=== PATIENT | male | born 1955 | race Caucasian/White ===

== ENCOUNTER 2022-01-13 14:52 | Inpatient (IN) ==
[2022-01-13] MEDS ORDERED: Heparin IV Adult Wt-Based Low-Dose *NO* Bolus Protocol IV ONE (15:01)
[2022-01-13 15:20] LABS: Basophils # (auto) 0.02 K/uL (0-0.2); Basophils % (auto) 0.2 %; Eosinophils # (auto) 0.13 K/uL (0-0.5); Eosinophils % (auto) 1.4 %; Hemoglobin 14.6 g/dL (14.0-18.0); Immature Granulocytes # (auto) 0.04 K/uL (0.00-0.02); Immature Granulocytes % (auto) 0.4 %; Lymphocytes # (auto) 1.79 K/uL (1.2-3.4); Mean Corpuscular Hemoglobin 29.1 pg (25-34); Mean Corpuscular Hgb Conc 34.8 g/dL (32-36); Mean Corpuscular Volume 83.7 fL (80-100); Mean Platelet Volume 9.5 fL (7.4-10.4); Monocytes # (auto) 1.13 K/uL (0.11-0.59); Neutrophils # (auto) 6.33 K/uL (1.4-6.5); Platelet Count 298 K/uL (130-400); RDW Coefficient of Variation 12.9 % (11.5-14.5); RDW Standard Deviation 38.7 fL (36.4-46.3); Red Blood Count 5.02 M/uL (4.7-6.1); White Blood Count 9.44 K/uL (4.8-10.8)
--- NOTE | 2022-01-13 15:21 | Emergency Department Note ---
Impression & Plan NSTEMI (non-ST elevated myocardial infarction) ED Provider Note NAME: TRIPP CAGE AGE: 66 SEX: M : 1955 ARRIVES VIA: Ambulance INFORMANT: Patient, ED PROVIDER(S): Yoni Rhoades MD Chief Complaint: Transfer for NSTEMI HPI: Patient presents due to concern for NSTEMI. The patient states that he initially presented to [facility] was having some infectious symptoms and thought that he may have had a pneumonia and was having associated productive cough. Patient states that this is since improved after further work-up and treatment he was told that he might have had an NSTEMI. The patient was pending transfer. Patient currently denies any current chest pains or shortness of breath. The patient has no abdominal pain nausea or vomiting. The patient does relate that he has significant family history of heart disease. Patient denies any leg swelling or history of DVT or PE. Patient does not use any alcohol or tobacco. No drug use. I did receive a request to transfer for the patient listed above. The patient had been admitted to [facility] on January 11 and was pending transfer to [facility] but the patient has been boarding in the emergency department for the last 2 days due to concern for NSTEMI with a rising troponin. No active chest pain or EKG changes to from the transferring emergency physician in [place]. Patient had received Lipitor aspirin heparin and Plavix at the time of his admission on January 11. The patient did receive a Plavix load of 300. Patient's vital signs at the time of acceptance were heart rate of 73 satting at 92% on room air with a blood pressure of 142/76. Patient's primary care doctor is Dr. Chapman. Dr. Jovani blanco as the transferring physician. Patient also did receive a heparin bolus at the time of admission. Blood work on January 13 showed a white count of 8 with a hemoglobin of 14 hematocrit of 44 and a platelet count of 253. The patient's calcium was 8.5 with a glucose of 106 and creatinine of 1.1. BUN was 18. Patient's high-sensitivity troponin was 862. Test was negative. Patient has a known history of hypertension and hypothyroidism only on lisinopril and Synthroid prior to his arrival at [facility]. I did conf irm that they would continue heparin en route. ROS: See HPI for pertinent positives and negatives. A total of 10 systems were reviewed and otherwise negative. Past medical history: See below Surgical history: See below Social history: See below Physical Exam: GENERAL: NAD, wearing a mask, non-toxic. EYE EXAM: Normal conjunctiva. PERRL, no anisocoria and EOM's grossly intact w/o pain. OROPHARYNX: Moist mucus membranes. Grossly normal dentition. NECK: Supple, no nuchal rigidity, no adenopathy, non-tender. No signs of meningismus. LUNGS: Clear to auscultation. Normal chest wall mechanics. HEART: NSR, no MRG. ABDOMEN: Abdomen soft, non-tender, normo-active bowel sounds, no masses, no rebound or guarding. BACK: No CVA TTP. SKIN: No rashes and no bruising. UPPER EXTREMITIES: Upper extremities are grossly normal. LOWER EXTREMITIES: Grossly normal, no edema. Negative Homans' sign bilaterally. NEURO EXAM: A&O x3, cranial nerves II-XII grossly intact, normal speech, moves all 4 extremities on command w/o issue. Differential diagnoses: Cardiac ischemia, aortic dissection, pulmonary embolism, pneumothorax, pneumonia, pericarditis, myocarditis, esophageal rupture, GERD, cholecystitis, pancreatitis, musculoskeletal, as well as other pathologies. Course: Patient was seen and evaluated the bedside. Full history physical exam was performed. EKG interpreted by me Normal sinus rhythm, rate of 62, normal intervals, left axis deviation, T wave version aVL. No obvious ST elevations Imaging Studies: See Below Cardiac monitoring: An order was placed for continuous cardiac monitoring. The monitor shows a rate of 65 with sinus rhythm. MDM: Patient was seen as a transfer as there was concern that the patient may require cardiac catheterization but had been on a wait list at [facility] but there was a bed hold and the patient had been in the ED hold at [place] for the last 2 days. I had initially spoken with on-call interventional list Dr. Quiroz who stated that if the patient did require an emergent cath it could be done. Upon presentation to the emergency department the patient has no active chest pain. Blood work was obtained along with an EKG troponin and chest x-ray. COVID test also obtained. Heparin ordered as well. Patient is a normal white count H&H and platelet count. The patient's kidney function is unremarkable. High-sensit ivity troponin is 286. This is a downtrend from his troponin elevation at [facility]. I did speak with the on-call digital strategist senior manager Dr. Coleman to make him aware and he stated patient would need to be n.p.o. at midline. I did make Dr. Quiroz aware the patient will be admitted to the medicine service with the patient had no active STEMI changes on EKG and was not complaining any chest pain. I did speak to the on-call hospitalist Dr. Soto and the patient was admitted to the medicine service. Critical Care: I have personally spent 45 minutes of critical care time in direct management of this patient. This includes bedside care, interpretation of diagnostic studies, and testing, discussion with consultants, patient, and family members, and other require inpatient management activities. This 45 minutes is in excess of all separately billable procedures. Past Med/Surg History Medical History H/O: HTN (hypertension) Hypothyroid Surgical History H/O hernia repair Family History Other Coronary heart disease Social History Smoking Status: Never smoker Hx Alcohol Use: No Preferred Language: Italian Communication Ability: Effective Delivery And Mail Sorter Required: No Beliefs That Will Affect Care: None Current Living Situation: Spouse Feels Safe at Home: Yes Safety Concerns: Feels Safe At This Time Assistive Devices: None Allergies Allergies Allergy/AdvReac Type Severity Reaction Status Date / Time amoxicillin Allergy Mild Gastrointestinal Unverified 01/13/22 15:22 Upset Home Meds Home Medications Medication Instructions Recorded Confirmed levothyroxine 50 mcg tablet 0 mcg PO QAM 01/13/22 01/13/22 lisinopril 2.5 mg tablet 2.5 mg PO QAM 01/13/22 01/13/22 Results & Data (ED) Vital Signs Vital Signs - 24 hr 01/13/22 14:56 01/13/22 15:09 01/13/22 15:12 Temperature 36.7 C Temperature Source Oral Pulse Rate 67 63 Pulse Rate from SpO2 Sensor 63 Respiratory Rate 16 15 Blood Pressure 157/101 H Blood Pressure Mean 119 Pulse Oximetry 97 97 97 Oxygen Delivery Method Room Air Room Air Sepsis Recent Fever Within 48 Hours No Sepsis New/Unexplained Change in Mental Status N/A Sepsis Action Taken by Nursing No Action Required 01/13/22 15:20 01/13/22 15:30 01/13/22 15:40 Temperature Temperature Source Pulse Rate 63 65 61 Pulse Rate from SpO2 Sensor 63 64 61 Respiratory Rate 18 20 24 Blood Pressure Blood Pressure Mean Pulse Oximetry 96 97 97 Oxygen Delivery Method Sepsis Recent Fever Within 48 Hours Sepsis New/Unexplained Change in Mental Status Sepsis Action Taken by Nursing 01/13/22 15:50 01/13/22 16:13 Temperature Temperature Source Pulse Rate 61 62 Pulse Rate from SpO2 Sensor 61 62 Respiratory Rate 11 L 15 Blood Pressure 152/97 H Blood Pressure Mean 115 Pulse Oximetry 97 96 Oxygen Delivery Method Sepsis Recent Fever Within 48 Hours Sepsis New/Unexplained Change in Mental Status Sepsis Action Taken by Care Home Medications Current Medication List: was personally reviewed by me Laboratory Data Attestation: I reviewed the patient's lab results. Result diagrams: 01/13/22 14:55 01/13/22 14:55 Lab Results 01/13/22 01/13/22 01/13/22 Range/Units 14:55 14:55 14:55 WBC 9.44 (4.8-10.8) K/uL RBC 5.02 (4.7-6.1) M/uL Hgb 14.6 (14.0-18.0) g/dL Hct 42.0 (42-52) % MCV 83.7 (80-100) fL MCH 29.1 (25-34) pg MCHC 34.8 (32-36) g/dL RDW Std Deviation 38.7 (36.4-46.3) fL RDW Coeff of Sarmad 12.9 (11.5-14.5) % Plt Count 298 (130-400) K/uL MPV 9.5 (7.4-10.4) fL Immature Gran % (Auto) 0.4 % Neut % (Auto) 67.0 % Lymph % (Auto) 19.0 % Meagher % (Auto) 12.0 % Eos % (Auto) 1.4 % Baso % (Auto) 0.2 % Neut # (Auto) 6.33 (1.4-6.5) K/uL Lymph # (Auto) 1.79 (1.2-3.4) K/uL Meagher # (Auto) 1.13 H (0.11-0.59) K/uL Eos # (Auto) 0.13 (0-0.5) K/uL Baso # (Auto) 0.02 (0-0.2) K/uL Immature Gran # (Auto) 0.04 H (0.00-0.02) K/uL PT 11.4 (9.0-12.0) Seconds INR 1.1 (0.9-1.1) APTT 54.6 H* (21.0-31.0) Seconds PTT Ratio 2.0 Sodium (136-145) mmol/L Potassium (3.5-5.1) mmol/L Chloride (98-107) mmol/L Carbon Dioxide (21-32) mmol/L Anion Gap (3-11) BUN (6-23) mg/dl Creatinine (0.6-1.4) mg/dl Est Cr Clr Drug Dosing ml/min Est GFR ( Amer) ml/min Est GFR (Non-Af Amer) ml/min BUN/Creatinine Ratio (10-20) Glucose (70-99(Fasting)) mg/dl Calcium (8.5-10.1) mg/dl Total Bilirubin (0.2-1.0) mg/dl AST (13-39) U/L ALT (7-52) U/L Alkaline Phosphatase (34-104) U/L Troponin I High Sens 286.7 H* (0-20) pg/ml Total Protein (6.0-8.3) gm/dl Albumin (3.4-5.0) gm/dl Globulin (2.5-4.0) gm/dl Albumin/Globulin Ratio (0.9-2) Lipase (11-82) U/L 01/13/22 Range/Units 14:55 WBC (4.8-10.8) K/uL RBC (4.7-6.1) M/uL Hgb (14.0-18.0) g/dL Hct (42-52) % MCV (80-100) fL MCH (25-34) pg MCHC (32-36) g/dL RDW Std Deviation (36.4-46.3) fL RDW Coeff of Sarmad (11.5-14.5) % Plt Count (130-400) K/uL MPV (7.4-10.4) fL Immature Gran % (Auto) % Neut % (Auto) % Lymph % (Auto) % Meagher % (Auto) % Eos % (Auto) % Baso % (Auto) % Neut # (Auto) (1.4-6.5) K/uL Lymph # (Auto) (1.2-3.4) K/uL Meagher # (Auto) (0.11-0.59) K/uL Eos # (Auto) (0-0.5) K/uL Baso # (Auto) (0-0.2) K/uL Immature Gran # (Auto) (0.00-0.02) K/uL PT (9.0-12.0) Seconds INR (0.9-1.1) APTT (21.0-31.0) Seconds PTT Ratio Sodium 136 (136-145) mmol/L Potassium 3.8 (3.5-5.1) mmol/L Chloride 104 (98-107) mmol/L Carbon Dioxide 23 (21-32) mmol/L Anion Gap 9 (3-11) BUN 14 (6-23) mg/dl Creatinine 0.99 (0.6-1.4) mg/dl Est Cr Clr Drug Dosing 78.2 ml/min Est GFR ( Amer) 91.6 ml/min Est GFR (Non-Af Amer) 79.0 ml/min BUN/Creatinine Ratio 14.1 (10-20) Glucose 97 (70-99(Fasting)) mg/dl Calcium 9.0 (8.5-10.1) mg/dl Total Bilirubin 0.4 (0.2-1.0) mg/dl AST 22 (13-39) U/L ALT 21 (7-52) U/L Alkaline Phosphatase 65 (34-104) U/L Troponin I High Sens (0-20) pg/ml Total Protein 6.7 (6.0-8.3) gm/dl Albumin 4.0 (3.4-5.0) gm/dl Globulin 2.7 (2.5-4.0) gm/dl Albumin/Globulin Ratio 1.5 (0.9-2) Lipase 88 H (11-82) U/L Administered Medications Heparin Sodium/Dextrose (Heparin Sodium/Dextrose) 25,000 units in 500 mls @ 19 mls/hr IV .Q24H REMBERTO; Protocol Stop: 02/12/22 15:29 Last Titration: 01/13/22 19:09 Dose: 950 units/hr, 19 mls/hr Documented by: [id number] Cosigned by: [id number] Admin: 01/13/22 16:03 Dose: 950 units/hr, 19 mls/hr Documented by: [id number] Cosigned by: [id number] Magnesium Hydroxide (Magnesium Hydroxide Susp 30 Ml Udc) 30 ml PO Q12H REMBERTO Stop: 01/15/22 05:01 Last Admin: 01/13/22 18:26 Dose: 30 ml Documented by: [id number] Imaging Data Radiologist's Impression: Chest X-Ray 01/13/22 15:00 XR chest 1V portable HISTORY: Atypical Chest Pain COMPARISON: None. FINDINGS: The cardiac silhouette is top normal in size. This mildly tortuous thoracic aorta. The lungs are clear. No pleural fusions. No pneumothorax. IMPRESSION: No acute process. ACT 112: Negative or not required by law. Electronically signed by: Russel Lares M.D. 01/13/2022 3:31 PM Discharge Plan Visit Data Chief Complaint: Chest Pain Stated Complaint: transfer [facility] ED Provider: Yoni Rhoades Discharge Problem: NSTEMI (non-ST elevated myocardial infarction) Patient Disposition: Admitted As Inpatient Discharge Instructions Interventions: ED Discharge Assessment Last Done: 01/13/22 17:18
[2022-01-13] MEDS ORDERED: Patient's ALLERGY Info needs ENTERED SCH (15:30)
[2022-01-13] MEDS ORDERED: Heparin IV Adult Wt-Based Low-Dose *NO* Bolus Protocol IV SCH (15:30)
--- NOTE | 2022-01-13 15:34 | XRay Report ---
XR chest 1V portable HISTORY: Atypical Chest Pain COMPARISON: None. FINDINGS: The cardiac silhouette is top normal in size. This mildly tortuous thoracic aorta. The lung s are clear. No pleural fusions. No pneumothorax. IMPRESSION: No acute process. ACT 112: Negative or not required by law. Electronically signed by: Russel Lares M.D. 01/13/2022 3:31 PM
[2022-01-13 15:47] LABS: INR 1.1 (0.9-1.1); Prothrombin Time 11.4 Seconds (9.0-12.0)
[2022-01-13 15:48] LABS: Albumin Globulin Ratio 1.5 (0.9-2); BUN Creatinine Ratio 14.1 (10-20); Bilirubin,Total 0.4 mg/dl (0.2-1.0); Creatinine Clr Calc Pharmacy 78.2 ml/min; Est GFR (African American) 91.6 ml/min; Globulin 2.7 gm/dl (2.5-4.0); Potassium 3.8 mmol/L (3.5-5.1); Total Protein 6.7 gm/dl (6.0-8.3)
[2022-01-13 16:00] LABS: Partial Thromboplastin Time 54.6 Seconds (21.0-31.0)
[2022-01-13] MEDS: HEPARIN SODIUM/DEXTROSE 25,000 UNITS/500 ML BAG IV SCH (16:03)
[2022-01-13] MEDS ORDERED: NITROGLYCERIN SL 0.4 MG/TAB TAB SL PRN (16:50)
[2022-01-13] MEDS ORDERED: ONDANSETRON INJ 2 MG/ML 2 ML VIAL IV PRN (16:50)
[2022-01-13] MEDS ORDERED: ACETAMINOPHEN 325 MG TAB PO PRN (16:50)
[2022-01-13] MEDS ORDERED: POLYETHYLENE (MIRALAX) 17 GM PACK PO PRN (16:50)
--- NOTE | 2022-01-13 17:11 | History & Physical Report ---
Date of Service January 13, 2022 Assessment & Plan (1) NSTEMI (non-ST elevated myocardial infarction): Plan: #. NSTEMI Patient transferred from [facility] [see HPI] Patient denies further chest pain since Friday Admitting troponin of 286.7, admitting EKG NSR with 62 bpm, no ST elevation. Patient has some nausea, received full dose aspirin at [facility], will continue with baby aspirin Continue with heparin drip, cardiology aware per ED Doc, likely heart cath tomorrow, n.p.o. midnight. Trend troponin, EKG as needed for chest pain, EKG in AM. Telemetry monitoring. Nitro for chest pain as needed. #. Other chronic medical conditions: HTN, hypothyroidism Continue with/resume home meds as and when appropriate. #. DVT prophylaxis: Patient on heparin drip #. Full code History of Present Illness Chief Complaint: Chest pain/NSTEMI Primary Care Provider: Harpreet Chapman MD 66-year-old gentleman with PMH of HTN, HLD, hypothyroidism, JEM, cervical DDD and hemorrhoids presented to our ED 01/13 from [facility] for heart cath for NSTEMI. Per patient, he had chest pain across the chest last Friday while at work, which improved later on and he went home slept couple of hours and woke up with similar chest pain again when he decided to go to [facility]. At [facility], he was found to have elevated troponin with no ST elevation in EKG and was told he needed heart cath and was awaiting transfer for [facility] but did not get a bed and hence was transferred to our hospital. At bedside exam, was present. Patient denied any further chest pain since Friday, reports some headache with neck arthritis, denies dizziness or sore throat or palpitation, reports cough at baseline, also reports some nausea, denies any acute changes in bladder habits. Patient reports constipation, last bowel movement Friday a.m. Patient denies any history of heart attack or VA or stent in the heart in the past. No personal history of blood clot. Family history significant for stroke in mother in 80s and heart attack in father at age 55. Patient also reports his 2 elder brothers having some heart problem [one of them had VA in his 70s]. Patient denies smoking tobacco/using alcohol/using recreational drugs. 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 Allergies Allergy/AdvReac Type Severity Reaction Status Date / Time amoxicillin Allergy Mild Gastrointestinal Unverified 01/13/22 15:22 Upset Home Medications Medication Instructions Recorded Confirmed Type levothyroxine 50 mcg tablet 0 mcg PO QAM 01/13/22 01/13/22 History lisinopril 2.5 mg tablet 2.5 mg PO QAM 01/13/22 01/13/22 History Past Med/Surg History Social History Smoking Status: Never smoker Preferred Language: Setswana Feels Safe at Home: Yes Review of Systems Review of Systems: Negative otherwise mentioned in HPI. Physical Exam Physical Exam: GENERAL: Alert and oriented x3. NAD, on RA. HEENT: No pallor, no icterus. Pupils equal, round and reactive to light. Oral mucosa moist. NECK: No JVD, no neck masses. HEART: S1 and S2 heard. Regular rate and rhythm. No murmur, no gallop. RESPIRATORY SYSTEM: Normal AP diameter. No accessory muscle use. No wheezing, no crackles. ABDOMEN: Soft, bowel sounds present, nontender, no distention. CENTRAL NERVOUS SYSTEM: No facial droop. Speech is clear. Obeys simple commands. Moves extremities. EXTREMITIES: No edema, no erythema seen. Heparin drip by bedside, pt receiving drip. Results & Data Results & Data ([facility]) Vital Signs (Past 12 Hours) Vital Signs Temp Pulse Resp BP Pulse Ox 01/13/22 16:13 62 15 152/97 H 96 01/13/22 15:50 61 11 L 97 01/13/22 15:40 61 24 97 01/13/22 15:30 65 20 97 01/13/22 15:20 63 18 96 01/13/22 15:12 63 15 97 01/13/22 15:09 36.7 C 67 16 157/101 H 97 01/13/22 14:56 97 Code Status & VTE Plan VTE Prophylaxis Plan VTE Prophylaxis will be ordered: No
[2022-01-13] MEDS: MAGNESIUM HYDROXIDE SUSP 30 ML UDC PO SCH (18:26)
[2022-01-13 21:00] LABS: Partial Thromboplastin Ratio 1.5; Partial Thromboplastin Time 42.2 Seconds (21.0-31.0)
[2022-01-14 03:29] LABS: Hematocrit (blood only) 40.7 % (42-52); Hemoglobin 14.1 g/dL (14.0-18.0); Mean Corpuscular Hemoglobin 29.3 pg (25-34); Mean Corpuscular Hgb Conc 34.6 g/dL (32-36); Mean Corpuscular Volume 84.6 fL (80-100); Mean Platelet Volume 9.2 fL (7.4-10.4); Platelet Count 271 K/uL (130-400); RDW Coefficient of Variation 12.9 % (11.5-14.5); RDW Standard Deviation 39.9 fL (36.4-46.3); Red Blood Count 4.81 M/uL (4.7-6.1); White Blood Count 8.08 K/uL (4.8-10.8)
[2022-01-14 03:53] LABS: BUN Creatinine Ratio 15.4 (10-20); Calcium 8.9 mg/dl (8.5-10.1); Creatinine Clr Calc Pharmacy 74.4 ml/min; Est GFR (African American) 86.3 ml/min; Est GFR (Non-African American) 74.5 ml/min; Magnesium 2.2 mg/dl (1.7-2.4); Phosphorus 2.5 mg/dl (2.5-4.9); Potassium 4.1 mmol/L (3.5-5.1)
[2022-01-14 03:55] LABS: Partial Thromboplastin Ratio 2.2; Partial Thromboplastin Time 61.5 Seconds (21.0-31.0)
[2022-01-14] MEDS: MAGNESIUM HYDROXIDE SUSP 30 ML UDC PO SCH ×2 (04:41→16:41)
[2022-01-14] MEDS ORDERED: PNEUMOCOCCAL Polysaccharide Vaccine 25mcg/0.5mL vial/Syr IM ONE (05:45)
[2022-01-14] MEDS ORDERED: LEVOTHYROXINE SODIUM 100 MCG TABLET PO SCH ×2 (06:30→09:00)
[2022-01-14] MEDS ORDERED: ASPIRIN 81 MG ECTAB PO SCH (09:00)
[2022-01-14] MEDS ORDERED: lisinopril 2.5 MG TAB PO SCH (09:00)
--- NOTE | 2022-01-14 09:18 | Student Report ---
[facility] Med Student Consult Date of Consultation Date of Consultation: January 14, 2022 HPI History of Present Illness: Mr. Zepeda is a very pleasant 66 yo man with a pmh of HTN and HLD presenting with elevated troponin following episode of chest pain 3 days previous. Three days ago (01/11/22) pt reports having walked approximately 1/2 mile at work and experience chest pain and increased fatigue. He finished out his work day and went home and went to bed. The chest pain continued and was convinced to go to ER in [place] assuming he had developed pneumonia from some previous congestion. Upon arrival he was found to have an elevated trop and was started on heparin drip awaiting transfer to [facility]. Due to lack of space in [place], after 2 days pt was transferred here. The heparin drip was discontinued and he has been continuing with aspirin therapy. He has a family history of Father with an [place] at age 55 and brothers with various heart conditions including x3 CABG. Today, pt reports no chest pain or shortness of breath. Has not required any nitroglycerin therapy He denies any lower extremity swelling or cough. He has had some nausea which he believes to be secondary to constipation, since he has no passed a bowel movement since Friday. He is hoping to be able to walk around a little bit more today. Patient History Patient History: See below ROS Review of Systems: Denies fever, chest pain, SOB, dizziness, headache, LOC, vomiting, increased urination, dysuria, lower leg edema. Endorses constipation and nausea. PE Physical Exam: Pt was lying comfortably in bed. Oriented x3. Head: Intact EOM Cardio: RRR with no RMG appreciated on exam, No lower extremity edema Pulm: CTA, no labored breathing GI: Diffuse mild tenderness, non distended. Results & Data Results and Data: Troponin: 381.7 this morning EKG: Bradycardic, no ST changes. AP Assessment and Plan: Mr. Zepeda is a 66 yo man with a history of HTN presenting with NSTEMI 3 days post onset of chest pain. 1) NSTEMI Currently pain controlled and hemodynamically stable being treated with aspirin. JACOB score of 4 resulting in 20% risk of event. His KEVIN score is 85 points designating him low risk for in-hospital mortality. Not being treated with beta karen due to bradycardia. Previous negative reaction anti-lipidemia therapy-intense sensation in fever and malaise. Catheterization to be completed for evaluation of blockage. Echo will also need to be scheduled for evaluation of any structural abnormalities. Diet: NPO Dispo: Telemtry Anticoag: Aspirin Home Medications Medication Instructions Recorded Confirmed Type levothyroxine 50 mcg tablet 0 mcg PO QAM 01/13/22 01/13/22 History lisinopril 2.5 mg tablet 2.5 mg PO QAM 01/13/22 01/13/22 History Allergies Allergy/AdvReac Type Severity Reaction Status Date / Time amoxicillin Allergy Mild Gastrointestinal Unverified 01/13/22 15:22 Upset
[2022-01-14 10:05] LABS: Chol HDL Ratio 4.6 (0-5)
[2022-01-14] MEDS ORDERED: amLODIPine BESYLATE 5 MG TAB PO ONE (10:06)
--- NOTE | 2022-01-14 10:11 | Cardiology Consultation ---
Date of Consultation January 14, 2022 Assessment & Plan (1) NSTEMI (non-ST elevated myocardial infarction): (2) H/O: HTN (hypertension): 66-year-old male transferred from [facility] for reported non- STEMI. Currently pain-free. No ischemic EKG changes but rather bradycardic. We will check a 2D echocardiogram now and plan for cardiac catheterization. Blood pressure significant elevated at this time so we will add amlodipine x1 and follow. Given the need for contrast dye we will try to avoid increasing REGINA at this time Further recommendations to follow History of Present Illness Reason for Consultation: Non-STEMI Requesting Physician: Dr. Rhoades Attending Physician: Mehnaz Vaughn MD Allergies Allergy/AdvReac Type Severity Reaction Status Date / Time amoxicillin Allergy Mild Gastrointestinal Unverified 01/13/22 15: Upset Home Medications Medication Instructions Recorded Confirmed Type levothyroxine 50 mcg tablet 0 mcg PO QAM 01/13/22 01/13/22 History lisinopril 2.5 mg tablet 2.5 mg PO QAM 01/13/22 01/13/22 History Patient History Medical History H/O: HTN (hypertension) Hypothyroid Surgical History H/O hernia repair Family History Other Coronary heart disease Social History Smoking Status: Never smoker Hx Alcohol Use: No Preferred Language: Singaporean Communication Ability: Effective Agricultural Specialist Required: No Beliefs That Will Affect Care: None Current Living Situation: Spouse Feels Safe at Home: Yes Safety Concerns: Feels Safe At This Time Assistive Devices: None Review of Systems Review of Systems: All systems reviewed & are unremarkable except as noted in HPI & below Results & Data ([facility]) Vital Signs (Past 12 Hours) Vital Signs Temp Pulse Pulse Resp BP Pulse Ox 01/14/22 07:35 50 L 01/14/22 07:00 36.5 C 61 18 178/98 H 97 01/14/22 03:29 36.5 C 55 L 18 158/90 H 98 01/13/22 23:36 59 L 01/13/22 23:18 36.5 C 55 L 18 160/87 H 98
[2022-01-14 10:16] LABS: Estimated Average Glucose 120 mg/dl; Hemoglobin A1C 5.8 % (4.5-5.6)
--- NOTE | 2022-01-14 11:18 | Hospitalist Progress Note ---
Date of Service January 14, 2022 Assessment & Plan (1) NSTEMI (non-ST elevated myocardial infarction): Plan: #. NSTEMI Patient was transferred from [facility] where he presented for chest pain and noted to have NSTEMI Currently chest jens free Admitting troponin HS of 286.7, admitting EKG NSR with 62 bpm, no ST elevation. Trop HS trended up to 382 Patient received full dose aspirin at [facility] Continue ASA 81mg Continue with heparin drip Discussed with Marine Structural Designer today Patient planned for Cardiac catheterization today #. Hypertension Continue lisinopril Monitor BP. May need adjustments to med #. Hypothyroidism Continue home levothyroxine #. DVT prophylaxis: Patient on heparin drip #. Full code Admission and Anticipated Discharge Date Admission Date: January 13, 2022 Subjective Patient seen and examined Denied chest pain at this time Denies shortness of breath. Reports cough occasionally productive Denies fevers, chills, nausea, vomiting, abd pain, diarrhea, constipation Denies dysuria, freq, urgency, hematuria Physical Exam Constitutional: + well hydrated; no acute distress Eyes: PERRL, conjunctivae normal, anicteric sclerae ENMT: external ear and nose normal, oropharynx normal Respiratory: normal respiratory effort, lungs clear to auscultation Cardiovascular: Rate/Rhythm: regular rate and regular rhythm S1 S2 Gastrointestinal (Abdomen): normal bowel sounds, soft, nontender, no hepatosplenomegaly Musculoskeletal: no cyanosis or clubbing, extremities motor strength 5/5 No pedal edema Neurologic: PERRL, EOMI, accommodation nl, no face palsy, no dysarthria Psychiatric: A+Ox3, euthymic affect Results & Data Results & Data ([facility]) Vital Signs (Past 12 Hours) Vital Signs Temp Pulse Pulse Resp BP Pulse Ox 01/14/22 07:35 50 L 01/14/22 07:00 36.5 C 61 18 178/98 H 97 01/14/22 03:29 36.5 C 55 L 18 158/90 H 98 01/13/22 23:36 59 L Laboratory Results Abnormal lab results 01/13/22 01/13/22 01/13/22 Range/Units 14:55 14:55 14:55 Hct (42-52) % [place] # (Auto) 1.13 H (0.11-0.59) K/uL Immature Gran # (Auto) 0.04 H (0.00-0.02) K/uL APTT 54.6 H* (21.0-31.0) Seconds Hemoglobin A1c (4.5-5.6) % Troponin I High Sens 286.7 H* (0-20) pg/ml Lipase (11-82) U/L 01/13/22 01/13/22 01/13/22 Range/Units 14:55 20:40 20:40 Hct (42-52) % [place] # (Auto) (0.11-0.59) K/uL Immature Gran # (Auto) (0.00-0.02) K/uL APTT 42.2 H (21.0-31.0) Seconds Hemoglobin A1c (4.5-5.6) % Troponin I High Sens 382.7 H* D (0-20) pg/ml Lipase 88 H (11-82) U/L 01/14/22 01/14/22 01/14/22 Range/Units 03:19 03:19 03:19 Hct 40.7 L (42-52) % [place] # (Auto) (0.11-0.59) K/uL Immature Gran # (Auto) (0.00-0.02) K/uL APTT 61.5 H* (21.0-31.0) Seconds Hemoglobin A1c (4.5-5.6) % Troponin I High Sens 381.7 H* (0-20) pg/ml Lipase (11-82) U/L 01/14/22 Range/Units 03:19 Hct (42-52) % [place] # (Auto) (0.11-0.59) K/uL Immature Gran # (Auto) (0.00-0.02) K/uL APTT (21.0-31.0) Seconds Hemoglobin A1c 5.8 H (4.5-5.6) % Troponin I High Sens (0-20) pg/ml Lipase (11-82) U/L
--- NOTE | 2022-01-14 11:26 | Electrocardiogram Report ---
Test Reason : Blood Pressure : / mmHG Vent. Rate : 062 BPM Atrial Rate : 062 BPM P-R Int : 188 ms QRS Dur : 094 ms QT Int : 410 ms P-R-T Axes : 013 -32 091 degrees QTc Int : 416 ms Normal sinus rhythm Left axis deviation Abnormal ECG No previous ECGs available Confirmed by Christiano Leyva ([id number]) on 01/14/2022 11:25:32 AM Referred By: Confirmed By:Dewayne Leyva
--- NOTE | 2022-01-14 13:03 | Electrocardiogram Report ---
Test Reason : Blood Pressure : / mmHG Vent. Rate : 056 BPM Atrial Rate : 056 BPM P-R Int : 182 ms QRS Dur : 100 ms QT Int : 462 ms P-R-T Axes : 003 -20 089 degrees QTc Int : 445 ms Sinus bradycardia Otherwise normal ECG When compared with ECG of 13-JAN-2022 15:02, (unconfirmed) No significant change was found Confirmed by Christiano Leyva ([id number]) on 01/14/2022 1:03:28 PM Referred By: REFERRED SELF Confirmed By:Dewayne Leyva
[2022-01-14] MEDS ORDERED: niCARdipine HCL INJ 2.5 MG/ML 10 ML AMP ONE (14:57)
[2022-01-14] MEDS ORDERED: HEPARIN (PORCINE) 1000 UNIT/ML 10 ML (CATH LAB USE ONLY) ONE (14:57)
[2022-01-14] MEDS ORDERED: NITROGLYCERIN/D5W 100MCG/ML 20ML SYR ONE (14:58)
[2022-01-14] MEDS ORDERED: MIDAZOLAM HCL 1 MG/ML 2ML VIAL ONE (14:58)
[2022-01-14] MEDS ORDERED: fentaNYL citrate 100 MCG/2 ML VIAL ONE (14:58)
--- NOTE | 2022-01-14 15:01 | Pre Anesthesia Assessment ---
Date of Service January 14, 2022 Pre Sedation Assessment Vital Signs Temp Pulse Pulse Pulse Resp BP BP 01/14/22 14:25 63 172/108 H 01/14/22 11:35 97.9 F 61 16 146/86 H 01/14/22 07:35 50 L 01/14/22 07:00 97.7 F 61 18 178/98 H 01/14/22 03:29 97.7 F 55 L 18 158/90 H 01/13/22 23:36 59 L 01/13/22 23:18 97.7 F 55 L 18 160/87 H 01/13/22 20:04 97.9 F 60 18 145/83 H 01/13/22 17:47 98.1 F 62 18 156/95 H 01/13/22 16:13 62 15 152/97 H 01/13/22 15:50 61 11 L 01/13/22 15:40 61 24 01/13/22 15:30 65 20 01/13/22 15:20 63 18 01/13/22 15:12 63 15 01/13/22 15:09 98.1 F 67 16 157/101 H Pulse Ox 01/14/22 14:25 96 01/14/22 11:35 98 01/14/22 07:35 01/14/22 07:00 97 01/14/22 03:29 98 01/13/22 23:36 01/13/22 23:18 98 01/13/22 20:04 96 01/13/22 17:47 98 01/13/22 16:13 96 01/13/22 15:50 97 01/13/22 15:40 97 01/13/22 15:30 97 01/13/22 15:20 96 01/13/22 15:12 97 01/13/22 15:09 97 Cardiovascular RRR, no murmur, no edema Respiratory normal respiratory effort, lungs clear to auscultation Pre-Sedation Airway Assessment Smoking Status: Never smoker Hx Sleep Apnea: Yes Hx Difficult Intubation: No Short, Thick Neck: Yes Thyromental Distance: > or= 3.5 Finger Breadths Oral Cavity: + WNL Mallampati Class: III ASA: ASA3 NPO Status Date of Last Intake of Fluids: 01/14/22 Time of Last Intake of Fluids: 07:30 Date of Last Intake of Solid Food: 01/13/22 Procedure Planning Contraindications for Sedation: none Current Medications Reviewed: Yes Notes The planned sedation has been discussed with the patient. Informed Consent was obtained. I have identified the patient, determined the appropriateness of sedation and have assessed the patient immediately prior to the procedure. All medicine(s) and interventions are by my order.
--- NOTE | 2022-01-14 15:46 | Post Anesthesia Assessment ---
Date of Service January 14, 2022 Post Sedation Assessment Vital Signs Temp Pulse Pulse Pulse Resp BP BP 01/14/22 14:25 63 172/108 H 01/14/22 11:35 97.9 F 61 16 146/86 H 01/14/22 07:35 50 L 01/14/22 07:00 97.7 F 61 18 178/98 H 01/14/22 03:29 97.7 F 55 L 18 158/90 H 01/13/22 23:36 59 L 01/13/22 23:18 97.7 F 55 L 18 160/87 H 01/13/22 20:04 97.9 F 60 18 145/83 H 01/13/22 17:47 98.1 F 62 18 156/95 H 01/13/22 16:13 62 15 152/97 H 01/13/22 15:50 61 11 L Pulse Ox 01/14/22 14:25 96 01/14/22 11:35 98 01/14/22 07:35 01/14/22 07:00 97 01/14/22 03:29 98 01/13/22 23:36 01/13/22 23:18 98 01/13/22 20:04 96 01/13/22 17:47 98 01/13/22 16:13 96 01/13/22 15:50 97 Recovery Score Activity: Moves 4 extremities Respiration: Deep Breath/Cough Circulation: +/-20% PreAnes Value Consciousness: Fully Awake Oxygen Saturation: O2 needed for >90% Discharge Sedation Level of Care: Fast Track Phase II Post Sedation Plan On clinical assessment, the patient appears to have tolerated the sedation without complications. Patient is recovering as anticipated. Patient will continue to be monitored by nursing and may be discharged when sedation discharge criteria are met per below protocol. Upon Completions of procedure up to 15 minutes continue every 5 minute vital signs and the P.A.R. score; then discharge to a Phase I or Fast Track to Phase II per the following guidelines: * Discharge Patient to appropriate Phase II area if PAR is 8 or greater or return to pre- procedure baseline. The post - procedure orders will be as directed. * If PAR score is less than 8 or not return to pre-procedure baseline then patient will follow Phase I monitoring till PAR is reached for Phase II. The Phase I may be done in procedure room or may call to secure a Phase I area. * If naloxone or flumazenil are used for reversal, hold in Phase I for continued monitoring from when last reversal dose was given for a minimum of 60 minutes or longer pending the nurse and/or physician discretion of patient condition before discharge to Phase II. Please call the Sedation Physician to re-evaluate and complete post-note for discharge to Phase II area. Do NOT discharge from procedure sedation or Phase 1 until post- sedation evaluation note is complete by procedure /sedation MD Sedation Discharge Instructions to be given to the patient at discharge to home.
--- NOTE | 2022-01-14 15:54 | Cardiac Catheterization ---
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 Cardiac Status Clinical evaluation leading to the procedure CAD Presenation: Non STEMI Diagnostic Physicians Name: Christiano Quiroz MD Closure Device Recommendations: CABG Cardiac Cath Procedure Full Procedure Date January 14, 2022 Pre-Procedure Diagnosis Pre-Procedure Diagnosis: Non STEMI AUC Score AUC Score: 8 Post-Procedure Diagnosis Post-Procedure Diagnosis: Severe CAD and Normal Intracardiac Pressures Procedure(s) Performed Procedure(s) Performed: Coronary Angiography and Left Heart Cath Acid Tester Christiano Quiroz MD Operations Clerk(s) Ventilator Specialist Estimated Blood Loss Estimated Blood Loss: 15 Medication(s) Medication(s): Fentanyl, Heparin, Lidocaine 1%, Nicardipine, Nitroglycerin and Versed Summary of Findings Indication: NSTEMI Access: 6 Fr right radial artery Catheters: Couch Findings: LM -Short, normal caliber, 20% ostial, 30% distal at bifurcation LAD -medium caliber, diffuse ostial to mid disease up to 80% proximal. Mid/distal vessel without significant disease and wraps around apex. Small to medium D1 with 99% proximal stenosis. Circumflex -large caliber, codominant, 20% ostial. Distal circumflex, left PDA without significant disease. Large OM 2 ectatic with 80% proximal stenosis at bifurcation. 98% stenosis in very distal OM2. RCA -small to medium, codominant, 70% ostial, 90% proximal, 70% mid. Distal RCA/PDA without significant disease. LVEDP -3 Arterial Closure: TR band Summary: 1. Severe multivessel coronary artery disease -30% distal left main Diffuse ostial/proximal LAD up to 80%. 99% proximal first diagonal 80% proximal large OM 2 Small to medium codominant RCA 70% ostial, 90% proximal, 70% mid 2. Normal intracardiac filling pressure Recommendations: Referral to tertiary center for CABG evaluation Hemodynamics Rest Ao:: 128/81/107 Final Ao: 129/75/99 LV: 124/3 Recommendations Recommendations: CABG Specimens Specimens: None Radiation Exposure (mGy) 487 Contrast (mls) 35 Anesthesia Moderate [id number] Procedural Complication(s) None Disposition ICU I attest to the content of the Intraoperative Record and any orders documented therein. Any exceptions are noted below. [facility] Card Cath Procedure Codes Cardiac Catheterization Procedure 1: Cardiovascular Cath Procedures: 79176 Coronaries and LHC (+/-LV) Moderate Sedation Procedure 1: Sedation/Anesthesia: 33635 Mod Sedation by the same physician;Init15 Min Child Age 5 & Up PG Care Time/CCT Total # of Minutes Spent Total Time Spent with Patient: Total time spent is greater than 50% in coordination of care (as documented) at patient's floor/unit and/or counseling patient:
[2022-01-14] MEDS ORDERED: SODIUM CHLORIDE 0.9% 1000ML 500 ML IV SCH (16:00)
--- NOTE | 2022-01-14 16:32 | Communication Note ---
Date of Service: January 14, 2022 Cardiac cath revealed: . Severe multivessel coronary artery disease -30% distal left main Diffuse ostial/proximal LAD up to 80%. 99% proximal first diagonal 80% proximal large OM 2 Small to medium codominant RCA 70% ostial, 90% proximal, 70% mid Patient would benefit from coronary bypass grafting surgery. States that you prefer to have surgery done at [facility] since that is where his brothers have had it done. We will asked the primary team to arrange transfer.
--- NOTE | 2022-01-14 17:44 | Discharge Summary ---
Date of Service January 14, 2022 Admission HPI Per Admitting Provider 66-year-old gentleman with PMH of HTN, HLD, hypothyroidism, JEM, cervical DDD and hemorrhoids presented to our ED 01/13 from [facility] for heart cath for NSTEMI. Per patient, he had chest pain across the chest last Friday while at work, which improved later on and he went home slept couple of hours and woke up with similar chest pain again when he decided to go to [facility]. At [facility], he was found to have elevated troponin with no ST elevation in EKG and was told he needed heart cath and was awaiting transfer for [facility] but did not get a bed and hence was transferred to our hospital. At bedside exam, was present. Patient denied any further chest pain since Friday, reports some headache with neck arthritis, denies dizziness or sore throat or palpitation, reports cough at baseline, also reports some nausea, denies any acute changes in bladder habits. Patient reports constipation, last bowel movement Friday a.m. Patient denies any history of heart attack or HI or stent in the heart in the past. No personal history of blood clot. Family history significant for stroke in mother in 80s and heart attack in father at age 55. Patient also reports his 2 elder brothers having some heart problem [one of them had HI in his 70s]. Patient denies smoking tobacco/using alcohol/using recreational drugs. 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 Admission Exam Per Admitting Provider GENERAL: Alert and oriented x3. NAD, on RA. HEENT: No pallor, no icterus. Pupils equal, round and reactive to light. Oral mucosa moist. NECK: No JVD, no neck masses. HEART: S1 and S2 heard. Regular rate and rhythm. No murmur, no gallop. RESPIRATORY SYSTEM: Normal AP diameter. No accessory muscle use. No wheezing, no crackles. ABDOMEN: Soft, bowel sounds present, nontender, no distention. CENTRAL NERVOUS SYSTEM: No facial droop. Speech is clear. Obeys simple commands. Moves extremities. EXTREMITIES: No edema, no erythema seen. Heparin drip by bedside, pt receiving drip. Principal Diagnosis NSTEMI Multivessel Coronary artery disease Discharge Exam Constitutional + well hydrated; no acute distress Eyes PERRL, conjunctivae normal, anicteric sclerae ENMT external ear and nose normal, oropharynx normal Respiratory normal respiratory effort, lungs clear to auscultation Cardiovascular Rate/Rhythm: regular rate and regular rhythm S1 S2 Gastrointestinal (Abdomen) normal bowel sounds, soft, nontender, no hepatosplenomegaly Musculoskeletal no cyanosis or clubbing, extremities motor strength 5/5 Neurologic PERRL, EOMI, accommodation nl, no face palsy, no dysarthria Psychiatric A+Ox3, euthymic affect Discharge Data Allergies Allergy/AdvReac Type Severity Reaction Status Date / Time amoxicillin Allergy Mild Gastrointestinal Unverified 01/13/22 15:22 Upset Consultations 01/13/22 16:12 ED Decision to Admit Stat 01/13/22 16:50 Consult Cardiology Routine 01/14/22 11:03 Consult Cardiac Catheterization Routine 01/14/22 17:14 Burn CD for patient Routine Procedures Performed Operation Date: 01/14/22 16:00 Actual Procedures p Cath, Left with Cors and Vent - Ruy Quiroz MD s Cineradiography w/Routine Exam - Ruy Quiroz MD LM -Short, normal caliber, 20% ostial, 30% distal at bifurcation LAD -medium caliber, diffuse ostial to mid disease up to 80% proximal. Mid/distal vessel without significant disease and wraps around apex. Small to medium D1 with 99% proximal stenosis. Circumflex -large caliber, codominant, 20% ostial. Distal circumflex, left PDA without significant disease. Large OM 2 ectatic with 80% proximal stenosis at bifurcation. 98% stenosis in very distal OM2. RCA -small to medium, codominant, 70% ostial, 90% proximal, 70% mid. Distal RCA/PDA without significant disease. LVEDP -3 Arterial Closure: TR band Summary: 1. Severe multivessel coronary artery disease -30% distal left main Diffuse ostial/proximal LAD up to 80%. 99% proximal first diagonal 80% proximal large OM 2 Small to medium codominant RCA 70% ostial, 90% proximal, 70% mid 2. Normal intracardiac filling pressure Recommendations: Referral to tertiary center for CABG evaluation Ordered Studies 01/14/22 10:46 CL Cath Imgs for PACS use only Routine Hospital Course (1) NSTEMI (non-ST elevated myocardial infarction): #. NSTEMI #. Multivessel CAD Patient was transferred from [facility] where he presented for chest pain and noted to have NSTEMI Currently chest pain free Admitting troponin HS of 286.7, admitting EKG NSR with 62 bpm, no ST elevation. Trop HS trended up to 382 Patient received full dose aspirin at [facility] Continue ASA 81mg Was on heparin drip. Patient had cardiac cathteterization which showed multivessel CAD Svp Business Development recommended transfer to tertiary center for CABG evaluation. Patient accepted to [place] for CABG evaluation #. Hypertension Was on lisinopril #. Hypothyroidism Continue home levothyroxine Total Time Total Time Spent Total Time Spent (In Minutes): 40 Total Time Includes: Examination of the Patient, Discharge Planning, Medication Reconciliation and Communication With Other Providers Discharge Plan Discharge Items Patient Disposition: Transfer Acute Care Hospital Reason For Visit: NSTEMI Discharge Diagnosis: NSTEMI Multivessel Coronary artery disease Activity: As commented below Non-emergency contact: Primary Care Provider and Balling Head Tender Follow-up/Referrals: Harpreet Chapman MD [Primary Care Provider] - Diet: Heart Healthy Addtl Attending Provider Instructions: Mr Zepeda. You were transferred from [facility] where you presented with chest pain. You were noted to have a heart attack. You had a cardiac catheterization which showed multiple narrowing in the blood vessels of your heart. This requires evaluation for possible bypass surgery. You are being transferred to [facility] for evaluation for this. It was a pleasure taking care of you. Pending Studies at Discharge: No Stand-Alone Forms: My [facility] Skilled Items Patient informed of condition?: Yes DNR: No Discharge Level of Care: Other Communicable Disease: No Discharge Prognosis: Stable Lines: Peripheral IV Urinary Catheter: No Medications and DC Order Prescriptions: New aspirin 81 mg Tablet,Delayed Release (Dr/Ec) 81 mg PO QAM Qty: 30 RF: 0 Continued levothyroxine 50 mcg Tablet 0 mcg PO QAM RF: 0 lisinopril 2.5 mg Tablet 2.5 mg PO QAM RF: 0 Discharge Orders: Discharge Order (Routine); Ordered 01/14/22 Ordered By: Mehnaz Vaughn Admission Data Admit Date/Time: 01/13/22 16:51 Attending Provider: Mehnaz Vaughn I. Admit Provider: Peng Soto Primary Care Provider: Harpreet Chapman Other Providers: Gabo Villavicencio ; Iván Coleman ; Peng Soto ; Ruy Quiroz Other Interventions: Discharge Summary Assessment (RN) Last Done: 01/14/22 23:39
[2022-01-14] MEDS: HEPARIN SODIUM/DEXTROSE 25,000 UNITS/500 ML BAG IV SCH (18:30)
== END 2022-01-15 00:10 | disposition short-term general hospital (02) | DRG 282 ==
LOC: ED 14:52 → 2S 16:51 → SUATTDRO 16:51 → 2S 17:18

== ENCOUNTER 2023-04-04 10:57 | Inpatient (IN) ==
[2023-04-04] MEDS ORDERED: SODIUM CHLORIDE 0.9% 500 ML IV ONE ×3 (11:17→15:43)
--- NOTE | 2023-04-04 11:37 | XRay Report ---
XR chest 1V portable CLINICAL HISTORY: Chest pain, nonspecific COMPARISON STUDY: Chest CT February 01, 2022. FINDINGS: Lung volumes are normal. No pneumothorax or pleural effusion is present. There are median s ternotomy wires and mediastinal surgical clips. Stent grafts within the aortic arch and a great vesse l are in place. No evidence for pulmonary edema. There is no consolidation to suggest pneumonia. IMPRESSION: 1. No acute cardiopulmonary findings. 2. Interval placement of aortic and great vessel stent grafts, as above. ACT 112: Negative or not required by law. Electronically signed by: Kojo Gautam M.D. 04/04/2023 11:36 AM
[2023-04-04 11:54] LABS: Basophils # (auto) 0.03 K/uL (0-0.2); Basophils % (auto) 0.4 %; Eosinophils % (auto) 1.2 %; Hematocrit (blood only) 42.7 % (42.0-52.0); Hemoglobin 14.5 g/dl (14.0-18.0); Immature Granulocytes # (auto) 0.03 K/uL (0.01-0.20); Immature Granulocytes % (auto) 0.4 %; Lymphocytes # (auto) 1.06 K/uL (1.2-3.4); Lymphocytes % (auto) 12.7 %; Mean Corpuscular Hemoglobin 28.6 pg (25.0-34.0); Mean Corpuscular Volume 84.2 fL (80.0-100.0); Mean Platelet Volume 9.8 fL (9.4-12.4); Monocytes # (auto) 0.86 K/uL (0.11-0.59); Monocytes % (auto) 10.3 %; Neutrophils # (auto) 6.26 K/uL (1.40-6.50); Platelet Count 199 K/uL (130-400); RDW Coefficient of Variation 12.8 % (11.5-14.5); RDW Standard Deviation 39.4 fL (36.4-46.3); Red Blood Count 5.07 M/uL (4.70-6.10); White Blood Count 8.34 K/ul (4.8-10.8)
[2023-04-04 12:11] LABS: Albumin Globulin Ratio 1.5 (0.9-2); Albumin Level 4.3 gm/dl (3.4-5.0); BUN Creatinine Ratio 11.7 (10-20); Bilirubin,Total 0.5 mg/dl (0.2-1.0); Calcium 9.5 mg/dl (8.6-10.3); Creatinine Clr Calc Pharmacy 74.1 ml/min; Est GFR (African American) 86.7 ml/min; Est GFR (Non-African American) 74.8 ml/min; Globulin 2.8 gm/dl (2.5-4.0); Magnesium 2.3 mg/dl (1.7-2.4); Phosphorus 2.9 mg/dl (2.5-4.9); Potassium 4.2 mmol/L (3.5-5.1); Total Protein 7.1 gm/dl (6.0-8.3)
[2023-04-04 12:17] LABS: Troponin I High Sensitivity 4.1 pg/ml (0-20)
[2023-04-04 12:21] LABS: Prothrombin Time 11.4 Seconds (9.0-12.0)
--- NOTE | 2023-04-04 13:32 | Emergency Department Note ---
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 ED Provider Note NAME: TRIPP CAGE AGE: 67 SEX: M ARRIVES VIA: Walk-In INFORMANT: Patient ED PROVIDER(S): Arsalan Delgado MD CHIEF COMPLAINT: near syncope, vertigo, hypertension PLAN: Disposition: Admit MEDICAL DECISION MAKING: The patient is a pleasant 67-year-old gentleman with a past medical history of hypertension, [place] [facility] [place] subsequently with postop acute type a aortic dissection status post aortic valve resuspension and aortic root reconstruction in January 2022 who presents to the emergency department via walk-in, accompanied by his for evaluation of ongoing elevated blood pressures over the past week in the setting of having his lisinopril increased to 20 mg daily for tighter blood pressure control which had been in the systolic 140s per their report. They further add that around 4 AM early this morning the patient awoke for unclear reasons and was nauseated kind of clammy and sweaty with associated nausea and his took his blood pressure at that time and was 190s over 100s. His blood pressure did decline somewhat but remained elevated and so they present for evaluation. At this time he denies any dizziness but feels somewhat "foggy". He describes his symptoms earlier as if the room was moving/swaying [id number]. He denies any headache, chest pain, shortness of breath, diarrhea or urinary symptoms. The patient does admit that he has been d oing a lot of activity outside in the heat and admits he is not very good at hydrating. On my evaluation the patient is in no acute distress, afebrile with blood pressure 190s/100s and vital signs otherwise stable. He appears clinically dry. He has no focal neurologic deficits. EKG without overt acute ischemia. Chest x-ray negative for acute cardiopulmonary process with interval aorta and great vessel stent graft. WBC, H/H and platelets within normal limits. Chemistry without metabolic aci dosis. Electrolytes LFTs without significant abnormality. High-sensitivity troponin 4.1, within normal limits. TSH within normal limits. Lipase not elevated. CT head negative for acute process. CTA head with severe multifocal stenoses within the basilar artery and moderate-severe stenosis of the distal right vertebral artery. CTA neck with 40% stenosis within proximal bilateral cervical ICAs. Focal mild aneurysmal dilatation of the distal left cervical ICA of 8mm. Otherwise no definitive evidence for dissection within the carotid or vertebral arteries with artifact suspected. CTA w/wo contrast of the chest demonstrates patients prior TAD repair with small amount of residual chronic dissection within the descending thoracic aorta, which has improved. Note is made of high- grade/severe stenosis of the proximal 1 cm of the implanted right coronary artery graft that has progressed. Given normal HS troponin >6 hours from onset of symptoms unlikely to have acute component. Pulmonary nodule noted for which the patient is aware and is under surveillance through pcp. Upon re-evaluation the patient did feel some improvement following IVF hydration. BP initially still elevated however and so Hydralazine order but BP subsequently improving after 500cc NSS x 2. Thus, Hydralazine held for now. Given hypertensive urgency with complicated cardiovascular history including CAD/CABG/AAD s/p repair patient and agree with plan for further observation and management. Case discussed with Kenna Hayes PAC, with Dr. Frank Pierson hospitalist who will evaluate the patient for admission. Further management per admitting team. Triage Nursing notes reviewed and agree them. Prior/outside medical records reviewed Vital Signs: reviewed Differential diagnosis: Vasovagal event, dehydration, infection, hypoglycemia, electrolyte abnormalities, cardiac sources, intracerebral event, pulmonary embolism, seizure, toxicologic, neurologic, as well as other pathologies. ER treatment provided: See below. Diagnostics interpreted by me: ECG: Sinus bradycardia, first-degree AV block, 59 bpm, no ectopy, no overt ST elevation or depression, QTc 457, QRS 104. Cardiac Monitoring: An order for continuous cardiac monitoring was placed and demonstrated Sinus bradycardia, first-degree AV block, 59 bpm, no ectopy. Laboratory studies: See below Imaging studies: See below Consultation(s): Kenna Hayes PAC, with Dr. Frank macist. HPI: The patient is a pleasant 67-year-old gentleman with a past medical history of hypertension, CAD [place] [facility] [place] subsequently with postop acute type a aortic dissection status post aortic valve resuspension and aortic root reconstruction in January 2022 who presents to the emergency department via walk-in, accompanied by his for evaluation of ongoing elevated blood pressures over the past week in the setting of having his lisinopril increased to 20 mg daily for tighter blood pressure control which had been in the systolic 140s per their report. They further add that around 4 AM early this morning the patient awoke for unclear reasons and was nauseated kind of clammy and sweaty with associated nausea and his took his blood pressure at that time and was 190s over 100s. His blood pressure did decline somewhat but remained elevated and so they present for evaluation. At this time he denies any dizziness but feels somewhat "foggy". He describes his symptoms earlier as if the room was moving/swaying [id number]. He denies any headache, chest pain, shortness of breath, diarrhea or urinary symptoms. The patient does admit that he has been doing a lot of activity outside in the heat and admits he is not very good at hydrating. ROS: See above HPI for pertinent positives & negatives. A total of 10 systems reviewed and were otherwise negative. VITALS:See Below PHYSICAL EXAMINATION: GENERAL: Awake, alert, well-appearing, in no distress HENT: Normocephalic, atraumatic. Oropharynx with dry mucous membranes and otherwise unremarkable. EYES: Normal conjunctiva. Sclera non-icteric. EOMI. No nystamgus. PEARRL. NECK: Supple. No nuchal rigidity. FROM. No JVD. RESPIRATORY: Clear to auscultation. CARDIAC: Regular rate, normal rhythm. Extremities warm and well perfused. Pulses equal. ABDOMEN: Soft, non-distended. No tenderness to palpation. No rebound or guarding. No masses. RECTAL: Deferred. MUSCULOSKELETAL: Chest examination reveals no tenderness. The back is symmetrical on inspection without obvious abnormality. There is no CVA tenderness to palpation. No joint edema. LOWER EXTREMITIES: Calves are equal size bilaterally and non-tender. No edema. No discoloration. NEURO: Normal sensorium. No sensory or motor deficits noted. 5/5 strength and SILT x 4 extremities. Cerebellar function intact including [id number], alternating palms. SKIN: No rash or jaundice noted. 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 Hx of cholecystectomy Hx of dissecting abdominal aortic aneurysm repair S/P aortic valve replacement S/P CABG x 4 Family History Other Coronary heart disease Social History Smoking Status: Never smoker Hx Alcohol Use: No Hx Substance Use: No Preferred Language: Chilean Communication Ability: Effective Intellectual Property Counsel Required: No Beliefs That Will Affect Care: None marital status: Current Living Situation: Spouse 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 How many Children do You have: 0 Other Information That Helps Us Care for You: No Feels Safe at Home: Yes Assistive Devices: Glasses Assistive Devices Comment: reading Allergies Allergies Allergy/AdvReac Type Severity Reaction Status Date / Time amoxicillin Allergy Intermediate Gastrointestinal Verified 03/30/22 00:41 Upset morphine Allergy Intermediate Hives Unverified 04/04/23 15:01 Home Meds Home Medications Medication Instructions Recorded Confirmed levothyroxine 50 mcg tablet 50 mcg PO DAILYBB 01/13/22 04/04/23 acetaminophen 325 mg tablet 650 mg PO Q6H PRN Pain 02/01/22 04/04/23 (Tylenol) rosuvastatin 20 mg tablet 20 mg PO QAM 02/01/22 04/04/23 lisinopril 20 mg tablet 20 mg PO QAM 04/04/23 04/04/23 metoprolol tartrate 25 mg tablet 75 mg PO BID 04/04/23 04/04/23 multivitamin 1 tab PO QAM 04/04/23 04/04/23 Previous Rx's Medication Instructions Recorded aspirin 81 mg tablet,delayed 81 mg PO QAM #30 tabs 01/14/22 release Results & Data (ED) Vital Signs Vital Signs - 24 hr 04/04/23 11:02 04/04/23 11:50 04/04/23 15:28 Temperature 36.5 C Temperature Source Temporal Artery Scan Pulse Rate 63 Pulse Rate [Right Finger] 57 L 65 Pulse Rhythm [Right Finger] Regular Pulse Strength [Right Finger] Normal Respiratory Rate 20 20 Respiratory Effort / Characteristics Non-Labored Non-Labored Respiratory Depth Normal Normal Respiratory Pattern Regular Blood Pressure 190/103 H Blood Pressure [Right Arm] 189/101 H 150/96 H Blood Pressure Mean 132 Blood Pressure Mean [Right Arm] 130 114 Blood Pressure Position [Right Arm] Sitting Pulse Oximetry 98 98 Oxygen Delivery Method Room Air Room Air Sepsis Recent Fever Within 48 Hours No Sepsis New/Unexplained Change in Mental Status N/A Sepsis Action Taken by Nursing No Action Required Laboratory Data Attestation: I reviewed the patient's lab results. 04/04/23 11:36 04/04/23 11:36 Lab Results 04/04/23 04/04/23 04/04/23 Range/Units 11:36 11:36 11:36 WBC 8.34 (4.8-10.8) K/ul RBC 5.07 (4.70-6.10) M/uL Hgb 14.5 (14.0-18.0) g/dl Hct 42.7 (42.0-52.0) % MCV 84.2 (80.0-100.0) fL MCH 28.6 (25.0-34.0) pg MCHC 34.0 (32.0-36.0) g/dL RDW Std Deviation 39.4 (36.4-46.3) fL RDW Coeff of Sarmad 12.8 (11.5-14.5) % Plt Count 199 (130-400) K/uL MPV 9.8 (9.4-12.4) fL Immature Gran % (Auto) 0.4 % Neut % (Auto) 75.0 % Lymph % (Auto) 12.7 % [place] % (Auto) 10.3 % Eos % (Auto) 1.2 % Baso % (Auto) 0.4 % Neut # (Auto) 6.26 (1.40-6.50) K/uL Lymph # (Auto) 1.06 L (1.2-3.4) K/uL [place] # (Auto) 0.86 H (0.11-0.59) K/uL Eos # (Auto) 0.10 (0-0.50) K/uL Baso # (Auto) 0.03 (0-0.2) K/uL Immature Gran # (Auto) 0.03 (0.01-0.20) K/uL PT 11.4 (9.0-12.0) Seconds INR 1.0 (0.9-1.1) Sodium 137 (136-145) mmol/L Potassium 4.2 (3.5-5.1) mmol/L Chloride 105 (98-107) mmol/L Carbon Dioxide 26 (21-32) mmol/L Anion Gap 6 (3-11) BUN 12 (6-23) mg/dl Creatinine 1.03 (0.6-1.4) mg/dl Est Cr Clr Drug Dosing 74.1 ml/min Est GFR ( Amer) 86.7 ml/min Est GFR (Non-Af Amer) 74.8 ml/min BUN/Creatinine Ratio 11.7 (10-20) Glucose 139 H (70-99(Fasting)) mg/dl Calcium 9.5 (8.6-10.3) mg/dl Phosphorus 2.9 (2.5-4.9) mg/dl Magnesium 2.3 (1.7-2.4) mg/dl Total Bilirubin 0.5 (0.2-1.0) mg/dl AST 25 (13-39) U/L ALT 21 (7-52) U/L Alkaline Phosphatase 64 (34-104) U/L Troponin I High Sens 4.1 (0-20) pg/ml Total Protein 7.1 (6.0-8.3) gm/dl Albumin 4.3 (3.4-5.0) gm/dl Globulin 2.8 (2.5-4.0) gm/dl Albumin/Globulin Ratio 1.5 (0.9-2) Lipase 29 (11-82) U/L TSH (0.300-4.500) uIu/ml 04/04/23 Range/Units 11:36 WBC (4.8-10.8) K/ul RBC (4.70-6.10) M/uL Hgb (14.0-18.0) g/dl Hct (42.0-52.0) % MCV (80.0-100.0) fL MCH (25.0-34.0) pg MCHC (32.0-36.0) g/dL RDW Std Deviation (36.4-46.3) fL RDW Coeff of Sarmad (11.5-14.5) % Plt Count (130-400) K/uL MPV (9.4-12.4) fL Immature Gran % (Auto) % Neut % (Auto) % Lymph % (Auto) % [place] % (Auto) % Eos % (Auto) % Baso % (Auto) % Neut # (Auto) (1.40-6.50) K/uL Lymph # (Auto) (1.2-3.4) K/uL [place] # (Auto) (0.11-0.59) K/uL Eos # (Auto) (0-0.50) K/uL Baso # (Auto) (0-0.2) K/uL Immature Gran # (Auto) (0.01-0.20) K/uL PT (9.0-12.0) Seconds INR (0.9-1.1) Sodium (136-145) mmol/L Potassium (3.5-5.1) mmol/L Chloride (98-107) mmol/L Carbon Dioxide (21-32) mmol/L Anion Gap (3-11) BUN (6-23) mg/dl Creatinine (0.6-1.4) mg/dl Est Cr Clr Drug Dosing ml/min Est GFR ( Amer) ml/min Est GFR (Non-Af Amer) ml/min BUN/Creatinine Ratio (10-20) Glucose (70-99(Fasting)) mg/dl Calcium (8.6-10.3) mg/dl Phosphorus (2.5-4.9) mg/dl Magnesium (1.7-2.4) mg/dl Total Bilirubin (0.2-1.0) mg/dl AST (13-39) U/L ALT (7-52) U/L Alkaline Phosphatase (34-104) U/L Troponin I High Sens (0-20) pg/ml Total Protein (6.0-8.3) gm/dl Albumin (3.4-5.0) gm/dl Globulin (2.5-4.0) gm/dl Albumin/Globulin Ratio (0.9-2) Lipase (11-82) U/L TSH 1.328 (0.300-4.500) uIu/ml Administered Medications Metoprolol Tartrate (Metoprolol Tartrate 25 Mg Tab) 75 mg PO BID REMBERTO Stop: 05/04/23 20:59 Last Admin: 04/04/23 20:09 Dose: 75 mg Documented By: GEOVANY Nitroglycerin (Nitroglycerin 2% Ointment 30gm Tube) 1 inch EXT Q6H REMBERTO Stop: 05/04/23 19:59 Last Admin: 04/04/23 20:06 Dose: 1 inch Documented By: GEOVANY Discontinued Medications Clonidine HCl (Clonidine Hcl 0.1 Mg Tab) 0.1 mg PO NOW STA Stop: 04/04/23 18:57 Last Admin: 04/04/23 21:26 Dose: Not Given Documented By: GEOVANY Hydralazine HCl (Hydralazine Hcl 20 Mg/Ml Vial) 10 mg IV NOW STA Stop: 04/04/23 15:14 Last Admin: 04/04/23 17:37 Dose: Not Given Documented By: PETEY Hydralazine HCl (Hydralazine Hcl 20 Mg/Ml Vial) 10 mg IV NOW STA Stop: 04/04/23 16:10 Last Admin: 04/04/23 16:26 Dose: 10 mg Documented By: VINAYAK Sodium Chloride (Nss) 500 mls @ 999 mls/hr IV .Q31M ONE Stop: 04/04/23 11:47 Last Infusion: 04/04/23 13:14 Dose: 0 mls/hr Documented By: Admin: 04/04/23 11:40 Dose: 999 mls/hr Documented By: LUCIO Sodium Chloride (Nss) 500 mls @ 999 mls/hr IV .Q31M ONE Stop: 04/04/23 13:18 Last Infusion: 04/04/23 13:58 Dose: 0 mls/hr Documented By: Admin: 04/04/23 13:15 Dose: 999 mls/hr Documented By: LUCIO Sodium Chloride (Nss) 500 mls @ 999 mls/hr IV .Q31M ONE Stop: 04/04/23 16:13 Last Admin: 04/04/23 17:37 Dose: Not Given Documented By: PETEY Ioversol (Ioversol 350 Mg 125ml Prefilled Syringe) 120 ml IV ONCE ONE Stop: 04/04/23 13:54 Last Admin: 04/04/23 13:54 Dose: 120 ml Documented By: MACARIO Lisinopril (Lisinopril 20 Mg Tab) 20 mg PO NOW STA Stop: 04/04/23 17:06 Last Admin: 04/04/23 18:32 Dose: 20 mg Documented By: DLN Imaging Data Radiologist's Impression: Chest X-Ray 04/04/23 11:17 XR chest 1V portable CLINICAL HISTORY: Chest pain, nonspecific COMPARISON STUDY: Chest CT February 01, 2022. FINDINGS: Lung volumes are normal. No pneumothorax or pleural effusion is present. There are median sternotomy wires and mediastinal surgical clips. Stent grafts within the aortic arch and a great vessel are in place. No evidence for pulmonary edema. There is no consolidation to suggest pneumonia. IMPRESSION: 1. No acute cardiopulmonary findings. 2. Interval placement of aortic and great vessel stent grafts, as above. ACT 112: Negative or not required by law. Electronically signed by: Kojo Gautam M.D. 04/04/2023 11:[address] 04/04/23 12:56 CT head/brain wo con CLINICAL HISTORY: 67 years-old Male with vertigo, hypertension. Acute vertigo with hypertension TECHNIQUE: Multiple axial CT images of the head were obtained without contrast. A dose lowering technique was utilized adhering to the principles of ALARA. COMPARISON: CTA head of same day FINDINGS: No acute intracranial hemorrhage, midline shift, intracranial mass, hy drocephalus, territorial ischemia or abnormal extra-axial collection. The calvarium is intact. The paranasal sinuses, mastoid air cells, and middle ear cavities are clear. IMPRESSION: No acute intracranial abnormality. ACT 112: Negative or not required by law. The above report was generated using voice recognition software. It may contain grammatical, syntax or spelling errors. Electronically signed by: William Da Silva M.D. 04/04/2023 2:16 PM Head CTA 04/04/23 12:56 CTA ANGIOGRAPHY OF THE HEAD CLINICAL HISTORY: vertigo, hypertension COMPARISON STUDY: No previous studies for comparison. TECHNIQUE: Helical axial images of the head were obtained following uneventful intravenous administration of 120 cc of Optiray. Sagittal and coronal reconstructions were viewed as well as maximal intensity projections on an independent 3-D workstation. Automated exposure control was utilized for the study. A dose lowering technique was utilized adhering to the principles of ALARA. FINDINGS: No acute intracranial hemorrhage is identified on this contrast enhanced exam. There is focal moderate dilatation of the distal left cervical internal carotid artery, measuring 7 mm. No intracranial aneurysm is identified. No central vessel occlusion is identified on this exam. There are no stenoses within the anterior circulation. There is moderate to severe stenosis of the distal right vertebral artery. 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 The bilateral posterior cerebral arteries are patent. IMPRESSION: 1. No central vessel occlusion. No intracranial aneurysm. 2. 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 ACT 112: Negative or not required by law. Electronically signed by: Kojo Gautam M.D. 04/04/2023 3:00 PM Neck CTA 04/04/23 12:56 NECK CTA HISTORY: vertigo, hypertension TECHNIQUE: Multiaxial CT images of the neck were performed following the intravenous administration of contrast to evaluate the major cervical vessels. 3D/MIP images were also obtained. Sagittal and coronal reformats were reviewed. All measurements were calculated based on NASCET criteria. A dose lowering technique was utilized adhering to the principles of ALARA. COMPARISON STUDY: None. FINDINGS: The aortic arch and proximal great vessels are widely patent. Partially visualized aortic stent involving the distal thoracic aortic arch. There is also a stent within the proximal left subclavian artery. The stents appear patent. Focal stenosis of approximately 50% at the takeoff of the right subclavian artery. The bilateral common carotid arteries are widely patent. There is up to 40% stenosis within the proximal bilateral cervical internal carotid arteries. The mid to distal cervical internal carotid arteries show no significant stenosis or occlusion. Mild focal fusiform aneurysmal dilatation of the distal left cervical internal carotid artery measuring up to 8 mm on image 353. There is a focal linear filling defect within the left distal cervical internal carotid artery on image 359. This appears to represent a focal kink rather than an intimal flap. No significant stenosis or occlusion within the bilateral vertebral arteries. Questionable small intimal flap within the mid left cervical vertebral artery in image 250 appears to represent artifact. This is not confirmed on the sagittal or coronal sequences. IMPRESSION: 1. Up to 40% stenosis within the proximal bilateral cervical internal carotid arteries. 2. 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 3. No definite evidence for a dissection within the carotid or vertebral arteries as described above. ACT 112: Negative or not required by law. Electronically signed by: Russel Lares M.D. 04/04/2023 2:26 PM Chest CTA 04/04/23 13:30 CHEST CTA for AORTIC DISSECTION CT DOSE: 2685.02 mGy.cm HISTORY: near syncope, vertigo, h/o AAD 2021 TECHNIQUE: Multiaxial CT images of the chest were performed both before and after the intravenous administration of contrast to evaluate the aorta. 3D/MIP images were also obtained. Sagittal and coronal reformations were also reviewed. A dose lowering technique was utilized adhering to the principles of ALARA. COMPARISON STUDY: Chest CTA 02/01/2022. FINDINGS: Noncontrast imaging through the chest shows no evidence for an intramural hematoma within the thoracic aorta. The patient is status post repair of the thoracic aortic dissection seen on the prior study. There is a graft noted within the ascending thoracic aorta. There is a stent seen within the distal thoracic aortic arch. This appears patent. Small amount of residual chronic dissection noted within the descending thoracic aorta. This has improved. No significant stenosis identified. The left subclavian artery stent is patent. Moderate calcified plaque within the left coronary artery. There is severe/high-grade stenosis within the proximal 1 cm of the implanted right coronary artery graft best seen on axial images 105 and 106. This has progressed in the interval. The heart is enlarged. The main pulmonary arteries are patent. The thyroid gland enhances normally. Normal caliber esophagus. There is a small hiatus hernia. Limited views of the upper abdomen demonstrate normal liver, spleen, and adrenal glands. No mediastinal hematoma or lymphadenopathy identified. No pleural or pericardial effusions. No acute fractures identified. There are poststernotomy changes. No pneumothorax. The central airways are patent. No focal lung consolidations to suggest pneumonia. No evidence for pulmonary edema. There are few scattered calcified granulomas. Stable 6 mm subpleural nodule along the right minor fissure on image 127 and a stable 5 mm subpleural nodule the base of the right lower lobe on image 183. No new pulmonary nodules identified. IMPRESSION: 1. Status post repair of the thoracic aortic dissection. Small amount of residual chronic dissection within the descending thoracic aorta which has improved. No evidence for recurrent aortic dissection. 2. High-grade/severe stenosis involving the proximal 1 cm of the implanted right coronary artery graft. This has progressed in the interval. 3. Stable subcentimeter indeterminate pulmonary nodule within the right lung as described above. Continued one year chest CT follow-up recommended to ensure two-year stability. 4. Stable cardiomegaly. 5. Additional findings as described above. ACT 112: Negative or not required by law. Electronically signed by: Russel Lares M.D. 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
[2023-04-04] MEDS ORDERED: IOVERSOL 350 MG 125mL Prefilled Syringe IV ONE (13:53)
--- NOTE | 2023-04-04 14:17 | CT Scan Report ---
CT head/brain wo con CLINICAL HISTORY: 67 years-old Male with vertigo, hypertension. Acute vertigo with hypertension TECHNIQUE: Multiple axial CT images of the head were obtained without contrast. A dose lowering tech nique was utilized adhering to the principles of ALARA. COMPARISON: CTA head of same day FINDINGS: No acute intracranial hemorrhage, midline shift, intracranial mass, hydrocephalus, territorial ischem ia or abnormal extra-axial collection. The calvarium is intact. The paranasal sinuses, mastoid air cells, and middle ear cavities are clear . IMPRESSION: No acute intracranial abnormality. ACT 112: Negative or not required by law. The above report was generated using voice recognition software. It may contain grammatical, syntax o r spelling errors. Electronically signed by: William Da Silva M.D. 04/04/2023 2:16 PM
--- NOTE | 2023-04-04 14:27 | CT Scan Report ---
NECK CTA HISTORY: vertigo, hypertension TECHNIQUE: Multiaxial CT images of the neck were performed following the intravenous administration o f contrast to evaluate the major cervical vessels. 3D/MIP images were also obtained. Sagittal and cor onal reformats were reviewed. All measurements were calculated based on NASCET criteria. A dose low ering technique was utilized adhering to the principles of ALARA. COMPARISON STUDY: None. FINDINGS: The aortic arch and proximal great vessels are widely patent. Partially visualized aortic stent involving the distal thoracic aortic arch. There is also a stent within the proximal left subcl [place] artery. The stents appear patent. Focal stenosis of approximately 50% at the takeoff of the rig ht subclavian artery. The bilateral common carotid arteries are widely patent. There is up to 40% petar nosis within the proximal bilateral cervical internal carotid arteries. The mid to distal cervical in ternal carotid arteries show no significant stenosis or occlusion. Mild focal fusiform aneurysmal dil atation of the distal left cervical internal carotid artery measuring up to 8 mm on image 353. There is a focal linear filling defect within the left distal cervical internal carotid artery on image 359 . This appears to represent a focal kink rather than an intimal flap. No significant stenosis or occl usion within the bilateral vertebral arteries. Questionable small intimal flap within the mid left ce rvical vertebral artery in image 250 appears to represent artifact. This is not confirmed on the sagi ttal or coronal sequences. IMPRESSION: 1. Up to 40% stenosis within the proximal bilateral cervical internal carotid arteries. 2. 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 3. No definite evidence for a dissection within the carotid or vertebral arteries as described above. ACT 112: Negative or not required by law. Electronically signed by: Russel Lares M.D. 04/04/2023 2:26 PM
--- NOTE | 2023-04-04 14:51 | CT Scan Report ---
CHEST CTA for AORTIC DISSECTION CT DOSE: 2685.02 mGy.cm HISTORY: near syncope, vertigo, h/o AAD 2021 TECHNIQUE: Multiaxial CT images of the chest were performed both before and after the intravenous adm inistration of contrast to evaluate the aorta. 3D/MIP images were also obtained. Sagittal and coronal reformations were also reviewed. A dose lowering technique was utilized adhering to the principles of ALARA. COMPARISON STUDY: Chest CTA 02/01/2022. FINDINGS: Noncontrast imaging through the chest shows no evidence for an intramural hematoma within t he thoracic aorta. The patient is status post repair of the thoracic aortic dissection seen on the pr ior study. There is a graft noted within the ascending thoracic aorta. There is a stent seen within t he distal thoracic aortic arch. This appears patent. Small amount of residual chronic dissection note d within the descending thoracic aorta. This has improved. No significant stenosis identified. The le ft subclavian artery stent is patent. Moderate calcified plaque within the left coronary artery. Ther e is severe/high-grade stenosis within the proximal 1 cm of the implanted right coronary artery graft best seen on axial images 105 and 106. This has progressed in the interval. The heart is enlarged. T he main pulmonary arteries are patent. The thyroid gland enhances normally. Normal caliber esophagus. There is a small hiatus hernia. Limited views of the upper abdomen demonstrate normal liver, spleen, and adrenal glands. No mediastinal hematoma or lymphadenopathy identified. No pleural or pericardial effusions. No acute fractures identified. There are poststernotomy changes. No pneumothorax. The [place] tral airways are patent. No focal lung consolidations to suggest pneumonia. No evidence for pulmonary edema. There are few scattered calcified granulomas. Stable 6 mm subpleural nodule along the right m inor fissure on image 127 and a stable 5 mm subpleural nodule the base of the right lower lobe on kayce[place] ge 183. No new pulmonary nodules identified. IMPRESSION: 1. Status post repair of the thoracic aortic dissection. Small amount of residual chronic dissection within the descending thoracic aorta which has improved. No evidence for recurrent aortic dissection. 2. High-grade/severe stenosis involving the proximal 1 cm of the implanted right coronary artery [place] t. This has progressed in the interval. 3. Stable subcentimeter indeterminate pulmonary nodule within the right lung as described above. Cont inued one year chest CT follow-up recommended to ensure two-year stability. 4. Stable cardiomegaly. 5. Additional findings as described above. ACT 112: Negative or not required by law. Electronically signed by: Russel Lares M.D. 04/04/2023 2:49 PM
--- NOTE | 2023-04-04 15:01 | CT Scan Report ---
CTA ANGIOGRAPHY OF THE HEAD CLINICAL HISTORY: vertigo, hypertension COMPARISON STUDY: No previous studies for comparison. TECHNIQUE: Helical axial images of the head were obtained following uneventful intravenous administr ation of 120 cc of Optiray. Sagittal and coronal reconstructions were viewed as well as maximal inten sity projections on an independent 3-D workstation. Automated exposure control was utilized for the study. A dose lowering technique was utilized adhering to the principles of ALARA. FINDINGS: No acute intracranial hemorrhage is identified on this contrast enhanced exam. There is foc al moderate dilatation of the distal left cervical internal carotid artery, measuring 7 mm. No intrac ranial aneurysm is identified. No central vessel occlusion is identified on this exam. There are no s tenoses within the anterior circulation. There is moderate to severe stenosis of the distal right jameson tebral artery. 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 The bilateral motors and generators inspector ior cerebral arteries are patent. IMPRESSION: 1. No central vessel occlusion. No intracranial aneurysm. 2. 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 ACT 112: Negative or not required by law. Electronically signed by: Kojo Gautam M.D. 04/04/2023 3:00 PM
[2023-04-04] MEDS ORDERED: hydrALAZINE HCL 20 MG/ML VIAL IV STA ×2 (15:13→16:09)
[2023-04-04] MEDS ORDERED: ALUMINUM/MAGNESIUM SUSP 30 ML UDC PO PRN (15:35)
[2023-04-04] MEDS ORDERED: POLYETHYLENE (MIRALAX) 17 GM PACK PO PRN (15:35)
[2023-04-04] MEDS ORDERED: MAGNESIUM HYDROXIDE SUSP 30 ML UDC PO PRN (15:35)
--- NOTE | 2023-04-04 15:43 | History & Physical Report ---
Date of Service April 04, 2023 Assessment & Plan (1) Hypertensive urgency: Plan: - Admit to PCU - Acute - PT BP was initially 190/100s and has improved to 150/96 with being given 1 L NSS total in the ER. During my visit his BP increased again to 190 and 200 systolically so was ordered hydralazine 10 mg IV stat. Added lisinopril 20 mg po stat. Will monitor response and use hydralazine prn with parameters. Pt HR is in the mid50s at bedside so will not use more beta blockers - CTA head reviewed - reviewed Epic and there is no previous imaging to compare this to. Concern regarding Focal mild aneurysmal dilatation of the distal left cervical internal carotid artery measuring up to 8 mm and elevated BP. Discussion with neurology irrigation teacher regarding 8 mm aneurysm and was recommended to call Neurosurgery for recs. Discussion with neurosurgery, Dr. Valdes, at 17:45 - Recommends BP parameters and to maintain BP under 160 systolically - . He reports this sounds like widening of the vessel not a true saccular aneurysm, likely incidental on imaging. He would recommend telehealth as an outpatient on discharge. -Most recent echo was done on 01/14/2023 showing a normal LV chamber size mild concentric LVH, normal systolic function, EF of 60 to 65%, mild hypokinesis in the mid to apical anterior and anteroseptal eastman, grade 1 diastolic dysfunction, no valvular pathology - consider repeat if no improvement in BP - Increase lisinopril to 40 mg daily, cont metoprolol tartrate 75 mg BID - Cardiology consulted - negative troponin, EKG without acute changes - Antiemetics for intermittent nausea prn - Encouraged hydration and educated the patient dietary intake with foods that have high water content - Epic reviewed personally - per most recent cards note March 2023 and lisinopril was increased to 20 mg daily because his bp was in the 140s/80 and wanted it to be a goal of 130/70 at that time. Also -pt counseled to increase his hydration and avoid extreme activity in the current warm weather and change positions slowly (2) Cerebral aneurysm: Plan: - As above (3) S/P CABG x 4: Plan: - hx of Coronary artery diseaseS/PCABG x 4 with [place] to the LAD and SVG's to the OM, LCx and RCA at [facility], 01/17/2022 -- stable, chronic - Was taken off plavix per Cardiology recently as appropriate since this was over a year ago that stent was placed, continue on asa 81 mg lifelong (4) S/P aortic valve replacement: (5) Hx of dissecting abdominal aortic aneurysm repair: Plan: - Post-op acute Type A aortic dissectionS/PAortic valve re suspensionand aortic root reconstruction, 02/01/2022 - Post-op acute non-occlusive DVT of jugular vein and proximal internal jugular vein and acute occlusive superficial venous thrombosis of cephalic vein, 01/2022 - Stable on CTA of the chest, neck compared to previous which was done in November 2022 (6) HLD (hyperlipidemia): Plan: - Cont rosuvastatin 20 mg daily - LDL was controlled at 57 - Chronic, stable DVT ppx: teds, scds CODE: FULL Dispo: From home, likely to remain in the hospital x 1-2 days A total of 105 minutes were spent with greater than 50% of that time face to face with the patient, personally reviewing all current laboratories, imaging studies, past medication reconciliation, outpatient chart review, and discussion with specialists to collaborate care for the patient with attending. Please see attending documentation for corrections and/or additions. History of Present Illness Chief Complaint: Hypertension Primary Care Provider: Harpreet Chapman MD This is a 67-year-old male with PMHx of CAD, CABG x4 vessel, type A aortic dissection, s/p aortic resuspension and aortic root reconstruction on 02/01/2022, postop acute nonocclusive DVT of the jugular vein and proximal internal jugular vein and acute occlusive superficial venous thrombosis of the cephalic vein, who presents to the hospital with acute elevation in blood pressure. Patient woke up around 3:30 AM today feeling nauseous, clammy, lightheaded with sitting up in bed and took his blood pressure which was 198/107. At that time he took his lisinopril and levothyroxine and went back to bed. At 9:30 was 170/100 he woke back up, but still felt some lightheadedness and dizziness, but not clammy. Pt did eat a piece of toast at breakfast when he took his metoprolol. Pt reports routinely wakes up around 4am to take medication like this. 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 He admits to not staying well hydrated normally, and drinks mostly ice tea and soda. His diet has changed since cholecystectomy in Sep, and since then eats multiple small meals daily. Since that time he has lost 30 pounds. This morning he called outpatient cardiology office and he was referred to the ER due to his elevated BP. Allergies Allergy/AdvReac Type Severity Reaction Status Date / Time amoxicillin Allergy Intermediate Gastrointestinal Verified 03/30/22 00:41 Upset morphine Allergy Intermediate Hives Unverified 04/04/23 15:01 Home Medications Medication Instructions Recorded Confirmed Type levothyroxine 50 mcg tablet 50 mcg PO DAILYBB 01/13/22 04/04/23 History aspirin 81 mg tablet,delayed 81 mg PO QAM #30 tabs 01/14/22 04/04/23 Rx release acetaminophen 325 mg tablet 650 mg PO Q6H PRN Pain 02/01/22 04/04/23 History (Tylenol) rosuvastatin 20 mg tablet 20 mg PO QAM 02/01/22 04/04/23 History lisinopril 20 mg tablet 20 mg PO QAM 04/04/23 04/04/23 History metoprolol tartrate 25 mg tablet 75 mg PO BID 04/04/23 04/04/23 History multivitamin 1 tab PO QAM 04/04/23 04/04/23 History Past Med/Surg History Medical History (Updated 04/04/23 @ 17:59 by Amalia Puente PA-C) Cholecystitis H/O: HTN (hypertension) HLD (hyperlipidemia) Hypothyroid Surgical History (Updated 04/04/23 @ 15:29 by Amalia Puente PA-C) H/O hernia repair Hx of cholecystectomy Hx of dissecting abdominal aortic aneurysm repair S/P aortic valve replacement S/P CABG x 4 Family History Other Coronary heart disease Social History Smoking Status: Never smoker Hx Alcohol Use: No Hx Substance Use: No Preferred Language: Danish Communication Ability: Effective Eclectic Doctor Required: No Beliefs That Will Affect Care: None marital status: Current Living Situation: Spouse current occupation: [employer] How many Children do You have: 0 Other Information That Helps Us Care for You: No Feels Safe at Home: Yes Assistive Devices: Glasses Assistive Devices Comment: reading Review of Systems Review of Systems: Constitutional: No fever, sweats or chills, + lightheadedness and dizziness per HPI, no headache Eyes: No diplopia, no worsening or blurred vision ENT: normal hearing, no trouble swallowing Respiratory: No cough, sputum, dyspnea at rest or on exertion Cardiovascular: No chest pain, tightness or palpitations Abdomen: No pain, nausea, vomiting, diarrhea or constipation Musculoskeletal: No joint pain, calf pain, swelling Neurologic: No weakness, numbness/tingling, or balance problems Psychiatric: No anxiety or depression Skin: No rash or itch Physical Exam Physical Exam: General: awake, alert, no apparent distress, + thin white male, BMI 23.5 Head: Normocephalic, atraumatic ENT: PERRL, EOMI, no pharyngeal exudate, mucous membranes slightly dry Chest: Clear to auscultation, on room air, no adventitious breath sounds Cardiac: Regular rate and rhythm, + aortic valve click, no murmur, no JVD, normal peripheral pulses, good capillary refill Abdominal: NABS x 4 quadrants, soft, nondistended, nontender to palpation, no rebound or guarding Extremities: Normal inspection, no peripheral edema or erythema, calfs nontender to palpation Psych: Normal mood and affect Neuro: AAO x 3, strength intact bilaterally and rated 5/5, no motor deficits, speech is clear, no peripheral sensory deficits Results & Data Results & Data Vital Signs (Past 12 Hours) Vital Signs Temp Pulse Pulse Resp BP BP Pulse Ox 04/04/23 11:50 57 L 20 189/101 H 98 04/04/23 11:02 36.5 C 63 20 190/103 H 98 O2 Del Method 04/04/23 11:50 Room Air 04/04/23 11:02 Room Air Laboratory Results 04/04/23 04/04/23 04/04/23 16:58 11:36 11:36 WBC RBC Hgb Hct MCV MCH MCHC RDW Std Deviation RDW Coeff of Sarmad Plt Count MPV Immature Gran % (Auto) Neut % (Auto) Lymph % (Auto) Coke % (Auto) Eos % (Auto) Baso % (Auto) Neut # (Auto) Lymph # (Auto) Coke # (Auto) Eos # (Auto) Baso # (Auto) Immature Gran # (Auto) PT INR Sodium 137 Potassium 4.2 Chloride 105 Carbon Dioxide 26 Anion Gap 6 BUN 12 Creatinine 1.03 Est Cr Clr Drug Dosing 74.1 Est GFR ( Amer) 86.7 Est GFR (Non-Af Amer) 74.8 BUN/Creatinine Ratio 11.7 Glucose 139 H Calcium 9.5 Phosphorus 2.9 Magnesium 2.3 Total Bilirubin 0.5 AST 25 ALT 21 Alkaline Phosphatase 64 Troponin I High Sens 4.1 Total Protein 7.1 Albumin 4.3 Globulin 2.8 Albumin/Globulin Ratio 1.5 Lipase 29 TSH 1.328 Urine Color Yellow Urine Appearance Clear Urine pH 7.5 Ur Specific [place] 1.037 H Urine Protein Negative Urine Glucose (UA) Negative Urine Ketones Negative Urine Blood Negative Urine Nitrite Negative Urine Bilirubin Negative Urine Urobilinogen Negative Ur Leukocyte Esterase Negative 04/04/23 04/04/23 11:36 11:36 WBC 8.34 RBC 5.07 Hgb 14.5 Hct 42.7 MCV 84.2 MCH 28.6 MCHC 34.0 RDW Std Deviation 39.4 RDW Coeff of Sarmad 12.8 Plt Count 199 MPV 9.8 Immature Gran % (Auto) 0.4 Neut % (Auto) 75.0 Lymph % (Auto) 12.7 Coke % (Auto) 10.3 Eos % (Auto) 1.2 Baso % (Auto) 0.4 Neut # (Auto) 6.26 Lymph # (Auto) 1.06 L Coke # (Auto) 0.86 H Eos # (Auto) 0.10 Baso # (Auto) 0.03 Immature Gran # (Auto) 0.03 PT 11.4 INR 1.0 Sodium Potassium Chloride Carbon Dioxide Anion Gap BUN Creatinine Est Cr Clr Drug Dosing Est GFR ( Amer) Est GFR (Non-Af Amer) BUN/Creatinine Ratio Glucose Calcium Phosphorus Magnesium Total Bilirubin AST ALT Alkaline Phosphatase Troponin I High Sens Total Protein Albumin Globulin Albumin/Globulin Ratio Lipase TSH Urine Color Urine Appearance Urine pH Ur Specific [place] Urine Protein Urine Glucose (UA) Urine Ketones Urine Blood Urine Nitrite Urine Bilirubin Urine Urobilinogen Ur Leukocyte Esterase Diagnostic Findings Chest X-Ray 04/04/23 11:17 XR chest 1V portable CLINICAL HISTORY: Chest pain, nonspecific COMPARISON STUDY: Chest CT February 01, 2022. FINDINGS: Lung volumes are normal. No pneumothorax or pleural effusion is pr esent. There are median sternotomy wires and mediastinal surgical clips. Stent grafts within the aortic arch and a great vessel are in place. No evidence for pulmonary edema. There is no consolidation to suggest pneumonia. IMPRESSION: 1. No acute cardiopulmonary findings. 2. Interval placement of aortic and great vessel stent grafts, as above. ACT 112: Negative or not required by law. Electronically signed by: Kojo Gautam M.D. 04/04/2023 11:[address] 04/04/23 12:56 CT head/brain wo con CLINICAL HISTORY: 67 years-old Male with vertigo, hypertension. Acute vertigo with hypertension TECHNIQUE: Multiple axial CT images of the head were obtained without contrast. A dose lowering technique was utilized adhering to the principles of ALARA. COMPARISON: CTA head of same day FINDINGS: No acute intracranial hemorrhage, midline shift, intracranial mass, hydrocephalus, territorial ischemia or abnormal extra-axial collection. The calvarium is intact. The paranasal sinuses, mastoid air cells, and middle ear cavities are clear. IMPRESSION: No acute intracranial abnormality. ACT 112: Negative or not required by law. The above report was generated using voice recognition software. It may contain grammatical, syntax or spelling errors. Electronically signed by: William Da Silva M.D. 04/04/2023 2:16 PM Head CTA 04/04/23 12:56 CTA ANGIOGRAPHY OF THE HEAD CLINICAL HISTORY: vertigo, hypertension COMPARISON STUDY: No previous studies for comparison. TECHNIQUE: Helical axial images of the head were obtained following uneventful intravenous administration of 120 cc of Optiray. Sagittal and coronal reconstructions were viewed as well as maximal intensity projections on an independent 3-D workstation. Automated exposure control was utilized for the study. A dose lowering technique was utilized adhering to the principles of ALARA. FINDINGS: No acute intracranial hemorrhage is identified on this contrast enhanced exam. There is focal moderate dilatation of the distal left cervical internal carotid artery, measuring 7 mm. No intracranial aneurysm is identified. No central vessel occlusion is identified on this exam. There are no stenoses within the anterior circulation. There is moderate to severe stenosis of the distal right vertebral artery. 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 The bilateral posterior cerebral arteries are patent. IMPRESSION: 1. No central vessel occlusion. No intracranial aneurysm. 2. 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 ACT 112: Negative or not required by law. Electronically signed by: Kojo Gautam M.D. 04/04/2023 3:00 PM Neck CTA 04/04/23 12:56 NECK CTA HISTORY: vertigo, hypertension TECHNIQUE: Multiaxial CT images of the neck were performed following the intravenous administration of contrast to evaluate the major cervical vessels. 3D/MIP images were also obtained. Sagittal and coronal reformats were reviewed. All measurements were calculated based on NASCET criteria. A dose lowering technique was utilized adhering to the principles of ALARA. COMPARISON STUDY: None. FINDINGS: The aortic arch and proximal great vessels are widely patent. Partially visualized aortic stent involving the distal thoracic aortic arch. There is also a stent within the proximal left subclavian artery. The stents appear patent. Focal stenosis of approximately 50% at the takeoff of the right subclavian artery. The bilateral common carotid arteries are widely patent. There is up to 40% stenosis within the proximal bilateral cervical internal carotid arteries. The mid to distal cervical internal carotid arteries show no significant stenosis or occlusion. Mild focal fusiform aneurysmal dilatation of the distal left cervical internal carotid artery measuring up to 8 mm on image 353. There is a focal linear filling defect within the left distal cervical internal carotid artery on image 359. This appears to represent a focal kink rather than an intimal flap. No significant stenosis or occlusion within the bilateral vertebral arteries. Questionable small intimal flap within the mid left cervical vertebral artery in image 250 appears to represent artifact. This is not confirmed on the sagittal or coronal sequences. IMPRESSION: 1. Up to 40% stenosis within the proximal bilateral cervical internal carotid arteries. 2. 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 3. No definite evidence for a dissection within the carotid or vertebral arteries as described above. ACT 112: Negative or not required by law. Electronically signed by: Russel Lares M.D. 04/04/2023 2:26 PM Chest CTA 04/04/23 13:30 CHEST CTA for AORTIC DISSECTION CT DOSE: 2685.02 mGy.cm HISTORY: near syncope, vertigo, h/o AAD 2021 TECHNIQUE: Multiaxial CT images of the chest were performed both before and after the intravenous administration of contrast to evaluate the aorta. 3D/MIP images were also obtained. Sagittal and coronal reformations were also reviewed. A dose lowering technique was utilized adhering to the principles of ALARA. COMPARISON STUDY: Chest CTA 02/01/2022. FINDINGS: Noncontrast imaging through the chest shows no evidence for an intramural hematoma within the thoracic aorta. The patient is status post repair of the thoracic aortic dissection seen on the prior study. There is a graft noted within the ascending thoracic aorta. There is a stent seen within the distal thoracic aortic arch. This appears patent. Small amount of residual chronic dissection noted within the descending thoracic aorta. This has improved. No significant stenosis identified. The left subclavian artery stent is patent. Moderate calcified plaque within the left coronary artery. There is severe/high-grade stenosis within the proximal 1 cm of the implanted right coronary artery graft best seen on axial images 105 and 106. This has progressed in the interval. The heart is enlarged. The main pulmonary arteries are patent. The thyroid gland enhances normally. Normal caliber esophagus. There is a small hiatus hernia. Limited views of the upper abdomen demonstrate normal liver, spleen, and adrenal glands. No mediastinal hematoma or lymphadenopathy identified. No pleural or pericardial effusions. No acute fractures identified. There are poststernotomy changes. No pneumothorax. The central airways are patent. No focal lung consolidations to suggest pneumonia. No evidence for pulmonary edema. There are few scattered calcified granulomas. Stable 6 mm s ubpleural nodule along the right minor fissure on image 127 and a stable 5 mm subpleural nodule the base of the right lower lobe on image 183. No new pulmonary nodules identified. IMPRESSION: 1. Status post repair of the thoracic aortic dissection. Small amount of residual chronic dissection within the descending thoracic aorta which has improved. No evidence for recurrent aortic dissection. 2. High-grade/severe stenosis involving the proximal 1 cm of the implanted right coronary artery graft. This has progressed in the interval. 3. Stable subcentimeter indeterminate pulmonary nodule within the right lung as described above. Continued one year chest CT follow-up recommended to ensure two-year stability. 4. Stable cardiomegaly. 5. Additional findings as described above. ACT 112: Negative or not required by law. Electronically signed by: Russel Lares M.D. 04/04/2023 2:49 PM ECG Additional Comments: No acute changes or signs of ischemia Reviewed personally Code Status & VTE Plan Code Status Full code - discussed with the patient and at bedside Supervising Physician Co-Signing Physician Notes I have seen and examined the patient and have discussed the case with the provider above. I agree with the assessment and plan as stated with the following exceptions. 67 yo M with a h/o thoracic aortic dissection repair presents with acute elevation in BP over the past several days. He reports his PCP increased his lisinopril 10mg daily which he has taken for 20+ years to 20mg daily. He was taking two of the 10mg tabs until running out and started on the new 20mg tablet 5 days ago. Around this time was when his BP started to rise into the 170-180 range systolic per his personal record at bedside. He reports two days ago feeling dizzy and lightheaded, and yesterday just generally feeling run down. He woke up this am feeling clammy and sweaty with associated nausea and per ER report his BP at that time was 190/100. As noted above, he was out in the heat doing work for several hours on Fri, also. There have been no diet changes. TSH is WNL. CTA chest performed with progression of high-grade stenosis in the right coronary graft area and there was a noted repair of the thoracic aortic dissection with a small amount of residual chronic dissection within the descending thoracic aorta; patient denies any chest pain or trouble breathing. Highly sensitive troponin was 4.1 and EKG revealed no evidence of acute ischemia, [id number]. CXR negative for acute cardiopulmonary process. On exam he is in NAD but reports some residual nausea likely from not eating all day. He also has some neck discomfort. Denies visual changes or stroke like symptoms. BP taken after hydralazine 10mg IV and was 166/101 on the right arm and 155/95 on the left. Clear lungs to auscultation and cardiac exam revealed S1/2 heard without murmurs, gallops or rubs. There were no carotid bruits. Pupils were round and reactive to light with the left pupil slightly larger than the right pupil (patient reported a h/o trauma to the left eye.) Normal fundoscopic exam. No additional concerning findings on exam. Labwork reviewed showing normal CBC and chem panel and a clear but concentrated urine. 1. Hypertensive urgency 2. h/o thoracic aortic dissection s/p repair 3. L ICA enlargement 8mm 4. CAD s/p CABG Agree with PCU for aggressive antihypertensive management with goal SBP<160 per neurosurgery consulted at [facility] for the intracranial aneurysm. Appreciate cardiology input especially regarding if there is any contribution from the manipulated anatomy. There is a noted progression of high-grade stenosis of the right coronary graft seen on imaging. Will adjust lisinopril to 40mg PO daily and consider additional HCTZ if additional agents needed. For now, continue parenteral antihypertensives to keep SBP <160 while waiting on the additional lisinopril to take effect. Outpatient follow-up with neurosurgery as outpatient for cerebral aneurysm. CAD appears stable, cont medical management.
[2023-04-04] MEDS ORDERED: ONDANSETRON INJ 2 MG/ML 2 ML VIAL IV PRN (16:23)
[2023-04-04] MEDS ORDERED: lisinopril 20 MG TAB PO STA (17:05)
--- NOTE | 2023-04-04 17:20 | Emergency Department Note ---
ED Visit Note I was asked to evaluate this patient by Grace who is on for the [facility] hospitalist group. 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 The patient was found to have focal mild aneurysmal dilatation of the distal left cervical internal carotid artery measuring up to 8 mm. The patient himself presented to the emergency department because of dizziness. He states that he awoke approximately 3 AM this morning with dizziness and feeling off balance. The patient states his symptoms have significantly improved at this time. He does not complain of a severe headache but states he does have some neck pain. He denies having any chest pain or difficulty breathing. They have had some trouble managing his blood pressure in the emergency department. His most recent blood pressure is 150/96. The patient states has been compliant with his outpatient medications. I was asked to discuss this case with neurosurgery at [facility] to determine if the patient requires emergent transfer at this time. I discussed the patient's condition with Dr. Robb from [facility]. He does recommend outpatient follow-up and feels this is likely an incidental finding at this time. He does not feel emergent transfer is required at this time. I will discuss this with the [facility] admitting team. .
[2023-04-04 17:21] LABS: Appearance Urine Clear (Clear); Bilirubin Urine Negative (Negative); Blood Urine Negative (Negative); Color Urine Yellow; Glucose Urine UA Negative (Negative); Ketones Urine Negative (Negative); Leukocyte Esterase Urine Negative (Negative); Nitrite Urine Negative (Negative); Protein Urine Negative (Negative); Specific Gravity Urine 1.037 (1.000-1.030); Urobilinogen Urine Negative (Negative); pH Urine 7.5 (4.5-7.5)
[2023-04-04] MEDS ORDERED: ACETAMINOPHEN 325 MG TAB PO PRN (17:44)
[2023-04-04] MEDS ORDERED: cloNIDine HCL 0.1 MG TAB PO STA (18:56)
[2023-04-04] MEDS: NITROGLYCERIN 2% OINTMENT 30GM TUBE EXT SCH (20:06)
[2023-04-04] MEDS: METOPROLOL TARTRATE 25 MG TAB PO SCH (20:09)
[2023-04-05] MEDS: NITROGLYCERIN 2% OINTMENT 30GM TUBE EXT SCH (02:23)
[2023-04-05] MEDS: ONDANSETRON INJ 2 MG/ML 2 ML VIAL IV PRN ×2 (02:31→17:56)
[2023-04-05] MEDS: LEVOTHYROXINE SODIUM 50 MCG TABLET PO SCH (05:58)
[2023-04-05 05:59] LABS: Hematocrit (blood only) 38.6 % (42.0-52.0); Hemoglobin 13.2 g/dl (14.0-18.0); Mean Corpuscular Hemoglobin 28.8 pg (25.0-34.0); Mean Corpuscular Hgb Conc 34.2 g/dL (32.0-36.0); Mean Corpuscular Volume 84.3 fL (80.0-100.0); Platelet Count 182 K/uL (130-400); RDW Standard Deviation 39.8 fL (36.4-46.3); Red Blood Count 4.58 M/uL (4.70-6.10)
[2023-04-05 06:19] LABS: BUN Creatinine Ratio 17.3 (10-20); Creatinine Clr Calc Pharmacy 73.4 ml/min; Est GFR (African American) 85.7 ml/min; Est GFR (Non-African American) 73.9 ml/min; Magnesium 2.2 mg/dl (1.7-2.4)
--- NOTE | 2023-04-05 07:10 | Electrocardiogram Report ---
Test Reason : Blood Pressure : / mmHG Vent. Rate : 059 BPM Atrial Rate : 059 BPM P-R Int : 230 ms QRS Dur : 104 ms QT Int : 462 ms P-R-T Axes : 019 -19 058 degrees QTc Int : 457 ms Sinus bradycardia with 1st degree A-V block Otherwise normal ECG When compared with ECG of 23-JUL-2022 10:07, LA interval has increased Confirmed by Christiano Leyva ([id number]) on 04/05/2023 7:09:45 AM Referred By: Elma Ortiz Confirmed By:Dewayne Leyva
--- NOTE | 2023-04-05 07:49 | Cardiology Consultation ---
Date of Consultation April 05, 2023 Assessment & Plan (1) Hypertensive urgency: Plan 67 yo man presenting with hypertensive urgency in the setting of medication changes + CAD + Aortic Dissection s/p repair S/P AVR No evidence of endocarditis EKG - no evidence of ischemia Presentation not c/w ACS BP much better controlled at present Plans: * Continue Lisinopril 40 mg po per day * Stop Lopressor * Start Toprol XL 150 mg po per day * Check ECHOcardiogram * Continue Crestor * Continue ASA * Given question of RCA graft disease, may consider outpt Nuclear Stress Test * Will arrange for F/U with Primary Director [employer] Chilo Hankins Supervising Physician Co-Signing Physician Notes Chilo Hankins History of Present Illness Attending Physician: Mehnaz Vaughn MD History of Present Illness 67 yo M presenting with dizziness Dx: Hypetrensive urgency * Known CAD * S/P CABG * Shortly after CABG - noted to have ascending aortic dissection * S/P Dissection repair * AVR (sounds non-mechanical) * Longstanding HTN * On multidrug regimen including REGINA + HCTZ * Recent adjustment to medications with escalation of Lisinopril to 20 mg po per day * May have had some challenges with medication adherence during transition * Presents with dizziness and lightheadedness + "feeling run down" * BP 190/100 on presentation * EKG - no ischemic changes * No evidence of CHF * No fever or chills * CTA - possible progression of atherosclerosis in RCA graft - residual distal dissection Allergies Allergy/AdvReac Type Severity Reaction Status Date / Time amoxicillin Allergy Intermediate Gastrointestinal Verified 03/30/22 00:41 Upset morphine Allergy Intermediate Hives Unverified 04/04/23 15:01 Home Medications Medication Instructions Recorded Confirmed Type levothyroxine 50 mcg tablet 50 mcg PO DAILYBB 01/13/22 04/04/23 History aspirin 81 mg tablet,delayed 81 mg PO QAM #30 tabs 01/14/22 04/04/23 Rx release acetaminophen 325 mg tablet 650 mg PO Q6H PRN Pain 02/01/22 04/04/23 History (Tylenol) rosuvastatin 20 mg tablet 20 mg PO QAM 02/01/22 04/04/23 History lisinopril 20 mg tablet 20 mg PO QAM 04/04/23 04/04/23 History metoprolol tartrate 25 mg tablet 75 mg PO BID 04/04/23 04/04/23 History multivitamin 1 tab PO QAM 04/04/23 04/04/23 History Patient History Medical History Ascending aortic dissection Cholecystitis Coronary artery disease H/O: HTN (hypertension) HLD (hyperlipidemia) Hypothyroid Surgical History H/O hernia repair 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 Hx of cholecystectomy Hx of dissecting abdominal aortic aneurysm repair S/P aortic valve replacement S/P CABG x 4 Family History Other Coronary heart disease Social History Smoking Status: Never smoker Hx Alcohol Use: No Hx Substance Use: No Preferred Language: Romansh Communication Ability: Effective Color Room Attendant Required: No Beliefs That Will Affect Care: None marital status: Current Living Situation: Spouse 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 How many Children do You have: 0 Other Information That Helps Us Care for You: No Feels Safe at Home: Yes Assistive Devices: Glasses Assistive Devices Comment: reading Review of Systems Review of Systems: All systems reviewed & are unremarkable except as noted in HPI & below Physical Exam Physical Exam: No elevation in JVP No carotid bruits S1S2 2/6 systolic murmur No AI CTA B No presacral edeam 2/2+ femoral pulses + equa 2/2+ Radial pulses + equa Feet warm and perfusing Results & Data Vital Signs (Past 12 Hours) Vital Signs Temp Pulse Pulse Resp BP BP Pulse Ox 04/05/23 07:27 36.5 C 55 L 19 116/71 99 04/05/23 02:22 36.5 C 57 L 18 109/69 95 04/04/23 23:05 36.6 C 54 L 16 115/64 96 04/04/23 22:48 58 L 04/04/23 21:10 54 L 133/70 04/04/23 19:52 61 184/90 H O2 Del Method 04/05/23 07:27 Room Air 04/05/23 02:22 Room Air 04/04/23 23:05 Room Air 04/04/23 22:48 04/04/23 21:10 04/04/23 19:52 Laboratory Results reviewed Diagnostic Findings CTA: 04/04/2023 MPRESSION: 1. Status post repair of the thoracic aortic dissection. Small amount of residual chronic dissection within the descending thoracic aorta which has improved. No evidence for recurrent aortic dissection. 2. High-grade/severe stenosis involving the proximal 1 cm of the implanted right coronary artery graft. This has progressed in the interval. 3. Stable subcentimeter indeterminate pulmonary nodule within the right lung as described above. Continued one year chest CT follow-up recommended to ensure two-year stability. 4. Stable cardiomegaly. 5. Additional findings as described above.
[2023-04-05] MEDS: METOPROLOL TARTRATE 25 MG TAB PO SCH (08:23)
[2023-04-05] MEDS: ASPIRIN 81 MG ECTAB PO SCH (08:24)
[2023-04-05] MEDS: ROSUVASTATIN CALCIUM 20 MG TAB PO SCH (08:24)
[2023-04-05] MEDS: MULTIVITAMIN TAB PO SCH (08:24)
[2023-04-05] MEDS: lisinopril 40 MG TAB PO SCH (08:24)
[2023-04-05] MEDS ORDERED: lisinopril 20 MG TAB PO SCH (09:00)
--- NOTE | 2023-04-05 09:34 | Hospitalist Progress Note ---
Date of Service April 05, 2023 Assessment & Plan (1) Hypertensive urgency: Plan: 67-year-old man with history of hypertension, CAD status post CABG with [place] to LAD and SVG to OM, LCx and RCA status post aortic valvular replacement history of dissecting abdominal aortic aneurysm repair, hyperlipidemia who presents with significantly elevated blood pressure. CT head did not show any acute abnormality CT angio head and neck noted severe multifocal stenosis within the basilar artery and moderate to severe stenosis of the distal right vertebral artery, 40% stenosis within proximal bilateral cervical internal carotid arteries, focal mild aneurysmal dilatation of the distal left cervical internal carotid artery measuring up to 8 mm no definitive evidence for dissection within carotid or vertebral arteries. Chest CTA noted high-grade/severe stenosis involving proximal 1 cm of implanted RCA graft. No evidence of recurrent aortic dissection. No evidence of ACS Blood pressure is better controlled today. Cardiology evaluation noted Continue lisinopril 40 mg/day. Lopressor was stopped and started on Toprol-XL 150 mg daily. Get echocardiogram. (2) Cerebral aneurysm: Plan: - As above Admitting Dr discussed with Neurology almond grinder and Neurosurgery Dr Valdes. He recommended to maintain BP under 160 systolically. He reported this sounds like widening of the vessel not a true saccular aneurysm, likely incidental on imaging. He recommended telehealth as an outpatient on discharge (3) S/P CABG x 4: Plan: Hx of Coronary artery diseaseS/PCABG x 4 with [place] to the LAD and SVG's to the OM, LCx and RCA at [facility], 01/17/2022 Was taken off plavix per Cardiology recently as appropriate since this was over a year ago that stent was placed, Continue on asa 81 mg lifelong Continue crestor Per Cardiology, may consider outpatient nuclear stress test for possible RCA graft disease noted on CT (4) S/P aortic valve replacement: (5) Hx of dissecting abdominal aortic aneurysm repair: Plan: - Post-op acute Type A aortic dissectionS/PAortic valve re suspensionand aortic root reconstruction, 02/01/2022 - Post-op acute non-occlusive DVT of jugular vein and proximal internal jugular vein and acute occlusive superficial venous thrombosis of cephalic vein, 01/2022 - Stable on CTA of the chest, neck compared to previous which was done in November 2022 (6) HLD (hyperlipidemia): Plan: - Cont rosuvastatin 20 mg daily - LDL was controlled at 57 - Chronic, stable DVT ppx: teds, scds CODE: FULL I spent a total of 50 minutes coordinating, documenting and providing care for this patient excluding time spent in performance of separately billed services Admission and Anticipated Discharge Date Admission Date: April 04, 2023 Subjective Patient seen and examined Reports dizziness has improved significantly Reports some posterior headache which he reported is related to his neck arthritis and not new Denied any chest pain, SOB. Reports occasional dry cough which he stated was due to his allergies Denied congestion, sore throat Reported nausea earlier which is resolved No vomiting, abd pain, diarrhea, constipation Denied dysuria, freq, urgency Physical Exam Constitutional: + well hydrated; no acute distress Eyes: Left pupil slightly larger than right (reported old trauma to eye). Both reactive to light ENMT: external ear and nose normal, oropharynx normal Respiratory: normal respiratory effort, lungs clear to auscultation Cardiovascular: Rate/Rhythm: regular rhythm and + bradycardic S1 S2 Gastrointestinal (Abdomen): normal bowel sounds, soft, nontender, no hepatosplenomegaly Musculoskeletal: no cyanosis or clubbing, extremities motor strength 5/5 No pedal edema Neurologic: PERRL, EOMI, accommodation nl, no face palsy, no dysarthria Psychiatric: A+Ox3, euthymic affect Results & Data Results & Data Vital Signs (Past 12 Hours) Vital Signs Temp Pulse Pulse Resp BP BP Pulse Ox 04/05/23 09:04 58 L 04/05/23 07:27 36.5 C 55 L 19 116/71 99 04/05/23 02:22 36.5 C 57 L 18 109/69 95 04/04/23 23:05 36.6 C 54 L 16 115/64 96 04/04/23 22:48 58 L O2 Del Method 04/05/23 09:04 04/05/23 07:27 Room Air 04/05/23 02:22 Room Air 04/04/23 23:05 Room Air 04/04/23 22:48 Laboratory Results Abnormal lab results 04/04/23 04/04/23 04/04/23 Range/Units 11:36 11:36 16:58 RBC (4.70-6.10) M/uL Hgb (14.0-18.0) g/dl Hct (42.0-52.0) % Lymph # (Auto) 1.06 L (1.2-3.4) K/uL [place] # (Auto) 0.86 H (0.11-0.59) K/uL Glucose 139 H (70-99(Fasting)) mg/dl Ur Specific [place] 1.037 H (1.000-1.030) 04/05/23 04/05/23 Range/Units 05:36 05:36 RBC 4.58 L (4.70-6.10) M/uL Hgb 13.2 L (14.0-18.0) g/dl Hct 38.6 L (42.0-52.0) % Lymph # (Auto) (1.2-3.4) K/uL [place] # (Auto) (0.11-0.59) K/uL Glucose 100 H (70-99(Fasting)) mg/dl Ur Specific [place] (1.000-1.030)
[2023-04-05 14:10] LABS: Lyme Ab IgG w/WB Rflx Negative (Negative); Lyme Ab IgM w/WB Rflx Negative (Negative)
[2023-04-05] MEDS: ACETAMINOPHEN 325 MG TAB PO PRN ×2 (15:05→23:20)
[2023-04-05] MEDS: hydrALAZINE HCL 20 MG/ML VIAL IV PRN ×2 (17:52→23:21)
[2023-04-05] MEDS ORDERED: SODIUM CHLORIDE 0.65% NA SOLN 45 ML (OCEAN) ONE (21:05)
[2023-04-06] MEDS: LEVOTHYROXINE SODIUM 50 MCG TABLET PO SCH (05:54)
[2023-04-06 06:35] LABS: Mean Corpuscular Hemoglobin 28.9 pg (25.0-34.0); Mean Corpuscular Volume 82.6 fL (80.0-100.0); Mean Platelet Volume 9.9 fL (9.4-12.4); Platelet Count 183 K/uL (130-400); RDW Coefficient of Variation 12.9 % (11.5-14.5); RDW Standard Deviation 38.9 fL (36.4-46.3); Red Blood Count 4.84 M/uL (4.70-6.10); White Blood Count 7.98 K/ul (4.8-10.8)
[2023-04-06 06:48] LABS: BUN Creatinine Ratio 15.9 (10-20); Calcium 9.1 mg/dl (8.6-10.3); Creatinine Clr Calc Pharmacy 86.8 ml/min; Est GFR (Non-African American) 88.9 ml/min
--- NOTE | 2023-04-06 08:23 | Cardiology Progress Note ---
Date of Service April 06, 2023 Assessment & Plan (1) Hypertensive urgency: Plan 67 yo man presenting with hypertensive urgency in the setting of medication changes + CAD + Aortic Dissection s/p repair S/P AVR No evidence of endocarditis EKG - no evidence of ischemia Presentation not c/w ACS BP much better controlled at present Plans: * Continue Lisinopril 40 mg po per day * SBP 154 mmHg * Recheck SBP * Start Aldactone 25 mg po per day * Start Chlorthalindone 25 mg po per day * HR 73 BPM * Stop Lopressor * Start Toprol XL 150 mg po per day * ECHOcardiogram- completed * LVEF 60%, No significant or AI; No significant MR * Continue Crestor * Continue ASA * Given question of RCA graft disease, may consider outpt Nuclear Stress Test * Will arrange for F/U with Primary [employer] Consultant Chilo Hankins Admission and Anticipated Discharge Date Admission Date: April 04, 2023 Subjective Patient seen and examined Reports dizziness has improved significantly Denied any chest pain, SOB. Reports occasional dry cough which he stated was due to his allergies Events overnight: * None reported * Pt ambulatory Review of Systems Review of Systems: All systems reviewed & are unremarkable except as noted in HPI & below Physical Exam Physical Exam: No elevation in JVP No carotid bruits S1S2 2/6 systolic murmur No AI CTA B No presacral edeam 2/2+ femoral pulses + equa 2/2+ Radial pulses + equa Feet warm and perfusing No change noted Results & Data Vital Signs (Past 12 Hours) Vital Signs Temp Pulse Pulse Resp BP BP Pulse Ox 04/06/23 07:23 36.5 C 73 16 151/84 H 99 04/06/23 03:38 36.6 C 59 L 16 122/75 99 04/06/23 00:00 63 151/83 H 04/05/23 22:48 36.3 C L 62 18 179/95 H 99 04/05/23 22:46 64 O2 Del Method 04/06/23 07:23 Room Air 04/06/23 03:38 Room Air 04/06/23 00:00 04/05/23 22:48 Room Air 04/05/23 22:46
[2023-04-06] MEDS ORDERED: METOPROLOL SUCC 50MG EXT REL TAB PO SCH (09:00)
[2023-04-06] MEDS: ASPIRIN 81 MG ECTAB PO SCH (09:04)
[2023-04-06] MEDS: lisinopril 40 MG TAB PO SCH (09:05)
[2023-04-06] MEDS: MULTIVITAMIN TAB PO SCH (09:06)
[2023-04-06] MEDS: ROSUVASTATIN CALCIUM 20 MG TAB PO SCH (09:07)
[2023-04-06] MEDS ORDERED: CHLORTHALIDONE 25 MG TAB PO SCH (09:15)
[2023-04-06] MEDS ORDERED: SPIRONOLACTONE 25 MG TAB PO SCH (09:15)
--- NOTE | 2023-04-06 12:49 | Discharge Summary ---
Date of Service April 06, 2023 Admission HPI Per Admitting Provider This is a 67-year-old male with PMHx of CAD, CABG x4 vessel, type A aortic dissection, s/p aortic resuspension and aortic root reconstruction on 02/01/2022, postop acute nonocclusive DVT of the jugular vein and proximal internal jugular vein and acute occlusive superficial venous thrombosis of the cephalic vein, who presents to the hospital with acute elevation in blood pressure. Patient woke up around 3:30 AM today feeling nauseous, clammy, lightheaded with sitting up in bed and took his blood pressure which was 198/107. At that time he took his lisinopril and levothyroxine and went back to bed. At 9:30 was 170/100 he woke back up, but still felt some lightheadedness and dizziness, but not clammy. Pt did eat a piece of toast at breakfast when he took his metoprolol. Pt reports routinely wakes up around 4am to take medication like this. 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 He admits to not staying well hydrated normally, and drinks mostly ice tea and soda. His diet has changed since cholecystectomy in Sep, and since then eats multiple small meals daily. Since that time he has lost 30 pounds. This morning he called outpatient cardiology office and he was referred to the ER due to his elevated BP. Admission Exam Per Admitting Provider General: awake, alert, no apparent distress, + thin white male, BMI 23.5 Head: Normocephalic, atraumatic ENT: PERRL, EOMI, no pharyngeal exudate, mucous membranes slightly dry Chest: Clear to auscultation, on room air, no adventitious breath sounds Cardiac: Regular rate and rhythm, + aortic valve click, no murmur, no JVD, normal peripheral pulses, good capillary refill Abdominal: NABS x 4 quadrants, soft, nondistended, nontender to palpation, no rebound or guarding Extremities: Normal inspection, no peripheral edema or erythema, calfs nontender to palpation Psych: Normal mood and affect Neuro: AAO x 3, strength intact bilaterally and rated 5/5, no motor deficits, speech is clear, no peripheral sensory deficits Principal Diagnosis Hypertensive urgency Discharge Exam Constitutional + well hydrated; no acute distress ENMT external ear and nose normal, oropharynx normal Respiratory normal respiratory effort, lungs clear to auscultation Cardiovascular Rate/Rhythm: regular rate and regular rhythm S1 S2 Gastrointestinal (Abdomen) normal bowel sounds, soft, nontender, no hepatosplenomegaly Musculoskeletal no cyanosis or clubbing, extremities motor strength 5/5 No pedal edema Neurologic PERRL, EOMI, accommodation nl, no face palsy, no dysarthria Psychiatric A+Ox3, euthymic affect Discharge Data Allergies Allergy/AdvReac Type Severity Reaction Status Date / Time amoxicillin Allergy Intermediate Gastrointestinal Verified 03/30/22 00:41 Upset morphine Allergy Intermediate Hives Unverified 04/04/23 15:01 Consultations 04/04/23 15:35 Consult Cardiology Routine 04/04/23 15:42 ED Decision to Admit Stat Ordered Studies 04/04/23 12:56 CT angio head w con Stat CT angio neck with con Stat CT head/brain wo con Stat 04/04/23 13:30 CT angio chest dissec wo/w con Stat Hospital Course (1) Hypertensive urgency: 67-year-old man with history of hypertension, CAD status post CABG with [place] to LAD and SVG to OM, LCx and RCA status post aortic valvular replacement history of dissecting abdominal aortic aneurysm repair, hyperlipidemia who presents with significantly elevated blood pressure. CT head did not show any acute abnormality CT angio head and neck noted severe multifocal stenosis within the basilar artery and moderate to severe stenosis of the distal right vertebral artery, 40% stenosis within proximal bilateral cervical internal carotid arteries, focal mild aneurysmal dilatation of the distal left cervical internal carotid artery measuring up to 8 mm no definitive evidence for dissection within carotid or vertebral arteries. Chest CTA noted high-grade/severe stenosis involving proximal 1 cm of implanted RCA graft. No evidence of recurrent aortic dissection. No evidence of ACS BP was 190/103 on presenteation Was evaluated by Cardiology TTE noted mod conc LVH, subtle septal hypokinesis, EF 60-65%, mild AV sclerosis without significant stenosis, G1 DD, normal aoric root. No significant interval change compared to one from 01/14/22 Discussed with Demolition Expert today Recommend discharging on increased losartan 40mg daily, started on chlorthalidone 25mg daily and spironolactone 25mg daily Home metoprolol tartarate was changed to metoprolol succinate 150mg daily BP is better controlled today Patient to follow up with his Demolition Expert (2) Cerebral aneurysm: - As above Admitting Dr discussed with Neurology concrete rubber and Neurosurgery Dr Valdes. He recommended to maintain BP under 160 systolically. He reported this sounds like widening of the vessel not a true saccular aneurysm, likely incidental on imaging. He recommended telehealth as an outpatient on discharge (3) S/P CABG x 4: Hx of Coronary artery diseaseS/PCABG x 4 with [place] to the LAD and SVG's to the OM, LCx and RCA at [facility], 01/17/2022 Was taken off plavix per Cardiology recently as appropriate since this was over a year ago that stent was placed, Continue on asa 81 mg lifelong Continue crestor Per Cardiology, may consider outpatient nuclear stress test for possible RCA graft disease noted on CT (4) S/P aortic valve replacement: (5) Hx of dissecting abdominal aortic aneurysm repair: - Post-op acute Type A aortic dissectionS/PAortic valve re suspensionand aortic root reconstruction, 02/01/2022 - Post-op acute non-occlusive DVT of jugular vein and proximal internal jugular vein and acute occlusive superficial venous thrombosis of cephalic vein, 01/2022 - Stable on CTA of the chest, neck compared to previous which was done in November 2022 (6) HLD (hyperlipidemia): - Cont rosuvastatin 20 mg daily - LDL was controlled at 57 - Chronic, stable Total Time Total Time Spent Total Time Spent (In Minutes): 45 Total Time Includes: Examination of the Patient, Discharge Planning, Medication Reconciliation and Communication With Other Providers Discharge Plan Discharge Items Patient Disposition: Home - Self-Care Reason For Visit: HTN URGENCY Discharge Diagnosis: Hypertensive urgency Activity: Resume your previous activity Non-emergency contact: Primary Care Provider Call non-emergency contact if: you have any medication questions Follow-up/Referrals: Harpreet Chapman MD [Primary Care Provider] - Diet: Heart Healthy and Low Sodium (2gm) Addtl Attending Provider Instructions: Mr Zepeda You came to the hospital complaining of feeling unwell and elevated blood pressure You were evaluated and found to have significantly elevated blood pressure. Your CT scans noted a small internal carotid aneurysm. Please follow up Neurosurgery outpatient about this. There was also concern for possible Right coronary artery disease on the CT. You were evalutated by Cardiology. Please ensure follow up with your Demolition Expert who may arrange further evaluation. You were started on spironolactone and chlorthalidone Your lisinopril was increased to 40mg daily for better blood pressure control. Your metoprolol tartarate was changed to metoprolol succinate 150mg daily Please ensure follow up with your Primary Doctor It was a pleasure taking care of you. Pending Studies at Discharge: No Stand-Alone Forms: My [facility], Smoking Cessation Medications and DC Order Prescriptions: New metoprolol succinate 50 mg Tablet Extended Release 24 Hr 150 mg PO QAM 30 Days Qty: 90 0RF spironolactone 25 mg Tablet 25 mg PO QAM 30 Days Qty: 30 0RF lisinopril [Zestril] 40 mg Tablet 40 mg PO QAM 30 Days Qty: 30 0RF chlorthalidone 25 mg tablet 25 mg PO DAILY Qty: 30 0RF Continued acetaminophen [Tylenol] 325 mg Tablet 650 mg PO Q6H PRN (Reason: Pain) rosuvastatin 20 mg Tablet 20 mg PO QAM levothyroxine 50 mcg Tablet 50 mcg PO DAILYBB aspirin 81 mg Tablet,Delayed Release (Dr/Ec) 81 mg PO QAM Qty: 30 0RF multivitamin Tablet 1 tab PO QAM Discontinued lisinopril 20 mg tablet 20 mg PO QAM metoprolol tartrate 25 mg tablet 75 mg PO BID Discharge Orders: Discharge Order (Routine); Ordered 04/06/23 Ordered By: Mehnaz Scott/Other Patient Handouts: Stroke and Heart Disease, High Blood Pressure Risk Factors, Hypertension Dc Admission Data Admit Date/Time: 04/04/23 15:35 Attending Provider: Mehnaz Vaughn I. Admit Provider: Daylin Marie Primary Care Provider: Harpreet Chapman Other Providers: Daylin Marie Other Interventions: Discharge Summary Assessment (RN) Last Done: 04/06/23 13:22
== END 2023-04-06 14:38 | disposition home or self-care (01) | DRG 305 ==
LOC: ED 10:57 → SUATTDRO 15:35 → 2S 15:35

== ENCOUNTER 2023-08-29 13:11 | Inpatient (IN) ==
[2023-08-29] MEDS ORDERED: HEPARIN (PORCINE) 1000 UNIT/ML 10 ML (CATH LAB USE ONLY) ONE (13:28)
[2023-08-29] MEDS ORDERED: niCARdipine HCL INJ 2.5 MG/ML 10 ML AMP ONE (13:28)
[2023-08-29] MEDS ORDERED: NITROGLYCERIN/D5W 100MCG/ML 20ML SYR ONE (13:29)
[2023-08-29] MEDS ORDERED: fentaNYL citrate PF 100 MCG/2 ML VIAL ONE (13:29)
[2023-08-29] MEDS ORDERED: MIDAZOLAM HCL 1 MG/ML 2ML VIAL ONE ×2 (13:29→14:03)
--- NOTE | 2023-08-29 13:35 | Emergency Department Note ---
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 He has a history of CABG which was followed by dissecting ascending aortic aneurysm which was repaired at [place]. He denies any headache or change in vision. He notes the chest pain started around 10 AM. It was up in the upper chest and goes into the neck and jaw. Denies any shortness of breath does have some right shoulder pain. No belly pain, nausea, vomiting, or diarrhea. No dysuria, urgency, or frequency. No other exacerbating or remitting factors. ADDITIONAL HISTORY OBTAINED: Per HPI Chronic Medical/Social Conditions Affecting Care: Per HPI PAST MEDICAL HISTORY:See Below PAST SURGICAL HISTORY:See Below FAMILY HISTORY:See Below SOCIAL HISTORY:See Below HOME MEDICATIONS:See Below ALLERGIES:See Below VITALS:See Below PHYSICAL EXAMINATION: GENERAL: Sitting up in bed, alert, well appearing, well nourished, no distress, non-toxic EYE EXAM: normal conjunctiva. OROPHARYNX: mucous membranes are moist LUNGS: Clear to auscultation. Normal chest wall mechanics HEART: no murmurs, S1 normal and S2 normal ABDOMEN: abdomen soft, non-tender, normo-active bowel sounds, no masses, no rebound or guarding. BACK: Back is symmetrical on inspection and there is no deformity, no midline tenderness, no CVA tenderness. SKIN: no rashes and no bruising UPPER EXTREMITIES: upper extremities are grossly normal. LOWER EXTREMITIES: No pitting edema. NEURO EXAM: Normal sensorium, cranial nerves II-XII grossly intact, normal speech, no gross weakness of arms, no gross weakness of legs. MEDICAL DECISION MAKING: Patient is a 68-year-old gentleman who presents the ER for chest pain in the upper chest/neck. Started around 10:00. Does have a history of CABG and thoracic aortic dissection. IV was established blood work is obtained. Labs show mild leukocytosis of 11,000. No anemia. INR unremarkable. BMP along with LFTs bilirubin was unremarkable. Troponin was slightly elevated at 55. Patient was given Lopressor as well as aspirin and Brilinta while in the ER. Evaluated by interventional cardiology as a STEMI alert was called. Was taken emergently to the [facility]. Consults/Care Managements Discussions: Per [facility] Triage Nursing notes reviewed. Limited review of prior medical records performed Vital Signs: reviewed and remarkable for no significant abnormalities Differential diagnosis: Cardiac ischemia, aortic dissection, pulmonary embolism, pneumothorax, pneumonia, pericarditis, myocarditis, esophageal rupture, GERD, cholecystitis, pancreatitis, musculoskeletal, as well as other pathologies. ER treatment provided: See below Diagnostics interpreted by me include EKG and cardiac monitoring as listed below: -Cardiac Monitoring: An order was placed for continuous cardiac monitoring. The monitor shows a rate of 70 with sinus rhythm. -ECG: Sinus rhythm rate of 69 ST segment elevation in inferior leads with subtle depressions in the high lateral leads and septal leads QTc 469 -Laboratory studies:Interpreted by me as stated above in MDM and shown below. Imaging studies: Xrays: As interpreted by me: Portable AP upright 1 view of the chest shows no focal motor or CTs show: none Procedures:none Critical Care: I have personally spent 32 minutes of critical care time in the direct management of this patient. This includes bedside care, interpretation of diagnostic studies, and testing, discussion with consultants, patient, and family members, and other required patient management activities. This 32 minutes is in excess of all separately billable procedures. 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 Hx of cholecystectomy Hx of dissecting abdominal aortic aneurysm repair S/P aortic valve replacement S/P CABG x 4 Family History Other Coronary heart disease Social History Smoking Status: Never smoker Hx Alcohol Use: No Hx Substance Use: No Preferred Language: Georgian Communication Ability: Effective Youtuber Required: No Beliefs That Will Affect Care: Oriental Orthodox marital status: Current Living Situation: Spouse current occupation: [employer] How many Children do You have: 0 Feels Safe at Home: Yes Assistive Devices: Glasses Allergies Allergies Allergy/AdvReac Type Severity Reaction Status Date / Time amoxicillin Allergy Intermediate Gastrointestinal Verified 03/30/22 00:41 Upset morphine Allergy Intermediate Hives Unverified 04/04/23 15:01 Home Meds Home Medications Medication Instructions Recorded Confirmed levothyroxine 50 mcg tablet 50 mcg PO DAILYBB 01/13/22 04/04/23 acetaminophen 325 mg tablet 650 mg PO Q6H PRN Pain 02/01/22 04/04/23 (Tylenol) rosuvastatin 20 mg tablet 20 mg PO QAM 02/01/22 04/04/23 multivitamin 1 tab PO QAM 04/04/23 04/04/23 Previous Rx's Medication Instructions Recorded aspirin 81 mg tablet,delayed 81 mg PO QAM #30 tabs 01/14/22 release chlorthalidone 25 mg tablet 25 mg PO DAILY #30 tabs 04/06/23 meclizine 25 mg tablet 25 mg PO TID PRN dizziness #30 tabs 04/25/23 Results & Data (ED) Vital Signs Vital Signs - 24 hr 08/29/23 13:16 08/29/23 13:28 08/29/23 13:28 Temperature 36.5 C Temperature Source Temporal Artery Scan Pulse Rate 67 72 Pulse Rate [Apical] 73 Pulse Rhythm Pulse Rhythm [Apical] Regular Pulse Strength [Apical] Normal Respiratory Rate 20 18 Respiratory Effort / Characteristics Non-Labored Spontaneous Non-Labored Spontaneous Respiratory Depth Normal Normal Respiratory Pattern Regular Regular Blood Pressure 165/103 H Blood Pressure [Right Arm] 217/130 H Blood Pressure Mean 123 Blood Pressure Mean [Right Arm] 159 Blood Pressure Position [Right Arm] Sitting Pulse Oximetry 98 99 Oxygen Delivery Method Room Air Room Air Sepsis Recent Fever Within 48 Hours No Sepsis New/Unexplained Change in Mental Status No Sepsis Action Taken by Nursing No Action Required 08/29/23 13:29 08/29/23 13:30 08/29/23 13:41 Temperature Temperature Source Pulse Rate 73 Pulse Rate [Apical] 70 64 Pulse Rhythm Pulse Rhythm [Apical] Regular Regular Pulse Strength [Apical] Normal Normal Respiratory Rate 18 18 Respiratory Effort / Characteristics Non-Labored Spontaneous Non-Labored Spontaneous Respiratory Depth Normal Normal Respiratory Pattern Regular Regular Blood Pressure 217/130 H Blood Pressure [Right Arm] 206/132 H 198/123 H Blood Pressure Mean Blood Pressure Mean [Right Arm] 156 148 Blood Pressure Position [Right Arm] Sitting Sitting Pulse Oximetry 99 98 Oxygen Delivery Method Room Air Room Air Sepsis Recent Fever Within 48 Hours Sepsis New/Unexplained Change in Mental Status Sepsis Action Taken by Nursing 08/29/23 13:42 08/29/23 13:44 08/29/23 13:57 Temperature Temperature Source Pulse Rate 68 Pulse Rate [Apical] 66 Pulse Rhythm Pulse Rhythm [Apical] Regular Pulse Strength [Apical] Normal Respiratory Rate 18 Respiratory Effort / Characteristics Non-Labored Spontaneous Respiratory Depth Normal Respiratory Pattern Regular Blood Pressure 185/112 H Blood Pressure [Right Arm] 183/112 H Blood Pressure Mean Blood Pressure Mean [Right Arm] 135 Blood Pressure Position [Right Arm] Sitting Pulse Oximetry 100 99 Oxygen Delivery Method Room Air Room Air Sepsis Recent Fever Within 48 Hours Sepsis New/Unexplained Change in Mental Status Sepsis Action Taken by Nursing 08/29/23 13:57 Temperature Temperature Source Pulse Rate 73 Pulse Rate [Apical] Pulse Rhythm Regular Pulse Rhythm [Apical] Pulse Strength [Apical] Respiratory Rate 18 Respiratory Effort / Characteristics Respiratory Depth Respiratory Pattern Blood Pressure Blood Pressure [Right Arm] Blood Pressure Mean Blood Pressure Mean [Right Arm] Blood Pressure Position [Right Arm] Pulse Oximetry 99 Oxygen Delivery Method Room Air Sepsis Recent Fever Within 48 Hours Sepsis New/Unexplained Change in Mental Status Sepsis Action Taken by Nursing Laboratory Data 08/29/23 13:40 08/29/23 13:40 Lab Results 08/29/23 08/29/23 Range/Units 13:40 14:54 WBC 10.82 H (4.8-10.8) K/ul RBC 5.41 (4.70-6.10) M/uL Hgb 15.7 (14.0-18.0) g/dl Hct 46.5 (42.0-52.0) % MCV 86.0 (80.0-100.0) fL MCH 29.0 (25.0-34.0) pg MCHC 33.8 (32.0-36.0) g/dL RDW Std Deviation 39.2 (36.4-46.3) fL RDW Coeff of Sarmad 12.5 (11.5-14.5) % Plt Count 215 (130-400) K/uL MPV 10.0 (9.4-12.4) fL Immature Gran % (Auto) 0.4 % Neut % (Auto) 76.9 % Lymph % (Auto) 12.4 % Hodgeman % (Auto) 8.7 % Eos % (Auto) 1.1 % Baso % (Auto) 0.5 % Neut # (Auto) 8.33 H (1.40-6.50) K/uL Lymph # (Auto) 1.34 (1.20-3.40) K/uL Hodgeman # (Auto) 0.94 H (0.11-0.59) K/uL Eos # (Auto) 0.12 (0.00-0.50) K/uL Baso # (Auto) 0.05 (0.00-0.20) K/uL Immature Gran # (Auto) 0.04 (0.01-0.20) K/uL PT 11.2 (9.0-12.0) Seconds INR 1.0 (0.9-1.1) APTT 28 (21-31) Seconds PTT Ratio 1.0 Activ Coag Time Kaolin 201 H (94-140) SECONDS Sodium 138 (136-145) mmol/L Potassium 4.1 (3.5-5.1) mmol/L Chloride 104 (98-107) mmol/L Carbon Dioxide 27 (21-32) mmol/L Anion Gap 7 (3-11) BUN 13 (6-23) mg/dl Creatinine 1.01 (0.6-1.4) mg/dl Est Cr Clr Drug Dosing 74.6 ml/min Est GFR ( Amer) 88.2 ml/min Est GFR (Non-Af Amer) 76.1 ml/min BUN/Creatinine Ratio 12.9 (10-20) Glucose 113 H (70-99(Fasting)) mg/dl Calcium 9.7 (8.6-10.3) mg/dl Total Bilirubin 0.5 (0.2-1.0) mg/dl AST 24 (13-39) U/L ALT 24 (7-52) U/L Alkaline Phosphatase 68 (34-104) U/L Troponin I High Sens 55.6 H* (0-20) pg/ml Total Protein 7.8 (6.0-8.3) gm/dl Albumin 4.7 (3.4-5.0) gm/dl Globulin 3.1 (2.5-4.0) gm/dl Albumin/Globulin Ratio 1.5 (0.9-2) Administered Medications Discontinued Medications Aspirin (Aspirin Chew 324 Mg) Confirm Administered Dose 324 mg .ROUTE .STK-MED ONE Stop: 08/29/23 13:43 Last Admin: 08/29/23 13:44 Dose: 324 mg Documented By: KANE Fentanyl Citrate (Fentanyl Citrate Pf 100 Mcg/2 Ml Vial) Confirm Administered Dose 100 mcg .ROUTE .STK-MED ONE Stop: 08/29/23 13:30 Last Admin: 08/29/23 15:37 Dose: 50 mcg Documented By: BILL Heparin Sodium (Porcine) (Heparin (Porcine) 1000 Unit/Ml 10 Ml (Aviation Maintenance Technician Use Only)) Confirm Administered Dose 10,000 units .ROUTE .STK-MED ONE Stop: 08/29/23 13:29 Last Admin: 08/29/23 15:37 Dose: 7,000 units Documented By: BILL Heparin Sodium/Sodium Chloride (Heparin In Nss Infusion 1000 Unit/500 Ml (2 U/Ml) Bag) Confirm Administered Dose 3,000 units IV .STK-MED ONE Stop: 08/29/23 13:30 Last Admin: 08/29/23 15:37 Dose: 3,000 units Documented By: LIN Hydralazine HCl (Hydralazine Hcl 20 Mg/Ml Vial) Confirm Administered Dose 20 mg .ROUTE .STK-MED ONE Stop: 08/29/23 13:37 Last Admin: 08/29/23 15:38 Dose: Not Given Documented By: BILL Hydralazine HCl (Hydralazine Hcl 20 Mg/Ml Vial) Confirm Administered Dose 20 mg .ROUTE .STK-MED ONE Stop: 08/29/23 14:33 Last Admin: 08/29/23 15:39 Dose: Not Given Documented By: BILL Labetalol HCl (Labetalol Hcl Iv 5 Mg/Ml 20ml) 10 mg IV NOW STA Stop: 08/29/23 13:40 Last Admin: 08/29/23 13:29 Dose: 10 mg Documented By: KANE Co-signed By: TY Lidocaine HCl (Lidocaine 1% Local 20 Ml Vial) Confirm Administered Dose 60 ml .ROUTE .STK-MED ONE Stop: 08/29/23 13:38 Last Admin: 08/29/23 15:38 Dose: 60 ml Documented By: LIN Metoprolol Tartrate (Metoprolol Tartrate 1 Mg/Ml Vial) Confirm Administered Dose 5 mg IV .STK-MED ONE Stop: 08/29/23 13:43 Last Admin: 08/29/23 13:44 Dose: 5 mg Documented By: KANE Midazolam HCl (Midazolam Hcl 1 Mg/Ml 2ml Vial) Confirm Administered Dose 2 mg .ROUTE .STK-MED ONE Stop: 08/29/23 13:30 Last Admin: 08/29/23 15:38 Dose: 2 mg Documented By: BILL Midazolam HCl (Midazolam Hcl 1 Mg/Ml 2ml Vial) Confirm Administered Dose 2 mg .ROUTE .STK-MED ONE Stop: 08/29/23 14:04 Last Admin: 08/29/23 15:39 Dose: Not Given Documented By: BILL Nicardipine HCl (Nicardipine Hcl Inj 2.5 Mg/Ml 10 Ml Amp) Confirm Administered Dose 25 mg .ROUTE .STK-MED ONE Stop: 08/29/23 13:29 Last Admin: 08/29/23 15:37 Dose: 25 mg Documented By: LIN Nitroglycerin/Dextrose (Nitroglycerin/D5w 100mcg/Ml 20ml Syr) Confirm Administered Dose 2,000 mcg .ROUTE .STK-MED ONE Stop: 08/29/23 13:30 Last Admin: 08/29/23 15:38 Dose: 2,000 mcg Documented By: LIN Ticagrelor (Ticagrelor 90 Mg Tab) Confirm Administered Dose 180 mg .ROUTE .STK- MED ONE Stop: 08/29/23 13:44 Last Admin: 08/29/23 13:45 Dose: 180 mg Documented By: KANE Imaging Data Radiologist's Impression: Chest X-Ray 08/29/23 13:19 XR chest 1V portable CLINICAL HISTORY: Chest pain, nonspecific TECHNIQUE: Single frontal radiograph of the chest was obtained. Comparison: Comparison is made to chest radiograph 04/25/2023 FINDINGS: Median sternotomy wires are unchanged. Aortic graft is noted. Cardiomegaly is noted. The lungs are clear. No evidence of pleural effusion or pneumothorax. IMPRESSION: No acute chest disease. ACT 112: Negative or not required by law. Electronically signed by: Dashawn Gamboa M.D. 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
[2023-08-29] MEDS ORDERED: hydrALAZINE HCL 20 MG/ML VIAL ONE ×2 (13:36→14:32)
[2023-08-29] MEDS ORDERED: LIDOCAINE 1% LOCAL 20 ML VIAL ONE (13:37)
[2023-08-29] MEDS ORDERED: LABETALOL HCL IV 5 MG/ML 20ML IV STA (13:39)
[2023-08-29] MEDS ORDERED: ASPIRIN CHEW 324 MG ONE (13:42)
[2023-08-29] MEDS ORDERED: METOPROLOL TARTRATE 1 MG/ML VIAL IV ONE (13:42)
[2023-08-29] MEDS ORDERED: TICAGRELOR 90 MG TAB ONE (13:43)
--- NOTE | 2023-08-29 13:49 | Electrocardiogram Report ---
Test Reason : Blood Pressure : / mmHG Vent. Rate : 069 BPM Atrial Rate : 069 BPM P-R Int : 202 ms QRS Dur : 094 ms QT Int : 438 ms P-R-T Axes : 016 032 092 degrees QTc Int : 469 ms Normal sinus rhythm ST elevation consider inferior injury or acute infarct ACUTE VT / STEMI Consider right ventricular involvement in acute inferior infarct Abnormal ECG When compared with ECG of 25-APR-2023 16:50, ST elevation now present in Inferior leads ST now depressed in Lateral leads Nonspecific T wave abnormality, worse in Lateral leads Confirmed by Christiano Leyva ([id number]) on 08/29/2023 1:49:06 PM Referred By: Confirmed By:Dewayne Leyva
[2023-08-29 13:55] LABS: Basophils # (auto) 0.05 K/uL (0.00-0.20); Basophils % (auto) 0.5 %; Eosinophils # (auto) 0.12 K/uL (0.00-0.50); Eosinophils % (auto) 1.1 %; Hematocrit (blood only) 46.5 % (42.0-52.0); Hemoglobin 15.7 g/dl (14.0-18.0); Immature Granulocytes # (auto) 0.04 K/uL (0.01-0.20); Immature Granulocytes % (auto) 0.4 %; Lymphocytes # (auto) 1.34 K/uL (1.20-3.40); Lymphocytes % (auto) 12.4 %; Mean Corpuscular Hgb Conc 33.8 g/dL (32.0-36.0); Monocytes # (auto) 0.94 K/uL (0.11-0.59); Monocytes % (auto) 8.7 %; Neutrophils # (auto) 8.33 K/uL (1.40-6.50); Neutrophils % (auto) 76.9 %; Platelet Count 215 K/uL (130-400); RDW Coefficient of Variation 12.5 % (11.5-14.5); RDW Standard Deviation 39.2 fL (36.4-46.3); Red Blood Count 5.41 M/uL (4.70-6.10); White Blood Count 10.82 K/ul (4.8-10.8)
--- NOTE | 2023-08-29 13:58 | XRay Report ---
XR chest 1V portable CLINICAL HISTORY: Chest pain, nonspecific TECHNIQUE: Single frontal radiograph of the chest was obtained. Comparison: Comparison is made to chest radiograph 04/25/2023 FINDINGS: Median sternotomy wires are unchanged. Aortic graft is noted. Cardiomegaly is noted. The lungs are cl ear. No evidence of pleural effusion or pneumothorax. IMPRESSION: No acute chest disease. ACT 112: Negative or not required by law. Electronically signed by: Dashawn Gamboa M.D. 08/29/2023 1:55 PM
[2023-08-29 14:15] LABS: Albumin Globulin Ratio 1.5 (0.9-2); Albumin Level 4.7 gm/dl (3.4-5.0); BUN Creatinine Ratio 12.9 (10-20); Bilirubin,Total 0.5 mg/dl (0.2-1.0); Calcium 9.7 mg/dl (8.6-10.3); Creatinine Clr Calc Pharmacy 74.6 ml/min; Est GFR (African American) 88.2 ml/min; Est GFR (Non-African American) 76.1 ml/min; Globulin 3.1 gm/dl (2.5-4.0); Potassium 4.1 mmol/L (3.5-5.1); Total Protein 7.8 gm/dl (6.0-8.3)
[2023-08-29 14:26] LABS: Troponin I High Sensitivity 55.6 pg/ml (0-20)
[2023-08-29 14:34] LABS: Partial Thromboplastin Time 28 Seconds (21-31); Prothrombin Time 11.2 Seconds (9.0-12.0)
--- NOTE | 2023-08-29 16:07 | Pre Anesthesia Assessment ---
Date of Service August 29, 2023 Pre Sedation Assessment Vital Signs Temp Pulse Pulse Resp BP BP Pulse Ox 08/29/23 15:50 60 18 160/96 H 100 08/29/23 13:57 73 18 99 08/29/23 13:57 99 08/29/23 13:44 68 185/112 H 08/29/23 13:42 66 18 183/112 H 100 08/29/23 13:41 64 18 198/123 H 98 08/29/23 13:30 70 18 206/132 H 99 08/29/23 13:29 73 217/130 H 08/29/23 13:28 73 18 217/130 H 99 08/29/23 13:28 72 08/29/23 13:16 36.5 C 67 20 165/103 H 98 O2 Del Method 08/29/23 15:50 Room Air 08/29/23 13:57 Room Air 08/29/23 13:57 Room Air 08/29/23 13:44 08/29/23 13:42 Room Air 08/29/23 13:41 Room Air 08/29/23 13:30 Room Air 08/29/23 13:29 08/29/23 13:28 Room Air 08/29/23 13:28 08/29/23 13:16 Room Air Cardiovascular RRR, no murmur, no edema Respiratory normal respiratory effort, lungs clear to auscultation Pre-Sedation Airway Assessment Smoking Status: Never smoker Hx Sleep Apnea: Yes Hx Difficult Intubation: No MALLAMPATI 2 ASA 4 Notes The planned sedation has been discussed with the patient. Informed Consent was obtained. I have identified the patient, determined the appropriateness of sedation and have assessed the patient immediately prior to the procedure. All medicine(s) and interventions are by my order.
[2023-08-29] MEDS ORDERED: ATROPINE SULFATE 0.1 MG/ML 10ML SYR IV PRN (16:09)
--- NOTE | 2023-08-29 16:09 | Post Anesthesia Assessment ---
Date of Service August 29, 2023 Post Sedation Assessment Vital Signs Temp Pulse Pulse Resp BP BP Pulse Ox 08/29/23 15:50 60 18 160/96 H 100 08/29/23 13:57 73 18 99 08/29/23 13:57 99 08/29/23 13:44 68 185/112 H 08/29/23 13:42 66 18 183/112 H 100 08/29/23 13:41 64 18 198/123 H 98 08/29/23 13:30 70 18 206/132 H 99 08/29/23 13:29 73 217/130 H 08/29/23 13:28 73 18 217/130 H 99 08/29/23 13:28 72 08/29/23 13:16 36.5 C 67 20 165/103 H 98 O2 Del Method 08/29/23 15:50 Room Air 08/29/23 13:57 Room Air 08/29/23 13:57 Room Air 08/29/23 13:44 08/29/23 13:42 Room Air 08/29/23 13:41 Room Air 08/29/23 13:30 Room Air 08/29/23 13:29 08/29/23 13:28 Room Air 08/29/23 13:28 08/29/23 13:16 Room Air Recovery Score Activity: Moves 4 extremities Respiration: Deep Breath/Cough Circulation: +/-20% PreAnes Value Consciousness: Fully Awake Oxygen Saturation: > 92% On Room Air Post Anesthesia Score: 10 Discharge Sedation Level of Care: Fast Track Phase II Post Sedation Plan On clinical assessment, the patient appears to have tolerated the sedation without complications. Patient is recovering as anticipated. Patient will continue to be monitored by nursing and may be discharged when sedation discharge criteria are met per below protocol. Upon Completions of procedure up to 15 minutes continue every 5 minute vital signs and the P.A.R. score; then discharge to a Phase I or Fast Track to Phase II per the following guidelines: * Discharge Patient to appropriate Phase II area if PAR is 8 or greater or return to pre- procedure baseline. The post - procedure orders will be as directed. * If PAR score is less than 8 or not return to pre-procedure baseline then patient will follow Phase I monitoring till PAR is reached for Phase II. The Phase I may be done in procedure room or may call to secure a Phase I area. * If naloxone or flumazenil are used for reversal, hold in Phase I for continued monitoring from when last reversal dose was given for a minimum of 60 minutes or longer pending the nurse and/or physician discretion of patient condition before discharge to Phase II. Please call the Sedation Physician to re-evaluate and complete post-note for discharge to Phase II area. Do NOT discharge from procedure sedation or Phase 1 until post- sedation evaluation note is complete by procedure /sedation MD Sedation Discharge Instructions to be given to the patient at discharge to home. [facility] [place] Codes (Charges) Indication for Procedure Indication for procedure: STEMI Sedation/Anesthesia Procedure 1: Sedation/Anesthesia: 25321 Mod Sedation by the same physician;Init15 Min Child Age 5 & Up (INITIAL 15 MIN, START 1404) Total Sedation Time (minutes): 77 Procedure 2: Sedation/Anesthesia: 31139 Mod Sedation by the same physician; Ea [id number] Minutes (ADDITIONAL 62 MIN, END 1521) Total Sedation Time (minutes): 77
[2023-08-29] MEDS ORDERED: hydrALAZINE HCL 20 MG/ML VIAL IV PRN (16:14)
--- NOTE | 2023-08-29 16:19 | Electrocardiogram Report ---
Test Reason : Blood Pressure : / mmHG Vent. Rate : 061 BPM Atrial Rate : 061 BPM P-R Int : 220 ms QRS Dur : 096 ms QT Int : 444 ms P-R-T Axes : 011 -26 069 degrees QTc Int : 446 ms Sinus rhythm with 1st degree A-V block possible Inferior infarct , age undetermined Abnormal ECG When compared with ECG of 29-AUG-2023 13:21, QRS axis Shifted left ST no longer elevated in Inferior leads ST no longer depressed in Lateral leads Confirmed by Christiano Leyva ([id number]) on 08/29/2023 4:18:35 PM Referred By: REFERRED SELF Confirmed By:Dewayne Leyva
[2023-08-29] MEDS: SODIUM CHLORIDE 0.9% 1,000 ML IV SCH ×2 (16:41→23:35)
[2023-08-29] MEDS ORDERED: PNEUMOCOCCAL VACCINE (PCV20) 20-VAL CONJ-DIP CRM/PF 0.5 ML SYR IM ONE (16:44)
[2023-08-29] MEDS: ONDANSETRON INJ 2 MG/ML 2 ML VIAL IV PRN (16:50)
--- NOTE | 2023-08-29 17:00 | Critical Care Consultation ---
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: (3) Hypothyroid: (4) H/O: HTN (hypertension): (5) HLD (hyperlipidemia): (6) S/P CABG x 4: Plan 2D echo 04/05/2023: Moderate concentric LVH, EF 60-65%, grade 1 diastolic dysfunction, RV normal in size and function Chest x-ray 08/29/2023 personally reviewed:, Bilateral costophrenic and cardiophrenic intersecting, increased cardiac silhouette, no clear lung infiltrate appreciated -- STEMI S/p MADELAINE LAD Continue with dual antiplatelet therapy Continue with statin and REGINA/ARB Beta-karen if heart rate is able to tolerate it --Hypertension On chlorothiazide 12.5 mg, metoprolol succinate 150 mg and lisinopril 40 mg at home He did take his medication today in the morning -- Multiple pulmonary nodules Largest being 6 mm In a patient is a lifetime non-smoker Can repeat a CAT scan in 1 year if that is negative no further follow-up on the nodules --History of vertigo On meclizine -- History of aortic dissection S/p stent at [place] --Prophylaxis VTE: IPC GI: None Lines: Peripheral Diet: Cardiac Plan: Patient usually takes lisinopril at home and took it early in the morning. His systolic blood pressure is in the 170s with diastolic in the 90s. I will give him amlodipine 5 mg p.o., can repeat the dose 5 mg again if need be If still blood pressure is high then hydralazine IV can be given or even consideration of nicardipine drip. Beta-blockers unfortunately cannot be used given the heart rate in the low 60s to high 50s. Left arm has cyanotic hue likely from the TR band. Will decrease the pressure little bit. Strict ins and outs Trend troponins and EKG Please note the above document was generated using voice recognition software. It may contain grammatical, syntax or spelling errors.Any formal questions or concerns about the content, text or information contained within the body of this dictation should be directly addressed to the provider for clarification. History of Present Illness Attending Physician: Daylin Marie DO History of Present Illness 68-year-old male present to the hospital with complaints of chest pain Past medical history: CABG, dissecting aortic aneurysm repair at [place], dyslipidemia, hypothyroidism, vertigo And was found to be in STEMI and was taken to cardiac [facility], he had a stent placed in the LAD In the ICU for further care At the time of examination patient's was in the room. Patient was breathing in the low teens. Not in any distress. He did complain of some mild chest pain. His systolic blood pressure was in the 170s diastolic in the 90s. Did complain of mild nausea but no vomiting. 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 No personal history of asthma No history of lung cancer in the family Allergies Allergy/AdvReac Type Severity Reaction Status Date / Time amoxicillin Allergy Intermediate Gastrointestinal Verified 03/30/22 00:41 Upset morphine Allergy Intermediate Hives Unverified 04/04/23 15:01 Home Medications Medication Instructions Recorded Confirmed Type levothyroxine 50 mcg tablet 50 mcg PO DAILYBB 01/13/22 08/29/23 History aspirin 81 mg tablet,delayed 81 mg PO QAM #30 tabs 01/14/22 08/29/23 Rx release rosuvastatin 20 mg tablet 20 mg PO QAM 02/01/22 08/29/23 History meclizine 25 mg tablet 25 mg PO TID PRN dizziness #30 tabs 04/25/23 08/29/23 Rx chlorthalidone 25 mg tablet 12.5 mg PO DAILY 08/29/23 08/29/23 History lisinopril 40 mg tablet 40 mg PO DAILY 08/29/23 08/29/23 History metoprolol succinate 50 mg 150 mg PO DAILY 08/29/23 08/29/23 History tablet,extended release 24 hr Patient History Medical History Ascending aortic dissection Cholecystitis Coronary artery disease H/O: HTN (hypertension) HLD (hyperlipidemia) Hypothyroid Surgical History H/O hernia repair 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 Hx of cholecystectomy Hx of dissecting abdominal aortic aneurysm repair S/P aortic valve replacement S/P CABG x 4 Family History Other Coronary heart disease Social History Smoking Status: Never smoker Second Hand Exposure: No; Do You Dip or Chew Tobacco: No; Tobacco Cessation Education Requested by Patient: No Hx Alcohol Use: No Hx Substance Use: No Preferred Language: Mohawk Communication Ability: Effective Financial Institution President Required: No Beliefs That Will Affect Care: None marital status: Current Living Situation: Spouse 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 How many Children do You have: 0 Other Information That Helps Us Care for You: No Feels Safe at Home: Yes Safety Concerns: Feels Safe At This Time Assistive Devices: None and CPAP Review of Systems 2 Review of Systems: All systems reviewed & are unremarkable except as noted in HPI & below Physical Exam 2 Physical Exam: Constitutional: No acute distress HEENT: EOMI, PERRLA Respiratory system: Good air entry bilaterally, no wheeze, no rhonchi, no crackles CVS: S1-S2 positive, no murmurs or gallops Abdomen: Soft, nontender, nondistended, positive bowel sounds x4 Extremities: +2 pulses bilaterally radialis/ dorsalis pedis, no cyanosis, minimal pitting edema bilateral lower extremity, left arm cold with cyanotic hue Neuro: Awake alert oriented x3 Psych: Normal mood and affect G/U: No [place] Skin: no rashes, warm and dry Lymphatic: no cervical or axillary lymphadenopathy Results & Data Results & Data Vital Signs (Past 12 Hours) Vital Signs Temp Pulse Pulse Resp BP BP BP 08/29/23 16:33 63 08/29/23 16:27 36.4 C L 63 20 151/97 H 08/29/23 16:27 36.4 C L 61 14 151/97 H 08/29/23 16:00 60 18 142/110 H 08/29/23 15:50 60 18 160/96 H 08/29/23 13:57 73 18 08/29/23 13:57 08/29/23 13:44 68 185/112 H 08/29/23 13:42 66 18 183/112 H 08/29/23 13:41 64 18 198/123 H 08/29/23 13:30 70 18 206/132 H 08/29/23 13:29 73 217/130 H 08/29/23 13:28 73 18 217/130 H 08/29/23 13:28 72 08/29/23 13:16 36.5 C 67 20 165/103 H Pulse Ox O2 Del Method 08/29/23 16:33 08/29/23 16:27 100 Room Air 08/29/23 16:27 99 Room Air 08/29/23 16:00 100 Room Air 08/29/23 15:50 100 Room Air 08/29/23 13:57 99 Room Air 08/29/23 13:57 99 Room Air 08/29/23 13:44 08/29/23 13:42 100 Room Air 08/29/23 13:41 98 Room Air 08/29/23 13:30 99 Room Air 08/29/23 13:29 08/29/23 13:28 99 Room Air 08/29/23 13:28 08/29/23 13:16 98 Room Air Laboratory Results 08/29/23 13:40 08/29/23 13:40 Coding Level of Care Code 61971 IN/OBS CONSULT LVL 4,60M Diagnoses ST elevation AR (STEMI) I21.3 Involved coronary artery: unspecified coronary artery 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
--- NOTE | 2023-08-29 17:13 | Cardiac Catheterization ---
[facility] Data: [employer] Cardiac Status Clinical evaluation leading to the procedure CAD Presenation: STEMI Anginal Classification: CCS IV Heart Failure: No Cardiogenic Shock within 24 Hours: No Cardiac Arrest within 24 Hours: No Imaging Studies Past 6 Months: No Coronary Anatomy Dominant: Co-Dominant Left Main (% Stenosis): Distal (30%) LAD (% Stenosis): Proximal (80%) D1 (% Stenosis): Proximal (99%) Circumflex (% Stenosis): Proximal (Mild) OM1 (% Stenosis): Proximal (50 to 70%) and Distal (99%) L PL1 (% Stenosis): Normal L PDA (% Stenosis): Normal RCA (% Stenosis): Normal (Severe) Grafts - LAD (%): Normal (ATRETIC) Grafts - Circumflex (%): Ostial (100%) Grafts - RCA (%): Ostial (100%) Grafts - Ramus (%): Ostial (100%) Diagnostic Physicians Name: Almas Almazan MD, PhD Closure Device Percutaneous Entry Location: Left radial, right femoral Closure Device: Angio-Seal and Radial Band Recommendations: PCI without planned CABG PCI Indication: PCI for STEMI - Stable Lesion Segment Name: Proximal to mid LAD. Culprit Artery: Yes Stenosis Prior to Rx (%): 80% Previously Treated Lesion: No Lesion Complexity: Non-High/Non-C Lesion Length (mm): 20 Thrombus Present: No Bifurcation Lesion: Yes Guidewire Across Lesion: Yes Intraprocedure Events Significant Disection: No Perforation: No Cardiac Cath Procedure Full Procedure Date August 29, 2023 Pre-Procedure Diagnosis Pre-Procedure Diagnosis: STEMI AUC Score AUC Score: 09 Post-Procedure Diagnosis Post-Procedure Diagnosis: Severe CAD and Successful PCI Procedure(s) Performed Procedure(s) Performed: Coronary Angiography, Drug Eluting Stent, Ultrasound Guided Vascular Access, Aortography and Bypass Graft Angiography Tangled Yarn Spool Straightener Almas Almazan MD, PhD Estimated Blood Loss Estimated Blood Loss: 15 ML Medication(s) Medication(s): Fentanyl, Heparin, Hydralazine, Lidocaine 1%, Metoprolol, Nicardipine, Nitroglycerin and Versed Summary of Findings Brief description: Patient was brought to the cardiac catheterization suite where he was shaved and prepped in a sterile fashion. Sedated using IV Versed and fentanyl. Soft tissues of the right groin were anesthetized using 10 mL of 1% Xylocaine. Using the ultrasound for guidance (image saved), the right femoral artery was accessed and a 6 [place] femoral artery sheath was placed. All catheters were advanced and exchanged over a 0.035 J-tip wire. Left coronary angiography in orthogonal views with a 6 [place] JL 4 diagnostic catheter. Right coronary angiography in orthogonal views with a 6 [place] JR4 diagnostic catheter. SVG angiography was performed with a JR4 diagnostic catheter. Supravalvular aortography was performed with a 6 [place] pigtail catheter. Decision was made to change access to the left radial artery. Soft tissues of the left wrist were anesthetized using 2 mL of 1% Xylocaine. The left radial artery was accessed with a modified Seldinger technique and a 6 [place] radial artery glide sheath was placed. Patient was provided antispasmodics including nicardipine and nitroglycerin. A 6 [place] JR4 diagnostic catheter was advanced over a 0.035 J-tip wire and nonselective [place] to LAD graft angiography was performed. We also performed left subclavian angiography with the same catheter. Diagnostic catheter was removed. Decision was made to proceed with PCI of the LAD. ACT was checked and additional heparin was provided as needed to maintain therapeutic anticoagulation. A 6 [place] EBU 4.0 guide catheter was used to engage the left main coronary. Through this, a BMW universal guidewire was advanced and positioned distally in the LAD. Proximal to mid LAD stenosis was predilated using a 2.5 x 12 mm trek balloon inflated up to 14 katja x 2. A second BMW universal guidewire was advanced and positioned distally in the circumflex. A 3.0 x 23 [place] drug-eluting stent was positioned across the proximal to early mid LAD stenosis where it was deployed initially at 12 katja followed by a second inflation to 20 katja. Stent delivery system was removed. The stent was postdilated using a 3.25 x 12 mm NC trek at 14 katja in the midportion of the stent and 18 katja in the proximal portion of the stent. Balloon was then removed. Coronary angiography was performed in orthogonal views with the guidewires in place. Guidewires were removed. Guide catheter was removed. Limited right femoral artery angiography was performed to evaluate for closure. Findings were favorable, therefore, the 6 [place] femoral artery sheath was exchanged for a 6 [place] Angio-Seal closure device. This was deployed in the recommended fashion. We obtained immediate hemostasis and the patient remained hemodynamically stable. The radial sheath was subsequently removed and hemostasis was obtained using the vascular band. Patient was transported to the recovery area. This ended the case. Coronary and graft angiography: [id number] vessel bifurcating into LAD and circumflex. It is short in length. Possible distal stenosis of 20 to 30%. LAD-large caliber and transapical vessel. There is diffuse proximal to early mid calcified disease of at least 80%. First diagonal is small to medium but long. It has a proximal to mid stenosis of up to 99%. The vessel appears to be less than 2 mm in diameter. The early mid LAD has the terminal portion of the proximal lesion and then no more than mild luminal irregularities. The distal LAD has scattered mild disease less than 30% stenosis. LCx-this is large in caliber and codominant. Proximal vessel has mild disease. It provides a large multi branching obtuse marginal. The proximal portion of that before the first branch has ectasia and a lesion appearing to be 50 to 70% narrowed. It then bifurcates into a larger superior branch and a medium caliber inferior branch. The distal portion of the superior branch then branches and is 99% occluded in one of the branches. Too small for PCI. After the OM the AV groove circumflex becomes medium in caliber and terminates distally into a posterolateral branch and PDA. There is no significant disease distally. RCA-this is very small in caliber and severely diseased. SVG to PDA-this is severely diseased with 99% ostial to proximal occlusion. Do not appreciate any flow beyond that portion of the graft and there was no identifiable competitive flow in the RCA. SVG to OM-this appears to be 100% occluded. No competitive flow noted. SVG to circumflex, this appears to be 100% occluded. No competitive flow noted. [place] to LAD-this appears to be atretic and there is no competitive flow noted in the LAD. There is late retrograde filling from the early LAD up to [place]. Supravalvular aortography: The a sending aorta is significantly dilated. There appear to be 2 bypass graft ostia with out flow down the grafts. There may also be a third ostia noted in the ESQUIVEL projection which also has no evidence of flow down any graft. Aortic graft is widely patent. Left subclavian graft just after its ostium which extends into the aortic arch appears narrowed compared to the rest of the graft, however, this is likely at the level of the arch graft stent struts. There does not seem to be any significant impediment to flow in the left subclavian. PCI of LAD: 0% residual stenosis post PCI No evidence of dissection or perforation post PCI JACOB-3 flow post PCI Summary: 1. Successful PCI of the proximal to early mid LAD with implantation of a large caliber drug-eluting stent. 2. 4 bypass grafts appear to be occluded or atretic. 3. Patent aortic graft and left subclavian graft. 4. Severe [place] vessel coronary artery disease as described 5. Patient will be placed on dual antiplatelet therapy with aspirin 81 mg daily and Brilinta 90 mg p.o. twice daily. 6. Guideline directed medical therapy for secondary prevention of coronary disease to include beta-karen, high intensity statin therapy, and REGINA inhibitor/ARB as tolerated. Hemodynamics Rest Ao:: 162/91 mmHg Final Ao: 176/88 mmHg LV: Not performed Recommendations Recommendations: PCI without planned CABG Radiation Exposure (mGy) 2675 mGy, fluoroscopy time 23.8 Contrast (mls) 300 mL Anesthesia 2 mg IV Versed, 50 mcg IV fentanyl. Start 1404, end 1521 Procedural Complication(s) None Disposition Recovery Room\PACU I attest to the content of the Intraoperative Record and any orders documented therein. Any exceptions are noted below. [employer] Card Cath Procedure Codes Cardiac Catheterization Procedure 1: Cardiovascular Cath Procedures: 07466 Coronaries and Grafts/IM (venous & atrial) Therapeutic Services & Ancillary Procedure 1: Cardiovascular Tx and Anc Procedures: 89094 Ultrasonic Guidance Vascular Access Procedure 2: Cardiovascular Tx and Anc Procedures: 26647 Supravalvular Aortography Moderate Sedation Procedure 1: Sedation/Anesthesia: 41611 Mod Sedation by the same physician;Init15 Min Child Age 5 & Up (Initial 15 minutes, start 1404) Procedure 2: Sedation/Anesthesia: 27272 Mod Sedation by the same physician; Ea [id number] Minutes (Additional 62 min, End 1521) Stenting Procedure 1: Cardiovascular Stent Procedures: 19894 Perc transcatheter placement of intracoronary stent(s), with ang (LAD) PG Care Time/CCT Total # of Minutes Spent Total Time Spent with Patient: Total time spent is greater than 50% in coordination of care (as documented) at patient's floor/unit and/or counseling patient:
--- NOTE | 2023-08-29 17:16 | History & Physical Report ---
Date of Service August 29, 2023 Assessment & Plan (1) ST elevation NJ (STEMI): (2) S/P cardiac cath: (3) Coronary artery disease: Plan: Patient is 68 y/o M with PMH CAD s/p CABG x 4 in 12/2021 at [facility], post op aortic dissection s/p repair, HTN, HLD, hypothyroidism presented to ER with c/o chest pain/neck pain started approximately 10:00am today. In ER was found to have EKG consistent with STEMI and initial troponin was 55. Was given 324mg aspirin. He was taken to cardiac cardiac cath tech and is s/p MADELAINE LAD. Post op with some nausea Monitor in ICU Will trend troponin Echo EKG in AM and prn CP Continue aspirin, metoprolol succinate Brilinta was started Lipid panel in am On rosuvastatin at home. atorvastatin was ordered here Cardiology consult (4) HTN (hypertension): Plan: Continue metoprolol succinate On home lisinopril but was started on losartan here (5) HLD (hyperlipidemia): Plan: On rosuvastatin at home. atorvastatin was ordered here (6) Hypothyroid: Plan: TSH in am Continue levothyroxine Full Code as per discussion with pt Follows with Dr Chapman for routine care Pt was seen and care coordinated with Dr Maire. See addendum Admission and Anticipated Discharge Date Admission Date: August 29, 2023 History of Present Illness Chief Complaint: CP Primary Care Provider: Harpreet Chapman MD Patient is 68 y/o M with PMH CAD s/p CABG x 4 in 12/2021 at [facility], post op aortic dissection s/p repair, HTN, HLD, hypothyroidism presented to ER with c/o chest pain/neck pain started approximately 10:00am today. In ER was found to have EKG consistent with STEMI and initial troponin was 55. He was taken to cardiac cardiac cath tech and is s/p MADELAINE LAD. Patient seen in ICU. Post procedure complains of some nausea. Feels the chest/neck discomfort has decreased. Reports intermittent vertigo that has been following with PCP and is scheduled to see ENT in future. Denies fever/chills, diaphoresis, V/D/C, GONZALES, syncope, vision changes, SOB, orthopnea, palpitations, cough, sore throat, rhinorrhea, abdominal pain, par esthesias, weakness, extremity weakness, extremity edema, rashes, urinary symptoms. Allergies Allergy/AdvReac Type Severity Reaction Status Date / Time amoxicillin Allergy Intermediate Gastrointestinal Verified 03/30/22 00:41 Upset morphine Allergy Intermediate Hives Unverified 04/04/23 15:01 Home Medications Medication Instructions Recorded Confirmed Type levothyroxine 50 mcg tablet 50 mcg PO DAILYBB 01/13/22 08/29/23 History aspirin 81 mg tablet,delayed 81 mg PO QAM #30 tabs 01/14/22 08/29/23 Rx release rosuvastatin 20 mg tablet 20 mg PO QAM 02/01/22 08/29/23 History meclizine 25 mg tablet 25 mg PO TID PRN dizziness #30 tabs 04/25/23 08/29/23 Rx lisinopril 40 mg tablet 40 mg PO DAILY 08/29/23 08/29/23 History metoprolol succinate 50 mg 150 mg PO DAILY 08/29/23 08/29/23 History tablet,extended release 24 hr Past Med/Surg History Medical History (Updated 08/29/23 @ 21:44 by Jennifer Suero PA-C) Coronary artery disease Cholecystitis HLD (hyperlipidemia) Ascending aortic dissection Hypothyroid H/O: HTN (hypertension) Surgical History (Updated 08/29/23 @ 21:44 by Jennifer Suero PA-C) 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 Hx of cholecystectomy S/P aortic valve replacement Hx of dissecting abdominal aortic aneurysm repair S/P CABG x 4 H/O hernia repair Family History Other Coronary heart disease Social History Smoking Status: Never smoker Second Hand Exposure: No; Do You Dip or Chew Tobacco: No; Hx Alcohol Use: No Hx Substance Use: No Preferred Language: Mozambican Communication Ability: Effective Development And Housing Director Required: No Beliefs That Will Affect Care: None marital status: Current Living Situation: Spouse 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 How many Children do You have: 0 Feels Safe at Home: Yes Assistive Devices: None and CPAP Review of Systems Review of Systems: All systems reviewed & are unremarkable except as noted in HPI & below Results & Data Results & Data Vital Signs (Past 12 Hours) Vital Signs Temp Pulse Pulse Resp BP BP BP 08/29/23 16:55 36.8 C 57 L 16 180/94 H 08/29/23 16:40 36.8 C 55 L 16 171/94 H 08/29/23 16:33 63 08/29/23 16:27 36.4 C L 63 20 151/97 H 08/29/23 16:27 36.4 C L 61 14 151/97 H 08/29/23 16:00 60 18 142/110 H 08/29/23 15:50 60 18 160/96 H 08/29/23 13:57 73 18 08/29/23 13:57 08/29/23 13:44 68 185/112 H 08/29/23 13:42 66 18 183/112 H 08/29/23 13:41 64 18 198/123 H 08/29/23 13:30 70 18 206/132 H 08/29/23 13:29 73 217/130 H 08/29/23 13:28 73 18 217/130 H 08/29/23 13:28 72 08/29/23 13:16 36.5 C 67 20 165/103 H Pulse Ox O2 Del Method 08/29/23 16:55 99 Room Air 08/29/23 16:40 99 Room Air 08/29/23 16:33 08/29/23 16:27 100 Room Air 08/29/23 16:27 99 Room Air 08/29/23 16:00 100 Room Air 08/29/23 15:50 100 Room Air 08/29/23 13:57 99 Room Air 08/29/23 13:57 99 Room Air 08/29/23 13:44 08/29/23 13:42 100 Room Air 08/29/23 13:41 98 Room Air 08/29/23 13:30 99 Room Air 08/29/23 13:29 08/29/23 13:28 99 Room Air 08/29/23 13:28 08/29/23 13:16 98 Room Air Laboratory Results Short CBC 08/29/23 08/29/23 Range/Units 13:40 16:55 WBC 10.82 H 10.72 (4.8-10.8) K/ul Hgb 15.7 14.7 (14.0-18.0) g/dl Hct 46.5 43.5 (42.0-52.0) % Plt Count 215 206 (130-400) K/uL BMP 08/29/23 13:40 Sodium 138 Potassium 4.1 Chloride 104 Carbon Dioxide 27 BUN 13 Creatinine 1.01 Glucose 113 H Calcium 9.7 Liver Function 08/29/23 Range/Units 13:40 Total Bilirubin 0.5 (0.2-1.0) mg/dl AST 24 (13-39) U/L ALT 24 (7-52) U/L Alkaline Phosphatase 68 (34-104) U/L Albumin 4.7 (3.4-5.0) gm/dl Diagnostic Findings Chest X-Ray 08/29/23 13:19 XR chest 1V portable CLINICAL HISTORY: Chest pain, nonspecific TECHNIQUE: Single frontal radiograph of the chest was obtained. Comparison: Comparison is made to chest radiograph 04/25/2023 FINDINGS: Median sternotomy wires are unchanged. Aortic graft is noted. Cardiomegaly is noted. The lungs are clear. No evidence of pleural effusion or pneumothorax. IMPRESSION: No acute chest disease. ACT 112: Negative or not required by law. Electronically signed by: Dashawn Gamboa M.D. 08/29/2023 1:55 PM Supervising Physician Co-Signing Physician Notes I have seen and examined the patient and have discussed the case with the provider above. I agree with the assessment and plan as stated. 68-year-old man with complex cardiac history as outlined above presents with acute ST elevation NJ and chest pain. Immediately taken to cath and a proximal LAD drug-eluting stent was placed. Postprocedure he is recovering in the ICU. He is slightly hypertensive with a blood pressure of 177/102 pulse of 60 and he is oxygenating well on room air. He does report suffering from intermittent bouts of vertigo that is longstanding. He was acutely having an episode of this while trying to eat his food. This came on after his head of bed was elevated to 30 degrees after lying flat for several hours. He also has a mild headache which is being treated with acetaminophen. He has a slight bit of nausea but he would like to eat his food prior to entertaining an antiemetic. He otherwise denies any chest pain trouble breathing or other issues. is at the bedside and assisting with meals. He reports vertigo has been worked up by his primary care doctor and he is slated to go see an ear nose and throat physician. He reports doing Michelle maneuver in the past unsuccessfully. On exam he is in mild distress secondary to discomfort from symptoms reported above. He has mentating normally. Femoral cath site was evaluated and there is no evidence of ecchymosis or swelling. Appropriate closure device is in place. Extremities are warm and well-perfused. Cardiology following with recommendations for severe CAD including guideline directed medical therapy as tolerated. Cont monitoring in the ICU. DO Frank (1) ST elevation NJ (STEMI) Involved coronary artery: unspecified coronary artery Qualified Code(s): I21.3 - ST elevation (STEMI) myocardial infarction of unspecified site
[2023-08-29] MEDS ORDERED: amLODIPine BESYLATE 5 MG TAB PO ONE (17:30)
[2023-08-29 17:39] LABS: Basophils # (auto) 0.03 K/uL (0.00-0.20); Basophils % (auto) 0.3 %; Eosinophils # (auto) 0.09 K/uL (0.00-0.50); Eosinophils % (auto) 0.8 %; Hematocrit (blood only) 43.5 % (42.0-52.0); Hemoglobin 14.7 g/dl (14.0-18.0); Immature Granulocytes # (auto) 0.04 K/uL (0.01-0.20); Immature Granulocytes % (auto) 0.4 %; Lymphocytes # (auto) 1.27 K/uL (1.20-3.40); Lymphocytes % (auto) 11.8 %; Mean Corpuscular Hemoglobin 28.9 pg (25.0-34.0); Mean Corpuscular Hgb Conc 33.8 g/dL (32.0-36.0); Mean Corpuscular Volume 85.5 fL (80.0-100.0); Mean Platelet Volume 10.2 fL (9.4-12.4); Monocytes # (auto) 1.16 K/uL (0.11-0.59); Monocytes % (auto) 10.8 %; Neutrophils # (auto) 8.13 K/uL (1.40-6.50); Neutrophils % (auto) 75.9 %; Platelet Count 206 K/uL (130-400); RDW Coefficient of Variation 12.5 % (11.5-14.5); RDW Standard Deviation 38.8 fL (36.4-46.3); Red Blood Count 5.09 M/uL (4.70-6.10); White Blood Count 10.72 K/ul (4.8-10.8)
[2023-08-29] MEDS: ACETAMINOPHEN 325 MG TAB PO PRN ×2 (18:09→23:34)
--- OUTSIDE RECORDS SUMMARY | 2023-08-29 21:01 | External Medical Summary ---
Author Name Unknown Address Unknown Organization [id number][facility] [address] [place] [id number] Laboratory Report Ordering Provider Test Date Status RYLAND RILEY 07/18/2023 11:42:24 Final Observation Date Value Abnormality Reference (Units ) Status WBC, Total 07/18/2023 11:42:24 7.53 4.00-10.8 0 (K/uL) Final RBC 07/18/2023 11:42:24 4.79 4.50-5.25 (M/uL) Final Hemoglobin 07/18/2023 11:42:24 14.1 14.0-16.8 (g/dL) Final HCT 07/18/2023 11:42:24 41.0 40.0-48.4 (%) Final MCV 07/18/2023 11:42:24 85.6 82.0-99.5 (fL) Final MCH 07/18/2023 11:42:24 29.4 27.0-34.0 (pg) Final MCHC 07/18/2023 11:42:24 34.4 32.0-36.0 (g/dL) Final RDW 07/18/2023 11:42:24 13.4 11.5-15.5 (%) Final Platelets 07/18/2023 11:42:24 228 140-400 (K /uL) Final MPV 07/18/2023 11:42:24 9.6 6.6-11.1 ( fL) Final Performing Location [facility] [address] [place] [id number]
--- OUTSIDE RECORDS SUMMARY | 2023-08-29 21:01 | External Medical Summary | Summary of Care ---
Author Name Unknown Organization [facility] Address [address] [place] [address] Phone [phone] Care Team Providers Care Maintainer [employer] Name Role Phone Harpreet Chapman MD Primary Care Provide r Reason for Referral * Evaluate & Treat - Unlimited Visits (Within 10 days (routine)) - Authorized Specialty Diagnoses / Procedures Referred By Emory nieves Referred To Contact Audiology Diagnoses Danilotigo Harpreet Chapman MD [address] [place] [address] [place] [address] Referral ID Status Reason Start Date Expiration Date Visits Requested Visits Authorized [id number] Authorized Specialty Services Required 3 999 999 Question Answer Referral Priority Within 10 days (routine) Where should this appointment be scheduled? [facility] Is this order intended for the [facility] at [facility] in [place], [place] Yes Along with the dizziness, has there been a sudden change in hearing or tinnitus within the last two weeks? No Is the dizziness triggered with rolling over in bed and lasting seconds? No Is the dizziness motion-related, spontaneous (non-predictable) or both? Both Comments Referral to: Otolaryngology Vestibular and [facility] For services that may include: 1. Audiologic and vestibular testing 2. Otolaryngology consultation 3. Vestibular Rehabilitation [Physical Therapy] evaluation and treatment Reason for Visit * Reason Onset Date Comments Advice 07/11/2023 Encounter Details Date Type Department Care Team (Late st Contact Info) Description 07/11/2023 Telephone Family Medicine [address] [place] [phone] Harpreet Chapman MD [address] [place] [address] [place] [address] Advice Allergies Active Allergy Reactions Criticality Noted Date Comments Amoxicillin Low 01/13/2022 Other reaction(s): Gastrointestinal Upset, Stomach ache Morphine 08/14/2022 hives documented as of this encounter (statuses as of 07/14/2023) Medications Medication Sig Dispensed Refills Start Date End Date Status Aspirin 81 MG Oral Tablet Chewable Take 1 Tablet by mouth in the morning. With food.. 100 Tablet 5 02/25/2022 Active Hydrocortisone (Perianal) 2.5 % External Cream Administer into the rectum twice daily 30 g 1 05/07/2022 Active Levothyroxine Sodium 50 MCG Oral Tablet (Levoxyl)Indications: Acquired hypothyroidism TAKE ONE TABLET BY MOUTH IN THE MORNING 90 Tablet 1 03/07/2023 Active Rosuvastatin Calcium 20 MG Oral Tablet (Crestor)Indications: Hyperlipidemia with target LDL less than 160 Take 1 Tablet by mouth every night at bedtime. 90 Tablet 1 03/07/2023 Active Multi-Vitamin Daily Oral Tablet Take 1 Tablet by mouth in the morning. 0 09/19/2022 Active Metoprolol Succinate 50 MG Oral Capsule ER 24 Hour Sprinkle Take 150 mg by mouth in the morning. 0 Active Spironolactone 25 MG Oral Tablet (Aldactone)Indication s:HTN, goal below 140/90 Take 1 Tablet by mouth in the morning. 0 04/06/2023 Active Metoprolol Succinate ER 50 MG Oral Tablet Extended Release 24 Hour (toPROL XL)Indications:HTN, goal below 140/90 TAKE THREE TABLETS BY MOUTH IN THE MORNING 270 Tablet 3 05/08/2023 Active Meclizine HCl 25 MG Oral Tablet (Antivert) Take 1 Tablet by mouth 3 times a day as needed. 0 Active Chlorthalidone 25 MG Oral Tablet (Hygroton)Indications :HTN, goal below 140/90 Take 0.5 Tablets by mouth in the morning. 30 Tablet 5 06/02/2023 Active Lisinopril 40 MG Oral TabletIndications:HTN , goal below 140/90 Take 1 Tablet by mouth in the morning. 90 Tablet 1 06/13/2023 Active Azithromycin 250 MG Oral Tablet (Zithromax Z-Yadiel)Indications:Acu te non-recurrent maxillary sinusitis Take two tablets by mouth on first day, then 1 tablet daily until gone 6 Tablet 0 06/13/2023 Active documented as of this encounter (statuses as of 07/14/2023) Active Problems Problem Noted Date Diagnosed Date Immunization not carried out because of patient decision 11/18/2022 H/O ascending aorta repair 06/19/2022 Pulmonary nodules/lesions, multiple 06/10/2022 Incidental lung nodule 05/28/2022 Hx of CABG 05/28/2022 Coronary artery disease invo lving curyung coronary artery of curyung heart without angina pectoris 02/25/2022 History of non-ST elevation myocardial infarctio n (NSTEMI) 02/25/2022 History of aortic dissection 02/25/2022 Cholecystitis 02/25/2022 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 GENERAL OSTEOARTHROSIS 01/05/2004 Hemorrhoids 01/03/2003 Hypothyroidism documented as of this encounter (statuses as of 07/14/2023) Resolved Problems Problem Noted Date Diagnosed Date Resolved Date Cholecystostomy care 05/28/2022 023 Screening for prostate cancer 07/11/2005 11/09/2008 Overview: Resolved per Screening Diagnosis Protocol #6 Dyslipidemia, goal to be determined 12/08/2012 documented as of this encounter (statuses as of 07/14/2023) Immunizations Name Administration Dates Next Due Seasonal Influenza, Split, I IV3, With Preserve, Inj 09/05/2014,12/21/2010(Deferred: Patient Refused) TDAP (age 11 and older)(Adacel) 02/04/2008 documented as of this encounter Social History Tobacco Use Types Packs/Day Years Used Date Smoking Tobacco: Never Smokeless Tobacco: Never Alcohol Use Standard Drinks/Week Comments No 0 (1 standard drink = 0.6 oz pur e alcohol) PHQ-2 Answer Date Recorded PHQ Adult Total Score 3 11/18/2022 Hunger Vital Sign Answer Date Recorded Within the past 12 months, y ou worried that your food would run out before you got the money to buy more. Never true 11/19/19 23 Within the past 12 months, t he food you bought just didn't last and you didn't have money to get more. Never true 11/18/2022 Sex and Gender Information Value Date Recorded Sex Assigned at Male 11/16/2021 3:10 PM EDT Gender Identity Male 11/16/2021 3:10 PM EDT Sexual Orientation Straight 11/16/2021 3: 10 PM EDT Job Start Date Occupation Industry Not on file Not on file Not on file documented as of this encounter Miscellaneous Notes * Addendum Note - Harpreet Chapman MD - 07/11/2023 4:59 PM ESTAddended by: HARPREET CHAPMAN on: 07/11/2023 04:59 PM Modules accepted: Orders * Telephone Encounter - Harpreet Chapman MD - 07/11/2023 4:59 PM EST Signed * Telephone Encounter - Elma Dalton OSA - 07/11/2023 4:49 PM EST Patient will need a [facility] referral. * Telephone Encounter - Harpreet Chapman MD - 07/11/2023 10:47 AM EST We can do the [facility] in [place] instead. They are very good for vertigo * Telephone Encounter - Sary Yin LPN - 07/11/2023 10:39 AM EST Patient is calling. Saw Dr. Chapman and was given a referral for ENT at [facility]. They are not taking patients until May of 2024. He continues to have problems with vertigo. It comes and goes. Some days are worse. Asking for advice on what he can do. documented in this encounter Plan of Treatment Upcoming Encounters Date Type Department Care Team (Late st Contact Info) Description 07/21/2023 2:00 PM EST Office Visit Cardiology, [facility] [address] [facility] [place] [address] Krissy Weathers CRNP 132 [facility] [place] [id number] 11/20/2023 8:00 AM EDT Nurse Only Ancillary [address] [place] [address] [place], Nurse [address] [place] [address] 12/10/2023 9:30 AM EDT Imaging Radiology [address] [facility] [place] [address] 12/15/2023 3:00 PM EDT Office Visit Family Medicine [address] [place] [phone] Kristina Mock PA-C [address] [place] [address] [place] [address] 06/18/2024 4:00 PM EDT Office Visit Family Medicine [address] [place] [phone] Harpreet Chapman MD [address] [place] [address] [place] [address] Scheduled Referrals Name Type Priority Associated Diagnoses Orde r Schedule [facility] REFERRAL OP Referral Within 10 days (routine) Vertigo Ordered: 07/11/2023 Health Maintenance Due Date Last Done Comments COVID-19 Vaccine (#1) 01/28/1956 Albumin/Creatinine Ratio 1973 Hepatitis C Screening 1973 Cologuard 2000 Fecal Occult Blood Test 2000 Sigmoidoscopy 2000 Zoster Vaccines (1 of 2) 2005 DTaP,Tdap,and Td Vaccines (2 - Td or Tdap) 02/03/2018 02/04/2008 Colonoscopy 04/22/2018 04/22/2008 Colorectal Cancer Screening 04/22/2018 Pneumococcal Vaccine: 65+ Years (1 - PCV) 2020 Influenza Vaccine (FLU shot) (#1) 2023 09/05/2014 Depression Screening 11/19/2023 11/18/2022 TSH 12/06/2023 12/05/2022, 041 10/2020, 02/01/2020, Additional history exists GFR 04/17/2024 04/17/2023, 04/0 01/2023, 02/15/2022, Additional history exists GARDASIL-HPV IMMUNIZATION SERIES Aged Out No longer eligible based on patient's age to complete this topic Hepatitis B Aged Out No longer eligi ble based on patient's age to complete this topic MENINGOCOCCAL (MENACTRA/MENVEO) Aged Out No longer eligible based on patient's age to complete this topic documented as of this encounter Medical Devices Not on filedocumented as of this encounter Visit Diagnoses Diagnosis Vertigo- Primary Dizziness and giddiness documented in this encounter Care Teams Maintainer [employer] Relationship Specialty Start Date End Date Harpreet Chapman MD [address] [place] [address] [place] [phone] PCP - General Family Medicine 07/05/14 documented as of this encounter
--- OUTSIDE RECORDS SUMMARY | 2023-08-29 21:01 | External Medical Summary | Summary of Care ---
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 Name Role Phone Harpreet Chapman MD Primary Care Provide r Reason for Visit * Reason Comments Outpatient Testing Encounter Details Date Type Department Care Team (Late st Contact Info) Description 07/18/2023 11:40 AM EST Laboratory Laboratory, [facility] [address] [place] [phone] [facility] [address] [place] [address] HTN, goal below 140/90; Fatigue, unspecified type; Acquired hypothyroidism Allergies Active Allergy Reactions Criticality Noted Date Comments Amoxicillin Low 01/13/2022 Other reaction(s): Gastrointestinal Upset, Stomach ache Morphine 08/14/2022 hives documented as of this encounter (statuses as of 07/18/2023) Medications Medication Sig Dispensed Refills Start Date [...] as of this encounter (statuses as of 07/18/2023) Active Problems Problem Noted Date Diagnosed Date Immunization not carried out because of patient decision 11/18/2022 H/O ascending aorta repair 06/19/2022 Pulmonary nodules/lesions, multiple 06/10/2022 Incidental lung nodule 05/28/2022 Hx of CABG 05/28/2022 Coronary artery disease invo lving nikolski coronary artery of nikolski heart without angina pectoris 02/25/2022 History of [...] as of this encounter (statuses as of 07/18/2023) Resolved Problems Problem Noted Date Diagnosed Date Resolved Date Cholecystostomy care 05/28/2022 023 Screening for prostate cancer 07/11/2005 11/09/2008 Overview: Resolved per Screening Diagnosis Protocol #6 Dyslipidemia, goal to be determined 12/08/2012 documented as of this encounter (statuses as of 07/18/2023) Immunizations Name Administration Dates Next Due Seasonal [...] on file documented as of this encounter Plan of Treatment Upcoming Encounters Date Type Department Care Team (Late st Contact Info) Description 07/21/2023 2:00 PM EST Office Visit Cardiology, [facility] [address] [facility] [place] [address] Krissy Weathers CRNP 132 [facility] [place] [address] 10/23/2023 10:00 AM EST Office Visit [facility] [address] [place] [address] Alisa Hunt Au.D. [address] [place] [address] Krish Patton DPT [address] [place] [address] 10/23/2023 1:00 PM EST Office Visit Otolaryngology/Head & Neck/Facial Plastic Surgery [address] [place] [address] Gerber Overton MD [address] [place] [address] 11/20/2023 8:00 AM EDT Nurse Only Ancillary [address] [place] [address] [place], Nurse [address] [place] [address] 12/10/2023 9:30 AM EDT Imaging Radiology [address] [facility] [place] [address] 12/15/2023 3:00 PM EDT Office Visit Family Medicine [address] [place] [phone] Kristina Mock PA-C [address] [place] [address] [place] [address] 06/18/2024 4:00 PM EDT Office Visit Family Medicine [address] [place] [phone] Harpreet Chapman MD [address] [place] [address] [place] [address] Pending Results Name Type Priority Associated Diagnoses Date /Time BASIC METABOLIC PANEL Lab Routine HTN, goal below 140/90 07/18/2023 11:42 AM EST CBC WITH WBC DIFFERENTIAL Lab Routine Fatigue, unspecified type 07/18/2023 11:42 AM EST TSH WITH FREE T4 IF INDICATED Lab Routine Fatigue, unspecified type Acquired hypothyroidism 07/18/2023 11:42 AM EST CBC Lab Routine Fatigue, unspecified type 07/18/2023 11:42 AM EST DIFFERENTIAL, AUTOMATED Lab Routine Fatigue, unspecified type 07/18/2023 11:42 AM EST Health Maintenance Due Date Last Done Comments COVID-19 Vaccine (#1) 01/28/1956 Albumin/Creatinine Ratio 1973 Hepatitis C Screening 1973 Cologuard 2000 Fecal Occult Blood Test 2000 Sigmoidoscopy 2000 Zoster Vaccines (1 of 2) 2005 DTaP,Tdap,and Td Vaccines (2 - Td or Tdap) 02/03/2018 02/04/2008 Colonoscopy 04/22/2018 04/22/2008 Colorectal Cancer Screening 04/22/2018 Pneumococcal Vaccine: 65+ Years (2 - PCV) 02/05/2023 02/05/2022 Influenza Vaccine (FLU shot) (#1) 2023 09/05/2014 Depression Screening 11/19/2023 11/18/2022 TSH 12/06/2023 12/05/2022, 04/1 10/2020, 02/01/2020, Additional history exists GFR 04/17/2024 [...] as of this encounter Visit Diagnoses Diagnosis HTN, goal below 140/90 Unspecified essential hypertension Fatigue, unspecified type Acquired hypothyroidism Unspecified hypothyroidism documented in this encounter Care Teams High School Mathematics Teacher Relationship Specialty Start Date End Date Harpreet Chapman MD [address] [place] [address] [place] [phone] PCP - General Family Medicine 07/05/14 documented as of this encounter
--- OUTSIDE RECORDS SUMMARY | 2023-08-29 21:01 | External Medical Summary | Summary of Care ---
Author Name Unknown Organization [facility] Address [address] [place] [address] Phone [phone] Care Team Providers Care Pocketed Spring Machine Operator Name Role Phone Harpreet Chapman MD Primary Care Provide r Reason for Visit * Reason Onset Date Comments Test Results 07/18/2023 Encounter Details Date Type Department Care Team (Late st Contact Info) Description 07/18/2023 Telephone Cardiology, [facility] [address] [facility] [place] [address] Elma Ortiz CRNP [address] [id number] Test Results Allergies Active Allergy Reactions Criticality Noted Date [...] CABG 05/28/2022 Coronary artery disease invo lving [place] coronary artery of [place] heart without angina pectoris 02/25/2022 History of [...] as of this encounter Miscellaneous Notes * Telephone Encounter - Lubna Mehta CMA - 07/18/2023 2:38 PM EST Portal message sent. * Telephone Encounter - Lubna Mehta CMA - 07/18/2023 2:37 PM EST ----- Message from TERESA Munguia sent at 07/18/2023 1:35 PM EST ----- Renal function normal. documented in this encounter Plan of Treatment Upcoming Encounters Date Type Department Care Team (Late st Contact Info) Description 07/21/2023 2:00 PM EST Office Visit Cardiology, [facility] [address] [place] [address] Krissy Weathers CRNP 132 [facility] [place] [address] 10/23/2023 10:00 AM EST Office Visit [facility] [address] [place] [address] Alisa Hunt Au.D. [address] [place] [address] Krish Patton DPT [address] [place] [address] 10/23/2023 1:00 PM EST Office Visit Otolaryngology/Head & Neck/Facial Plastic Surgery [address] [place] [address] Gerber Overton MD [address] [place] [address] 11/20/2023 8:00 AM EDT Nurse Only Ancillary [address] [place] [address] [place], Nurse Annual [address] [place] [address] 12/10/2023 9:30 AM EDT Imaging Radiology [address], [address] [place] [address] 12/15/2023 3:00 PM EDT Office Visit Family Medicine [address] [place] [phone] Kristina Mock PA-C [address] [place] [address] [place] [address] 06/18/2024 4:00 PM EDT Office Visit Family Medicine [address] [place] [phone] Harpreet Chapman MD [address] [place] [address] [place] [address] Health Maintenance Due Date Last Done Comments [...] Depression Screening 11/19/2023 11/18/2022 TSH 12/06/2023 12/05/2022, 11/30, 02/01/2020, Additional history exists GFR 07/18/2024 07/18/2023, 04/01, 12/05/2022, Additional history exists GARDASIL-HPV IMMUNIZATION SERIES Aged [...] Not on filedocumented as of this encounter Care Teams Pocketed Spring Machine Operator Relationship Specialty Start Date End Date Harpreet Chapman MD [address] [place] [address] [place] [address] PCP - General Family Medicine 07/05/14 documented as of this encounter
--- OUTSIDE RECORDS SUMMARY | 2023-08-29 21:01 | External Medical Summary | Summary of Care ---
Author Name Unknown Organization [facility] Address [address] [place] [address] Phone [phone] Care Team Providers Care Health Program Director Name Role Phone Harpreet Chapman MD Primary Care Provide r Reason for Visit * Reason Comments Follow Up Encounter Details Date Type Department Care Team (Late st Contact Info) Description 07/21/2023 2:00 PM EST Office Visit Cardiology, [facility] [address] [place] [facility] [address] Krissy Weathers CRNP [address] [facility] [address] Coronary artery disease involving [place] coronary artery of [place] heart without angina pectoris*; Hx of CABG; H/O ascending aorta repair; HTN, goal below 140/90; Dizziness; Hyperlipidemia with target LDL less than 160 Allergies Active Allergy Reactions Criticality Noted Date Comments Amoxicillin Low 01/13/2022 Other reaction(s): Gastrointestinal Upset, Stomach ache Morphine 08/14/2022 hives documented as of this encounter (statuses as of 07/21/2023) Medications Medication Sig Dispensed Refills Start Date End Date Status Aspirin 81 MG Oral Tablet Chewable Take 1 Tablet by mouth in the morning. With food.. 100 Tablet 5 2 Active Hydrocortisone (Perianal) 2.5 % External Cream Administer into the rectum twice daily 30 g 1 2 Active Levothyroxine Sodium 50 MCG Oral Tablet (Levoxyl)Indication s:Acquired hypothyroidism TAKE ONE TABLET BY MOUTH IN THE MORNING 90 Tablet 1 3 Active Rosuvastatin Calcium 20 MG Oral Tablet (Crestor)Indication s:Hyperlipidemia with target LDL less than 160 Take 1 Tablet by mouth every night at bedtime. 90 Tablet 1 3 Active Multi-Vitamin Daily Oral Tablet Take 1 Tablet by mouth in the morning. 0 3 Active Metoprolol Succinate ER 50 MG Oral Tablet Extended Release 24 Hour (toPROL XL)Indications:HTN, goal below 140/90 TAKE THREE TABLETS BY MOUTH IN THE MORNING 270 Tablet 3 3 Active Meclizine HCl 25 MG Oral Tablet (Antivert) Take 1 Tablet by mouth 3 times a day as needed. 0 Active Chlorthalidone 25 MG Oral Tablet (Hygroton)Indicatio ns:HTN, goal below 140/90 Take 0.5 Tablets by mouth in the morning. 30 Tablet 5 3 Active Lisinopril 40 MG Oral TabletIndications:H TN, goal below 140/90 Take 1 Tablet by mouth in the morning. 90 Tablet 1 3 Active Metoprolol Succinate 50 MG Oral Capsule ER 24 Hour Sprinkle Take 150 mg by mouth in the morning. 0 07/21/20 23 Discontinued Spironolactone 25 MG Oral Tablet (Aldactone)Indicati ons:HTN, goal below 140/90 Take 1 Tablet by mouth in the morning. 0 3 07/21/20 23 Discontinued Azithromycin 250 MG Oral Tablet (Zithromax Z-Yadiel)Indications:A cute non-recurrent maxillary sinusitis Take two tablets by mouth on first day, then 1 tablet daily until gone 6 Tablet 0 3 07/21/20 23 Discontinued documented as of this encounter (statuses as of 07/21/2023) Active Problems Problem Noted Date Diagnosed Date Immunization not carried out because of patient decision 11/18/2022 H/O ascending aorta repair 06/19/2022 Pulmonary nodules/lesions, multiple 06/10/2022 Incidental lung nodule 05/28/2022 Hx of CABG 05/28/2022 Coronary artery disease invo lving [place] coronary artery of [place] heart without angina pectoris 02/25/2022 History of [...] as of this encounter (statuses as of 07/21/2023) Resolved Problems Problem Noted Date Diagnosed Date Resolved Date Cholecystostomy care 05/28/2022 023 Screening for prostate cancer 07/11/2005 11/09/2008 Overview: Resolved per Screening Diagnosis Protocol #6 Dyslipidemia, goal to be determined 12/08/2012 documented as of this encounter (statuses as of 07/21/2023) Immunizations Name Administration Dates Next Due Seasonal [...] the money to buy more. Never true 03/20/20 23 Within the past 12 months, t [...] on file documented as of this encounter Last Filed Vital Signs Vital Sign Reading Time Taken Comments Blood Pressure 108/70 07/21/2023 1:59 PM EST Pulse 60 07/21/2023 1:59 PM EST Temperature - - Respiratory Rate 14 07/21/2023 1:59 PM EST Oxygen Saturation - - Inhaled Oxygen Concentration - - Weight 78 kg (172 lb) 07/21/2023 1:59 PM EST Height - - Body Mass Index 24.33 06/13/2023 3:45 PM EDT documented in this encounter Progress Notes * Krissy Weathers CRNP - 07/21/2023 2:00 PM EST 07/21/2023 Cardiology Follow Up Primary Wood Heel Back Liner: Dr. Iyer Cardiac Problems: Coronary artery disease S/P CABG x 4 with [place] to the LAD and SVG's to the OM, LCx and RCA at [facility], 01/17/2022 Post-op acute Type A aortic dissection S/P Aortic valve re suspension and aortic root reconstruction, 02/01/2022 Post-op acute non-occlusive DVT of jugular vein and proximal internal jugular vein and acute occlusive superficial venous thrombosis of cephalic vein, 01/2022 Acute cholecystitis S/P cholecystotomy tube 01/2022- tube removal 07/17/2022, Status post gallbladder removal 09/2022 Hypertension JEM Dyslipidemia HPI: Harley Zepeda is a 67 year old male that presents for close cardiology follow up. Family present with patient Last seen in our office by Dr. Iyer on 04/17/23 feeling intermittent episodes of dizziness and lightheadedness with SBP in the 90's. Labs were ordered, and Aldactone was held. Nuclear stress test was also ordered as a result of abnormal CTA findings noted below which was negative for ischemia orscar. Patient presents today feeling well. He continues to report constant dizziness and vertigo like symptoms. He is scheduled to see ENT for further evaluation. His Aldactone was stopped by his PCP in [facility] to curb the dizziness as his systolic Bps were in the 90's. His BP improved, but symptoms did not. BP today shows good control. Patient would like to consider stopping his chlorthalidone to determine if it is really needed as he feels as though his physical activity has improved and has things better controlled. Reports compliance on all medication therapies with no untoward effects. REVIEW OF SYSTEMS: See HPI for pertinent positives. All others negative other than those noted in the HPI. CONSTITUTIONAL: No change in weight, No weakness, No fatigue and No fevers, No sweats or chills. PULMONARY: No cough, sputum, or hemoptysis, No wheezing, No shortness or breath and No recent change in breathing. CARDIOVASCULAR: No chest pain, No dyspnea on exertion, No edema, No palpitations and No syncope. GASTROINTESTINAL: No abdominal pain, No change in bowel habits, No significant heartburn, No nausea, No vomiting, No diarrhea, No constipation, No blood in stools or black tarry stools. No dysphagia. HEMATOLOGIC: No abnormal bleeding and No bruising. NEUROLOGICAL: Normal balance, No headaches and No weakness. Review of patient's allergies indicates: Allergen Reactions Morphine hives Amoxicillin Other reaction(s): Gastrointestinal Upset, Stomach ache Current Outpatient Medications Medication Sig Dispense Refill Aspirin 81 MG Oral Tablet Chewable Take 1 Tablet by mouth in the morning. With food.. 100 Tablet 5 Hydrocortisone (Perianal) 2.5 % External Cream Administer into the rectum twice daily 30 g 1 Levothyroxine Sodium 50 MCG Oral Tablet (Levoxyl) TAKE ONE TABLET BY MOUTH IN THE MORNING 90 Tablet1 Rosuvastatin Calcium 20 MG Oral Tablet (Crestor) Take 1 Tablet by mouth every night at bedtime. 90 Tablet 1 Multi-Vitamin Daily Oral Tablet Take 1 Tablet by mouth in the morning. Metoprolol Succinate ER 50 MG Oral Tablet Extended Release 24 Hour (toPROL XL) TAKE THREE TABLETS BY MOUTH IN THE MORNING 270 Tablet 3 Meclizine HCl 25 MG Oral Tablet (Antivert) Take 1 Tablet by mouth 3 times a day as needed. Chlorthalidone 25 MG Oral Tablet (Hygroton) Take 0.5 Tablets by mouth in the morning. 30 Tablet 5 Lisinopril 40 MG Oral Tablet Take 1 Tablet by mouth in the morning. 90 Tablet 1 No current facility-administered medications for this visit. Past Medical History: Diagnosis Date CAD (coronary artery disease) Degenerative disc disease, cervical 08/27/2014 HTN (hypertension) Tremor 09/01/2005 nerve damage of arm from fall carrying 100 pounds Family History Problem Relation Age of Onset Cancer Mother colon Hypertension Mother Diabetes Mother Stroke Mother 89 Heart Disorder Father Endocrine Disorder Father high cholesterol Hypertension Father Heart Disorder Brother murmur Cancer Brother kidney,bladder Asthma Brother Arthritis Brother Other (JEM) Brother ? 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 A+Ox3. HEENT: Normocephalic. Atraumatic. PERRL. EOMI. Conjunctiva and sclera clear. NECK: No carotid bruits. No JVD. Carotid upstrokes are brisk. Heart: RRR. S1 and S2 noted. No murmur. No rubs or gallops. PMI non displaced. Lungs: Clear to auscultation. No wheezes.No rhonchi. No rales. Abdomen: Normal bowel sounds. Soft. Nontender. No masses or organomegaly. No abdominal bruits. Extremities: No edema. No clubbing or cyanosis. Pulses: radial=2/4, posterior tibial=2/4, dorsalis pedis = 2/4. NEURO: No focal deficits. PSYCH: Appropriate affect and insight. DATA Labs & Imaging Reviewed Below: Chest CTA report April 04, 2023: 1. Status post repair of the thoracic aortic dissection. Small amount of residual chronic dissection within the descending thoracic aorta which has improved. No evidence for recurrent aortic dissection. 2. High-grade/severe stenosis involving the proximal 1 cm of the implanted right coronary artery graft. This has progressed in the interval. 3. Stable subcentimeter indeterminate pulmonary nodule within the right lung as described above. Continued one year chest CT follow-up recommended to ensure two-year stability. 4. Stable cardiomegaly. 5. Additional findings as described above. 2D echocardiogram report [facility] 04/05/2023: Moderate concentric left ventricular hypertrophy. Subtle septal hypokinesis. Left ventricular ejection fraction 60 to 65%. Aortic valve sclerosis without stenosis ASSESSMENT/PLAN: 67 year old year old male 1. Coronary artery disease involving [place] coronary artery of [place] heart without angina pectoris 2. Hx of CABG 3. H/O ascending aorta repair -Doing well from a cardiac standpoint. No chest pain, pressure or anginal equivalent. -BP well controlled. -Continue GDMT with Toprol xl, Lisinopril, ASA 81mg, and Crestor. 4. HTN, goal below 140/90 -Well controlled. -Continue Toprol xl, and Lisinopril. Patient may trial holding Chlorthalidone. Requested that patient start home BP monitoring. Send in an update after 2 weeks of holding Chlorthalidone. Will make recommendations at that time with regards to discontinuing vs restarting. 5. Dizziness -Etiology unclear. Will be seeing [facility] in [place] 6. Hyperlipidemia with target LDL less than 160 -Most recent lipid panel demonstrates excellent control. -Continue Rosuvastatin (Crestor) as per current regimen DISPOSITION: Follow up 6 mnths or if symptoms worsen/fail to improve. All questions were answered to the patients satisfaction. Patient advised to report to ED with any and all emergencies. The patient agrees to the above plan and will call with additional questions or concerns. TERESA Romero Cardiology, [facility] 132 [facility] [place] [address] I spent a total of 33 minutes on the date of service in preparation, delivery, and documentation ofthe care provided to Harley Zepeda excluding any time spent in the performance of separately billed services. This chart was completed in part utilizing [employer] Speech Voice Recognition Software. Grammatical errors, random word insertions, pronoun errors, and incomplete sentences are an occasional consequence of this system due to software limitations, ambient noise, and hardware issues. Any formal questions or concerns about the content, text, or information contained within the body of this dictation should be directly addressed to the provider for clarification. documented in this encounter Nursing Notes * Marilyn Hackett LPN - 07/21/2023 1:58 PM EST Examination Room: Name: Harley Zepeda Date of : 1955 Reason for Visit: Follow up Problems/Concerns: Medications causing lightheadedness Interim Hosp(s): ER x2 for vertigo since april Chest Pain/SOB: reneeies [place] Discussed: ALREADY ACTIVE Patient was instructed to not get up on the exam table until directed and assisted by their provider; patient is to remain seated in the chair/ wheelchair/ exam table for fall prevention and safety reasons. Patient is aware to have assistance to step down off exam table with personnel. documented in this encounter Plan of Treatment Upcoming Encounters Date Type Department Care Team (Late st Contact Info) Description 10/23/2023 10:00 AM EST Office Visit [facility] [address] [place] [address] Alisa Hunt Au.D. [address] [place], [place] Krish Patton DPT [address] [place] [address] 10/23/2023 1:00 PM EST Office Visit Otolaryngology/Head & Neck/Facial Plastic Surgery [address] [place] [address] Gerber Overton MD [address] [place] [address] 11/20/2023 8:00 AM EDT Nurse Only Ancillary [address] [place] [address] [place], Nurse Annual Wellness [address] [place] [address] [place] [address] 12/10/2023 9:30 AM EDT Imaging Radiology [address] 132 [facility] [place] [address] 12/15/2023 3:00 PM EDT Office Visit Family [address] [place] [phone] Kristina Mock PA-C [address] [place] [address] [place] [address] 01/27/2024 9:00 AM EDT Office Visit Cardiology, [facility] [place] [address] Krissy Weathers CRNP 132 [facility] [place] [address] 06/18/2024 4:00 PM EDT Office Visit Family [address] [phone] Harpreet Chapman MD [address] [place] [address] [place] [address] Health Maintenance Due Date Last Done Comments [...] (#1) 2023 09/05/2014 Depression Screening 11/19/2023 11/18/2022 GFR 07/18/2024 07/18/2023, 04/01, 12/05/2022, Additional history exists TSH 07/18/2024 07/18/2023, 04/0 01/2023, 12/12/2020, Additional history exists GARDASIL-HPV IMMUNIZATION SERIES Aged [...] as of this encounter Visit Diagnoses Diagnosis Coronary artery disease involving [place] coronary artery of [place] heart without angina pectoris- Primary Hx of CABG Postsurgical aortocoronary bypass status H/O ascending aorta repair Personal history of surgery to heart and great vessels, presenting hazards to health HTN, goal below 140/90 Unspecified essential hypertension Dizziness Dizziness and giddiness Hyperlipidemia with target LDL less than 160 Other and unspecified hyperlipidemia documented in this encounter Care Teams Health Program Director Relationship Specialty Start Date End Date Harpreet Chapman MD [address] [place] [address] [place] [address] PCP - General Family Medicine 07/05/14 documented as of this encounter"
--- OUTSIDE RECORDS SUMMARY | 2023-08-29 21:01 | External Medical Summary | Summary of Care ---
Author Name Unknown Organization [facility] Address [address] [place] [address] Phone [phone] Care Team Providers Care Cruise Consultant Name Role Phone Harpreet Chapman MD Primary Care Provide r Reason for Visit * Reason Onset Date Comments Referral 07/13/2023 Encounter Details Date Type Department Care Team (Late st Contact Info) Description 07/13/2023 Telephone [facility] [address] [place] [address] Krish Patton, Frannie [address] [place] [address] Referral Allergies Active Allergy Reactions Criticality Noted Date Comments Amoxicillin Low 01/13/2022 Other reaction(s): Gastrointestinal Upset, Stomach ache Morphine 08/14/2022 hives documented as of this encounter (statuses as of 07/13/2023) Medications Medication Sig Dispensed Refills Start Date [...] as of this encounter (statuses as of 07/13/2023) Active Problems Problem Noted Date Diagnosed Date Immunization not carried out because of patient decision 11/18/2022 H/O ascending aorta repair 06/19/2022 Pulmonary nodules/lesions, multiple 06/10/2022 Incidental lung nodule 05/28/2022 Hx of CABG 05/28/2022 Coronary artery disease invo lving [place] coronary artery of [place] heart without angina pectoris 02/25/2022 History of [...] as of this encounter (statuses as of 07/13/2023) Resolved Problems Problem Noted Date Diagnosed Date Resolved Date Cholecystostomy care 05/28/2022 023 Screening for prostate cancer 07/11/2005 11/09/2008 Overview: Resolved per Screening Diagnosis Protocol #6 Dyslipidemia, goal to be determined 12/08/2012 documented as of this encounter (statuses as of 07/13/2023) Immunizations Name Administration Dates Next Due Seasonal [...] 07/21/2023 2:00 PM EST Office Visit Cardiology, [facility] 132 [facility] [place] [address] Krissy Weathers CRNP 132 [facility] [place] [address] 11/20/2023 8:00 AM EDT Nurse Only Ancillary [address] [place] [address] [place], Nurse [address] [place] [address] 12/10/2023 9:30 AM EDT Imaging Radiology [address] 132 [facility] [place] [address] 12/15/2023 3:00 PM EDT Office Visit Family Medicine [address] [place] [phone] Kristina Mock PA-C [address] [place] [address] [place] [address] 06/18/2024 4:00 PM EDT Office Visit Family Medicine [address] [place] [phone] Harpreet Chapman MD [address] [place] [address] [place] [address] Health Maintenance Due Date Last Done Comments [...] Depression Screening 11/19/2023 11/18/2022 TSH 12/06/2023 12/05/2022, 1 10/2020, 02/01/2020, Additional history exists GFR 04/17/2024 [...] filedocumented as of this encounter Care Teams Cruise Consultant Relationship Specialty Start Date End Date Harpreet Chapman MD [address] [place] [address] [place] [phone] PCP - General Family Medicine 07/05/14 documented as of this encounter
--- OUTSIDE RECORDS SUMMARY | 2023-08-29 21:01 | External Medical Summary ---
Author Name Unknown Address Unknown Organization [facility] [address] [place] [address] Laboratory Report Ordering Provider Test Date Status KATIE WAITE 07/18/2023 11:42:24 Final Observation Date Value Abnormality Reference (Units ) Status BUN 07/18/2023 11:42:24 17 6-20 (mg/dL) Final Creatinine 07/18/2023 11:42:24 1.0 0.6-1.2 (mg/dL) Final Glomerular filtration rate/1.73 sq M.predicted [Volume Rate/Area] in Serum, Plasma or Blood by Creatinine-based formula (CKD-EPI) 07/18/2023 11:42:24 80 >=60 (mL/min) Final eGFR is calculated based on the CKD-EPI 2020 equation SODIUM 07/18/2023 11:42:24 137 135-146 (m mol/L) Final Potassium 07/18/2023 11:42:24 3.8 3.5-5.1 (m mol/L) Final Cl 07/18/2023 11:42:24 101 98-107 (mm ol/L) Final CO2 07/18/2023 11:42:24 27 22-32 (mmo l/L) Final Anion gap 07/18/2023 11:42:24 9 7-15 (mmol /L) Final Glucose 07/18/2023 11:42:24 108 70-120 (mg /dL) Final Calcium 07/18/2023 11:42:24 9.6 8.4-10.2 ( mg/dL) Final Performing Location [facility] [address] [place] [id number]
--- OUTSIDE RECORDS SUMMARY | 2023-08-29 21:01 | External Medical Summary | Summary of Care ---
Author Name Unknown Organization [facility] Address [address] [place] [address] Phone [phone] Care Team Providers Care Triage Clinician Name Role Phone Harpreet Chapman MD Primary Care Provide r Reason for Referral * Evaluate & Treat - Unlimited Visits (Within 10 days (routine)) - Authorized Specialty Diagnoses / Procedures Referred By Emory nieves Referred To Contact Audiology Diagnoses Danilotigo Harpreet Chapman MD [address] [place] [address] [place] [id number] Referral ID Status Reason Start Date Expiration Date Visits Requested Visits Authorized [id number] Authorized Specialty Services Required 3 [phone] Question Answer Referral Priority Within 10 days (routine) Where should this appointment be scheduled? [facility] Is this order intended for the [facility] in [place], [place] Yes Along with the dizziness, has there been a sudden change in hearing or tinnitus within the last two weeks? No Is the dizziness triggered with rolling over in bed and lasting seconds? No Is the dizziness motion-related, spontaneous (non-predictable) or both? Both Comments Referral to: Otolaryngology Vest[facility] [place] For services that may include: 1. Audiologic and vestibular testing 2. Otolaryngology consultation 3. Vestibular Rehabilitation [Physical Therapy] evaluation and treatment Reason for Visit * Reason Onset Date Comments Advice 07/11/2023 Encounter Details Date Type Department Care Team (Late st Contact Info) Description 07/11/2023 Telephone Family Medicine [address] [place] [phone] Harpreet Chapman MD [address] [place] [address] [place] [address] Advice Allergies Active Allergy Reactions Criticality Noted Date Comments Amoxicillin Low 01/13/2022 Other reaction(s): Gastrointestinal Upset, Stomach ache Morphine 08/14/2022 hives documented as of this encounter (statuses as of 07/11/2023) Medications Medication Sig Dispensed Refills Start Date [...] as of this encounter (statuses as of 07/11/2023) Active Problems Problem Noted Date Diagnosed Date Immunization not carried out because of patient decision 11/18/2022 H/O ascending aorta repair 06/19/2022 Pulmonary nodules/lesions, multiple 06/10/2022 Incidental lung nodule 05/28/2022 Hx of CABG 05/28/2022 Coronary artery disease invo lving tanana coronary artery of tanana heart without angina pectoris 02/25/2022 History of [...] as of this encounter (statuses as of 07/11/2023) Resolved Problems Problem Noted Date Diagnosed Date Resolved Date Cholecystostomy care 05/28/2022 023 Screening for prostate cancer 07/11/2005 11/09/2008 Overview: Resolved per Screening Diagnosis Protocol #6 Dyslipidemia, goal to be determined 12/08/2012 documented as of this encounter (statuses as of 07/11/2023) Immunizations Name Administration Dates Next Due Seasonal [...] We can do the [facility] in [place] instead. They are very good for vertigo * Telephone Encounter - Sary Yin LPN - 07/11/2023 10:39 AM EST Patient is calling. Saw Dr. Chapman and was given a referral for ENT at [facility]. They are not taking patients until May of 2024. He continues to have problems with vertigo. It comes and goes. Some days are worse. Asking for advice on what he can do. documented in this encounter Plan of Treatment Upcoming Encounters Date Type Department Care Team (Late st Contact Info) Description 07/21/2023 2:00 PM EST Office Visit Cardiology, [facility] [address] [facility] [place] [phone] Krissy Weathers CRNP [address] [facility] [place] [id number] 11/20/2023 8:00 AM EDT Nurse Only Ancillary [address] [place] [phone] [place], Nurse [address] [place] [address] 12/10/2023 9:30 AM EDT Imaging Radiology [address] [facility] [place] [id number] 12/15/2023 3:00 PM EDT Office Visit Family Medicine [address] [place] [phone] Kristina Mock PA-C [address] [place] [address] [place] [address] 06/18/2024 4:00 PM EDT Office Visit Family Medicine [address] [place] [phone] Harpreet Chapman MD [address] [place] [address] [place] [phone] Scheduled Referrals Name Type Priority Associated Diagnoses [...] giddiness documented in this encounter Care Teams Triage Clinician Relationship Specialty Start Date End Date Harpreet Chapman MD [address] [place] [address] [place] [phone] PCP - General Family Medicine 07/05/14 documented as of this encounter
--- OUTSIDE RECORDS SUMMARY | 2023-08-29 21:01 | External Medical Summary ---
Author Name Unknown Address Unknown Organization [id number]:[facility] [address] [place] [id number] Laboratory Report Ordering Provider Test Date Status PARIRYLAND RAYMOND 07/18/2023 11:42:24 Final Observation Date Value Abnormality Reference (Units ) Status SYNC LEUKOCYTES IN BLOOD BY AUTOMATED COUNT 07/18/2023 11:42:24 7.53 4.00-10.80 (K/uL) Final Segs 07/18/2023 11:42:24 65.6 40.0-75.0 (%) Final Lymphs % 07/18/2023 11:42:24 17.5 Below low normal 18.0-42.0 (%) Final Monos 07/18/2023 11:42:24 14.2 Above high normal 1.0-11.0 (%) Final Eosinophils 07/18/2023 11:42:24 2.4 0.0-6.0 (%) Final Basos 07/18/2023 11:42:24 0.3 0.0-2.0 (%) Final Absolute Segs 07/18/2023 11:42:24 4.94 1.80-7.70 (K/uL) Final Lymphs, absolute 07/18/2023 11:42:24 1.32 1.00-4.80 (K/ul) Final Monos, Abs 07/18/2023 11:42:24 1.07 0.00-1.10 (K/uL) Final Eos, Abs 07/18/2023 11:42:24 0.18 0.00-0.70 (K/uL) Final Basos, Abs 07/18/2023 11:42:24 0.02 0.00-0.20 (K/uL) Final Performing Location [facility] [address] [place] [id number]
--- OUTSIDE RECORDS SUMMARY | 2023-08-29 21:01 | External Medical Summary ---
Author Name Unknown Address Unknown Organization [id number]:[facility] - [address] [place] [address] Laboratory Report Ordering Provider Test Date Status RYLAND RILEY 07/18/2023 11:42:24 Final Observation Date Value Abnormality Reference (Units ) Status TSH 07/18/2023 11:42:24 1.40 0.27-4.20 (uIU/mL) Final Performing Location [facility] - [address] [place] [id number]
--- OUTSIDE RECORDS SUMMARY | 2023-08-29 21:02 | External Medical Summary | Summary of Care ---
Author Name Unknown Organization [facility] Address [address] [place] [address] Phone [phone] Care Team Providers Care Staff Readiness Officer Name Role Phone Harpreet Chapman MD Primary Care Provide r Reason for Referral * Evaluate & Treat - Unlimited Visits (Within 10 days (routine)) - Authorized Specialty Diagnoses / Procedures Referred By Contac t Referred To Contact Physical Therapy / Physical Medicine And Rehab Diagnoses Benign paroxysmal positional vertigo, unspecified laterality Harpreet Chapman MD [address] [place] [address] [place] [address] Referral ID Status Reason Start Date Expiration Date Visits Requested Visits Authorized [id number] Authorized Specialty Services Required 05/12/2023 999 999 Question Answer Referral Priority Within 10 days (routine) Comments [facility] in [place] if possible. Vestibular therapy Reason for Visit * Reason Comments Emergency Department Follow-Up Encounter Details Date Type Department Care Team Description 05/12/2023 Office Visit Family Medicine [address] [place] [phone] Harpreet Chapman MD [address] [place] [address] [place] [phone] Benign paroxysmal positional vertigo, unspecified laterality*; HTN, goal below 140/90; History of non-ST elevation myocardial infarction (NSTEMI); Coronary artery disease involving seneca-cayuga coronary artery of seneca-cayuga heart without angina pectoris; Epistaxis Allergies Active Allergy Reactions Severity Noted Date Comments Amoxicillin Low 01/13/2022 Other reaction(s): Gastrointestinal Upset, Stomach ache Morphine 08/14/2022 hives documented as of this encounter (statuses as of 05/12/2023) Medications Medication Sig Dispensed Refills Start Date [...] by mouth in the morning. 0 Active Lisinopril 40 MG Oral Tablet Take 1 Tablet by mouth in the morning. 0 Active Spironolactone 25 MG Oral Tablet (Aldactone)Indicati ons:HTN, [...] 0.5 Tablets by mouth in the morning. 0 05/12/2023 Active Chlorthalidone 25 MG Oral Tablet (Hygroton)Indicatio ns:HTN, goal below 140/90 Take 1 Tablet by mouth in the morning. Hold as of 04/22/23 for hypotension. 0 04/22/2023 Discontinue d(Refill) documented as of this encounter (statuses as of 05/12/2023) Active Problems Problem Noted Date Immunization not carried out because of patient decision 11/18/2022 H/O ascending aorta repair 06/19/2022 Pulmonary nodules/lesions, multiple 06/01 Incidental lung nodule 05/28/2022 Hx of CABG 05/28/2022 Coronary artery disease invo lving seneca-cayuga coronary artery of seneca-cayuga heart without angina pectoris 02/25/2022 History of non-ST elevation myocardial i nfarction (NSTEMI) 02/25/2022 History of aortic dissection 02/25/2022 Cholecystitis 02/25/2022 Hepatitis B non-converter (post-vaccinat ion) 12/02/2017 JEM (obstructive sleep apnea) 02/19/2016 Overview: AHI of 33.9 on HST 02/08/16 Allergic rhinitis 11/25/2015 Degenerative disc disease, cervical 08/02 HTN, goal below 140/90 12/08/2012 Hyperlipidemia with target LDL less than 160 12/08/2012 Overview: ICD-10 update of inactive term Essential tremor 02/08/2010 ADVANCE DIRECTIVE INFORMATION 10/17/2005 Overview: No, Advance Directive brochure given to patient at prior appointment. GENERAL OSTEOARTHROSIS 01/05/2004 Hemorrhoids 01/03/2003 Hypothyroidism documented as of this encounter (statuses as of 05/12/2023) Resolved Problems Problem Noted Date Resolved Date Cholecystostomy care 05/28/2022 11/19/2022 Screening for prostate cancer 07/11/2005 Overview: Resolved per Screening Diagnosis Protocol #6 Dyslipidemia, goal to be determined 12/08/2012 documented as of this encounter (statuses as of 05/12/2023) Immunizations Name Administration Dates Next Due Seasonal Influenza, Split, I IV3, With Preserve, Inj 09/05/2014,12/21/2010(Deferred: Patient Refused) TDAP (age 11 and older)(Adacel) 02/04/2008 documented as of this encounter Social History Tobacco Use Types Packs/Day Years Used Date Smoking Tobacco: Never Smokeless Tobacco: Never Alcohol Use Standard Drinks/Week Comments No 0 (1 standard drink = 0.6 oz pur e alcohol) Food Insecurity Answer Date Recorded Within the past 12 months, y ou worried that your food would run out before you got money to buy more. Never true 11/18/2022 Within the past 12 months, t he food you bought just didn't last and you didn't have money to get more. Never true 11/18/2022 Sex Assigned at Date Recorded Male 11/16/2021 3:10 PM E DT Job Start Date Occupation Industry Not on file Not on file Not on file documented as of this encounter Last Filed Vital Signs Vital Sign Reading Time Taken Comments Blood Pressure 156/96 05/12/2023 5:52 PM EDT home machine check Pulse 67 05/12/2023 5:48 PM EDT Temperature 36.9 C (98.5 F) 05/12/2023 5 :48 PM EDT Respiratory Rate - - Oxygen Saturation 97% 05/12/2023 5:4 8 PM EDT Inhaled Oxygen Concentration - - Weight 77.6 kg (171 lb) 05/12/2023 5:48 PM EDT Height - - Body Mass Index 24.19 11/18/2022 9:24 AM EDT documented in this encounter Progress Notes * Harpreet Chapman MD - 05/12/2023 6:00 PM EDT Subjective: Harley Zepeda is a 67 year old male. Chief Complaint Patient presents with Emergency Department Follow-Up HPI: Brief Clinical History Mr. Zepeda is a 67 year old man last seen in Family Medicine 2 weeks ago (04-22-23). He is not due for eval of any conditions. Was seen in ED 04/25/23 with worsening dizziness. Had been seen here 04/22/23 for hospital follow-up related to dizziness and hypertensive urgency. Medications were adjusted during that visit and then was hypotension. Spironolactone has been on hold per cardiology and chlorthalidone was held as of 04/22/23. In ED, head and neck CTA were negative for acute findings. Advised he had vertigo and given meclizine. The meclizine doesn't help for very long, a few hours and then wears off and is not working as wellas it did initially. Blood pressure has been starting to increase again. He has a log with him. As above, his spironolactone and chlorthalidone have been on hold due to hypotension. Feels funny right now but not very dizzy right now. Seems to be worse in the morning or evening. The room is not spinning but feels like things are moving up and down and feels woozy. Position changes can also set it off. Had a nosebleed from left side of the nose a few days ago. It is resolved now. Does have nasal saline to use. Results for orders placed or performed in visit on 04/17/23 BASIC METABOLIC PANEL Result Value Ref Range BUN 22 (H) 6 - 20 mg/dL Creatinine 1.4 (H) 0.6 - 1.2 mg/dL Estimated Glomerular Filtration Rate 57 (L) >=60 mL/min Sodium 138 135 - 146 mmol/L Potassium 4.6 3.5 - 5.1 mmol/L Chloride 102 98 - 107 mmol/L CO2 23 22 - 32 mmol/L Anion Gap 13 7 - 15 mmol/L Glucose 124 (H) 70 - 120 mg/dL Calcium 9.5 8.4 - 10.2 mg/dL LYME DISEASE ANTIBODY SCREEN Result Value Ref Range Lyme Disease Antibody Screen Negative Negative PHM: Patient Active Problem List Diagnosis Code Hemorrhoids K64.9 GENERAL OSTEOARTHROSIS M15.9 Hypothyroidism E03.9 ADVANCE DIRECTIVE INFORMATION Essential tremor G25.0 HTN, goal below 140/90 I10 Hyperlipidemia with target LDL less than 160 E78.5 Degenerative disc disease, cervical M50.30 Allergic rhinitis J30.9 JEM (obstructive sleep apnea) G47.33 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 Metoprolol Succinate 50 MG Oral Capsule ER 24 Hour Sprinkle Take 150 mg by mouth in the morning. Lisinopril 40 MG Oral Tablet Take 1 [...] 0.5 Tablets by mouth in the morning. Spironolactone 25 MG Oral Tablet (Aldactone) Take 1 Tablet by mouth in the morning. (Patient not taking: Reported on 04/22/2023) No current facility-administered medications for this visit. Past Medical History: Diagnosis Date CAD (coronary artery disease) Degenerative disc disease, cervical 08/27/2014 HTN (hypertension) Tremor 09/01/2005 nerve damage of arm from fall carrying 100 pounds Past Surgical History: Procedure Laterality Date CABG, ARTERY-VEIN, FOUR N/A 01/17/2022 Rosaura CHOLECYSTOTOMY OR CHOLECYSTOSTOMY, PERC 2022 COLONOSCOPY 04/28/2008 normal CTA CHEST NON-CORONARY W CONTRAST 03/26/2022 post surgical changes for Type A aortic dissection, scattered granuloma, cholecystostomy tube in place, small hiatal hernia HC ENDOVASC REPAIR OF DESC THORACIC AORTIC ANEURYSM, PSEUDOANEURYSM, DISSECTION WO SUBCLAV ARTERY 02/01/2022 REMOVE TONSILS & ADENOIDS, UNDER 12 REPAIR INGUINAL HERNIA, UNDER AGE 5 age 2, right REPAIR INITIAL INGUINAL HERNIA REDUCIBLE AGE 5 OR MORE Left 09/01/1999 Social History Socioeconomic History Marital status: Spouse name: Not on file Number of children: Not on file Years of education: Not on file Highest education level: Not on file Occupational History Not on file Tobacco Use Smoking status: Never Smokeless tobacco: Never Vaping Use Vaping Use: Never used Substance and Sexual Activity Alcohol use: No Drug use: No Sexual activity: Not on file Other Topics Concern Not on file Social History Narrative 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, 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 Social Determinants of Health Financial Resource Strain: Not on file Food Insecurity: No Food Insecurity Worried About Running Out of Food in the Last Year: Never true Ran Out of Food in the Last Year: Never true Transportation Needs: Not on file Physical Activity: Not on file Stress: Not on file Social Connections: Not on file Intimate Partner Violence: Not on file Housing Stability: Not on file Review of patient's allergies indicates: Allergen Reactions Morphine hives Amoxicillin Other reaction(s): Gastrointestinal Upset, Stomach ache Objective: BP 156/96 Comment: home machine check | Pulse 67 | Temp 36.9 C (98.5 F) (Tympanic) | Wt 77.6 kg(171 lb) | SpO2 97% | BMI 24.19 kg/m | BSA 1.96 m Physical Exam: General: alert, healthy, no distress, well nourished, and well developed Head: Normocephalic, No masses, lesions, tenderness or abnormalities Eye Exam: PERRLA, extraocular movements intact, conjunctiva are pink and non- injected, sclera clear Ears: External ears normal, Canals clear, TM's Normal Nose: no mucosal erythema, no mucosal edema, no purulent discharge Oropharynx: no exudate, no erythema, lips, buccal mucosa, and tongue normal, and mucous membranes are moist Neck: supple, no adenopathy, no bruits Heart: regular rate & rhythm, no murmur, and no gallops Lungs: chest symmetric with normal AP diameter, no chest deformities noted, no chest wall tenderness, lungs clear to auscultation Extremities: no edema, no clubbing, no cyanosis Neuro Exam: alert & oriented x 3 with fluent speech, no focal motor/sensory deficits, gait normal, reflexes normal and symmetric, +vertigo when returning to seated position after laying down and looking to left. No nystagmus Extensive ROS Constitutional (f/c/wt/vision/hearing): see above hpi Resp (cough/sob/chaudhari): Negative CV (cp/palp/fluttering/diaphoresis/chaudhari/pnd):see above hpi GI (n/v/d/hrtburn): Negative Endo (hair/cold or heat intol/ 3 p's): Negative Neuro (shaking/weak/fatigu/parasthesi/): see above hpi Skin (rash/easy bruis/xerosis): Negative Psy (si/hi/halluc/): Negative (nocturia/hesit/drib/sexual review): Negative Lymph (swollen glands/b sx's/: Negative ASSESSMENT: Benign paroxysmal positional vertigo, unspecified laterality (Primary) - PHYSICAL THERAPY REFERRAL OP HTN, goal below 140/90 History of non-ST elevation myocardial infarction (NSTEMI) Coronary artery disease involving seneca-cayuga coronary artery of seneca-cayuga heart without angina pectoris Epistaxis Follow Up: Return as scheduled. PLAN: Continue present medication(s): Begin medication(s): Restart chlorthalidone 12.5 mg daily for elevated blood pressure Referral(s) to: Physical therapy for vestibular therapy for likely BPPV causing his ongoing dizziness. Has remained dizzy with BP being high, then low, and now is mildly elevated again and still dizzy so feel it is more due to vertigo than his BP. Patient education: Restart chlorthalidone as above. Recommend changing positions very slowly. Continue to log blood pressures. Nasal saline for nosebleed. No intranasal abnormality on exam today other than septum appearing dry Follow up: As scheduled 06/13/23. Harpreet Chapman MD documented in this encounter Nursing Notes * Belle Panda LPN - 05/12/2023 5:47 PM EDT [facility] follow up Meclizine not helping much with vertigo BP running high again documented in this encounter Plan of Treatment Upcoming Encounters Date Type Specialty Care Team Description 06/13/2023 Office Visit Family Medicine Harpreet Chapmna MD [address] [place] [address] [place] [address] 06/18/2023 Imaging Radiology Gw, Excess Time Radiology [address] [place] [id number] 07/21/2023 Office Visit Cardiology Krissy Weathers CRNP [address] [place] [address] 11/20/2023 Nurse Only Ancillary [place], Nurse Annual Wellness [address] [place] [address] [place] [phone] 12/10/2023 Imaging Radiology Scheduled Referrals Name Type Priority Associated Diagnoses Orde r Schedule PHYSICAL THERAPY REFERRAL OP Referral Within 10 days (routine) Benign paroxysmal positional vertigo, unspecified laterality Ordered: 05/12/2023 Health Maintenance Due Date Last Done Comments [...] 12/05/2022, 11/30, 02/01/2020, Additional history exists GFR 04/17/2024 04/17/2023, [...] as of this encounter Visit Diagnoses Diagnosis Benign paroxysmal positional vertigo, unspecified laterality- Primary HTN, goal below 140/90 Unspecified essential hypertension History of non-ST elevation myocardial infarction (NSTEMI) Old myocardial infarction Coronary artery disease involving seneca-cayuga coronary artery of seneca-cayuga heart without angina pectoris Epistaxis documented in this encounter Care Teams Staff Readiness Officer Relationship Specialty Start Date End Date Harpreet Chapman MD [address] [place] [address] [place] [id number] PCP - General Family Medicine 07/05/14 documented as of this encounter"
--- OUTSIDE RECORDS SUMMARY | 2023-08-29 21:02 | External Medical Summary | Summary of Care ---
Author Name Unknown Organization [facility] Address [address] [place] [address] Phone [phone] Care Team Providers Care Physician In Private Practice Name Role Phone Harpreet Chapman MD Primary Care Provide r Reason for Referral * Evaluate & Treat - Unlimited Visits (Within 10 days (routine)) - Authorized Specialty Diagnoses / Procedures Referred By Emory nieves Referred To Contact Otolaryngology Diagnoses Danilotigo Harpreet Chapman MD [address] [place] [address] [place] [address] Referral ID Status Reason Start Date Expiration Date Visits Requested Visits Authorized [id number] Authorized Specialty Services Required 3 [phone] Question Answer Referral Priority Within 10 days (routine) Where should this appointment be scheduled? External Reason for Referral Ear Conditions Specific Condition: Dizzy/Vertigo/imbalance Do not place this order. For Dizzy/Vertigo/Imbalance conditions, place the [facility] Referral OP [[id number]]. Acknowledge Comments [facility] Reason for Visit * Reason Comments Re-Check Encounter Details Date Type Department Care Team Description 06/13/2023 Office Visit Family Medicine [address] [place] [phone] Harpreet Chapman MD [address] [place] [address] [place] [address] Acute non-recurrent maxillary sinusitis*; Vertigo; Acute cough; Coronary artery disease involving [place] coronary artery of [place] heart without angina pectoris; History of non-ST elevation myocardial infarction (NSTEMI); HTN, goal below 140/90; Dyslipidemia, goal LDL below 100; Acquired hypothyroidism; H/O ascending aorta repair; Hx of CABG Allergies Active Allergy Reactions Severity Noted Date Comments Amoxicillin Low 01/13/2022 Other reaction(s): Gastrointestinal Upset, Stomach ache Morphine 08/14/2022 hives documented as of this encounter (statuses as of 06/13/2023) Medications Medication Sig Dispensed Refills Start Date [...] 5 06/02/2023 Active Lisinopril 40 MG Oral TabletIndications:H TN, goal below 140/90 Take 1 Tablet by mouth in the morning. 90 Tablet 1 06/13/2023 Active Azithromycin 250 MG Oral Tablet (Zithromax Z-Yadiel)Indications:A cute non-recurrent maxillary sinusitis Take two tablets by mouth on first day, then 1 tablet daily until gone 6 Tablet 0 06/13/2023 Active predniSONE 20 MG Oral Tablet (Deltasone)Indicati ons:Acute cough Take 2 Tablets by mouth in the morning for 5 days. 10 Tablet 0 06/13/2023 3 Active Lisinopril 40 MG Oral Tablet Take 1 Tablet by mouth in the morning. 0 3 Discontinue d(Refill) documented as of this encounter (statuses as of 06/13/2023) Active Problems Problem Noted Date Immunization not carried out because of patient decision 11/18/2022 H/O ascending aorta repair 06/19/2022 Pulmonary nodules/lesions, multiple 06/01 Incidental lung nodule 05/28/2022 Hx of CABG 05/28/2022 Coronary artery disease invo lving [place] coronary artery of [place] heart without angina pectoris 02/25/2022 History of [...] as of this encounter (statuses as of 06/13/2023) Resolved Problems Problem Noted Date Resolved Date Cholecystostomy care 05/28/2022 11/19/2022 Screening for prostate cancer 07/11/2005 Overview: Resolved per Screening Diagnosis Protocol #6 Dyslipidemia, goal to be determined 12/08/2012 documented as of this encounter (statuses as of 06/13/2023) Immunizations Name Administration Dates Next Due Seasonal [...] Sign Reading Time Taken Comments Blood Pressure 96/56 06/13/2023 3:45 PM EDT Pulse 71 06/13/2023 3:45 PM EDT Temperature 36.7 C (98 F) 06/13/2023 3:45 PM EDT Respiratory Rate - - Oxygen Saturation 96% 06/13/2023 3:45 PM EDT Inhaled Oxygen Concentration - - Weight 76.2 kg (168 lb) 06/13/2023 3:45 PM EDT Height 179.1 cm (5' 10.5") 06/13/2023 3:45 PM ED T Body Mass Index 23.76 06/13/2023 3:45 PM EDT documented in this encounter Progress Notes * Harpreet Chapman MD - 06/13/2023 3:51 PM EDT Subjective: Harley Zepeda is a 67 year old male. Chief Complaint Patient presents with Re-Check HPI: Brief Clinical History Mr. Zepeda is a 67 year old man last seen in Family Medicine 1 month ago (05-12-23). He is not due for eval of any conditions. Has been sick for about 10 days. Has a cough and coughing up some phlegm that is starting to have some color to it. Has been taking some Coricidin HBP and helping some. Has not had a fever. Has sinuscongestion and pain. Did not do a COVID test. No shortness of breath but chest hurts some and stomach is upset. Appetite is reduced. Has a lot of sinus drainage. Nose is running but not too congested. Went to PT for the vertigo. PT did some maneuvers and does not think it is from his ears and that he should see ENT. Patient did have extensive work up while admitted for vertigo including head CT and CTA. No change in hearing. Is scheduled for stress test 06/18/23. Following with cardiology. Declines vaccines. Results for orders placed or performed in [...] non-converter (post-vaccination) Z92.29 Coronary artery disease involving [place] coronary artery of [place] heart without angina pectoris I25.10 History of [...] 150 mg by mouth in the morning. Metoprolol Succinate [...] mouth in the morning. 90 Tablet 1 Spironolactone 25 MG Oral Tablet (Aldactone) Take [...] reaction(s): Gastrointestinal Upset, Stomach ache Objective: BP 96/56 | Pulse 71 | Temp 36.7 C (98 F) (Tympanic) | Ht 1.791 m (5' 10.5") | Wt 76.2 kg (168 lb) | SpO2 96% | BMI 23.76 kg/m | BSA 1.95 m Physical Exam: General: alert, no distress, well nourished, and well developed Head: Normocephalic, No masses, lesions, tenderness or abnormalities Eye Exam: PERRLA, extraocular movements intact, conjunctiva are pink and non- injected, sclera clear Ears: External ears normal, Canals clear, R TM air and or fluid interface, L TM air and or fluid interface Nose: mucosal edema, mucosal erythema, sinus tenderness Oropharynx: no exudate, no erythema, lips, buccal [...] fluent speech, no focal motor/sensory deficits, gait normal Extensive ROS Constitutional (f/c/wt/vision/hearing): see above hpi Resp (cough/sob/chaudhari): see above hpi CV (cp/palp/fluttering/diaphoresis/chaudhari/pnd):see above hpi GI (n/v/d/hrtburn): Negative Endo (hair/cold or heat intol/ 3 p's): Negative Neuro (shaking/weak/fatigu/parasthesi/): see above hpi Skin (rash/easy bruis/xerosis): Negative Psy (si/hi/halluc/): Negative (nocturia/hesit/drib/sexual review): Negative Lymph (swollen glands/b sx's/: Negative ASSESSMENT: Acute non-recurrent maxillary sinusitis (Primary)--suspect viral illness now with sinusitis. - Azithromycin 250 MG Oral Tablet (Zithromax Z-Yadiel); Take two tablets by mouth on first day, then 1tablet daily until gone Vertigo--ongoing despite meclizine and PT for vestibular therapy. PT has recommended he see ENT. Would like to see [facility] - OTOLARYNGOLOGY REFERRAL OP Acute cough--OTC medications not helping. Start short steroid burst. - predniSONE 20 MG Oral Tablet (Deltasone); Take 2 Tablets by mouth in the morning for 5 days. Coronary artery disease involving [place] coronary artery of [place] heart without angina pectoris--stable. Having stress test next week. History of non-ST elevation myocardial infarction (NSTEMI)--continue aspirin 81 mg daily and metoprolol succinate 50 mg daily and lisinopril 40 mg daily HTN, goal below 140/90--low today but tends to fluctuate widely. Continue lisinopril 40 mg daily and metoprolol succinate 50 mg daily, and - Lisinopril 40 MG Oral Tablet; Take 1 Tablet by mouth in the morning. Hyperlipidemia with target LDL less than 100--continue rosuvastatin 20 mg daily Acquired hypothyroidism--continue levothyroxine 50 mcg daily H/O ascending aorta repair--stable Hx of CABG Follow Up: Return in about 6 months (around 12/13/2023) for Clinic Visit. | For: Clinic Visit PLAN: Continue present medication(s): Begin medication(s): Prednisone and Zithromax for cough and sinusitis Referral(s) to: ENT for refractory vertigo. Failed meclizine and vestibular therapy Follow up: in 6 month(s). Harpreet Chapman MD documented in this encounter Nursing Notes * Belle Panda LPN - 06/13/2023 3:43 PM EDT Vertigo & chest cold documented in this encounter Plan of Treatment Upcoming Encounters Date Type Specialty Care Team Description 06/18/2023 Imaging Radiology , Excess Time Radiology [address] [place] [phone] 07/21/2023 Office Visit Cardiology Krissy Weathers CRNP [address] [place] [id number] 11/20/2023 Nurse Only Ancillary Dusty, Nurse Annual [facility] [address] [place] [address] [place] [address] 12/10/2023 Imaging Radiology 12/15/2023 Office Visit Family Medicine Kristina Mock PA-C [address] [place] [address] [place] [address] 06/18/2024 Office Visit Family Medicine Harpreet Chapman MD [address] [place] [address] [place] [id number] Scheduled Referrals Name Type Priority Associated Diagnoses Order Schedule OTOLARYNGOLOGY REFERRAL OP Referral Within 10 days (routine) Vertigo Ordered: 06/13/2023 Health Maintenance Due Date Last Done Comments [...] Influenza Vaccine (FLU shot) (#1) 2023 09/05/2014 *NEPHROLOGY REFERRAL DUE TO RESISTANT HTN 05/28/2023 Depression Screening 11/19/2023 11/18/2022 TSH 12/06/2023 12/05/2022, [...] as of this encounter Visit Diagnoses Diagnosis Acute non-recurrent maxillary sinusitis- Primary Vertigo Dizziness and giddiness Acute cough Coronary artery disease involving [place] coronary artery of [place] heart without angina pectoris History of non-ST elevation myocardial infarction (NSTEMI) Old myocardial infarction HTN, goal below 140/90 Unspecified essential hypertension Dyslipidemia, goal LDL below 100 Other and unspecified hyperlipidemia Acquired hypothyroidism Unspecified hypothyroidism H/O ascending aorta repair Personal history of surgery to heart and great vessels, presenting hazards to health Hx of CABG Postsurgical aortocoronary bypass status documented in this encounter Care Teams Physician In Private Practice Relationship Specialty Start Date End Date Harpreet Chapman MD [address] [place] [address] [place] [address] PCP - General Family Medicine 07/05/14 documented as of this encounter
--- OUTSIDE RECORDS SUMMARY | 2023-08-29 21:02 | External Medical Summary | Summary of Care ---
Author Name Unknown Organization [facility] Address [address] [place] [address] Phone [phone] Care Team Providers Care Senior Director Marketing Name Role Phone Harpreet Chapman MD Primary Care Provide r Reason for Visit * Reason Comments eRx-Medication Refill Encounter Details Date Type Department Care Team Description 05/08/2023 Refill Cardiology, [facility] [address] [place] [address] Ovidio Porter, DO [address] [place] [id number] HTN, goal below 140/90* Allergies Active Allergy Reactions Severity Noted Date Comments Amoxicillin Low 01/13/2022 Other reaction(s): Gastrointestinal Upset, Stomach ache Morphine 08/14/2022 hives documented as of this encounter (statuses as of 05/08/2023) Medications Medication Sig Dispensed Refills Start Date [...] mouth in the morning. 0 04/06/2023 Active Chlorthalidone 25 MG Oral Tablet (Hygroton)Indications :HTN, goal below 140/90 Take 1 Tablet by mouth in the morning. Hold as of 04/22/23 for hypotension. 0 04/22/2023 Active Metoprolol Succinate ER 50 MG Oral Tablet Extended Release 24 Hour (toPROL XL)Indications:HTN, goal below 140/90 TAKE THREE TABLETS BY MOUTH IN THE MORNING 270 Tablet 3 05/08/2023 Active documented as of this encounter (statuses as of 05/08/2023) Active Problems Problem Noted Date Immunization not carried out because of patient decision 11/18/2022 H/O ascending aorta repair 06/19/2022 Pulmonary nodules/lesions, multiple 06/01 Incidental lung nodule 05/28/2022 Hx of CABG 05/28/2022 Coronary artery disease invo lving [place] coronary artery of [place] heart without angina pectoris 02/25/2022 History of [...] as of this encounter (statuses as of 05/08/2023) Resolved Problems Problem Noted Date Resolved Date Cholecystostomy care 05/28/2022 11/19/2022 Screening for prostate cancer 07/11/2005 Overview: Resolved per Screening Diagnosis Protocol #6 Dyslipidemia, goal to be determined 12/08/2012 documented as of this encounter (statuses as of 05/08/2023) Immunizations Name Administration Dates Next Due Seasonal [...] encounter Miscellaneous Notes * Telephone Encounter - Ovidio Porter DO - 05/08/2023 10:59 AM EDTSigned Prescriptions: Disp Refills Metoprolol Succinate ER 50 MG Oral Tablet *270 Ta*3 Sig: TAKE THREE TABLETS BY MOUTH IN THE MORNING Authorizing Provider: OVIDIO PORTER * Telephone Encounter - CAMERON Navarrete - 05/08/2023 10:10 AM EDTPending Prescriptions: Disp Refills Metoprolol Succinate ER 50 MG Oral Tablet *270 Ta*3 Sig: TAKE THREE TABLETS BY MOUTH IN THE MORNING * Telephone Encounter - CAMERON Navarrete - 05/08/2023 10:09 AM EDT Did you pend patient's preferred pharmacy and medication before forwarding?yes Pharmacy: [facility] Pending Prescriptions: Disp Refills Metoprolol Succinate ER 50 MG Oral Tablet*270 Ta*3 Sig: TAKE THREE TABLETS BY MOUTH IN THE MORNING Last Visit: 04/17/2023 (in office), Visit date not found (telemedicine) Next Visit: 07/21/2023 If no future appointments scheduled, and last appointment is greater than a year ago, please schedule patient for a follow-up appointment Last date the medication was ordered: Is this request for a controlled substance?No Urine Drug Screen:No results found for this or any previous visit. Patient Phone Numbers Labs: Lab Results Component Value Date/Time CREAT 1.4 (H) 04/17/2023 03:37 PM CREAT 0.84 02/15/2022 12:00 AM CREAT 1.0 02/01/2020 12:31 PM POTASSIUM 4.6 04/17/2023 03:37 PM POTASSIUM 3.4 (A) 02/15/2022 12:00 AM POTASSIUM 4.5 02/01/2020 12:31 PM TSH 2.53 12/05/2022 08:18 AM TSH 1.50 02/01/2020 12:31 PM LDLCALC 57 12/05/2022 08:18 AM LDLCALC 128 06/15/2016 08:54 AM LDLDIRECT NOT APPLICABLE 06/15/2016 08:54 AM ALT 20 12/05/2022 08:18 AM ALT 37 11/25/2015 08:34 AM documented in this encounter Plan of Treatment Upcoming Encounters Date Type Specialty Care Team Description 05/12/2023 Office Visit Family Medicine Harpreet Chapman MD [address] [place] [address] [place] [phone] 06/13/2023 Office Visit Family Harpreet Cota MD [address] [place] [address] [place] [phone] 06/18/2023 Imaging Radiology , Excess Time Radiology [address] [place] [phone] 07/21/2023 Office Visit Cardiology Krissy Weathers CRNP [address] [place] [address] 11/20/2023 Nurse Only Ancillary Dusty Nurse Annual [facility] [address] [place] [address] [place] [address] 12/10/2023 Imaging Radiology Health Maintenance Due Date Last Done Comments [...] Vaccine (FLU shot) (#1) 2023 09/05/2014 Depression Screening, Annual for Pts 12 and Over 11/19/2023 11/18/2022 TSH 12/06/2023 12/05/2022, 04/1 10/2020, [...] encounter Visit Diagnoses Diagnosis HTN, goal below 140/90- Primary Unspecified essential hypertension documented in this encounter Care Teams Senior Director Marketing Relationship Specialty Start Date End Date Harpreet Chapman MD [address] [place] [address] [place] [address] PCP - General Family Medicine 07/05/14 documented as of this encounter
--- OUTSIDE RECORDS SUMMARY | 2023-08-29 21:02 | External Medical Summary | Summary of Care ---
Author Name Unknown Organization [facility] Address [address] [place] [address] Phone [phone] Care Team Providers Care Offset Assistant Press Operator Name Role Phone Harpreet Chapman MD Primary Care Provide r Reason for Referral * Evaluate & Treat - Unlimited Visits (Within 10 days (routine)) - Authorized Specialty Diagnoses / Procedures Referred By Emory nieves Referred To Contact Audiology Diagnoses Danilotigo Harpreet Chapman MD [address] [place] [address] [place] [address] Referral ID Status Reason Start Date Expiration Date Visits Requested Visits Authorized [id number] Authorized Specialty Services Required 3 [phone] Question Answer Referral Priority Within 10 days (routine) Where should this appointment be scheduled? [facility] Is this order intended for the [facility] in [place], [place] Yes Along with the dizziness, has there been a sudden change in hearing or tinnitus within the last two weeks? No Is the dizziness triggered with rolling over in bed and lasting seconds? No Is the dizziness motion-related, spontaneous (non-predictable) or both? Both Comments Referral to: Otolaryngology Vestibular and [facility] For services that may include: 1. Audiologic and vestibular testing 2. Otolaryngology consultation 3. Vestibular Rehabilitation [Physical Therapy] evaluation and treatment Reason for Visit * Reason Onset Date Comments Advice 07/11/2023 Encounter Details Date Type Department Care Team (Late st Contact Info) Description 07/11/2023 Telephone Family Medicine [address] [place] [phone] Harpreet Chapman MD [address] [place] [address] [place] [address] Advice Allergies Active Allergy [...] We can do the [facility] in [place] instead. They are very good for vertigo * Telephone Encounter - Sary Yin LPN - 07/11/2023 10:39 AM EST Patient is calling. Saw Dr. Chapman and was given a referral for ENT at [facility] [address]. They are not taking patients until May of 2024. He continues to have problems with vertigo. It comes and goes. Some days are worse. Asking for advice on what he can do. documented in this encounter Plan of Treatment Upcoming Encounters Date Type Department Care Team (Late st Contact Info) Description 07/21/2023 2:00 PM EST Office Visit Cardiology, [facility] [address] [facility] [place] [address] Krissy Weathers CRNP [address] [facility] [place] [phone] 11/20/2023 8:00 AM EDT Nurse Only Ancillary [address] [place] [address] [place], Nurse [address] [place] [address] 12/10/2023 9:30 AM EDT Imaging Radiology [address] [facility] [place] [address] 12/15/2023 3:00 PM EDT Office Visit Family Medicine [address] [place] [phone] Kristina Mock PA-C [address] [place] [address] [place] [address] 06/18/2024 4:00 PM EDT Office Visit Family Medicine [address] [place] [phone] Harpreet Chapman MD [address] [place] [address] [place] [address] Scheduled Referrals Name Type Priority Associated Diagnoses [...] giddiness documented in this encounter Care Teams Offset Assistant Press Operator Relationship Specialty Start Date End Date Harpreet Chapman MD [address] [place] [address] [place] [phone] PCP - General Family Medicine 07/05/14 documented as of this encounter
--- OUTSIDE RECORDS SUMMARY | 2023-08-29 21:02 | External Medical Summary | Summary of Care ---
Author Name Unknown Organization [facility] Address [address] [place] [address] Phone [phone] Care Team Providers Care Manager Regional Name Role Phone Rosemary Chapman MD Primary Care Provide r Reason for Visit * Reason Onset Date Comments Medication Refill 06/02/2023 Encounter Details Date Type Department Care Team Description 06/02/2023 Refill Family Medicine [address] [phone] Rosemary Chapman MD [address] [place] [address] [place] [address] HTN, goal below 140/90 Allergies Active Allergy Reactions Severity Noted Date Comments Amoxicillin Low 01/13/2022 Other reaction(s): Gastrointestinal Upset, Stomach ache Morphine 08/14/2022 hives documented as of this encounter (statuses as of 06/02/2023) Medications Medication Sig Dispensed Refills Start Date [...] the morning. 30 Tablet 5 06/02/2023 Active Chlorthalidone 25 MG Oral Tablet (Hygroton)Indicatio ns:HTN, goal below 140/90 Take 0.5 Tablets by mouth in the morning. 0 05/12/2023 3 Discontinue d(Refill) documented as of this encounter (statuses as of 06/02/2023) Active Problems Problem Noted Date Immunization not carried out because of patient decision 11/18/2022 H/O ascending aorta repair 06/19/2022 Pulmonary nodules/lesions, multiple 06/01 Incidental lung nodule 05/28/2022 Hx of CABG 05/28/2022 Coronary artery disease invo lving [place] coronary artery of [place] heart without angina pectoris 02/25/2022 History of [...] as of this encounter (statuses as of 06/02/2023) Resolved Problems Problem Noted Date Resolved Date Cholecystostomy care 05/28/2022 11/19/2022 Screening for prostate cancer 07/11/2005 Overview: Resolved per Screening Diagnosis Protocol #6 Dyslipidemia, goal to be determined 12/08/2012 documented as of this encounter (statuses as of 06/02/2023) Immunizations Name Administration Dates Next Due Seasonal [...] encounter Miscellaneous Notes * Telephone Encounter - Rosemary Chapman MD - 06/02/2023 12:48 PM EDT Signed Prescriptions: Disp Refills Chlorthalidone 25 MG Oral Tablet (Hygroton)30 Tab*5 Sig: Take 0.5 Tablets by mouth in the morning. Authorizing Provider: ROSEMARY CHAPMAN * Telephone Encounter - Laura Ni LPN - 06/02/2023 12:01 PM EDT Provider to address: Pending Prescriptions: Disp Refills Chlorthalidone 25 MG Oral Tablet (Hygroto*30 Tab*5 Sig: Take 0.5 Tablets by mouth in the morning. 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 Coronary artery disease involving [place] coronary artery of [place] heart without angina pectoris I25.10 History of non-ST elevation myocardial infarction (NSTEMI) I25.2 History of aortic dissection Z86.79 Cholecystitis K81.9 Incidental lung nodule R91.1 Hx of CABG Z95.1 Pulmonary nodules/lesions, multiple R91.8 H/O ascending aorta repair Z98.890 Immunization not carried out because of patient decision Z28.20 Labs: Lab Results Component Value Date/Time CREATININE - [facility] 1.4 (H) 04/17/2023 03:37 PM CREATININE - [facility] 1.0 02/01/2020 12:31 PM CREATININE-[facility] 0.84 02/15/2022 12:00 AM Lab Results Component Value Date/Time POTASSIUM - [facility] 4.6 04/17/2023 03:37 PM POTASSIUM - [facility] 4.5 02/01/2020 12:31 PM POTASSIUM-[facility] 3.4 (A) 02/15/2022 12:00 AM Lab Results Component Value Date/Time TSH - [facility] 2.53 12/05/2022 08:18 AM TSH - [facility] 1.50 02/01/2020 12:31 PM Lab Results Component Value Date/Time LDL (DIRECT MEASURE)-[facility] 142 (A) 03/12/2008 10:00 AM LDL CHOLESTEROL (CALCULATED) - [facility] 57 12/05/2022 08:18 AM LDL CHOLESTEROL (CALCULATED) - [facility] 157 (H) 12/12/2020 08:55 AM LDL CHOLESTEROL (CALCULATED) - [facility] 128 06/15/2016 08:54 AM LDL CHOLESTEROL (CALCULATED) - [facility] 137 (H) 01/15/2014 09:53 AM LDL CHOLESTEROL (DIRECT MEASURE) - [facility] NOT APPLICABLE 06/15/2016 08:54 AM Lab Results Component Value Date/Time ALT - [facility] 20 12/05/2022 08:18 AM ALT - [facility] 37 11/25/2015 08:34 AM Hemoglobin AIC Results: No results found for: HEMOGLOBIN A1C Reason for Call: Medication Refill Contact: Telephone Call Contact Type: Care Coordination Total Time including non face to face (minutes): 5 documented in this encounter Plan of Treatment Upcoming Encounters Date Type Specialty Care Team Description 06/13/2023 Office Visit Family Medicine Rosemary Chapman MD [address] [place] [address] [place] [address] 06/18/2023 Imaging Radiology Gw, Excess Time Radiology [address] [place] [address] 07/21/2023 Office Visit Cardiology Krissy Weathers CRNP [address] [place] [address] 11/20/2023 Nurse Only Ancillary Nurse Dusty [facility] [address] [place] [address] [place] [address] 12/10/2023 Imaging Radiology Health Maintenance Due Date [...] HTN, goal below 140/90 Unspecified essential hypertension documented in this encounter Care Teams Manager Regional Relationship Specialty Start Date End Date Rosemary Chapman MD [address] [place] [address] [place] [address] PCP - General Family Medicine 07/05/14 documented as of this encounter
--- OUTSIDE RECORDS SUMMARY | 2023-08-29 21:02 | External Medical Summary | Summary of Care ---
Author Name Unknown Organization [facility] Address [address] [place] [address] Phone [phone] Care Team Providers Care Radio News Writer Name Role Phone Harpreet Chapman MD Primary Care Provide r Encounter Details Date Type Department Care Team (Late st Contact Info) Description 04/04/2023 Telephone Cardiology, [facility] [address] [facility] [place] [address] Elma Ortiz CRNP [address] [facility] [address] Allergies Active Allergy Reactions Criticality Noted Date Comments Amoxicillin Low 01/13/2022 Other reaction(s): Gastrointestinal Upset, Stomach ache Morphine 08/14/2022 hives documented as of this encounter (statuses as of 07/04/2023) Medications Medication Sig Dispensed Refills Start Date [...] mouth in the morning. 0 09/19/2022 Active documented as of this encounter (statuses as of 07/04/2023) Active Problems Problem Noted Date Diagnosed Date Immunization not carried out because of patient decision 11/18/2022 H/O ascending aorta repair 06/19/2022 Pulmonary nodules/lesions, multiple 06/10/2022 Incidental lung nodule 05/28/2022 Hx of CABG 05/28/2022 Coronary artery disease invo lving [place] coronary artery of [place] heart without angina pectoris 02/25/2022 History of [...] as of this encounter (statuses as of 07/04/2023) Resolved Problems Problem Noted Date Diagnosed Date Resolved Date Cholecystostomy care 05/28/2022 023 Screening for prostate cancer 07/11/2005 11/09/2008 Overview: Resolved per Screening Diagnosis Protocol #6 Dyslipidemia, goal to be determined 12/08/2012 documented as of this encounter (statuses as of 07/04/2023) Immunizations Name Administration Dates Next Due Seasonal [...] encounter Miscellaneous Notes * Telephone Encounter - Elly Melvin LPN - 04/04/2023 10:00 AM EDT Patient is reporting to [facility] ER for further evaluation for symptomatic hypertension * Telephone Encounter - Elma Ortiz CRNP - 04/04/2023 9:53 AM EDT Blood pressure is quite high. Given his symptoms were recommend evaluation in the emergency department. This way they will be able to reassess blood pressure as well as renal function. TERESA Mcdermott * Telephone Encounter - Elly Melvin LPN - 04/04/2023 9:41 AM EDT Patient calling stating bp has been increasing since med changes, also experiencing intermittent dizziness, hot flashes, nausea. Increased Lisinopril to 20mg daily at last OV on 03/14 Patient never had repeat BMP, advised patient to get lab work as was to be done 1 week after starting medication Examples of BP's patient is getting at home. 168/98 Today- 198/107- Retaken again at 930 am, 170/100, after taking only lisinopril- not the metoprolol. Patient stating that he never had an issue until they switched him to a generic type of pill at [facility], wondering if it could be correlating to the issue documented in this encounter Plan of Treatment Upcoming Encounters Date Type Department Care Team (Late st Contact Info) Description 07/21/2023 2:00 PM EST Office Visit Cardiology, [facility] [address] [place] [address] Krissy Weathers CRNP [address] [place] [address] 11/20/2023 8:00 AM EDT Nurse Only Ancillary [address] [place] [address] [place], Nurse [address] [place] [address] 12/10/2023 9:30 AM EDT Imaging Radiology [address] [place] [address] 12/15/2023 3:00 PM EDT Office Visit Family Medicine [address] [place] [phone] Kristina Mock PA-C [address] [place] [address] [place] [address] 06/18/2024 4:00 PM EDT Office Visit Family Medicine [address] [place] [phone] Harpreet Chapman MD [address] [place] [address] [place] [address] Health Maintenance Due Date Last Done Comments [...] filedocumented as of this encounter Care Teams Radio News Writer Relationship Specialty Start Date End Date Harpreet Chapman MD [address] [place] [address] [place] [address] PCP - General Family Medicine 07/05/14 documented as of this encounter
--- OUTSIDE RECORDS SUMMARY | 2023-08-29 21:02 | External Medical Summary | Summary of Care ---
Author Name Unknown Organization [facility] Address [address] [place] [address] Phone [phone] Care Team Providers Care Reed Polisher Name Role Phone Harpreet Chapman MD Primary Care Provide r Reason for Visit * Reason Onset Date Comments Test Results 06/19/2023 Encounter Details Date Type Department Care Team Description 06/19/2023 Telephone Cardiology, [facility] [address] [place] [facility] [place] [phone] Ovidio Iyer, DO [address] [place] [place] [address] Test Results Allergies Active Allergy Reactions Severity Noted Date Comments Amoxicillin Low 01/13/2022 Other reaction(s): Gastrointestinal Upset, Stomach ache Morphine 08/14/2022 hives documented as of this encounter (statuses as of 06/19/2023) Medications Medication Sig Dispensed Refills Start Date [...] as of this encounter (statuses as of 06/19/2023) Active Problems Problem Noted Date Immunization not carried out because of patient decision 11/18/2022 H/O ascending aorta repair 06/19/2022 Pulmonary nodules/lesions, multiple 06/01 Incidental lung nodule 05/28/2022 Hx of CABG 05/28/2022 Coronary artery disease invo lving [place] coronary artery of [place] heart without angina pectoris 02/25/2022 History of [...] as of this encounter (statuses as of 06/19/2023) Resolved Problems Problem Noted Date Resolved Date Cholecystostomy care 05/28/2022 11/19/2022 Screening for prostate cancer 07/11/2005 Overview: Resolved per Screening Diagnosis Protocol #6 Dyslipidemia, goal to be determined 12/08/2012 documented as of this encounter (statuses as of 06/19/2023) Immunizations Name Administration Dates Next Due Seasonal [...] Telephone Encounter - Lubna Mehta CMA - 06/19/2023 2:28 PM EDT Portal message sent. * Telephone Encounter - Lubna Mehta CMA - 06/19/2023 2:27 PM EDT ----- Message from Ovidio Iyer DO sent at 06/18/2023 3:51 PM EDT ----- Lexiscan nuclear stress test negative for ischemia or scar. Normal left ventricular systolic function. Continue current medications. Followup as scheduled. documented in this encounter Plan of Treatment Upcoming Encounters Date Type Specialty Care Team Description 07/21/2023 Office Visit Cardiology Krissy Weathers CRNP [address] [place] [address] 11/20/2023 Nurse Only Ancillary Dusty, Nurse [facility] [address] [place] [address] [place] [address] 12/10/2023 Imaging Radiology 12/15/2023 Office Visit Family Medicine Kristina Mock PA-C [address] [place] [address] [place] [address] 06/18/2024 Office Visit Family Medicine Harpreet Chapman MD [address] [place] [address] [place] [address] Health Maintenance Due Date Last Done Comments [...] filedocumented as of this encounter Care Teams Reed Polisher Relationship Specialty Start Date End Date Harpreet Chapman MD [address] [place] [address] [place] [address] PCP - General Family Medicine 07/05/14 documented as of this encounter
--- OUTSIDE RECORDS SUMMARY | 2023-08-29 21:02 | External Medical Summary | Summary of Care ---
Author Name Unknown Organization [facility] Address [address] [place] [address] Phone [phone] Care Team Providers Care Health Technical Writer Name Role Phone Harpreet Chapman MD Primary Care Provide r Reason for Visit * Reason Onset Date Comments Test Results 06/19/2023 Encounter Details Date Type Department Care Team (Late st Contact Info) Description 06/19/2023 Telephone Cardiology, [facility] [address] [place] [phone] Ovidio Iyer O, DO [address] [place] [address] Test Results Allergies Active Allergy Reactions Criticality Noted Date Comments Amoxicillin Low 01/13/2022 Other reaction(s): Gastrointestinal Upset, Stomach ache Morphine 08/14/2022 hives documented as of this encounter (statuses as of 06/23/2023) Medications Medication Sig Dispensed Refills Start Date [...] as of this encounter (statuses as of 06/23/2023) Active Problems Problem Noted Date Diagnosed Date Immunization not carried out because of patient decision 11/18/2022 H/O ascending aorta repair 06/19/2022 Pulmonary nodules/lesions, multiple 06/10/2022 Incidental lung nodule 05/28/2022 Hx of CABG 05/28/2022 Coronary artery disease invo lving [place] coronary artery of [place] heart without angina pectoris 02/25/2022 History of [...] as of this encounter (statuses as of 06/23/2023) Resolved Problems Problem Noted Date Diagnosed Date Resolved Date Cholecystostomy care 05/28/2022 023 Screening for prostate cancer 07/11/2005 11/09/2008 Overview: Resolved per Screening Diagnosis Protocol #6 Dyslipidemia, goal to be determined 12/08/2012 documented as of this encounter (statuses as of 06/23/2023) Immunizations Name Administration Dates Next Due Seasonal [...] Miscellaneous Notes * Telephone Encounter - Ovidio Iyer DO - 06/23/2023 11:12 AM EDT History of aortic dissection repair. Avoid heavy lifting, 40lb limit. * Telephone Encounter - Lubna Mehta CMA [...] 07/21/2023 2:00 PM EST Office Visit Cardiology, [facility] [address] [place] [address] Krissy Weathers CRNP [address] [address] 11/20/2023 8:00 AM EDT Nurse Only Ancillary Paty [address] [place] [address] [place], Nurse [address] [place] [address] 12/10/2023 9:30 AM EDT Imaging Radiology [facility] [place] [address] [place] [address] 12/15/2023 3:00 PM EDT Office Visit [address] [place] [phone] Kristina Mock PA-C [address] [place] [address] [place] [address] 06/18/2024 4:00 PM EDT Office Visit [address] [place] [phone] Harpreet Chapman MD [address] [place] [address] [place] [address] Health Maintenance Due Date Last Done Comments [...] Depression Screening 11/19/2023 11/18/2022 TSH 12/06/2023 12/05/2022, 0410/2020, 02/01/2020, Additional history exists GFR 04/17/2024 04/17/2023, [...] filedocumented as of this encounter Care Teams Health Technical Writer Relationship Specialty Start Date End Date Harpreet Chapman MD [address] [place] [address] [place] [address] PCP - General Family Medicine 07/05/14 documented as of this encounter
--- OUTSIDE RECORDS SUMMARY | 2023-08-29 21:02 | External Medical Summary | Summary of Care ---
Author Name Unknown Organization [facility] Address [address] [place] [address] Phone [phone] Care Team Providers Care Band Manager Name Role Phone Harpreet Chapman MD Primary Care Provide r Reason for Visit * Reason Onset Date Comments Advice 06/06/2023 Encounter Details Date Type Department Care Team Description 06/06/2023 Telephone Family Medicine [address] [phone] Harpreet Chapman MD [address] [place] [address] [place] [address] Advice Allergies Active Allergy Reactions Severity Noted Date Comments Amoxicillin Low 01/13/2022 Other reaction(s): Gastrointestinal Upset, Stomach ache Morphine 08/14/2022 hives documented as of this encounter (statuses as of 06/18/2023) Medications Medication Sig Dispensed Refills Start Date [...] 5 06/02/2023 Active Lisinopril 40 MG Oral Tablet Take 1 Tablet by mouth in the morning. 0 3 Discontinue d(Refill) documented as of this encounter (statuses as of 06/18/2023) Active Problems Problem Noted Date Immunization not carried out because of patient decision 11/18/2022 H/O ascending aorta repair 06/19/2022 Pulmonary nodules/lesions, multiple 06/01 Incidental lung nodule 05/28/2022 Hx of CABG 05/28/2022 Coronary artery disease invo lving [place] coronary artery of [place] heart without angina pectoris 02/25/2022 History of non-ST elevation myocardial i nfarction (NSTEMI) 02/25/2022 History of aortic dissection 02/25/2022 Cholecystitis 02/25/2022 Hepatitis B non-converter (post-vaccinat ion) 12/02/2017 JEM (obstructive sleep apnea) 02/19/2016 Overview: AHI of 33.9 on HST 02/08/16 Allergic rhinitis 11/25/2015 Degenerative disc disease, cervical 12/2 03/2014 HTN, goal below 140/90 12/08/2012 Hyperlipidemia with target LDL less than 160 12/08/2012 Overview: ICD-10 update of inactive term Essential tremor 02/08/2010 ADVANCE DIRECTIVE INFORMATION 10/17/2005 Overview: No, Advance Directive brochure given to patient at prior appointment. GENERAL OSTEOARTHROSIS 01/05/2004 Hemorrhoids 01/03/2003 Hypothyroidism documented as of this encounter (statuses as of 06/18/2023) Resolved Problems Problem Noted Date Resolved Date Cholecystostomy care 05/28/2022 11/19/2022 Screening for prostate cancer 07/11/2005 Overview: Resolved per Screening Diagnosis Protocol #6 Dyslipidemia, goal to be determined 12/08/2012 documented as of this encounter (statuses as of 06/18/2023) Immunizations Name Administration Dates Next Due Seasonal [...] encounter Miscellaneous Notes * Telephone Encounter - Devora Mendez LPN - 06/18/2023 12:27 PM EDT Pt was seen on 06/13/2023 * Telephone Encounter - Harpreet Chapman MD - 06/10/2023 8:23 AM EDT He can take Coricidin HBP. I would also recommend he do a COVID test as it sounds like COVID * Telephone Encounter - Michelle Romo LPN - 06/09/2023 4:06 PM EDT Pt calling to check on previous message. He is inquiring if it is ok to take coricidin HBP and tylenol? He now has a headache and feels warm. No temp when his checked him. I advised to take the tylenol for headache, to stay hydrated and rest. He verbalized understanding. * Telephone Encounter - Sary Yin LPN - 06/09/2023 9:40 AM EDT Patient is calling. Has been sick since about Friday. Really hit him night. Has PND. Nose is running. Not congested. No fever. Coughing mucous with no color. Coughing hard. Starting to make his stomach sore. Stomach is a little upset with all the stuff running down his throat and coughing so hard. Asking if he can take Coricidan cold and relief for people with high blood pressure? He d idn't want to take anything without calling the doctor because he has a heart condition. He had quad bypass and replaced the Aorta. He has an upcoming appt. He had made earlier. It is Friday with . Wants to know if he should still have the blood work done before he comes in? Was wonderingif it would be affected by the cold? Please advise. * Telephone Encounter - JEM Rome - 06/06/2023 10:02 AM EDT No Appointments Available Patient declined appointments?: No What Visit Type is needed? Acute If Acute Visit Type is needed, were surrounding clinics offered to patient (Yes/No)? Yes Was patient offered appointments with other available providers (Yes/No)? Yes See Call Details? (Yes or No): Yes documented in this encounter Plan of Treatment Upcoming Encounters Date Type Specialty Care Team Description 07/21/2023 Office Visit Cardiology Krissy Weathers CRNP [address] [place] [address] 11/20/2023 Nurse Only Ancillary Dusty, Nurse [facility] [address] [place] [address] [place] [address] 12/10/2023 Imaging Radiology 12/15/2023 Office Visit Family Medicine Kristina Mock PA-C [address] [place] [address] [place] [address] 06/18/2024 Office Visit Family Medicine Harpreet Chapman MD [address] [place] [address] [place] [address] Health Maintenance Due Date Last Done Comments [...] 02/01/2020, Additional history exists GFR 04/17/2024 04/17/2023, 01/2023, 02/15/2022, Additional history exists GARDASIL-HPV IMMUNIZATION [...] filedocumented as of this encounter Care Teams Band Manager Relationship Specialty Start Date End Date Harpreet Chapman MD [address] [place] [address] [place] [address] PCP - General Family Medicine 07/05/14 documented as of this encounter
--- OUTSIDE RECORDS SUMMARY | 2023-08-29 21:02 | External Medical Summary | Summary of Care ---
Author Name Unknown Organization [facility] Address [address] [place] [address] Phone [phone] Care Team Providers Care Teradata Developer Name Role Phone Harpreet Chapman MD Primary Care Provide r Reason for Visit * Reason Onset Date Comments Test Results 06/19/2023 Encounter Details Date Type Department Care Team Description 06/19/2023 Telephone Cardiology, [facility] [address] [place] [facility] [place] [phone] Ovidio Iyer, DO [address] [facility] [place] [address] Test Results Allergies Active Allergy Reactions Severity Noted Date Comments Amoxicillin Low 01/13/2022 Other reaction(s): Gastrointestinal Upset, Stomach ache Morphine 08/14/2022 hives documented as of this encounter (statuses as of 06/21/2023) Medications Medication Sig Dispensed Refills Start Date [...] as of this encounter (statuses as of 06/21/2023) Active Problems Problem Noted Date Immunization not carried out because of patient decision 11/18/2022 H/O ascending aorta repair 06/19/2022 Pulmonary nodules/lesions, multiple 06/01 Incidental lung nodule 05/28/2022 Hx of CABG 05/28/2022 Coronary artery disease invo lving [place] coronary artery of [place] heart without angina pectoris 02/25/2022 History of [...] as of this encounter (statuses as of 06/21/2023) Resolved Problems Problem Noted Date Resolved Date Cholecystostomy care 05/28/2022 11/19/2022 Screening for prostate cancer 07/11/2005 Overview: Resolved per Screening Diagnosis Protocol #6 Dyslipidemia, goal to be determined 12/08/2012 documented as of this encounter (statuses as of 06/21/2023) Immunizations Name Administration Dates Next Due Seasonal [...] Weathers CRNP [address] [place] [address] 11/20/2023 Nurse Only Ancillary Dusty, Nurse [facility] [address] [place] [address] [place] [address] 12/10/2023 Imaging Radiology 12/15/2023 Office Visit Family Medicine Kristina Mock PA-C [address] [place] [address] [place] [address] 06/18/2024 Office Visit Family Medicine Harpreet Chapman MD [address] [place] [address] [place] [address] Health Maintenance Due Date Last Done Comments [...] filedocumented as of this encounter Care Teams Teradata Developer Relationship Specialty Start Date End Date Harpreet Chapman MD [address] [place] [address] [place] [address] PCP - General Family Medicine 07/05/14 documented as of this encounter
--- OUTSIDE RECORDS SUMMARY | 2023-08-29 21:03 | External Medical Summary | Summary of Care ---
Author Name Unknown Organization [facility] Address [address] [place] [address] Phone [phone] Care Team Providers Care Pricer Name Role Phone Harpreet Chapman MD Primary Care Provide r Reason for Visit * Reason Comments Outpatient Testing Encounter Details Date Type Department Care Team Description 04/17/2023 Laboratory Laboratory, [facility] [address] [place] [address] Liz Chen [facility] [address] [place] [address] Coronary artery disease involving [place] coronary artery of [place] heart without angina pectoris; Hx of CABG; H/O ascending aorta repair; HTN, goal below 140/90; Dyslipidemia, goal LDL below 70; Dizziness; Myalgia Allergies Active Allergy Reactions Severity Noted Date Comments Amoxicillin Low 01/13/2022 Other reaction(s): Gastrointestinal Upset, Stomach ache Morphine 08/14/2022 hives documented as of this encounter (statuses as of 04/17/2023) Medications Medication Sig Dispensed Refills Start Date [...] by mouth in the morning. 0 Active Chlorthalidone 25 MG Oral Tablet (Hygroton) Take 1 Tablet by mouth in the morning. 0 Active documented as of this encounter (statuses as of 04/17/2023) Active Problems Problem Noted Date Immunization not carried out because of patient decision 11/18/2022 H/O ascending aorta repair 06/19/2022 Pulmonary nodules/lesions, multiple 06/01 Incidental lung nodule 05/28/2022 Hx of CABG 05/28/2022 Coronary artery disease invo lving [place] coronary artery of [place] heart without angina pectoris 02/25/2022 History of [...] as of this encounter (statuses as of 04/17/2023) Resolved Problems Problem Noted Date Resolved Date Cholecystostomy care 05/28/2022 11/19/2022 Screening for prostate cancer 07/11/2005 Overview: Resolved per Screening Diagnosis Protocol #6 Dyslipidemia, goal to be determined 12/08/2012 documented as of this encounter (statuses as of 04/17/2023) Immunizations Name Administration Dates Next Due Seasonal [...] Encounters Date Type Specialty Care Team Description 04/22/2023 Office Visit Family Harpreet Cota MD [address] [place] [address] [place] [address] 06/13/2023 Office Visit Family Medicine Harpreet Chapman MD [address] [place] [address] [place] [address] 07/21/2023 Office Visit Cardiology Krissy Weathers CRNP [address] [place] [phone] 11/20/2023 Nurse Only Ancillary Movallalfredo, Nurse Annual [facility] [address] [place] [address] 12/10/2023 Imaging Radiology Pending Results Name Type Priority Associated Diagnoses Date /Time BASIC METABOLIC PANEL Lab Routine Coronary artery disease involving [place] coronary artery of [place] heart without angina pectoris Hx of CABG H/O ascending aorta repair HTN, goal below 140/90 Dyslipidemia, goal LDL below 70 04/17/2023 3:37 PM EDT LYME DISEASE ANTIBODY SCREEN WITH REFLEX TO CONFIRMATION Lab Routine HTN, goal below 140/90 Coronary artery disease involving [place] coronary artery of [place] heart without angina pectoris Dizziness Myalgia 04/17/2023 3:37 PM EDT LYME DISEASE ANTIBODY SCREEN Lab Routine HTN, goal below 140/90 Coronary artery disease involving [place] coronary artery of [place] heart without angina pectoris Dizziness Myalgia 04/17/2023 3:37 PM EDT Health Maintenance Due Date Last Done Comments [...] for Pts 12 and Over 11/19/2023 11/18/2022 GFR 12/06/2023 12/05/2022, 01/30, 12/12/2020, Additional history exists TSH 12/06/2023 12/05/2022, 11/30, 02/01/2020, Additional history exists GARDASIL-HPV IMMUNIZATION SERIES Aged [...] Visit Diagnoses Diagnosis Coronary artery disease involving [place] coronary artery of [place] heart without angina pectoris Hx of CABG Postsurgical aortocoronary bypass status H/O ascending aorta repair Personal history of surgery to heart and great vessels, presenting hazards to health HTN, goal below 140/90 Unspecified essential hypertension Dyslipidemia, goal LDL below 70 Other and unspecified hyperlipidemia Dizziness Dizziness and giddiness Myalgia Mylagia and myositis, unspecified documented in this encounter Care Teams Pricer Relationship Specialty Start Date End Date Harpreet Chapman MD [address] [place] [address] [place] [address] PCP - General Family Medicine 07/05/14 documented as of this encounter
--- OUTSIDE RECORDS SUMMARY | 2023-08-29 21:03 | External Medical Summary ---
Author Name Unknown Address Unknown Organization K01:[facility] - [address] [place] [address] Laboratory Report Ordering Provider Test Date Status KATIE WAITE 04/17/2023 15:37:24 Final Observation Date Value Abnormality Reference (Units ) Status BUN 04/17/2023 15:37:24 22 Above high normal 6-20 (mg/dL) Final Creatinine 04/17/2023 15:37:24 1.4 Above high normal 0.6-1.2 (mg/dL) Final Glomerular filtration rate/1.73 sq M.predicted [Volume Rate/Area] in Serum, Plasma or Blood by Creatinine-based formula (CKD-EPI) 04/17/2023 15:37:24 57 Below low normal >=60 (mL/min) Final eGFR is calculated based on the CKD-EPI 2020 equation SODIUM 04/17/2023 15:37:24 138 135-146 (m mol/L) Final Potassium 04/17/2023 15:37:24 4.6 3.5-5.1 (m mol/L) Final Cl 04/17/2023 15:37:24 102 98-107 (mm ol/L) Final CO2 04/17/2023 15:37:24 23 22-32 (mmo l/L) Final Anion gap 04/17/2023 15:37:24 13 7-15 (mmol /L) Final Glucose 04/17/2023 15:37:24 124 Above high normal 70 -120 (mg/dL) Final Calcium 04/17/2023 15:37:24 9.5 8.4-10.2 ( mg/dL) Final Performing Location [facility] - [address] [place] [address]
--- OUTSIDE RECORDS SUMMARY | 2023-08-29 21:03 | External Medical Summary | Summary of Care ---
Author Name Unknown Organization [facility] Address [address] [place] [address] Phone [phone] Care Team Providers Care Slasher Tender Name Role Phone Harpreet Chapman MD Primary Care Provide r Reason for Visit * Reason Onset Date Comments Advice 04/25/2023 Encounter Details Date Type Department Care Team Description 04/25/2023 Telephone Family Medicine [address] [address] Harpreet Chapman MD [address] [place] [address] [place] [phone] Advice Allergies Active Allergy Reactions Severity Noted Date Comments Amoxicillin Low 01/13/2022 Other reaction(s): Gastrointestinal Upset, Stomach ache Morphine 08/14/2022 hives documented as of this encounter (statuses as of 04/25/2023) Medications Medication Sig Dispensed Refills Start Date End Date Status Aspirin 81 MG Oral Tablet Chewable Take 1 Tablet by mouth in the morning. With food.. 100 Tablet 5 02/25/2022 Active Hydrocortisone (Perianal) 2.5 % External Cream Administer into the rectum twice daily 30 g 1 05/07/2022 Active Levothyroxine Sodium 50 MCG Oral Tablet (Levoxyl)Indications :Acquired hypothyroidism TAKE ONE TABLET BY MOUTH IN THE MORNING 90 Tablet 1 03/07/2023 Active Rosuvastatin Calcium 20 MG Oral Tablet (Crestor)Indications :Hyperlipidemia with target LDL less than 160 Take [...] 0 Active Spironolactone 25 MG Oral Tablet (Aldactone)Indicatio ns:HTN, goal below 140/90 Take 1 Tablet by mouth in the morning. 0 04/06/2023 Active Doxycycline Hyclate 100 MG Oral CapsuleIndications:L yme disease Take 1 Capsule by mouth in the morning and 1 Capsule before bedtime. Do all this for 10 days. Until gone.. 20 Capsule 0 04/22/2023 05/02/2023 Active Chlorthalidone 25 MG Oral Tablet (Hygroton)Indication s:HTN, goal below 140/90 Take 1 Tablet by mouth in the morning. Hold as of 04/22/23 for hypotension. 0 04/22/2023 Active documented as of this encounter (statuses as of 04/25/2023) Active Problems Problem Noted Date Immunization not carried out because of patient decision 11/18/2022 H/O ascending aorta repair 06/19/2022 Pulmonary nodules/lesions, multiple 06/01 Incidental lung nodule 05/28/2022 Hx of CABG 05/28/2022 Coronary artery disease invo lving [place] coronary artery of [place] heart without angina pectoris 02/25/2022 History of [...] as of this encounter (statuses as of 04/25/2023) Resolved Problems Problem Noted Date Resolved Date Cholecystostomy care 05/28/2022 11/19/2022 Screening for prostate cancer 07/11/2005 Overview: Resolved per Screening Diagnosis Protocol #6 Dyslipidemia, goal to be determined 12/08/2012 documented as of this encounter (statuses as of 04/25/2023) Immunizations Name Administration Dates Next Due Seasonal [...] encounter Miscellaneous Notes * Telephone Encounter - Paula Prajapati LPN - 04/25/2023 3:37 PM EDT Provider to address: Covering Doctor Reason for Call: Advice Contact: Telephone Call Contact Type: Information Outcome: Is Aware Whitley answer phone and stated alex was in shower and was just getting ready to go to [facility] to get labs drawn. I advised her with his hx and symptoms pt needs to go to ER to be eval. She will be taking him to [facility] ER. Will go get routine labs later Total Time including non face to face (minutes): 5 * Telephone Encounter - Shad Clemons MD - 04/25/2023 3:29 PM EDT Consider pt has significant PAD, including Aortic dissection and carotid artery stenosis -- recommend a ER evaluation -- to r/o possible CVA/TIA * Telephone Encounter - Allie Schreiber LPN - 04/25/2023 3:00 PM EDT Provider to address: Patient continues to get dizzy spells intermittently. 04/22 --129/78 Right arm 89/69 Left arm 04/23-- 130/80 Right arm 127/80 Left arm 04/24 154/97 Right arm 150/93 Left arm 04/25-- 146/90 Right arm 128/80 Left arm 1030am. Today 1130am he had an episode of dizziness that caused nausea then vomiting. Clammy, soaked in sweat. Trouble seeing. Denies feeling like he was going to pass out. Took a nap - woke up at 230pm. At this time --Little lightheaded and dull headache right now. No other symptoms. 139/85 Right arm. 114/82 Left arm. Currently holding Chlorthalidone and Spironolactone as directed. No openings in clinic today for eval. Reason for Call: Advice Contact: Telephone Call Contact Type: Information Total Time including non face to face (minutes): 20 documented in this encounter Plan of Treatment Upcoming Encounters Date Type Specialty Care Team Description 06/13/2023 Office Visit Family Medicine Harpreet Chapman MD [address] [place] [address] [place] [address] 06/18/2023 Imaging Radiology Gw, Excess Time Radiology [address] [place] [phone] 07/21/2023 Office Visit Cardiology Krissy Weathers CRNP [address] [place] [phone] 11/20/2023 Nurse Only Ancillary Dusty, Nurse Annual [address] [place] [phone] 12/10/2023 Imaging Radiology Health Maintenance Due Date [...] and Over 11/19/2023 11/18/2022 TSH 12/06/2023 12/05/2022, 1 10/2020, [...] filedocumented as of this encounter Care Teams Slasher Tender Relationship Specialty Start Date End Date Harpreet Chapman MD [address] [place] [address] [place] [address] PCP - General Family Medicine 07/05/14 documented as of this encounter
--- OUTSIDE RECORDS SUMMARY | 2023-08-29 21:03 | External Medical Summary | Summary of Care ---
Author Name Unknown Organization [facility] Address [address] [place] [address] Phone [phone] Care Team Providers Care Oxide Furnace Tender Name Role Phone Harpreet Chapman MD Primary Care Provide r Reason for Visit * Reason Onset Date Comments Advice 04/25/2023 Encounter Details Date Type Department Care Team Description 04/25/2023 Telephone Family Medicine [address] [address] Harpreet Chapman MD [address] [place] [address] [place] [address] Advice Allergies Active Allergy Reactions Severity Noted [...] CABG 05/28/2022 Coronary artery disease invo lving [place] coronary artery of [place] heart without angina pectoris 02/25/2022 History of [...] eval. She will be taking him to [facility] ER. Will go get routine labs [...] Office Visit Family Medicine Harpreet Chapman MD [address] [place] [address] [place] [address] 06/18/2023 Imaging Radiology Gw, Excess Time Radiology [address] [place] [phone] 07/21/2023 Office Visit Cardiology Krissy Weathers CRNP [address] [place] [address] 11/20/2023 Nurse Only Ancillary Dusty, Nurse Annual [address] [place] [address] 12/10/2023 Imaging Radiology Health Maintenance Due Date [...] filedocumented as of this encounter Care Teams Oxide Furnace Tender Relationship Specialty Start Date End Date Harpreet Chapman MD [address] [place] [address] [place] [address] PCP - General Family Medicine 07/05/14 documented as of this encounter
--- OUTSIDE RECORDS SUMMARY | 2023-08-29 21:03 | External Medical Summary | Summary of Care ---
Author Name Unknown Organization [facility] Address [address] [place] [address] Phone [phone] Care Team Providers Care International Trade Manager Name Role Phone Rosemary Chapman MD Primary Care Provide r Reason for Visit * Reason Comments eRx-Medication Refill Encounter Details Date Type Department Care Team Description 03/22/2023 Refill Family Medicine [address] [address] Rosemary Chapman MD [address] [place] [address] [place] [address] HTN, goal below 140/90 Allergies Active Allergy Reactions Severity Noted Date Comments Amoxicillin Low 01/13/2022 Other reaction(s): Gastrointestinal Upset, Stomach ache Morphine 08/14/2022 hives documented as of this encounter (statuses as of 03/24/2023) Medications Medication Sig Dispensed Refills Start Date [...] mouth in the morning. 0 3 Active Lisinopril 20 MG Oral Tablet (Prinivil)Indicatio ns:HTN, goal below 140/90 Take 1 Tablet by mouth in the morning. 90 Tablet 3 3 Active Metoprolol Tartrate 25 MG Oral Tablet (Lopressor)Indicati ons:HTN, goal below 140/90 TAKE THREE TABLETS BY MOUTH IN THE MORNING AND AT BEDTIME 540 Tablet 1 3 Active Metoprolol Tartrate 75 MG Oral TabletIndications:H TN, goal below 140/90 Take 1 tablet by mouth in the morning and 1 tablet by mouth before bedtime 180 Tablet 1 3 03/24/20 23 Discontinued documented as of this encounter (statuses as of 03/24/2023) Active Problems Problem Noted Date Immunization not carried out because of patient decision 11/18/2022 H/O ascending aorta repair 06/19/2022 Pulmonary nodules/lesions, multiple 06/01 Incidental lung nodule 05/28/2022 Hx of CABG 05/28/2022 Coronary artery disease invo lving [place] coronary artery of [place] heart without angina pectoris 02/25/2022 History of [...] as of this encounter (statuses as of 03/24/2023) Resolved Problems Problem Noted Date Resolved Date Cholecystostomy care 05/28/2022 11/19/2022 Screening for prostate cancer 07/11/2005 Overview: Resolved per Screening Diagnosis Protocol #6 Dyslipidemia, goal to be determined 12/08/2012 documented as of this encounter (statuses as of 03/24/2023) Immunizations Name Administration Dates Next Due Seasonal [...] encounter Miscellaneous Notes * Telephone Encounter - Javan Alberts [facility] - 03/24/2023 11:50 AM EDTSigned Prescriptions: Disp Refills Metoprolol Tartrate 25 MG Oral Tablet (Lop*540 Ta*1 Sig: TAKE THREE TABLETS BY MOUTH IN THE MORNING AND AT BEDTIMEAuthorizing Provider: ROSEMARY CHAPMAN User: JAVAN ALBERTS documented in this encounter Plan of Treatment Upcoming Encounters Date Type Specialty Care Team Description 06/13/2023 Office Visit Family Medicine Rosemary Chapman MD [address] [place] [address] [place] [address] 11/20/2023 Nurse Only Ancillary Dusty Nurse Annual [facility]ness [address] [place] [address] [place] [address] 12/10/2023 Imaging Radiology Health Maintenance Due Date [...] hypertension documented in this encounter Care Teams International Trade Manager Relationship Specialty Start Date End Date Rosemary Chapman MD [address] [place] [address] [place] [address] PCP - General Family Medicine 07/05/14 documented as of this encounter
--- OUTSIDE RECORDS SUMMARY | 2023-08-29 21:03 | External Medical Summary | Summary of Care ---
Author Name Unknown Organization [facility] Address [address] [place] [address] Phone [phone] Care Team Providers Care Care Center Manager Name Role Phone Harpreet Chapman MD Primary Care Provide r Reason for Visit * Reason Onset Date Comments Emergency Department Follow-Up 05/06/2023 Encounter Details Date Type Department Care Team Description 05/06/2023 Telephone Family Medicine [address] [address] Harpreet Chapman MD [address] [place], [place] [address] [phone] Emergency Department Follow-Up Allergies Active Allergy Reactions Severity Noted Date Comments Amoxicillin Low 01/13/2022 Other reaction(s): Gastrointestinal Upset, Stomach ache Morphine 08/14/2022 hives documented as of this encounter (statuses as of 05/06/2023) Medications Medication Sig Dispensed Refills Start Date [...] as of this encounter (statuses as of 05/06/2023) Active Problems Problem Noted Date Immunization not carried out because of patient decision 11/18/2022 H/O ascending aorta repair 06/19/2022 Pulmonary nodules/lesions, multiple 06/01 Incidental lung nodule 05/28/2022 Hx of CABG 05/28/2022 Coronary artery disease invo lving [place] coronary artery of [place] heart without angina pectoris 02/25/2022 History of [...] as of this encounter (statuses as of 05/06/2023) Resolved Problems Problem Noted Date Resolved Date Cholecystostomy care 05/28/2022 11/19/2022 Screening for prostate cancer 07/11/2005 Overview: Resolved per Screening Diagnosis Protocol #6 Dyslipidemia, goal to be determined 12/08/2012 documented as of this encounter (statuses as of 05/06/2023) Immunizations Name Administration Dates Next Due Seasonal [...] encounter Miscellaneous Notes * Telephone Encounter - Janice Duron LPN - 05/06/2023 9:41 AM EDT ED Follow Up [facility] Documentation Did patient call the office before going to ER: Yes When was patient seen: 04/25/23 [facility] ED: [facility] What were they seen for: Dizziness, sweating and vomiting What testing did they have done: cxr, ekg, lab work, and ct scan What was the diagnosis(s) at discharge? Vertigo Any new medications prescribed: Yes, New medications: Meclizine How is patient feeling today: Not too bad today Does patient have concerns today: Yes, Meclizine is not really helping, will get dizzy again 2-3 hours after taking it. Was patient scheduled for a follow up appointment: Yes, date 05/12/23 (patient wanted appt with PCP,scheduled in the next available ER opening) FYI to PCP documented in this encounter Plan of Treatment Upcoming Encounters Date Type Specialty Care Team Description 05/12/2023 Office Visit Family Medicine Harpreet Chapman MD [address] [place] [address] [place] [address] 06/13/2023 Office Visit Family Harpreet Cota MD [address] [place] [address] [place] [address] 06/18/2023 Imaging Radiology , Excess Time Radiology [address] [place] [phone] 07/21/2023 Office Visit Cardiology Krissy Weathers CRNP [address] [place] [address] 11/20/2023 Nurse Only Ancillary Dusty, Nurse Annual [address] [place] [address] 12/10/2023 Imaging Radiology Health Maintenance Due Date [...] and Over 11/19/2023 11/18/2022 TSH 12/06/2023 12/05/2022, 11/30, 02/01/2020, [...] filedocumented as of this encounter Care Teams Care Center Manager Relationship Specialty Start Date End Date Harpreet Chapman MD [address] [place] [address] [place] [address] PCP - General Family Medicine 07/05/14 documented as of this encounter
--- OUTSIDE RECORDS SUMMARY | 2023-08-29 21:03 | External Medical Summary | Summary of Care ---
Author Name Unknown Organization [facility] Address [address] [place] [address] Phone [phone] Care Team Providers Care Respiratory Physician Name Role Phone Harpreet Chapman MD Primary Care Provide r Reason for Visit * Reason Onset Date Comments Emergency Department Follow-Up 05/06/2023 Encounter Details Date Type Department Care Team Description 05/06/2023 Telephone Family Medicine [address] [address] Harpreet Chapman MD [address] [place], [place] [address] [phone] Emergency Department Follow-Up Allergies Active Allergy Reactions [...] CABG 05/28/2022 Coronary artery disease invo lving [place] coronary artery of [place] heart without angina pectoris 02/25/2022 History of [...] 05/06/2023 9:41 AM EDT ED Follow Up ELECTRON MICROPROBE OPERATOR Documentation Did patient call the office before going to ER: Yes When was patient seen: 04/25/23 [facility] ED: [facility] What were they seen for: [...] Office Visit Family Medicine Harpreet Chapman MD [address] [place] [address] [place] [address] 06/13/2023 Office Visit Family Harpreet Cota MD [address] [place] [address] [place] [address] 06/18/2023 Imaging Radiology , Excess Time Radiology [address] [place] [phone] 07/21/2023 Office Visit Cardiology Krissy Weathers CRNP [address] [place] [address] 11/20/2023 Nurse Only Ancillary Dusty, Nurse Annual [address] [place] [address] 12/10/2023 Imaging Radiology Health Maintenance Due Date [...] filedocumented as of this encounter Care Teams Respiratory Physician Relationship Specialty Start Date End Date Harpreet Chapman MD [address] [place] [address] [place] [address] PCP - General Family Medicine 07/05/14 documented as of this encounter
--- OUTSIDE RECORDS SUMMARY | 2023-08-29 21:03 | External Medical Summary | Summary of Care ---
Author Name Unknown Organization [facility] Address [address] [place] [address] Phone [phone] Care Team Providers Care Transition Of Care Specialist Name Role Phone Rosemary Chapman MD Primary Care Provide r Reason for Visit * Reason Comments eRx-Medication Refill Encounter Details Date Type Department Care Team Description 03/07/2023 Refill Family Medicine [address] [id number] Rosemary Chapman MD [address] [place] [address] [place] Bello [phone] Acquired hypothyroidism; Hyperlipidemia with target LDL less than 160 Allergies Active Allergy Reactions Severity Noted Date Comments Amoxicillin Low 01/13/2022 Other reaction(s): Gastrointestinal Upset, Stomach ache Morphine 08/14/2022 hives documented as of this encounter (statuses as of 03/11/2023) Medications Medication Sig Dispensed Refills Start Date End Date Status Fish Oil 1200 MG Oral Capsule Take by mouth . 0 Active Aspirin 81 MG Oral Tablet Chewable Take 1 Tablet by mouth in the morning. With food.. 100 Tablet 5 2 Active Hydrocortisone (Perianal) 2.5 % External Cream Administer into the rectum twice daily 30 g 1 2 Active Clopidogrel Bisulfate 75 MG Oral Tablet (Plavix)Indications :Coronary artery disease involving [place] coronary artery of [place] heart without angina pectoris Take 1 Tablet by mouth in the morning. 90 Tablet 1 3 Active Metoprolol Tartrate 75 MG Oral TabletIndications:H TN, goal below 140/90 Take 1 tablet by mouth in the morning and 1 tablet by mouth before bedtime 180 Tablet 1 3 Active Lisinopril 10 MG Oral Tablet (Prinivil)Indicatio ns:HTN, goal below 140/90 Take 1 Tablet by mouth in the morning. 90 Tablet 1 3 Active Levothyroxine Sodium 50 MCG Oral Tablet (Levoxyl)Indication s:Acquired hypothyroidism TAKE ONE TABLET BY MOUTH IN THE MORNING 90 Tablet 1 3 Active Rosuvastatin Calcium 20 MG Oral Tablet (Crestor)Indication s:Hyperlipidemia with target LDL less than 160 Take 1 Tablet by mouth every night at bedtime. 90 Tablet 1 3 Active Levothyroxine Sodium 50 MCG Oral Tablet (Levoxyl)Indication s:Acquired hypothyroidism Take 1 Tablet by mouth in the morning. (at least 30 min prior to breakfast or other meds). 90 Tablet 1 3 03/07/20 23 Discontinued Rosuvastatin Calcium 20 MG Oral Tablet (Crestor)Indication s:Hyperlipidemia with target LDL less than 160 Take 1 Tablet by mouth every night at bedtime. 90 Tablet 1 3 03/07/20 23 Discontinued documented as of this encounter (statuses as of 03/11/2023) Active Problems Problem Noted Date Immunization not carried out because of patient decision 11/18/2022 H/O ascending aorta repair 06/19/2022 Pulmonary nodules/lesions, multiple 06/01 Incidental lung nodule 05/28/2022 Hx of CABG 05/28/2022 Coronary artery disease invo lving [place] coronary artery of [place] heart without angina pectoris 02/25/2022 History of [...] as of this encounter (statuses as of 03/11/2023) Resolved Problems Problem Noted Date Resolved Date Cholecystostomy care 05/28/2022 11/19/2022 Screening for prostate cancer 07/11/2005 Overview: Resolved per Screening Diagnosis Protocol #6 Dyslipidemia, goal to be determined 12/08/2012 documented as of this encounter (statuses as of 03/11/2023) Immunizations Name Administration Dates Next Due Seasonal [...] encounter Miscellaneous Notes * Telephone Encounter - Jing Zapien CPhT - 03/11/2023 2:04 PM EDT Pt calling to request Rx's. Informed pt that RX is available at their pharmacy. Pt verbalized understanding and stated they will check with their pharmacy regarding this medication. Thank you, Jing Zapien Carriage Operator [employer] 03/11/2023, 2:04 PM * Telephone Encounter - Wilbur Tinsley RPh - 03/07/2023 3:46 PM EDTSigned Prescriptions: Disp Refills Levothyroxine Sodium 50 MCG Oral Tablet (L*90 Tab*1 Sig: TAKE ONE TABLET BY MOUTH IN THE MORNINGAuthorizing Provider: ROSEMARY CHAPMAN User: WILBUR TINSLEY Rosuvastatin Calcium 20 MG Oral Tablet (Cr*90 Tab*1 Sig: Take 1 Tablet by mouth every night at bedtime.Authorizing Provider: ROSEMARY CHAPMAN User: WILBUR TINSLEY documented in this encounter Plan of Treatment Upcoming Encounters Date Type Specialty Care Team Description 03/14/2023 Office Visit Cardiology Elma Ortiz CRNP [address] [place] [id number] 06/13/2023 Office Visit Family Medicine Rosemary Chapman MD [address] [place] [address] [place] [phone] 11/20/2023 Nurse Only Ancillary Dusty Nurse Annual [address] [place] [phone] 12/10/2023 Imaging Radiology Health Maintenance Due Date [...] as of this encounter Visit Diagnoses Diagnosis Acquired hypothyroidism Unspecified hypothyroidism Hyperlipidemia with target LDL less than 160 Other and unspecified hyperlipidemia documented in this encounter Care Teams Transition Of Care Specialist Relationship Specialty Start Date End Date Rosemary Chapman MD [address] [place] [address] [place] [phone] PCP - General Family Medicine 07/05/14 documented as of this encounter
--- OUTSIDE RECORDS SUMMARY | 2023-08-29 21:03 | External Medical Summary | Summary of Care ---
Author Name Unknown Organization [facility] Address [address] [place] [address] Phone [phone] Care Team Providers Care Disease And Insect Control Boss Name Role Phone Harpreet Chapman MD Primary Care Provide r Reason for Visit * Reason Comments eRx-Medication Refill Encounter Details Date Type Department Care Team Description 03/26/2023 Refill Family Medicine [address] [address] Harpreet Chapman MD [address] [place] [address] [place] [phone] Coronary artery disease involving [place] coronary artery of [place] heart without angina pectoris Allergies Active Allergy Reactions Severity Noted Date Comments Amoxicillin Low 01/13/2022 Other reaction(s): Gastrointestinal Upset, Stomach ache Morphine 08/14/2022 hives documented as of this encounter (statuses as of 03/27/2023) Medications Medication Sig Dispensed Refills Start Date [...] mouth in the morning. 0 09/19/2022 Active Lisinopril 20 MG Oral Tablet (Prinivil)Indications :HTN, goal below 140/90 Take 1 Tablet by mouth in the morning. 90 Tablet 3 03/14/2023 Active Metoprolol Tartrate 25 MG Oral Tablet (Lopressor)Indication s:HTN, goal below 140/90 TAKE THREE TABLETS BY MOUTH IN THE MORNING AND AT BEDTIME 540 Tablet 1 03/24/2023 Active documented as of this encounter (statuses as of 03/27/2023) Active Problems Problem Noted Date Immunization not carried out because of patient decision 11/18/2022 H/O ascending aorta repair 06/19/2022 Pulmonary nodules/lesions, multiple 06/01 Incidental lung nodule 05/28/2022 Hx of CABG 05/28/2022 Coronary artery disease invo lving [place] coronary artery of [place] heart without angina pectoris 02/25/2022 History of [...] as of this encounter (statuses as of 03/27/2023) Resolved Problems Problem Noted Date Resolved Date Cholecystostomy care 05/28/2022 11/19/2022 Screening for prostate cancer 07/11/2005 Overview: Resolved per Screening Diagnosis Protocol #6 Dyslipidemia, goal to be determined 12/08/2012 documented as of this encounter (statuses as of 03/27/2023) Immunizations Name Administration Dates Next Due Seasonal [...] Notes * Telephone Encounter - Javan Alberts RPh - 03/27/2023 8:22 AM EDTRefused Prescriptions: Disp Refills Clopidogrel Bisulfate 75 MG Oral Tablet (p*90 Tab*1 Sig: Take 1Tablet by mouth in the morning.Refused By: JAVAN ALBERTS LReason for Refusal: Course of treatment co mplete documented in this encounter Plan of Treatment Upcoming Encounters Date Type Specialty Care Team Description 06/13/2023 Office Visit Family Medicine Harpreet Chapman MD [address] [place] [address] [place] [phone] 11/20/2023 Nurse Only Ancillary Dusty, Nurse Annual [facility] [address] [place] [address] [place] [phone] 12/10/2023 Imaging Radiology Health Maintenance Due Date [...] Visit Diagnoses Diagnosis Coronary artery disease involving [place] coronary artery of [place] heart without angina pectoris documented in this encounter Care Teams Disease And Insect Control Boss Relationship Specialty Start Date End Date Harpreet Chapman MD [address] [place] [address] [place] [phone] PCP - General Family Medicine 07/05/14 documented as of this encounter
--- OUTSIDE RECORDS SUMMARY | 2023-08-29 21:03 | External Medical Summary | Summary of Care ---
Author Name Unknown Organization [facility] Address [address] [place] [address] Phone [phone] Care Team Providers Care General Production Manager Name Role Phone Harpreet Chapman MD Primary Care Provide r Reason for Visit * Reason Onset Date Comments Hospital Follow-Up Hospital Follow-Up 04/22/2023 Encounter Details Date Type Department Care Team Description 04/22/2023 Office Visit Family Medicine [address] [id number] Harpreet Chapman MD [address] [place] [address] YESSENIA Bello [phone] Hospital discharge follow-up*; Lyme disease; Hypotension due to drugs; HTN, goal below 140/90; Fatigue, unspecified type; Coronary artery disease involving walk[place] coronary artery of [place] heart without angina pectoris; Hyperlipidemia with target LDL less than 160; Acquired hypothyroidism Allergies Active Allergy Reactions Severity Noted Date Comments Amoxicillin Low 01/13/2022 Other reaction(s): Gastrointestinal Upset, Stomach ache Morphine 08/14/2022 hives documented as of this encounter (statuses as of 04/22/2023) Medications Medication Sig Dispensed Refills Start Date [...] 04/06/2023 Active Doxycycline Hyclate 100 MG Oral CapsuleIndications: Lyme disease Take 1 Capsule by mouth in the morning and 1 Capsule before bedtime. Do all this for 10 days. Until gone.. 20 Capsule 0 04/22/2023 3 Active Chlorthalidone 25 MG Oral Tablet (Hygroton)Indicatio ns:HTN, goal below 140/90 Take 1 Tablet by mouth in the morning. Hold as of 04/22/23 for hypotension. 0 04/22/2023 Active Chlorthalidone 25 MG Oral Tablet (Hygroton) Take 1 Tablet by mouth in the morning. 0 3 Discontinue d(Refill) documented as of this encounter (statuses as of 04/22/2023) Active Problems Problem Noted Date Immunization not carried out because of patient decision 11/18/2022 H/O ascending aorta repair 06/19/2022 Pulmonary nodules/lesions, multiple 06/01 Incidental lung nodule 05/28/2022 Hx of CABG 05/28/2022 Coronary artery disease invo lving walk[place] coronary artery of [place] heart without angina pectoris 02/25/2022 History [...] as of this encounter (statuses as of 04/22/2023) Resolved Problems Problem Noted Date Resolved Date Cholecystostomy care 05/28/2022 11/19/2022 Screening for prostate cancer 07/11/2005 Overview: Resolved per Screening Diagnosis Protocol #6 Dyslipidemia, goal to be determined 12/08/2012 documented as of this encounter (statuses as of 04/22/2023) Immunizations Name Administration Dates Next Due Seasonal [...] Sign Reading Time Taken Comments Blood Pressure 97/71 04/22/2023 2:58 PM EDT Pulse 69 04/22/2023 2:49 PM EDT Temperature 36.5 C (97.7 F) 04/22/2023 2:49 PM ED T Respiratory Rate 16 04/22/2023 2:49 PM EDT Oxygen Saturation 98% 04/22/2023 2:49 PM EDT Inhaled Oxygen Concentration - - Weight 76.7 kg (169 lb) 04/22/2023 2:49 PM EDT Height - - Body Mass Index 23.91 11/18/2022 9:24 AM EDT documented in this encounter Patient Instructions * Patient Instructions* Harpreet Chapman MD - 04/22/2023 3:06 PM EDT Taking Medicine Safely Medicine is given to help treat or prevent illness. But if you don't take it correctly, it might not help. It might even harm you. Your doctor or pharmacist can help you learn the right way to take your medicine. Listed below are some tips to help you take medicine safely. Safety Tips Have a routine for taking each medicine. Make it part of something you do each day, such as brushing your teeth or eating a meal. When you go to the hospital or your doctor's office, bring all your current medicines in their original boxes or bottles. If you can't do that, bring an up-to-date list of your medicines. Do not stop taking a prescription medicine unless your doctor tells you to. Doing so could make your condition worse. Do not share medicines. Let your doctor and pharmacist know of any allergies you have. Taking prescription medicines with alcohol, street drugs, herbs, supplements, or even some bszd-vqg-xnkvchn medicines can be harmful. Talk to your doctor or pharmacist before using any of these things while taking a prescription medicine. When filling your prescriptions, try using the same pharmacy for all your medicines. If not, let the pharmacist know what medicines you are already on. Keep medicines out of the reach of children and pets. Do not use medicine that has or that doesn't look or smell right. Get rid of it properly. To find out the right way to get rid of medicine: Call your [facility] or [facility]'s household trash and recycling service and ask if a drug take-back program is available in your community. Call your local pharmacy and ask the right way to get rid of the medicine. Go to http://www.fda.gov/ForConsumers/ConsumerUpdates/krj184125 to learn how to get rid of medicines safely. Using Generic Medicines Medicines have brand names and generic (chemical) names. When a medicine is first made, it is sold only under its brand name. Later, it can be made and sold as a generic. Generic medicines cost less than brand-name medicines and most work just as well. Most people can use the generic medicine instead of the brand-name medicine, unless their doctor says otherwise. 5470-6189 [facility], [address] [place] [address], [place] [address]. All rights reserved. This information is not intended as a substitute for professional medical care. Always follow your healthcare professional's instructions. Coping with Your Diagnosis of a Chronic Health Condition If you have a chronic health condition, you have a problem that may not go away over time. Heart disease, asthma, arthritis, and diabetes are just a few of the chronic conditions that exist. Right now, these conditions have no known cure. But you can take an active role in managing your health. Coping with Your Diagnosis If you've just learned about your health condition, you may be angry, depressed, or afraid. Or you might feel relieved just to know what's wrong. Even if you've known about your health problem for a while, adjusting to it can be hard. But learning about your condition can help you cope. Look for books at your local library. If you have access to a computer, check the Internet. Or contact a group that focuses on your specific problem. Accepting Change Change is hard for most people. Yet right now you may be facing many changes. What you eat or the way you work may change. Your moods, and even your symptoms, might vary from day to day. Although it isn't easy, learning to accept change can help you feel more in control. Taking Control Feeling you have control can make living with your condition easier. Discuss treatment options withyour health care provider. The more you know, the more active you can be in your care. Moving Forward You may wonder whether you will be able to do the things you've always done. That depends on your age, the condition you have, and your goals. To make the most of each day, try to build caring relationships, be active, and eat right. Also, do your best to keep a sense of humor. Sonia Otto, [address] [place] [address]. All rights reserved. This information is not intended as a substitute for professional medical care. Always follow your healthcare professional's instructions. Taking an Active Role in Your Medicines Take the time to learn about your medicine. For instance, why are you taking it? What does it do? Work with your doctor or other health care providers to get the answers you need. Talk to your pharmacist about how to take each medicine, and ask for a fact sheet on each one. Ask Questions About Your Medicine What is the name of the medicine? Why do I need to take it? When should I take it? How should I take it: with water? with food? on an empty stomach? How much do I take? What do I do if I miss a dose? What side effects could it cause and which ones should I call the doctor about? Are there any foods or medicines I should avoid while taking this medicine? Keeping track of your medications? Name of medicine: Taken for: Dose: Time(s) to take it: Take an Active Role Fill all your prescriptions at the same pharmacy. This keeps your medicine history in one place. Talk to the pharmacist. Make sure you understand how to take each medicine. Ask for a fact sheet about each one. Tell your doctor and pharmacist about all the prescription and poui-pdc-hecfkwx medicines you take.This includes vitamins and herbal remedies. Tell your doctor and pharmacist if you have any medical conditions or allergies to any medicine or food, or if you are or . Keep a list of all your medicines. Use the sample to the right as a guide for the type of information needed. Sonia Otto, [address] [place] [address]. All rights reserved. This information is not intended as a substitute for professional medical care. Always follow your healthcare professional's instructions. documented in this encounter Progress Notes * Harpreet Chapman MD - 04/22/2023 3:06 PM EDT SUBJECTIVE: Harley Zepeda is a 67 year old male. Chief Complaint Patient presents with Hospital Follow-Up Hospital Follow-Up Recent Admission: Patient was recently admitted to [facility] on 04/04/23. The date of discharge was 04/06/2023. Discharge report received and reviewed. HPI: Brief Clinical History Mr. Zepeda is a 67 year old man last seen in Family Medicine 5 months ago (11-19-22). He is not due for eval of any conditions. Admitted to [facility] 04/04/23-04/06/23 with hypertensive urgency. His blood pressure was 198/107 at home around 3:30 AM when he woke clammy and nauseated. He took his lisinopril and levothyroxine and then went back to bed. When he got back up in the morning, his BP was 170/100 and was lightheaded and dizzyso he proceeded to the ED. He had been working outside [employer] and doing yardwork 2 days prior to admission and had not drank much fluids. He contacted cardiology and was referred to the ED. 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 Chest CTA noted high-grade/severe stenosis involving proximal 1 cm of implanted RCA great andno evidence of recurrent aortic dissection. His BP was 190/103 on presentation to the ED. Echo was done, which showed subtle septal hypokinesis, EF 60-65%, mild AV sclerosis without stenosis and normal aortic root and no change since 12/2021. His case was discussed with cardiology and had multiple medication adjustments including changing metoprolol tartrate 75 mg twice a day to metoprolol succinate 150 mg once a day, increased lisinopril to 40 mg, and added spironolactone 25 mg and chlorthalidone 25 mg. The head/neck CTA findings were discussed with neurology and neurosurgery and recommended to keep SBP under 160 and outpatient follow-up. Was not felt to have a true aneurysm but just widening of thevessel. Blood pressure was good for a few days after discharge and then started having episodes of hypotension and dizziness. Still having joint pain, dizzy spells, mild headaches, and fatigue. Having some pain in the back of his neck. Had Lyme test in hospital and also by cardiology 04/17/23 and both negative. Feels lightheaded like he is going to pass out and makes him nauseated. Balance is off with thedizziness. BMP done at cardiology appointment 04/17/23 showed elevated creatinine of 1.4. His spironolactone was put on hold due to hypotension. Is to have repeat BMP 04/25/23. BP is 86/68 today on office cuff. Had two ticks removed at the end of January. Feels his symptoms of the dizziness, headaches, body aches and severe fatigue started several weeks after that and feels he does have tick-borne illness. States a friend that lives near him had the same symptoms for 2 months and had negative testing and finally got doxycycline at the ER and then got better in 2 days. States he was feeling really well and was working out on his [employer] again and then got sick very suddenly with above symptoms. 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 Doxycycline Hyclate 100 MG Oral Capsule Take 1 Capsule by mouth in the morning and 1 Capsule beforebedtime. Do all this for 10 days. Until gone.. 20 Capsule 0 Chlorthalidone 25 MG Oral Tablet (Hygroton) Take 1 Tablet by mouth in the morning. Hold as of 04/22/23 for hypotension. Spironolactone 25 MG Oral Tablet (Aldactone) Take 1 Tablet by mouth in the morning. (Patient not taking: Reported on 04/22/2023) No current facility-administered medications for this visit. Current and discharge medications have been reconciled. Review of patient's allergies indicates: Allergen Reactions Morphine hives Amoxicillin Other reaction(s): Gastrointestinal Upset, Stomach ache OBJECTIVE: BP 86/68 | Pulse 69 | Temp 36.5 C (97.7 F) (Tympanic) | Resp 16 | Wt 76.7 kg (169 lb) | SpO2 98% | BMI 23.91 kg/m | BSA 1.95 m Review Of Systems: Skin: pt denies, new or changing moles, pigmentation change, rash, scaling, itching, bruising, lumps or bumps, hair changes, nail changes Eyes: negative Ears/Nose/Throat: pt denies:, deafness, tinnitus, frequent URI's, sinus trouble, +dizziness Respiratory: pt denies:, cough, sputum, pneumonia or bronchitis, asthma, wheezing, and dyspnea on exertion Cardiovascular: +hypertension and now hypotension, +CAD, +lightheadedness Gastrointestinal: +nausea and upset stomach Genitourinary: pt denies:, nocturia, dysuria, and frequency Musculoskeletal: +neck pain and body aches Neurologic: +headaches Psychiatric: pt denies:, anxiety, and depression Hematologic/Lymphatic/Immunologic: pt denies:, immunodeficiency, anemia, bruising, bleeding disorder, fever, night sweats, chills, and weight loss Endocrine: pt denies:, diabetes, and + thyroid disorder PHYSICAL EXAM: General: alert, no distress, well nourished, well developed, and appears tired and pale Head: Normocephalic, No masses, lesions, tenderness or [...] tenderness, lungs clear to auscultation Extremities: no joint deformities, effusion, or inflammation, no edema, no clubbing, no cyanosis Neuro Exam: alert & oriented x 3 with fluent speech, no focal motor/sensory deficits ASSESSMENT: Hospital discharge follow-up (Primary)--reviewed hospital records. - DISCH MED RECON CUR MED LIS Lyme disease--treat empirically due to ongoing headaches, body aches, fatigue, and recent numerous tick bites. - Doxycycline Hyclate 100 MG Oral Capsule; Take 1 Capsule by mouth in the morning and 1 Capsule before bedtime. Do all this for 10 days. Until gone.. Hypotension due to drugs--had numerous medication adjustments while admitted and now is hypotensive. Continue to hold spironolactone per cardiology. Will also hold chlorthalidone for now and monitor BP. Is feeling lightheaded ongoing. HTN, goal below 140/90--as above. Is now hypotensive. Fatigue, unspecified type--check labs when he returns for repeat BMP 04/25/23. - CBC WITH WBC DIFFERENTIAL; Future; Expected date: 04/22/2023 - TSH WITH FREE T4 IF INDICATED; Future; Expected date: 04/22/2023 Coronary artery disease involving walk[place] coronary artery of [place] heart without angina pectoris--no new chest pain. Is scheduled for lexiscan stress test per cardiology. Hyperlipidemia with target LDL less than 160--stable Acquired hypothyroidism--repeat labs due to fatigue. - TSH WITH FREE T4 IF INDICATED; Future; Expected date: 04/22/2023 Follow Up: Return as scheduled. PLAN: Continue present medication(s): Begin medication(s): Doxycycline for empiric treatment of sudden onset of headaches, body aches, and fatigue that began several weeks after two tick bites. Discontinue medication(s): Hold chlorthalidone for now due to ongoing hypotension and FERNANDA. F/u withcardiology as directed. Is also currently holding spironolactone per cardiology since 04/17/23 due to hypotension and FERNANDA. Schedule labs: CBC w/diff and TSH when he returns for repeat BMP 04/25/23 for cardiology ordered dueto FERNANDA. Patient education: Encouraged to increase plain water intake. Continue to monitor BP. Call or return if symptoms not improving or blood pressure remains very low. Reviewed log of blood pressures. Continues to be hypotension in the 90-low 100 range systolic despite holding spironolactone, which was a new medication while admitted. Hold chlorthalidone as well asabove. Follow up as scheduled 06/13/23. Harpreet Chapman MD I spent a total of 45 minutes coordinating, documenting, and providing care for this patient excluding time spent in the performance of separately billed services or time spent by another provider/QHP. documented in this encounter Nursing Notes * Belle Panda LPN - 04/22/2023 2:49 PM EDT Hospital follow up- [facility] Dizziness Headaches Stomach issues Muscle and joint pain Fatigue All BP taken in left arm- states left arm is lower than right arm always. BP in office 86/68 Home machine #1 103/71 Home machine #2 97/71 documented in this encounter Plan of Treatment Upcoming Encounters Date Type Specialty Care Team Description 06/13/2023 Office Visit Family Medicine Harpreet Chapman MD [address] [place] [address] YESSENIA Bello [id number] 06/18/2023 Imaging Radiology Gw, Excess Time Radiology [address] [place] [id number] 07/21/2023 Office Visit Cardiology Krissy Weathers CRNP [address] [place] [id number] 11/20/2023 Nurse Only Ancillary [place], Nurse Annual Wellness [address] [place] [address] YESSENIA Bello [id number] 12/10/2023 Imaging Radiology Scheduled Orders Name Type Priority Associated Diagnoses Orde r Schedule CBC WITH WBC DIFFERENTIAL Lab Routine Fatigue, unspecified type Expected: 04/22/2023 (Approximate), Expires: 04/22/2024 TSH WITH FREE T4 IF INDICATED Lab Routine Fatigue, unspecified type Acquired hypothyroidism Expected: 04/22/2023 (Approximate), Expires: 04/21/2024 Health Maintenance Due Date Last Done Comments [...] and Over 11/19/2023 11/18/2022 TSH 12/06/2023 12/05/2022, 0410/2020, 02/01/2020, Additional history exists GFR 04/17/2024 04/17/2023, 040 01/2023, 02/15/2022, Additional history exists GARDASIL-HPV IMMUNIZATION [...] as of this encounter Visit Diagnoses Diagnosis Hospital discharge follow-up- Primary Other follow-up examination Lyme disease Hypotension due to drugs Other iatrogenic hypotension HTN, goal below 140/90 Unspecified essential hypertension Fatigue, unspecified type Coronary artery disease involving [place] coronary artery of [place] heart without angina pectoris Hyperlipidemia with target LDL less than 160 Other and unspecified hyperlipidemia Acquired hypothyroidism Unspecified hypothyroidism documented in this encounter Care Teams General Production Manager Relationship Specialty Start Date End Date Harpreet Chapman MD [address] [place] [address] YESSENIA Bello [id number] PCP - General Family Medicine 07/05/14 documented as of this encounter"
--- OUTSIDE RECORDS SUMMARY | 2023-08-29 21:03 | External Medical Summary | Summary of Care ---
Author Name Unknown Organization [facility] Address [address] [place] [address] Phone [phone] Care Team Providers Care Supervisor Adult Education Name Role Phone Harpreet Chapman MD Primary Care Provide r Reason for Referral * Precert (Within 10 days (routine)) - Authorized Specialty Diagnoses / Procedures Referred By Contac t Referred To Contact Radiology Diagnoses Hx of CABG Coronary artery disease involving pokagon coronary artery of pokagon heart without angina pectoris Procedures NM MYOCARD PERF IMG SPECT MULT STUDIES WITH PHARM INTERV Ovidio Iyer DO [address] [place] [address] Referral ID Status Reason Start Date Expiration Date V isits Requested Visits Authorized [id number] Authorized Precert 04/18/2023 999 999 Reason for Visit * Reason Comments Hospital Follow-Up Encounter Details Date Type Department Care Team Description 04/17/2023 Office Visit Cardiology, [facility] [address] [place] [address] Ovidio Iyer DO [address] [place] [address] HTN, goal below 140/90*; Hx of CABG; Coronary artery disease involving pokagon coronary artery of pokagon heart without angina pectoris; Dizziness; Myalgia; Hospital discharge follow-up Allergies Active Allergy Reactions Severity Noted Date [...] Active Levothyroxine Sodium 50 MCG Oral Tablet (Levoxyl)Indicatio ns:Acquired hypothyroidism TAKE ONE TABLET BY MOUTH IN THE MORNING 90 Tablet 1 3 Active Rosuvastatin Calcium 20 MG Oral Tablet (Crestor)Indicatio ns:Hyperlipidemia with target LDL less than 160 Take 1 Tablet by mouth every night at bedtime. 90 Tablet 1 3 Active Multi-Vitamin Daily Oral Tablet Take 1 Tablet by mouth in the morning. 0 3 Active Metoprolol Succinate 50 MG Oral Capsule ER 24 Hour Sprinkle Take 150 mg by mouth in the morning. 0 Active Lisinopril 40 MG Oral Tablet Take 1 Tablet by mouth in the morning. 0 Active Chlorthalidone 25 MG Oral Tablet (Hygroton) Take 1 Tablet by mouth in the morning. 0 Active Lisinopril 20 MG Oral Tablet (Prinivil)Indicati ons:HTN, goal below 140/90 Take 1 Tablet by mouth in the morning. 90 Tablet 3 3 04/17/20 23 Discontinued(Me dication/Dose Changed) Metoprolol Tartrate 25 MG Oral Tablet (Lopressor)Indicat ions:HTN, goal below 140/90 TAKE THREE TABLETS BY MOUTH IN THE MORNING AND AT BEDTIME 540 Tablet 1 3 04/17/20 23 Discontinued Spironolactone 25 MG Oral Tablet (Aldactone) Take 1 Tablet by mouth in the morning. 0 04/17/20 23 Discontinued(Ad verse reaction) documented as of this encounter (statuses as of 04/17/2023) Active Problems Problem Noted Date Immunization not carried out because of patient decision 11/18/2022 H/O ascending aorta repair 06/19/2022 Pulmonary nodules/lesions, multiple 06/01 Incidental lung nodule 05/28/2022 Hx of CABG 05/28/2022 Coronary artery disease invo lving pokagon coronary artery of pokagon heart without angina pectoris 02/25/2022 History of [...] Date Smoking Tobacco: Never Smokeless Tobacco: Never Tobacco Cessation:Counseling Given: Not Answered Alcohol Use Standard Drinks/Week Comments No 0 [...] Sign Reading Time Taken Comments Blood Pressure 112/64 04/17/2023 2:44 PM EDT Pulse 72 04/17/2023 2:44 PM EDT Temperature - - Respiratory Rate - - Oxygen Saturation 95% 04/17/2023 2:44 PM EDT Inhaled Oxygen Concentration - - Weight - - Height - - Body Mass Index - - documented in this encounter Progress Notes * Ovidio Iyer, - 04/17/2023 2:55 PM EDT SUBJECTIVE: Patient returns today for hospital follow-up. Recently admitted to [facility] 04/04/2023 with hypertensive urgency. Patient unknown to the undersigned prior to appointment today. Complex cardiovascular history noted below. During hospitalization lisinopril titrated to 40 mg daily, Aldactone 25 mg daily added, chlorthalidone 25 mg daily added, metoprolol tartrate transition to Toprol-XL 150 mg daily. Since discharge, patient notes intermittent episodes of lightheadedness and hypotension. has recorded systolic blood pressure as low as 96 mmHg. Dizzy today in our waiting room with a systolic blood pressure of 100 mmHg. No elevated blood pressure readings since hospital discharge. voicesconcern regarding possible Lyme disease. Lyme screen was negative during hospitalization. Patient denies chest pain or shortness of breath. No orthopnea, PND, or lower extremity edema. ROS: All others negative other than those noted in the HPI. Chest CTA report April 04, 2023: 1. [...] findings as described above. 2D echocardiogram report [facility] 04/05/2023: Moderate concentric left ventricular hypertrophy. Subtle septal hypokinesis. Left ventricular ejection fraction 60 to 65%. Aortic valve sclerosis without stenosis Past medical history: Coronary artery disease S/P CABG x 4 with [place] to the LAD and SVG's to the OM, LCx and RCA at [facility], 01/17/2022 Post-op acute Type A aortic dissection S/P Aortic valve re suspension and aortic root reconstruction, 02/01/2022 Post-op acute non-occlusive DVT of jugular vein and proximal internal jugular vein and acute occlusive superficial venous thrombosis of cephalic vein, 01/2022 Acute cholecystitis S/P cholecystotomy tube 01/2022- tube removal 07/17/2022, Status post gallbladder removal 09/2022 Hypertension JEM Dyslipidemia Patient Active Problem List Diagnosis Code Hemorrhoids K64.9 GENERAL OSTEOARTHROSIS M15.9 Hypothyroidism E03.9 ADVANCE DIRECTIVE INFORMATION Essential tremor G25.0 HTN, goal below 140/90 I10 Hyperlipidemia with target LDL less than 160 E78.5 Degenerative disc disease, cervical M50.30 Allergic rhinitis J30.9 JEM (obstructive sleep apnea) G47.33 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 Coronary artery disease involving pokagon coronary artery of pokagon heart without angina pectoris I25.10 History of non-ST elevation myocardial infarction (NSTEMI) I25.2 History of aortic dissection Z86.79 Cholecystitis K81.9 Incidental lung nodule R91.1 Hx of CABG Z95.1 Pulmonary nodules/lesions, multiple R91.8 H/O ascending aorta repair Z98.890 Immunization not carried out because of patient decision Z28.20 Social History Tobacco Use Smoking status: Never Smokeless tobacco: Never Vaping Use Vaping Use: Never used Substance Use Topics Alcohol use: No Drug use: No Review of patient's allergies indicates: Allergen Reactions [...] BY MOUTH IN THE MORNING 90 Tablet1 Metoprolol Succinate 50 MG Oral Capsule ER 24 Hour Sprinkle Take 150 mg by mouth in the morning. Spironolactone 25 MG Oral Tablet (Aldactone) Take 1 Tablet by mouth in the morning. Lisinopril 40 MG Oral Tablet Take 1 Tablet by mouth in the morning. Chlorthalidone 25 MG Oral Tablet (Hygroton) Take 1 Tablet by mouth in the morning. Rosuvastatin Calcium 20 MG Oral Tablet (Crestor) Take 1 Tablet by mouth every night at bedtime. 90 Tablet 1 Multi-Vitamin Daily Oral Tablet Take 1 Tablet by mouth in the morning. No current facility-administered medications for this visit. Lipid Panel Results: Results for orders placed or performed in visit on 01/15/14 LIPID PANEL Result Value Ref Range HOURS FASTING 12 hours Triglycerides 109 <200 mg/dL Cholesterol 196 <200 mg/dL HDL Cholesterol 37 (L) >39 mg/dL Cholesterol-HDL Ratio 5.3 LDL Cholesterol 137 (H) 0 - 129 mg/dL Results for orders placed or performed in visit on 06/19/22 LIPID PANEL WITH DIRECT LDL IF TG IS HIGH Result Value Ref Range Triglycerides 73 <=174 mg/dL Cholesterol 110 <200 mg/dL HDL Cholesterol 38 (L) >39 mg/dL Non-HDL Cholesterol 72 <=159 mg/dL LDL Cholesterol 57 <=129 mg/dL Lab Results Component Value Date/Time TSH - [facility] 2.53 12/05/2022 08:18 AM TSH - [facility] 0.79 12/12/2020 08:55 AM TSH - [facility] 1.50 02/01/2020 12:31 PM TSH - [facility] 0.29 06/15/2016 08:54 AM TSH - [facility] 0.96 11/25/2015 08:34 AM CBC Results: Results for orders placed or performed in visit on 01/27/01 CBC Result Value Ref Range WBC 6.1 4.0 - 11.0 K/uL RBC 5.34 4.5 - 6.0 M/uL HGB 15.5 14.0 - 18.0 g/dL HCT 44.7 42 - 52 % MCV 83.7 82 - 94 fL MCH 29.0 28 - 32 pg MCHC 34.7 33 - 36 g/dL RDW 12.7 11.7 - 14.7 % PLT 219 150 - 400 K/uL MPV 10.2 8.7 - 12.1 fL OBJECTIVE/PHYSICAL EXAMINATION: BP 112/64 | Pulse 72 | SpO2 95% General: NAD, AAO x3, well nourished. HEENT: Normocephalic. Atraumatic. Conjunctiva pink, no scleral icterus. No carotid bruits, the carotid upstrokes are brisk. No JVD. No HJR Heart: Regular normal S-1 and S-2 no S-3 or S-4 gallop. No murmurs or rubs appreciated. PMI is not displaced. No RV heave.Lungs: Clear bilateral without rales , rhonchi, or wheeze. Abdomen: Normal bowel sounds. Soft. Nontender. No masses or organomegaly. No abdominal bruits. Extremities: No clubbing, cyanosis, or edema.Pulses: radial=2/4, Dorsalis pedis =2/4, posterior tibial=2/4. Neuro: No focal deficits. ASSESSMENT: 1. 67-year-old patient recently hospitalized due to hypertensive urgency. Medication changes noted as listed above. Borderline hypotensive today with intermittent lightheadedness since discharge. 2. CAD status post CABG x 4 -CTA during hospitalizations suggestive severe stenosis involving the proximal 1 cm of the implanted right coronary artery graft. -Patient without exertional chest discomfort. 3. Multiple reported tick exposures -Lyme screen negative during hospitalization PLAN: Basic metabolic panel Lyme disease antibody screen with reflex to confirmation Nm myocard perf img spect mult studies with pharm interv Ekg Hold aldactone due to intermittent hypotension and lightheadedness. Repeat basic metabolic panel today. Continue lisinopril, chlorthalidone, and Toprol-XL as ordered. will continue to monitor home blood pressure daily as well as with any recurrent symptoms. Lexiscan nuclear stress test will be performed to assess ischemia in light of abnormal CTA findings. Continue aspirin and statin therapy. Follow Up: Return in about 3 months (around 07/18/2023). I spent a total of 40-54 minutes (exact time 45 mins) on the date of service in preparation, delivery, and documentation of the care provided to Harley Zepeda excluding any time spent in the performance of separately billed services. Ovidio Iyer DO, [facility] Associate Cardiology - Roxanne Chen documented in this encounter Procedure Notes * Almas Santana DO - 04/17/2023 2:54 PM EDTAssociated Order(s): EKG REASON FOR STUDY: dizzy/HTN CONCLUSIONS: Normal sinus rhythm Normal ECG When compared with ECG of 19-JUN-2022 10:23, No significant change was found Ventricular Rate: 73 Atrial Rate: 73 OR Interval: 188 QRS Duration: 96 QT/QTc: 404/445 ms P-R-T [place]: 49 : 56 : 47 degrees documented in this encounter Nursing Notes * Lubna Mehta CMA - 04/17/2023 2:45 PM EDT Examination Room: 13 Name: Harley Zepeda Date of : (1955) Reason for Visit: hosp f/u Interim Hospitalization(s): aug Problems/Concerns: dizziness/light headed. BP has been low Chest Pain/SOB: denied My [facility] is a way you can talk to your provider online through e-mail. Would you like to sign up? I can activate it for you? ALREADY ACTIVE Patient was instructed to not get up on the exam table until directed and assisted by their provider; patient is to remain seated in the chair/ wheelchair/ exam table for fall prevention and safety reasons. Patient is aware to have assistance to step down off exam table with personnel. Patient voiced full comprehension of instructions. documented in this encounter Plan of Treatment Upcoming Encounters Date Type Specialty Care Team Description 04/22/2023 Office Visit Family Medicine Harpreet Chapman MD [address] [place] [address] [place] [phone] 06/13/2023 Office Visit Family Medicine Harpreet Chapman MD [address] [facility] [place] [phone] 07/21/2023 Office Visit Cardiology Krissy Weathers CRNP [address] [place] [id number] 11/20/2023 Nurse Only Ancillary Dusty Nurse [facility] [address] [place] [address] [place] [id number] 12/10/2023 Imaging Radiology Pending Results Name Type Priority Associated Diagnoses Date /Time LYME DISEASE ANTIBODY SCREEN WITH REFLEX TO CONFIRMATION Lab Routine HTN, goal below 140/90 Coronary artery disease involving pokagon coronary artery of pokagon heart without angina pectoris Dizziness Myalgia 04/17/2023 3:37 PM EDT Scheduled Orders Name Type Priority Associated Diagnoses Orde r Schedule LYME DISEASE ANTIBODY SCREEN WITH REFLEX TO CONFIRMATION Lab Routine HTN, goal below 140/90 Coronary artery disease involving pokagon coronary artery of pokagon heart without angina pectoris Dizziness Myalgia Expected: 04/17/2023 (Approximate), Expires: 04/17/2024 NM MYOCARD PERF IMG SPECT MULT STUDIES WITH PHARM INTERV Cardiology Routine Hx of CABG Coronary artery disease involving pokagon coronary artery of pokagon heart without angina pectoris Expected: 04/18/2023, Expires: 05/18/2024 Health Maintenance Due Date Last Done Comments [...] Not on filedocumented as of this encounter Procedures Procedure Name Priority Date/Time Associated Diagnosis Comments OR ECG ROUTINE ECG W/LEAST 12 LDS I&R ONLY Routine 04/17/2023 2:54 PM EDT HTN, goal below 140/90 documented in this encounter Results * EKG (04/17/2023 2:54 PM EDT) 04/17/2023 2:54 PM EDT Procedure Note Almas Santana DO - 04/17/2023 2:54 PM EDT REASON FOR STUDY: dizzy/HTN CONCLUSIONS: Normal sinus rhythm Normal ECG When compared with ECG of 19-JUN-2022 10:23, No significant change was found Ventricular Rate: 73 Atrial Rate: 73 OR Interval: 188 QRS Duration: 96 QT/QTc: 404/445 ms P-R-T [place]: 49 : 56 : 47 degrees Ovidio Iyer DO EKG [facility] documented in this encounter Visit Diagnoses Diagnosis HTN, goal below 140/90- Primary Unspecified essential hypertension Hx of CABG Postsurgical aortocoronary bypass status Coronary artery disease involving pokagon coronary artery of pokagon heart without angina pectoris Dizziness Dizziness and giddiness Myalgia Mylagia and myositis, unspecified Hospital discharge follow-up Other follow-up examination documented in this encounter Care Teams Supervisor Adult Education Relationship Specialty Start Date End Date Harpreet Chapman MD [address] [place] [address] [place] [phone] PCP - General Family Medicine 07/05/14 documented as of this encounter"
--- OUTSIDE RECORDS SUMMARY | 2023-08-29 21:03 | External Medical Summary ---
Author Name Unknown Address Unknown Organization [id number]:[facility] [place] [address] [address] Laboratory Report Ordering Provider Test Date Status GERMAN RAMON 04/17/2023 15:37:24 Final Observation Date Value Abnormality Reference (Units ) Status Borrelia burgdorferi IgG and IgM [Interpretation] in Serum by Immunoassay 04/17/2023 15:37:24 Negative Negative Final Performing Location [facility] - [address] [place] [address]
--- OUTSIDE RECORDS SUMMARY | 2023-08-29 21:03 | External Medical Summary | Summary of Care ---
Author Name Unknown Organization [facility] Address [address] [place] [address] Phone [phone] Care Team Providers Care Electrical Discharge Machine Operator Name Role Phone Harpreet Chapman MD Primary Care Provide r Reason for Visit * Reason Comments Follow Up 9 month follow up. C hest pain this morning but has been pulling weeds the last two days and believes muscular. Dizziness intermittent with standing too quickly and bending over for a minute or so. Finger edema. Blood pressure will run high at times. Denies palpitations, SOB and LE edema. Encounter Details Date Type Department Care Team Description 03/14/2023 Office Visit Cardiology, [facility] [address] [place] [address] [facility] [address] Coronary artery disease involving [place] coronary artery of [place] heart without angina pectoris*; Hx of CABG; H/O ascending aorta repair; Dyslipidemia, goal LDL below 70; HTN, goal below 140/90 Allergies Active Allergy Reactions Severity Noted Date Comments Amoxicillin Low 01/13/2022 Other reaction(s): Gastrointestinal Upset, Stomach ache Morphine 08/14/2022 hives documented as of this encounter (statuses as of 03/14/2023) Medications Medication Sig Dispensed Refills Start Date End Date Status Aspirin 81 MG Oral Tablet Chewable Take 1 Tablet by mouth in the morning. With food.. 100 Tablet 5 2 Active Hydrocortisone (Perianal) 2.5 % External Cream Administer into the rectum twice daily 30 g 1 2 Active Metoprolol Tartrate 75 MG Oral TabletIndications:H TN, goal below 140/90 Take 1 tablet by mouth in the morning and 1 tablet by mouth before bedtime 180 Tablet 1 3 Active Levothyroxine Sodium 50 [...] the morning. 90 Tablet 3 3 Active Fish Oil 1200 MG Oral Capsule Take by mouth . 0 03/14/20 23 Discontinued Clopidogrel Bisulfate 75 MG Oral Tablet (Plavix)Indications :Coronary artery disease involving [place] coronary artery of [place] heart without angina pectoris Take 1 Tablet by mouth in the morning. 90 Tablet 1 3 03/14/20 23 Discontinued Lisinopril 10 MG Oral Tablet (Prinivil)Indicatio ns:HTN, goal below 140/90 Take 1 Tablet by mouth in the morning. 90 Tablet 1 3 03/14/20 23 Discontinued documented as of this encounter (statuses as of 03/14/2023) Active Problems Problem Noted Date Immunization not carried out because of patient decision 11/18/2022 H/O ascending aorta repair 06/19/2022 Pulmonary nodules/lesions, multiple 06/01 Incidental lung nodule 05/28/2022 Hx of CABG 05/28/2022 Coronary artery disease invo lving [place] coronary artery of [place] heart without angina pectoris 02/25/2022 History of [...] as of this encounter (statuses as of 03/14/2023) Resolved Problems Problem Noted Date Resolved Date Cholecystostomy care 05/28/2022 11/19/2022 Screening for prostate cancer 07/11/2005 Overview: Resolved per Screening Diagnosis Protocol #6 Dyslipidemia, goal to be determined 12/08/2012 documented as of this encounter (statuses as of 03/14/2023) Immunizations Name Administration Dates Next Due Seasonal [...] Sign Reading Time Taken Comments Blood Pressure 146/82 03/14/2023 8:35 AM EDT Pulse 68 03/14/2023 8:35 AM EDT Temperature - - Respiratory Rate 16 03/14/2023 8:35 AM EDT Oxygen Saturation - - Inhaled Oxygen Concentration - - Weight 78 kg (172 lb) 03/14/2023 8:35 AM EDT Height - - Body Mass Index 24.33 11/18/2022 9:24 AM EDT documented in this encounter Progress Notes * TERESA Munguia - 03/14/2023 8:30 AM EDT Images from the original note were not included. Cardiology Outpatient Visit 03/14/2023 Primary Pigs Feet Finisher: Formally Dr. Coleman Past medical history: 1. Coronary artery disease S/P CABG x 4 with [place] to the LAD and SVG's to the OM, LCx and RCA at [facility], 01/17/2022 1. Post-op acute Type A aortic dissection S/P Aortic valve re suspension and aortic root reconstruction, 02/01/2022 2. Post-op acute non-occlusive DVT of jugular vein and proximal internal jugular vein and acute occlusive superficial venous thrombosis of cephalic vein, 01/2022 3. Acute cholecystitis S/P cholecystotomy tube 01/2022- tube removal 07/17/2022, Status post gallbladder removal 09/2022 2. Hypertension 3. JEM 4. Dyslipidemia HPI 67-year-old male presenting to the cardiology office today in routine follow-up. Was last evaluatedby Yumiko Shah PA-C approximately 9 months ago. History includes CAD, S/P ascending aortic dissection and repair, acute lobo with prior cholecystotomy tube as stated above. Today the patient presents with his , Whitley. From a cardiac standpoint he is feeling well. He had his gallbladder removed at [facility] in September. Denies any exertional chest pain however he has been outside pulling weeds recently and has some muscular skeletal chest wall discomfort. He denies any shortness of or palpitations. Occasional lightheadedness with quick position changes when he is working outside in the heat but no syncope. No orthopnea or PND. No lower extremity edema. He is slowly increasing his activity and is back to doing pushups and working out on his total gym. He feels well doing these activities. Patient is compliant with all medications, and offers no side effects. Monitors blood pressure at home noting blood pressure readings averaging between 140/80 and 150/90. States that he followed up with [facility] CT surgery in September and they did an echo and CT scan at that time. Current Outpatient Medications Medication Sig Dispense Refill Aspirin 81 MG Oral Tablet Chewable Take 1 Tablet by mouth in the morning. With food.. 100 Tablet 5 Hydrocortisone (Perianal) 2.5 % External Cream Administer into the rectum twice daily 30 g 1 Metoprolol Tartrate 75 MG Oral Tablet Take 1 tablet by mouth in the morning and 1 tablet by mouth before bedtime 180 Tablet 1 Levothyroxine Sodium 50 MCG Oral Tablet (Levoxyl) TAKE ONE TABLET BY MOUTH IN THE MORNING 90 Tablet 1 Rosuvastatin Calcium 20 MG Oral Tablet (Crestor) Take 1 Tablet by mouth every night at bedtime.90 Tablet 1 Multi-Vitamin Daily Oral Tablet Take 1 Tablet by mouth in the morning. Lisinopril 20 MG Oral Tablet (Prinivil) Take 1 Tablet by mouth in the morning. 90 Tablet 3 No current facility-administered medications for this visit. Past Medical History: Diagnosis Date CAD (coronary artery disease) Degenerative disc disease, cervical 08/27/2014 HTN (hypertension) Tremor 09/01/2005 nerve damage of arm from fall carrying 100 pounds Past Surgical History: Procedure Laterality Date CABG, ARTERY-VEIN, FOUR N/A 01/17/2022 [facility] CHOLECYSTOTOMY OR CHOLECYSTOSTOMY, [facility] 2022 COLONOSCOPY 04/28/2008 normal CTA CHEST NON-CORONARY [...] 5 OR MORE Left 09/01/1999 Social History Tobacco Use Smoking status: Never Smokeless tobacco: Never Vaping Use Vaping Use: Never used Substance Use Topics Alcohol use: No Drug use: No Review of patient's allergies indicates: Allergen Reactions Morphine hives Amoxicillin Other reaction(s): Gastrointestinal Upset, Stomach ache Review of Systems: See HPI for pertinent positives. All others negative, other than those noted in HPI. Physical Exam BP 146/82 | Pulse 68 | Resp 16 | Wt 78 kg (172 lb) | BMI 24.33 kg/m | BSA 1.97 m General: No acute distress. A+Ox3. HEENT: Normocephalic. Atraumatic. Conjunctiva and sclera clear. NECK: No carotid bruits. No JVD. Carotid upstrokes are brisk. Heart: RRR. S1 and S2 noted without murmur, rubs, gallops. PMI non displaced. Lungs: Clear to auscultation. No wheezes, rhonchi, rales. Abdomen: Normal bowel sounds. Soft. Nontender. No masses or organomegaly. No abdominal bruits. Extremities: No edema. No clubbing or cyanosis. Pulses: radial=2/4, posterior tibial=2/4, dorsalis pedis = 2/4. NEURO: No focal deficits. PSYCH: Normal. Lab data/imaging study review: Cardiac cath at [facility] 01/14/2022 Echo at [facility] 01/14/2023 Impression/Plan: 1. Coronary artery disease involving [place] coronary artery of [place] heart without angina pectoris 2. Hx of CABG -Coronary artery disease S/P CABG x 4 with [place] to the LAD and SVG's to the OM, LCx and RCA at [facility], 01/17/2022 -Stable, no angina 1. It has been greater than 1 year since CABG, okay to discontinue Plavix. Patient to continue aspirin 81 mg daily lifelong. 2. Will obtain records from [facility] regarding updated echocardiogram and CT scan. 3. H/O ascending aorta repair -Post-op acute Type A aortic dissection S/P Aortic valve re suspension and aortic root reconstruction, 02/01/2022 -Stable findings per CT of the chest 11/2022 4. Dyslipidemia, goal LDL below 70 LDL well controlled, 57. 1. Continue rosuvastatin 20 mg daily 5. HTN, goal below 140/90 -Borderline controlled today in office. Elevated blood pressures at home. 1. Increase lisinopril to 20 milligrams daily, repeat BMP in 1 week after starting. Patient to senda message in 1 month regarding home blood pressure readings. 2. Future considerations of transitioning from metoprolol tartrate to metoprolol succinate. 3. Increase hydration, avoid extremes in temperature, change positions slowly. The patient agrees to the above plan and will call with additional questions or concerns. ER with all emergencies advised. Follow-up: Return in about 6 months (around 09/14/2023). 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 I spent a total of 40 minutes on the date of service in preparation, delivery, and documentation ofthe care provided to Harley Zepeda excluding any time spent in the performance of separately billed services. TERESA Brown, Department of Cardiology This chart was completed in part utilizing [employer] Speech Voice Recognition Software. Grammatical errors, random word insertions, prounoun errors, and incomplete sentences are an occasional consequence of this system due to software limitations, ambient noise, and hardware issues. Any formal questions or concerns about the content, text, or information contained within the body of this dictation should be directly addressed to the provider for clarification. documented in this encounter Nursing Notes * Rajiv Mackenzie LPN - 03/14/2023 8:34 AM EDT Patient identified by full name and date of Chief Complaint Patient presents with Follow Up 9 month follow up. Chest pain this morning but has been pulling weeds the last two days and believes muscular. Dizziness intermittent with standing too quickly and bending over for a minute or so. Finger edema. Blood pressure will run high at times. Denies palpitations, SOB and LE edema. Examination Room: 4 Name: Harley Zepeda Date of : (1955). Reason for Visit: 9 month follow up Interim Hospitalization(s): [facility] 07/24-07/27/22 and 09/23-09/24/22 Problems/Concerns: See chief complaint Chest Pain/SOB: See chief complaint [facility] Discussed: Not applicable [facility] a way you can [...] Office Visit Family Medicine Harpreet Chapman MD [address] [place] [address] [place] [id number] 11/20/2023 Nurse Only Ancillary Nurse [facility]y [facility] [address] [place] [address] [place] [address] 12/10/2023 Imaging Radiology Scheduled Orders Name Type Priority Associated Diagnoses Orde r Schedule BASIC METABOLIC PANEL Lab Routine Coronary artery disease involving [place] coronary artery of [place] heart without angina pectoris Hx of CABG H/O ascending aorta repair HTN, goal below 140/90 Dyslipidemia, goal LDL below 70 Expected: 03/20/2023, Expires: 03/14/2024 Health Maintenance Due Date Last Done Comments [...] Visit Diagnoses Diagnosis Coronary artery disease involving [place] coronary artery of [place] heart without angina pectoris- Primary Hx of CABG Postsurgical aortocoronary bypass status H/O ascending aorta repair Personal history of surgery to heart and great vessels, presenting hazards to health Dyslipidemia, goal LDL below 70 Other and unspecified hyperlipidemia HTN, goal below 140/90 Unspecified essential hypertension documented in this encounter Care Teams Electrical Discharge Machine Operator Relationship Specialty Start Date End Date Harpreet Chapman MD [address] [place] [address] [place] B[place] [phone] PCP - General Family Medicine 07/05/14 documented as of this encounter"
--- OUTSIDE RECORDS SUMMARY | 2023-08-29 21:03 | External Medical Summary | Summary of Care ---
Author Name Unknown Organization [facility] Address [address] [place] [address] Phone [phone] Care Team Providers Care Bulk Filler Name Role Phone Harpreet Chapman MD Primary Care Provide r Reason for Visit * Reason Onset Date Comments Test Results 04/18/2023 Encounter Details Date Type Department Care Team Description 04/18/2023 Telephone Cardiology, [facility] [address] [place] [address] Junior Olguin, PASangC [address] [place] [id number] Test Results Allergies Active Allergy Reactions Severity Noted Date Comments Amoxicillin Low 01/13/2022 Other reaction(s): Gastrointestinal Upset, Stomach ache Morphine 08/14/2022 hives documented as of this encounter (statuses as of 04/18/2023) Medications Medication Sig Dispensed Refills Start Date [...] as of this encounter (statuses as of 04/18/2023) Active Problems Problem Noted Date Immunization not carried out because of patient decision 11/18/2022 H/O ascending aorta repair 06/19/2022 Pulmonary nodules/lesions, multiple 06/01 Incidental lung nodule 05/28/2022 Hx of CABG 05/28/2022 Coronary artery disease invo lving [place] coronary artery of [place] heart without angina pectoris 02/25/2022 History of [...] as of this encounter (statuses as of 04/18/2023) Resolved Problems Problem Noted Date Resolved Date Cholecystostomy care 05/28/2022 11/19/2022 Screening for prostate cancer 07/11/2005 Overview: Resolved per Screening Diagnosis Protocol #6 Dyslipidemia, goal to be determined 12/08/2012 documented as of this encounter (statuses as of 04/18/2023) Immunizations Name Administration Dates Next Due Seasonal [...] Telephone Encounter - Lubna Mehta CMA - 04/18/2023 10:12 AM EDT Portal message sent to pt. Lab entered. * Telephone Encounter - Lubna Mehta CMA - 04/18/2023 10:08 AM EDT ----- Message from TERESA Munguia sent at 04/18/2023 7:10 AM EDT ----- Kidney function abnormal- patient is possibly dry. Seen by Dr. Iyer yesterday with low blood pressures and lightheadedness. Aldactone was held. Repeat BMP in 1 week. Monitor BP and symptoms- send update in 1 week. documented in this encounter Plan of Treatment Upcoming Encounters Date Type Specialty Care Team Description 04/22/2023 Office Visit Family Medicine Harpreet Chapman MD [address] [place] [address] [place] [phone] 06/13/2023 Office Visit Family Harpreet Cota MD [address] [place] [address] [place] [phone] 06/18/2023 Imaging Radiology Gw, Excess Time Radiology [address] [place] [address] 07/21/2023 Office Visit Cardiology Krissy Weathers CRNP [address] [place] [address] 11/20/2023 Nurse Only Ancillary Dusty [facility] [address] [place] [address] [place] [address] 12/10/2023 Imaging Radiology Scheduled Orders Name Type Priority Associated Diagnoses Orde r Schedule BASIC METABOLIC PANEL Lab Routine HTN, goal below 140/90 Expected: 04/25/2023 (Approximate), Expires: 04/18/2024 Health Maintenance Due Date Last Done Comments [...] hypertension documented in this encounter Care Teams Bulk Filler Relationship Specialty Start Date End Date Harpreet Chapman MD [address] [place] [address] [place] [address] PCP - General Family Medicine 07/05/14 documented as of this encounter
--- OUTSIDE RECORDS SUMMARY | 2023-08-29 21:04 | External Medical Summary | Summary of Care ---
Author Name Unknown Organization [facility] Address [address] [place] [address] Phone [phone] Care Team Providers Care Director Of Assessment Name Role Phone Rosemary Chapman MD Primary Care Provide r Reason for Visit * Reason Comments eRx-Medication Refill Encounter Details Date Type Department Care Team Description 03/07/2023 Refill Family Medicine [address] [address] Rosemary Chapman MD [address] [place] [address] [place] [phone] Acquired hypothyroidism; Hyperlipidemia with target LDL less than 160 Allergies Active Allergy Reactions Severity Noted Date Comments Amoxicillin Low 01/13/2022 Other reaction(s): Gastrointestinal Upset, Stomach ache Morphine 08/14/2022 hives documented as of this encounter (statuses as of 03/07/2023) Medications Medication Sig Dispensed Refills Start Date [...] Oral Tablet (Plavix)Indications :Coronary artery disease involving [place] coronary artery of [place] heart without angina pectoris Take 1 Tablet [...] as of this encounter (statuses as of 03/07/2023) Active Problems Problem Noted Date Immunization not carried out because of patient decision 11/18/2022 H/O ascending aorta repair 06/19/2022 Pulmonary nodules/lesions, multiple 06/01 Incidental lung nodule 05/28/2022 Hx of CABG 05/28/2022 Coronary artery disease invo lving [place] coronary artery of [place] heart without angina pectoris 02/25/2022 History of [...] as of this encounter (statuses as of 03/07/2023) Resolved Problems Problem Noted Date Resolved Date Cholecystostomy care 05/28/2022 11/19/2022 Screening for prostate cancer 07/11/2005 Overview: Resolved per Screening Diagnosis Protocol #6 Dyslipidemia, goal to be determined 12/08/2012 documented as of this encounter (statuses as of 03/07/2023) Immunizations Name Administration Dates Next Due Seasonal [...] encounter Miscellaneous Notes * Telephone Encounter - Wilbur Tinsley, [facility] - 03/07/2023 3:46 PM EDTSigned Prescriptions: Disp [...] Elma Ortiz CRNP [address] [place] [id number] 06/13/2023 Office Visit Family Medicine Rosemary Chapman MD [address] [place] [address] [place] [phone] 11/20/2023 Nurse Only Ancillary Movcarin, Nurse Annual [address] [place] [phone] 12/10/2023 Imaging Radiology Health Maintenance Due Date [...] hyperlipidemia documented in this encounter Care Teams Director Of Assessment Relationship Specialty Start Date End Date Rosemary Chapman MD [address] [place] [address] [place] [id number] PCP - General Family Medicine 07/05/14 documented as of this encounter
[2023-08-29 21:29] LABS: Troponin I High Sensitivity 1041.8 pg/ml (0-20)
[2023-08-29] MEDS: TICAGRELOR 90 MG TAB PO SCH (23:34)
[2023-08-30] MEDS: ONDANSETRON INJ 2 MG/ML 2 ML VIAL IV PRN ×2 (00:15→07:35)
[2023-08-30] MEDS: LEVOTHYROXINE SODIUM 50 MCG TABLET PO SCH (06:01)
[2023-08-30 06:24] LABS: Chol HDL Ratio 2.8 (0-5)
[2023-08-30] MEDS: SODIUM CHLORIDE 0.9% 1,000 ML IV SCH ×3 (06:25→18:49)
[2023-08-30 06:39] LABS: Thyroid Stimulating Hormone 0.926 uIu/ml (0.300-4.500)
[2023-08-30 07:32] LABS: Estimated Average Glucose 114 mg/dl; Hemoglobin A1C 5.6 % (4.5-5.6)
[2023-08-30 07:36] LABS: Basophils # (auto) 0.02 K/uL (0.00-0.20); Basophils % (auto) 0.2 %; Eosinophils # (auto) 0.09 K/uL (0.00-0.50); Eosinophils % (auto) 0.8 %; Hematocrit (blood only) 39.4 % (42.0-52.0); Hemoglobin 13.9 g/dl (14.0-18.0); Immature Granulocytes # (auto) 0.04 K/uL (0.01-0.20); Immature Granulocytes % (auto) 0.4 %; Lymphocytes # (auto) 1.38 K/uL (1.20-3.40); Lymphocytes % (auto) 12.4 %; Mean Corpuscular Hemoglobin 29.3 pg (25.0-34.0); Mean Corpuscular Hgb Conc 35.3 g/dL (32.0-36.0); Mean Corpuscular Volume 82.9 fL (80.0-100.0); Mean Platelet Volume 10.2 fL (9.4-12.4); Monocytes # (auto) 1.56 K/uL (0.11-0.59); Neutrophils # (auto) 8.07 K/uL (1.40-6.50); Neutrophils % (auto) 72.2 %; Platelet Count 203 K/uL (130-400); RDW Coefficient of Variation 12.5 % (11.5-14.5); RDW Standard Deviation 38.3 fL (36.4-46.3); Red Blood Count 4.75 M/uL (4.70-6.10); White Blood Count 11.16 K/ul (4.8-10.8)
--- NOTE | 2023-08-30 07:49 | Critical Care Progress Note ---
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: (3) Hypothyroid: (4) H/O: HTN (hypertension): (5) HLD (hyperlipidemia): (6) S/P CABG x 4: Plan 2D echo 04/05/2023: Moderate concentric LVH, EF 60-65%, grade 1 diastolic dysfunction, RV normal in size and function Chest x-ray 08/29/2023 personally reviewed:, Bilateral costophrenic and cardiophrenic intersecting, increased cardiac silhouette, no clear lung infiltrate appreciated -- STEMI S/p MADELAINE LAD Continue with dual antiplatelet therapy Continue with statin and REGINA/ARB Beta-karen if heart rate is able to tolerate it --Hypertension On chlorothiazide 12.5 mg, metoprolol succinate 150 mg and lisinopril 40 mg at home He did take his medication today in the morning -- Multiple pulmonary nodules Largest being 6 mm In a patient is a lifetime non-smoker Can repeat a CAT scan in 1 year if that is negative no further follow-up on the nodules --History of vertigo On meclizine -- History of aortic dissection S/p stent at [facility] --Prophylaxis VTE: IPC GI: Pantoprazole Lines: Peripheral Diet: Cardiac Plan: In/out: +825, urine output 1175 Potassium being replaced Patient had vomiting and he is threw up 5 minutes of getting his blood pressure medication including Brilinta. I will redose it for him Reglan and Protonix added EKG from today does not show any significant changes compared to before. Hemodynamically stable to be downgraded to telemetry floor Case discussed with primary team Please note the above document was generated using voice recognition software. It may contain grammatical, syntax or spelling errors.Any formal questions or concerns about the content, text or information contained within the body of this dictation should be directly addressed to the provider for clarification. Admission and Anticipated Discharge Date Admission Date: August 29, 2023 Subjective Patient seen and examined at bedside. Early in the morning he did complain of some retrosternal lower neck pain which resolved on its own. Denied any shortness of breath. He has been having nausea and vomiting since morning. He did get Zofran x 1 for that. Unfortunately he threw up after he got his Brilinta. Poor appetite Review of Systems 2 Review of Systems: All systems reviewed & are unremarkable except as noted in Subjective Physical Exam 2 Physical Exam: Constitutional: No acute distress HEENT: EOMI, PERRLA Respiratory system: Good air entry bilaterally, no wheeze, no rhonchi, no crackles CVS: S1-S2 positive, no murmurs or gallops Abdomen: Soft, nontender, nondistended, positive bowel sounds x4 Extremities: +2 pulses bilaterally radialis/ dorsalis pedis, no cyanosis, minimal pitting edema bilateral lower extremity Neuro: Awake alert oriented x3 Psych: Normal mood and affect G/U: No [place] Skin: no rashes, warm and dry Lymphatic: no cervical or axillary lymphadenopathy Results & Data Results & Data Vital Signs (Past 12 Hours) Vital Signs Temp Pulse Resp BP Pulse Ox O2 Del Method 08/30/23 05:00 147/81 H 08/30/23 05:00 62 10 L 97 08/30/23 04:25 56 L 13 98 08/30/23 04:25 143/88 H 08/30/23 04:00 36.5 C 08/30/23 04:00 57 L 13 98 Room Air 08/30/23 03:00 143/80 H 08/30/23 03:00 54 L 13 98 08/30/23 02:01 66 23 98 08/30/23 02:01 149/85 H 08/30/23 01:00 58 L 15 97 Room Air 08/30/23 01:00 144/93 H 08/30/23 00:00 156/93 H 08/30/23 00:00 66 16 96 Room Air 08/30/23 00:00 36.3 C L 08/30/23 00:00 66 08/29/23 23:00 62 29 H 94 08/29/23 23:00 126/89 08/29/23 22:00 156/87 H 08/29/23 22:00 64 13 96 08/29/23 21:00 61 19 97 08/29/23 20:00 145/88 H 08/29/23 20:00 62 21 98 Room Air 08/29/23 20:00 36.7 C Laboratory Results 08/30/23 07:08 Coding Level of Care Code 90539 SUB INP/OBS CARE 3/50MIN Diagnoses ST elevation MO (STEMI) I21.3 Involved coronary artery: unspecified coronary artery 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
[2023-08-30 07:54] LABS: Total Protein 6.2 gm/dl (6.0-8.3)
[2023-08-30 07:55] LABS: Albumin Globulin Ratio 1.6 (0.9-2); Albumin Level 3.8 gm/dl (3.4-5.0); Bilirubin,Total 0.8 mg/dl (0.2-1.0); Calcium 8.7 mg/dl (8.6-10.3); Creatinine Clr Calc Pharmacy 100.4 ml/min; Est GFR (African American) 109.2 ml/min; Est GFR (Non-African American) 94.3 ml/min; Globulin 2.4 gm/dl (2.5-4.0); Potassium 3.9 mmol/L (3.5-5.1)
[2023-08-30] MEDS: TICAGRELOR 90 MG TAB PO SCH ×2 (08:46→21:23)
[2023-08-30] MEDS: ATORVASTATIN 40 MG TAB PO SCH (08:46)
[2023-08-30] MEDS: ASPIRIN 81 MG ECTAB PO SCH (08:46)
[2023-08-30] MEDS: METOPROLOL SUCC 50MG EXT REL TAB PO SCH (08:47)
[2023-08-30] MEDS ORDERED: LOSARTAN POTASSIUM 50 MG TAB PO SCH (09:00)
[2023-08-30] MEDS ORDERED: POTASSIUM CHLORIDE CRTAB 20 MEQ TABCR PO ONE (09:15)
[2023-08-30] MEDS ORDERED: TICAGRELOR 90 MG TAB PO ONE (10:00)
[2023-08-30] MEDS: POTASSIUM CHLORIDE / WTR 10 MEQ/100 ML PLCT IV SCH ×2 (10:01→11:16)
[2023-08-30 11:13] LABS: Phosphorus 3.1 mg/dl (2.5-4.9)
--- NOTE | 2023-08-30 12:07 | Electrocardiogram Report ---
Test Reason : Blood Pressure : / mmHG Vent. 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
--- NOTE | 2023-08-30 12:44 | Cardiology Consultation ---
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 Previously chronic stable ischemic heart disease with recent high workload tolerance. Patient presented with acute onset chest pain yesterday with elevated ST segments consistent with acute myocardial infarction, elevated troponin Cardiac catheterization demonstrated severe [place] vessel disease with occlusion of all grafts Coronary intervention proximal left anterior descending performed Patient hemodynamically stable postoperatively. Has had substantial rise in troponins however overall LV systolic function appears preserved on echocardiogram this morning Plan: Dual antiplatelet therapy as ordered. Continue current dosing of metoprolol succinate. Will likely resume prehospital medications with lisinopril and rosuvastatin Gradual increase in activities given complex procedure, troponin elevation. Maintain telemetry Cardiology will continue to follow History of Present Illness Reason for Consultation: STEMI Requesting Physician: Dr. Ferrara Attending Physician: Ivy Ferrara MD History of Present Illness Patient is a 68-year-old male with complex past history which includes 1. Coronary artery disease S/P CABG x 4 with [place] to the LAD and SVG's to the OM, LCx and RCA at [facility], 01/17/2022 1. Post-op acute Type A aortic dissection S/P Aortic valve re suspension and a ortic root reconstruction, 02/01/2022 2. Post-op acute non-occlusive DVT of jugular vein and proximal internal jugular vein and acute occlusive superficial venous thrombosis of cephalic vein, 01/2022 3. Acute cholecystitis S/P cholecystotomy tube 01/2022- tube removal 07/17/2022, Status post gallbladder removal 09/2022 2. Hypertension 3. JEM 4. Dyslipidemia Patient presents this admission having developed chest pain yesterday morning approximately 10 AM. Sought ER evaluation where initial EKG demonstrated ST elevation inferior posterior Taken urgently to the diagnostic cardiac catheterization lab Complex procedure with study demonstrating occlusion of all grafts. High-grade proximal left anterior descending lesion received drug-eluting stent with residual moderate disease within a codominant left circumflex Patient's had no further chest pain though nauseated this morning, difficulty taking medications. Blood pressure somewhat labile, required IV hydralazine this morning Denies shortness of breath or chest pain Notes hospitalization in April with chest pain but had been doing well since then. 2 days prior to unloaded a truck without difficulty No recent fevers chills or infections. No bleeding difficulties. Allergies Allergy/AdvReac Type Severity Reaction Status Date / Time amoxicillin Allergy Intermediate Gastrointestinal Verified 03/30/22 00:41 Upset morphine Allergy Intermediate Hives Unverified 04/04/23 15:01 Home Medications Medication Instructions Recorded Confirmed Type levothyroxine 50 mcg tablet 50 mcg PO DAILYBB 01/13/22 08/29/23 History aspirin 81 mg tablet,delayed 81 mg PO QAM #30 tabs 01/14/22 08/29/23 Rx release rosuvastatin 20 mg tablet 20 mg PO QAM 02/01/22 08/29/23 History meclizine 25 mg tablet 25 mg PO TID PRN dizziness #30 tabs 04/25/23 08/29/23 Rx lisinopril 40 mg tablet 40 mg PO DAILY 08/29/23 08/29/23 History metoprolol succinate 50 mg 150 mg PO DAILY 08/29/23 08/29/23 History tablet,extended release 24 hr Patient History Medical History (Updated 08/29/23 @ 21:44 by Jennifer Suero PA-C) Coronary artery disease Cholecystitis HLD (hyperlipidemia) Ascending aortic dissection Hypothyroid H/O: HTN (hypertension) Surgical History (Updated 08/29/23 @ 21:44 by Jennifer Suero PA-C) 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 Hx of cholecystectomy S/P aortic valve replacement Hx of dissecting abdominal aortic aneurysm repair S/P CABG x 4 H/O hernia repair Family History Other Coronary heart disease Social History Smoking Status: Never smoker Second Hand Exposure: No; Do You Dip or Chew Tobacco: No; Hx Alcohol Use: No Hx Substance Use: No Preferred Language: [place] Communication Ability: Effective 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: No Beliefs That Will Affect Care: None marital status: Current Living Situation: Spouse 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 How many Children do You have: 0 Feels Safe at Home: Yes Assistive Devices: None and CPAP Review of Systems Review of Systems: All systems reviewed & are unremarkable except as noted in HPI & below Gastrointestinal: + nausea and + vomiting Physical Exam Constitutional: WD/WN, vitals as above no acute distress Eyes: PERRL, conjunctivae normal, anicteric sclerae ENMT: external ear and nose normal, oropharynx normal Neck: trachea midline, no thyromegaly Respiratory: normal respiratory effort, lungs clear to auscultation Cardiovascular: RRR, no murmur, no edema Vessels: femoral pulses present (Right femoral access site intact without hematoma or bruit) and radial pulses present (Left radial access site healing no audible bruit) Chest (Breasts): normal inspection/palpation of breasts Gastrointestinal (Abdomen): normal bowel sounds, soft, nontender, no hepatosplenomegaly Musculoskeletal: no cyanosis or clubbing, extremities motor strength 5/5 Results & Data Vital Signs (Past 12 Hours) Vital Signs Temp Pulse Pulse Resp BP BP Pulse Ox 08/30/23 10:00 124/80 08/30/23 10:00 76 19 97 08/30/23 09:30 70 24 98 08/30/23 09:00 80 23 98 08/30/23 08:45 37 C 73 18 133/73 97 08/30/23 08:44 133/73 08/30/23 08:44 74 22 97 08/30/23 08:30 68 16 97 08/30/23 08:01 74 16 97 08/30/23 08:00 76 24 97 08/30/23 08:00 62 08/30/23 05:00 147/81 H 08/30/23 05:00 62 10 L 97 08/30/23 04:25 56 L 13 98 08/30/23 04:25 143/88 H 08/30/23 04:00 36.5 C 08/30/23 04:00 57 L 13 98 08/30/23 03:00 143/80 H 08/30/23 03:00 54 L 13 98 08/30/23 02:01 66 23 98 08/30/23 02:01 149/85 H 08/30/23 01:00 58 L 15 97 08/30/23 01:00 144/93 H O2 Del Method 08/30/23 10:00 08/30/23 10:00 08/30/23 09:30 08/30/23 09:00 Room Air 08/30/23 08:45 Room Air 08/30/23 08:44 08/30/23 08:44 08/30/23 08:30 08/30/23 08:01 08/30/23 08:00 08/30/23 08:00 08/30/23 05:00 08/30/23 05:00 08/30/23 04:25 08/30/23 04:25 08/30/23 04:00 08/30/23 04:00 Room Air 08/30/23 03:00 08/30/23 03:00 08/30/23 02:01 08/30/23 02:01 08/30/23 01:00 Room Air 08/30/23 01:00 Laboratory Results Laboratory Results - last 24 hr 08/29/23 08/29/23 08/29/23 13:40 14:54 16:45 WBC 10.82 H RBC 5.41 Hgb 15.7 Hct 46.5 MCV 86.0 MCH 29.0 MCHC 33.8 RDW Std Deviation 39.2 RDW Coeff of Sarmad 12.5 Plt Count 215 MPV 10.0 Immature Gran % (Auto) 0.4 Neut % (Auto) 76.9 Lymph % (Auto) 12.4 [place] % (Auto) 8.7 Eos % (Auto) 1.1 Baso % (Auto) 0.5 Neut # (Auto) 8.33 H Lymph # (Auto) 1.34 [place] # (Auto) 0.94 H Eos # (Auto) 0.12 Baso # (Auto) 0.05 Immature Gran # (Auto) 0.04 PT 11.2 INR 1.0 APTT 28 PTT Ratio 1.0 Activ Coag Time Kaolin 201 H Sodium 138 Potassium 4.1 Chloride 104 Carbon Dioxide 27 Anion Gap 7 BUN 13 Creatinine 1.01 Est Cr Clr Drug Dosing 74.6 Est GFR ( Amer) 88.2 Est GFR (Non-Af Amer) 76.1 BUN/Creatinine Ratio 12.9 Glucose 113 H Estimat Average Glucose Hemoglobin A1c Calcium 9.7 Phosphorus Magnesium Total Bilirubin 0.5 AST 24 ALT 24 Alkaline Phosphatase 68 Troponin I High Sens 55.6 H* Total Protein 7.8 Albumin 4.7 Globulin 3.1 Albumin/Globulin Ratio 1.5 Triglycerides Cholesterol LDL Cholesterol Direct LDL Cholesterol, Calc VLDL Cholesterol, Calc HDL Cholesterol Cholesterol/HDL Ratio TSH Nasal Screen MRSA (PCR) Negative 08/29/23 08/29/23 08/30/23 16:47 16:55 00:10 WBC 10.72 RBC 5.09 Hgb 14.7 Hct 43.5 MCV 85.5 MCH 28.9 MCHC 33.8 RDW Std Deviation 38.8 RDW Coeff of Sarmad 12.5 Plt Count 206 MPV 10.2 Immature Gran % (Auto) 0.4 Neut % (Auto) 75.9 Lymph % (Auto) 11.8 [place] % (Auto) 10.8 Eos % (Auto) 0.8 Baso % (Auto) 0.3 Neut # (Auto) 8.13 H Lymph # (Auto) 1.27 [place] # (Auto) 1.16 H Eos # (Auto) 0.09 Baso # (Auto) 0.03 Immature Gran # (Auto) 0.04 PT INR APTT PTT Ratio Activ Coag Time Kaolin Sodium Potassium Chloride Carbon Dioxide Anion Gap BUN Creatinine Est Cr Clr Drug Dosing Est GFR ( Amer) Est GFR (Non-Af Amer) BUN/Creatinine Ratio Glucose Estimat Average Glucose 114 Hemoglobin A1c 5.6 Calcium Phosphorus Magnesium Total Bilirubin AST ALT Alkaline Phosphatase Troponin I High Sens 1041.8 H* D 57663.5 H* D Total Protein Albumin Globulin Albumin/Globulin Ratio Triglycerides Cholesterol LDL Cholesterol Direct 62 LDL Cholesterol, Calc VLDL Cholesterol, Calc HDL Cholesterol Cholesterol/HDL Ratio TSH Nasal Screen MRSA (PCR) 08/30/23 08/30/23 08/30/23 05:51 07:08 12:00 WBC 11.16 H RBC 4.75 Hgb 13.9 L Hct 39.4 L MCV 82.9 MCH 29.3 MCHC 35.3 RDW Std Deviation 38.3 RDW Coeff of Sarmad 12.5 Plt Count 203 MPV 10.2 Immature Gran % (Auto) 0.4 Neut % (Auto) 72.2 Lymph % (Auto) 12.4 [place] % (Auto) 14.0 Eos % (Auto) 0.8 Baso % (Auto) 0.2 Neut # (Auto) 8.07 H Lymph # (Auto) 1.38 [place] # (Auto) 1.56 H Eos # (Auto) 0.09 Baso # (Auto) 0.02 Immature Gran # (Auto) 0.04 PT INR APTT PTT Ratio Activ Coag Time Kaolin Sodium 138 Potassium 3.9 Chloride 108 H Carbon Dioxide 22 Anion Gap 8 BUN 9 Creatinine 0.75 Est Cr Clr Drug Dosing 100.4 Est GFR ( Amer) 109.2 Est GFR (Non-Af Amer) 94.3 BUN/Creatinine Ratio 12.0 Glucose 99 Estimat Average Glucose Hemoglobin A1c Calcium 8.7 Phosphorus 3.1 Magnesium 2.0 Total Bilirubin 0.8 AST 87 H ALT 28 Alkaline Phosphatase 59 Troponin I High Sens 86919.9 H* D 00498.6 H* Total Protein 6.2 D Albumin 3.8 Globulin 2.4 L Albumin/Globulin Ratio 1.6 Triglycerides 85 Cholesterol 94 LDL Cholesterol Direct LDL Cholesterol, Calc 43 VLDL Cholesterol, Calc 17 HDL Cholesterol 34 Cholesterol/HDL Ratio 2.8 TSH 0.926 Nasal Screen MRSA (PCR) (1) ST elevation NH (STEMI) Involved coronary artery: unspecified coronary artery Qualified Code(s): I21.3 - ST elevation (STEMI) myocardial infarction of unspecified site
[2023-08-30] MEDS ORDERED: METOCLOPRAMIDE HCL INJ 5 MG/ML 2 ML VIAL IV PRN (14:27)
[2023-08-30] MEDS ORDERED: ACETAMINOPHEN 1,000 MG/100 ML VIAL IV PRN (14:28)
[2023-08-30] MEDS: PANTOprazole 40 MG in SYRINGE 0 ML IV SCH (15:24)
[2023-08-30 16:25] LABS: Basophils # (auto) 0.01 K/uL (0.00-0.20); Basophils % (auto) 0.1 %; Eosinophils # (auto) 0.02 K/uL (0.00-0.50); Eosinophils % (auto) 0.2 %; Hematocrit (blood only) 39.8 % (42.0-52.0); Hemoglobin 13.6 g/dl (14.0-18.0); Immature Granulocytes # (auto) 0.06 K/uL (0.01-0.20); Immature Granulocytes % (auto) 0.6 %; Lymphocytes # (auto) 0.81 K/uL (1.20-3.40); Lymphocytes % (auto) 7.7 %; Mean Corpuscular Hemoglobin 29.2 pg (25.0-34.0); Mean Corpuscular Hgb Conc 34.2 g/dL (32.0-36.0); Mean Corpuscular Volume 85.4 fL (80.0-100.0); Mean Platelet Volume 9.8 fL (9.4-12.4); Monocytes # (auto) 1.22 K/uL (0.11-0.59); Monocytes % (auto) 11.6 %; Neutrophils # (auto) 8.37 K/uL (1.40-6.50); Neutrophils % (auto) 79.8 %; Platelet Count 202 K/uL (130-400); RDW Coefficient of Variation 12.6 % (11.5-14.5); Red Blood Count 4.66 M/uL (4.70-6.10); White Blood Count 10.49 K/ul (4.8-10.8)
--- NOTE | 2023-08-30 23:40 | Hospitalist Progress Note ---
Date of Service August 30, 2023 Assessment & Plan (1) ST elevation [place] (STEMI): (2) S/P cardiac cath: (3) Coronary artery disease: (4) HTN (hypertension): (5) HLD (hyperlipidemia): (6) Hypothyroid: Plan Patient is a 68 y/o M with PMHx significant for CAD [place] [facility] [place] s/p repair, HTN, HLD, hypothyroidism admitted with STEMI. ST elevation NC (STEMI): S/P cardiac cath: Coronary artery disease: On admission, EKG noted ST elevation hs-trop elevated at 1041, peaked at 31,000 s/p cardiac cath on 08/29, stent placement in LAD Monitored post procedure in the ICU On DAPT- aspirin and Brilinta On statin, BB, REGINA/ARB Cardiology consulted- appreciate recs and further management HTN (hypertension) Continue metoprolol succinate Continue REGINA/ARB HLD (hyperlipidemia) Continue statin Hypothyroidism Continue levothyroxine DVT prophylaxis: SCDs ordered at this time Diet: HH Dispo: d/c once medically stable per Cards Admission and Anticipated Discharge Date Admission Date: August 29, 2023 Subjective Pt seen while still in the ICU. was at bedside. States that the chest pain had resolved. Denied SOB but stated that he has sleep apnea, has not been able to us his mask at home. Review of Systems Review of Systems: All systems reviewed & are unremarkable except as noted in Subjective Physical Exam Physical Exam: General: Alert, oriented. No acute distress Psych: Appropriate mood and affect Neuro: No gross deficits while laying in bed HEENT: NC/AT Chest: Nontender to palpation. Scar noted CV: RRR Resp: Breath sounds clear bilaterally, no increased effort of breathing. Abdomen: Soft, nontender, nondistended. Extremities: No edema in lower extremities bilaterally. Results & Data Results & Data Vital Signs (Past 12 Hours) Vital Signs Temp Pulse Pulse Resp BP BP Pulse Ox 08/30/23 13:00 133/74 08/30/23 13:00 63 21 97 08/30/23 12:00 137/76 08/30/23 12:00 70 21 99 08/30/23 11:00 134/88 08/30/23 11:00 64 10 L 98 08/30/23 10:00 124/80 08/30/23 10:00 76 19 97 08/30/23 09:30 70 24 98 08/30/23 09:00 80 23 98 08/30/23 08:45 37 C 73 18 133/73 97 08/30/23 08:44 133/73 08/30/23 08:44 74 22 97 08/30/23 08:30 68 16 97 08/30/23 08:01 74 16 97 08/30/23 08:00 76 24 97 08/30/23 08:00 62 08/30/23 05:00 147/81 H 08/30/23 05:00 62 10 L 97 08/30/23 04:25 56 L 13 98 08/30/23 04:25 143/88 H 08/30/23 04:00 36.5 C 08/30/23 04:00 57 L 13 98 O2 Del Method 08/30/23 13:00 08/30/23 13:00 08/30/23 12:00 08/30/23 12:00 Room Air 08/30/23 11:00 08/30/23 11:00 08/30/23 10:00 08/30/23 10:00 08/30/23 09:30 08/30/23 09:00 Room Air 08/30/23 08:45 Room Air 08/30/23 08:44 08/30/23 08:44 08/30/23 08:30 08/30/23 08:01 08/30/23 08:00 08/30/23 08:00 08/30/23 05:00 08/30/23 05:00 08/30/23 04:25 08/30/23 04:25 08/30/23 04:00 08/30/23 04:00 Room Air (1) ST elevation NC (STEMI) Involved coronary artery: unspecified coronary artery Qualified Code(s): I21.3 - ST elevation (STEMI) myocardial infarction of unspecified site
[2023-08-31] MEDS: LEVOTHYROXINE SODIUM 50 MCG TABLET PO SCH (07:07)
[2023-08-31 07:15] LABS: BUN Creatinine Ratio 10.8 (10-20); Calcium 8.5 mg/dl (8.6-10.3); Creatinine Clr Calc Pharmacy 90.7 ml/min; Est GFR (African American) 104.8 ml/min; Est GFR (Non-African American) 90.4 ml/min; Potassium 3.5 mmol/L (3.5-5.1)
[2023-08-31] MEDS: ATORVASTATIN 40 MG TAB PO SCH (08:09)
[2023-08-31] MEDS: ASPIRIN 81 MG ECTAB PO SCH (08:09)
[2023-08-31] MEDS: METOPROLOL SUCC 50MG EXT REL TAB PO SCH (08:09)
[2023-08-31] MEDS: TICAGRELOR 90 MG TAB PO SCH ×2 (08:12→20:19)
--- NOTE | 2023-08-31 08:50 | Electrocardiogram Report ---
Test Reason : Blood Pressure : / mmHG Vent. Rate : 067 BPM Atrial Rate : 067 BPM P-R Int : 202 ms QRS Dur : 098 ms QT Int : 424 ms P-R-T Axes : 005 -24 -42 degrees QTc Int : 448 ms Normal sinus rhythm Old Inferior infarct (cited on or before 29-AUG-2023) Diffuse Nonspecific T wave abnormality Abnormal ECG When compared with ECG of 30-AUG-2023 07:41, T-wave inversion in Anterior leads no longer present Confirmed by Kodi Alexander ([id number]) on 08/31/2023 8:49:46 AM Referred By: REFERRED SELF Confirmed By:Kodi Alexander
--- NOTE | 2023-08-31 10:53 | Hospitalist Progress Note ---
Date of Service August 31, 2023 Assessment & Plan (1) ST elevation [place] (STEMI): (2) S/P cardiac cath: (3) Coronary artery disease: (4) HTN (hypertension): (5) HLD (hyperlipidemia): (6) Hypothyroid: Plan Patient is a 68 y/o M with PMHx significant for CAD s/p CABG x 4 in 12/2021 at [facility] [place], post op aortic dissection s/p repair, HTN, HLD, hypothyroidism admitted with STEMI. ST elevation GA (STEMI): S/P cardiac cath: Coronary artery disease: On admission, EKG noted ST elevation hs-trop elevated at 1041, peaked at 31,000 s/p cardiac cath on 08/29, stent placement in LAD Monitored post procedure in the ICU On DAPT- aspirin and Brilinta On statin, BB, REGINA/ARB Today he is doing well denying symptoms and reports overall improvement. Vertigo may be a symptom related to his cardiac history especially given abnormality seen on carotid angiogram evaluation in April. Specifically he had a neck CTA on 04/25 in response to stroke symptoms. This revealed no hemodynamically significant stenosis or occlusion but there was a prominent narrowing of the basilar artery above the takeoff of the anterior inferior cerebellar arteries that was redemonstrated, there was multifocal arterial beading which could be seen in fibromuscular dysplasia and there was a linear filling defect in the left distal internal carotid artery that was redemonstrated favoring a vascular kink rather than a true intimal flap. There was atherosclerotic disease of the carotid bulbs noted with approximately 40% narrowing bilaterally. 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 A repeat carotid Doppler study today reveals no significant stenosis in the right or left carotid arteries with antegrade flow in the vertebral arteries. He is improving. Continue medical management. HTN (hypertension) chronic,slightly elevated into the 150s today. Continue current therapies. Vertigo intermittent for last 6 months, possibly related to complications of prior CABG. He reports no improvement with PT for Michelle salcedo as outpatient. Neck CTA as above with carotid us unremarkable today. Cont to monitor and provide ongoing treatment. He is improving. HLD (hyperlipidemia) chronic, stable. Continue statin Hypothyroidism chronic, stable. Continue levothyroxine DVT prophylaxis: SCDs/Lovenox Diet: Dispo: d/c once medically stable per Cards, likely in the next couple of days. I spent a total [id number] coordinating, documenting, and providing care for this patient excluding time spent in the performance of separately billed services DO [facility] Hospitalist Admission and Anticipated Discharge Date Admission Date: August 29, 2023 Subjective 68-year-old man with complex cardiac history presents with STEMI. It has been 2 days since he arrived and had stent placement. He is improving ever so slightly and is tolerating more food. He denies any chest pain or shortness of breath. He denies significant vertigo today but had some questions about if that may be related to what is going on with his heart. Discussed with cardiology that we will reevaluate his carotid vasculature to investigate that further. He is otherwise doing well and denies any problems with his femoral access site or radial access sites. Physical Exam Physical Exam: CONSTITUTIONAL: WNWD, vitals as above, generally well-appearing, NAD EYES: normal conjunctivae, no scleral icterus ENT: external ear and nose normal, MMM NECK: trachea midline RESPIRATORY: clear to auscultation bilaterally, no crackles, rales or wheezes, normal respiratory effort CARDIOVASCULAR: regular rate and rhythm, S1 and 2 heard without murmurs, gallops or rubs, no JVD, no peripheral edema, no carotid bruits CHEST: inspection of chest was normal GASTROINTESTINAL: soft, nontender, ND, no guarding MUSCULOSKELETAL: strength 5/5 throughout, head is normocephalic and atraumatic, SKIN: warm and dry, NEUROLOGIC: CN 2-12 grossly intact, no sensory deficit, normal cognition, normal speech, no tremor PSYCHIATRIC: alert cooperative and oriented to person, place and time. Euthymic mood, makes good eye contact, language grossly intact, recent and remote memory grossly intact. Results & Data Results & Data Vital Signs (Past 12 Hours) Vital Signs Temp Pulse Pulse Resp BP Pulse Ox O2 Del Method 08/31/23 08:43 36.8 C 71 16 154/80 H 97 Room Air 08/31/23 03:25 36.4 C L 71 16 160/96 H 97 Room Air 08/30/23 23:03 36.8 C 69 16 136/84 98 Room Air 08/30/23 23:02 64 Laboratory Results Short CBC 08/30/23 Range/Units 16:07 WBC 10.49 (4.8-10.8) K/ul Hgb 13.6 L (14.0-18.0) g/dl Hct 39.8 L (42.0-52.0) % Plt Count 202 (130-400) K/uL [facility] 08/31/23 06:00 Sodium 138 Potassium 3.5 Chloride 109 H Carbon Dioxide 24 BUN 9 Creatinine 0.83 Glucose 99 Calcium 8.5 L Medications Administered Current Inpatient Medications Acetaminophen (Acetaminophen 325 Mg Tab) 650 mg PO Q4H PRN PRN Reason: Headache or Pain Stop: 09/28/23 17:47 Last Admin: 08/29/23 23:34 Dose: 650 mg Aspirin (Aspirin 81 Mg Ectab) 81 mg PO [facility] Stop: 09/29/23 08:59 Last Admin: 08/31/23 08:09 Dose: 81 mg Atorvastatin Calcium (Atorvastatin 40 Mg Tab) 40 mg PO [facility] Stop: 09/29/23 08:59 Last Admin: 08/31/23 08:09 Dose: 40 mg Atropine Sulfate (Atropine Sulfate 0.1 Mg/Ml 10ml Syr) 0.5 mg IV UD PRN PRN Reason: bradycardia/hypotension Stop: 09/28/23 16:08 Acetaminophen (Ofirmev) 1,000 mg in 100 mls @ 400 mls/hr IV Q8H PRN PRN Reason: Headache or Pain Stop: 09/02/23 14:27 Last Infusion: 08/30/23 14:53 Dose: Infused Pantoprazole Sodium 40 mg/ (Syringe) 10 mls @ 5 mls/min IV DAILY@1100 [facility] Stop: 09/29/23 15:14 Last Admin: 08/30/23 15:24 Dose: 5 mls/min Levothyroxine Sodium (Levothyroxine Sodium 50 Mcg Tablet) [facility] Stop: 09/29/23 06:29 Last Admin: 08/31/23 07:07 Dose: 50 mcg Lisinopril (Lisinopril 40 Mg Tab) 40 mg PO [facility] Stop: 09/30/23 08:59 Metoclopramide HCl (Metoclopramide Hcl Inj 5 Mg/Ml 2 Ml Vial) 10 mg IV Q6H PRN PRN Reason: Nausea Stop: 09/29/23 14:26 Last Admin: 08/30/23 14:35 Dose: 10 mg Metoprolol Succinate (Metoprolol Succ 50mg Ext Rel Tab) 150 mg PO QAM [facility] Stop: 09/29/23 08:59 Last Admin: 08/31/23 08:09 Dose: 150 mg Ondansetron HCl (Ondansetron Inj 2 Mg/Ml 2 Ml Vial) 4 mg IV Q6H PRN PRN Reason: Nausea And Vomiting Stop: 09/28/23 16:08 Last Admin: 08/30/23 07:35 Dose: 4 mg Ticagrelor (Ticagrelor 90 Mg Tab) 90 mg PO BID [facility] Stop: 09/29/23 00:00 Last Admin: 08/31/23 08:12 Dose: 90 mg (1) ST elevation [place] (STEMI) Involved coronary artery: unspecified coronary artery Qualified Code(s): I21.3 - ST elevation (STEMI) myocardial infarction of unspecified site
[2023-08-31] MEDS: lisinopril 40 MG TAB PO SCH (11:34)
--- NOTE | 2023-08-31 11:47 | Cardiology Progress Note ---
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 Dissection intervened with surgical aortic valve resuspension, root and stent grafting of the ascending aorta and arch and proximal descending aorta, left carotid. Previously chronic stable ischemic heart disease with recent high workload tolerance. Patient presented with acute onset chest pain yesterday with elevated ST segments consistent with acute myocardial infarction, elevated troponin Cardiac catheterization demonstrated severe galena vessel disease with occlusion of all grafts Coronary intervention proximal left anterior descending performed Patient hemodynamically stable postoperatively. Has had substantial rise in troponins however overall LV systolic function appears preserved on echocardiogram this morning Plan: Dual antiplatelet therapy as ordered. Carotid duplex to be ordered due to symptoms of lightheadedness/vertigo Maintain telemetry with increased activity and heart Continue current dosing of metoprolol succinate, lisinopril at 40 mg/day. Consider additional calcium channel karen versus nitrates for hypertension control depending on course Will follow in hospital given significant rise in troponin Admission and Anticipated Discharge Date Admission Date: August 29, 2023 Subjective Patient seen and examined, chart, medications, telemetry reviewed. Patient feels improved in comparison to prior day. Nausea has resolved. Minimal headache. No chest pain or significant dyspnea no edema. Access sites healing. No arrhythmias on telemetry Review of Systems Review of Systems: All systems reviewed & are unremarkable except as noted in Subjective Physical Exam Constitutional: WD/WN, vitals as above no acute distress Eyes: PERRL, conjunctivae normal, anicteric sclerae ENMT: external ear and nose normal, oropharynx normal Neck: trachea midline, no thyromegaly Respiratory: normal respiratory effort, lungs clear to auscultation Cardiovascular: RRR, no murmur, no edema Vessels: femoral pulses present (Right femoral access site intact without hematoma or bruit) and radial pulses present (Left radial access site healing no audible bruit) Chest (Breasts): normal inspection/palpation of breasts Gastrointestinal (Abdomen): normal bowel sounds, soft, nontender, no hepatosplenomegaly Musculoskeletal: no cyanosis or clubbing, extremities motor strength 5/5 Results & Data Vital Signs (Past 12 Hours) Vital Signs Temp Pulse Resp BP Pulse Ox O2 Del Method 08/31/23 08:43 36.8 C 71 16 154/80 H 97 Room Air 08/31/23 03:25 36.4 C L 71 16 160/96 H 97 Room Air Laboratory Results Laboratory Results - last 24 hr 08/30/23 08/30/23 08/31/23 12:00 16:07 06:00 WBC 10.49 RBC 4.66 L Hgb 13.6 L Hct 39.8 L MCV 85.4 MCH 29.2 MCHC 34.2 RDW Std Deviation 39.0 RDW Coeff of Sarmad 12.6 Plt Count 202 MPV 9.8 Immature Gran % (Auto) 0.6 Neut % (Auto) 79.8 Lymph % (Auto) 7.7 [place] % (Auto) 11.6 Eos % (Auto) 0.2 Baso % (Auto) 0.1 Neut # (Auto) 8.37 H Lymph # (Auto) 0.81 L [place] # (Auto) 1.22 H Eos # (Auto) 0.02 Baso # (Auto) 0.01 Immature Gran # (Auto) 0.06 Sodium 138 Potassium 3.5 Chloride 109 H Carbon Dioxide 24 Anion Gap 5 BUN 9 Creatinine 0.83 Est Cr Clr Drug Dosing 90.7 Est GFR ( Amer) 104.8 Est GFR (Non-Af Amer) 90.4 BUN/Creatinine Ratio 10.8 Glucose 99 Calcium 8.5 L Troponin I High Sens 79288.6 H* (1) ST elevation GA (STEMI) Involved coronary artery: unspecified coronary artery Qualified Code(s): I21.3 - ST elevation (STEMI) myocardial infarction of unspecified site
[2023-08-31] MEDS: PANTOprazole 40 MG in SYRINGE 0 ML IV SCH (12:42)
--- NOTE | 2023-08-31 13:12 | Ultrasound Report ---
ULTRASOUND OF THE CAROTID ARTERIES CLINICAL HISTORY: Elevated troponin levels. Vertigo. Known aortic dissection. COMPARISON STUDY: CT angiogram of the neck dated 04/25/2023. TECHNIQUE: Real-time, grayscale, and color Doppler sonography of the carotid arteries is performed. I mages are reviewed in the transverse and longitudinal planes. FINDINGS: The carotid arteries are patent bilaterally and demonstrate antegrade flow. There is mild atheroscler otic plaque seen in the carotid bulbs. Tortuosity and irregularity of the proximal left internal morales tid artery is similar to previous. Normal doppler arterial waveforms are seen throughout. Velocity me asurements are listed below. Common carotid peak systolic velocity (cm/sec): RIGHT: 60 LEFT: 109 ICA proximal peak systolic velocity (cm/sec): RIGHT: 58 LEFT: 74 ICA mid peak systolic velocity (cm/sec): RIGHT: 49 LEFT: 92 ICA distal peak systolic velocity (cm/sec): RIGHT: 83 LEFT: 60 ICA/CC peak systolic ratio: RIGHT: 1.4 LEFT: 1.2 Antegrade flow was shown in the vertebral arteries. The external carotid arteries are patent. IMPRESSION: 1. There is no sonographic evidence of hemodynamically significant stenosis in the right or left morales tid arterial system. 2. Antegrade flow is shown in the vertebral arteries. ACT 112: Negative or not required by law. Electronically signed by: Charles Melendrez M.D. 08/31/2023 1:10 PM
[2023-08-31 16:12] LABS: Basophils # (auto) 0.02 K/uL (0.00-0.20); Basophils % (auto) 0.2 %; Eosinophils # (auto) 0.09 K/uL (0.00-0.50); Eosinophils % (auto) 1.1 %; Hemoglobin 13.4 g/dl (14.0-18.0); Immature Granulocytes # (auto) 0.03 K/uL (0.01-0.20); Immature Granulocytes % (auto) 0.4 %; Lymphocytes # (auto) 1.01 K/uL (1.20-3.40); Lymphocytes % (auto) 11.9 %; Mean Corpuscular Hemoglobin 29.5 pg (25.0-34.0); Mean Corpuscular Hgb Conc 35.3 g/dL (32.0-36.0); Mean Corpuscular Volume 83.7 fL (80.0-100.0); Mean Platelet Volume 10.1 fL (9.4-12.4); Monocytes % (auto) 14.2 %; Neutrophils # (auto) 6.13 K/uL (1.40-6.50); Neutrophils % (auto) 72.2 %; Platelet Count 182 K/uL (130-400); RDW Coefficient of Variation 12.7 % (11.5-14.5); RDW Standard Deviation 38.6 fL (36.4-46.3); Red Blood Count 4.54 M/uL (4.70-6.10); White Blood Count 8.48 K/ul (4.8-10.8)
[2023-09-01] MEDS: LEVOTHYROXINE SODIUM 50 MCG TABLET PO SCH (05:52)
[2023-09-01 06:49] LABS: BUN Creatinine Ratio 11.2 (10-20); Calcium 8.7 mg/dl (8.6-10.3); Creatinine Clr Calc Pharmacy 76.8 ml/min; Est GFR (African American) 91.4 ml/min; Est GFR (Non-African American) 78.9 ml/min; Potassium 3.4 mmol/L (3.5-5.1)
[2023-09-01] MEDS: ASPIRIN 81 MG ECTAB PO SCH (08:20)
[2023-09-01] MEDS: lisinopril 40 MG TAB PO SCH (08:20)
[2023-09-01] MEDS: ATORVASTATIN 40 MG TAB PO SCH (08:20)
[2023-09-01] MEDS: PANTOprazole 40 MG in SYRINGE 0 ML IV SCH (08:21)
[2023-09-01] MEDS: METOPROLOL SUCC 50MG EXT REL TAB PO SCH (08:21)
[2023-09-01] MEDS: TICAGRELOR 90 MG TAB PO SCH (08:40)
[2023-09-01] MEDS ORDERED: POTASSIUM CHLORIDE CRTAB 20 MEQ TABCR PO STA (09:38)
--- NOTE | 2023-09-01 09:38 | Hospitalist Progress Note ---
Date of Service September 01, 2023 Assessment & Plan (1) ST elevation CT (STEMI): (2) S/P cardiac cath: (3) Coronary artery disease: (4) HTN (hypertension): (5) HLD (hyperlipidemia): (6) Hypothyroid: Plan Patient is a 68 y/o M with PMHx significant for CAD s/p CAB[place] x [place] [facility] [place] [facility] [place] aortic dissection s/p repair, HTN, HLD, hypothyroidism admitted with STEMI. ST elevation CT (STEMI): S/P cardiac cath: Coronary artery disease: On admission, EKG noted ST elevation hs-trop elevated at 1041, peaked at 31,000 s/p cardiac cath on 08/29, stent placement in LAD Monitored post procedure in the ICU On DAPT- aspirin and Brilinta On statin, BB, REGINA/ARB HTN (hypertension) chronic,slightly elevated into the 150s today. Continue current therapies. Vertigo intermittent for last 6 months, possibly related to complications of prior CABG. He reports no improvement with PT for Michelle salcedo as outpatient. Vertigo may be a symptom related to his cardiac history especially given abnormality seen on carotid angiogram evaluation in April. Specifically he had a neck CTA on 04/25 in response to stroke symptoms. This revealed no hemodynamically significant stenosis or occlusion but there was a prominent narrowing of the basilar artery above the takeoff of the anterior inferior cerebellar arteries that was redemonstrated, there was multifocal arterial beading which could be seen in fibromuscular dysplasia and there was a linear filling defect in the left distal internal carotid artery that was redemonstrated favoring a vascular kink rather than a true intimal flap. There was atherosclerotic disease of the carotid bulbs noted with approximately 40% narrowing bilaterally. 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 A repeat carotid Doppler study today reveals no significant stenosis in the right or left carotid arteries with antegrade flow in the vertebral arteries. He is improving. Continue medical management for CAD HLD (hyperlipidemia) chronic, stable. Continue statin Hypothyroidism chronic, stable. Continue levothyroxine DVT prophylaxis: SCDs/Lovenox Diet: HH Dispo: d/c once medically stable per Cards Daylin [facility] Ad[facility] and Anticipated Discharge Date Admission Date: August 29, 2023 Subjective 68-year-old man with complex cardiac history presents with STEMI. It has been 3 days since he arrived and had stent placement. He reports that he did lift two heavy bags last week just 1-2 hours prior to the onset of symptoms of STEMI. He isn't sure if this may have contributed to some of his issues coming in. We discussed his vascular kink reading on CTA of the neck in April. We discussed that a repeat CTA of the neck is not ideal given the level of contrast he has had this admission so far. We discussed the results of the carotid ultrasound yesterday. We also discussed that if his vertigo symptoms were not improving, which they start currently are, that he may want to pursue additional vascular workup given his history of aneurysm. Had a slight bit of nausea this morning from breakfast but that is resolving. Overall he has been ambulating in the room and feeling better each day. Physical Exam Physical Exam: CONSTITUTIONAL: WNWD, vitals as above, generally well-appearing, NAD EYES: normal conjunctivae, no scleral icterus ENT: external ear and nose normal, MMM NECK: trachea midline RESPIRATORY: clear to auscultation bilaterally, no crackles, rales or wheezes, normal respiratory effort CARDIOVASCULAR: regular rate and rhythm, S1 and 2 heard without murmurs, gallop s or rubs, no JVD, no peripheral edema CHEST: inspection of chest was normal GASTROINTESTINAL: soft, nontender, ND, no guarding MUSCULOSKELETAL: strength 5/5 throughout, head is normocephalic and atraumatic, SKIN: warm and dry, NEUROLOGIC: CN 2-12 grossly intact, no sensory deficit, normal cognition, normal speech, no tremor PSYCHIATRIC: alert cooperative and oriented to person, place and time. Euthymic mood, makes good eye contact, language grossly intact, recent and remote memory grossly intact. Results & Data Results & Data Vital Signs (Past 12 Hours) Vital Signs Temp Pulse Pulse Resp BP Pulse Ox O2 Del Method 09/01/23 08:53 36.7 C 70 19 154/93 H 96 Room Air 09/01/23 03:06 36.8 C 65 16 158/93 H 96 Room Air 08/31/23 23:09 36.8 C 68 17 148/95 H 98 Room Air 08/31/23 22:40 63 Laboratory Results Short CBC 08/31/23 Range/Units 15:57 WBC 8.48 (4.8-10.8) K/ul Hgb 13.4 L (14.0-18.0) g/dl Hct 38.0 L (42.0-52.0) % Plt Count 182 (130-400) K/uL [facility] 09/01/23 06:12 Sodium 139 Potassium 3.4 L Chloride 107 Carbon Dioxide 26 BUN 11 Creatinine 0.98 Glucose 97 Calcium 8.7 Medications Administered Current Inpatient Medications Acetaminophen (Acetaminophen 325 Mg Tab) 650 mg PO Q4H PRN PRN Reason: Headache or Pain Stop: 09/28/23 17:47 Last Admin: 08/29/23 23:34 Dose: 650 mg Aspirin (Aspirin 81 Mg Ectab) 81 mg PO [facility] Stop: 09/29/23 08:59 Last Admin: 09/01/23 08:20 Dose: 81 mg Atorvastatin Calcium (Atorvastatin 40 Mg Tab) 40 mg PO [facility] Stop: 09/29/23 08:59 Last Admin: 09/01/23 08:20 Dose: 40 mg Atropine Sulfate (Atropine Sulfate 0.1 Mg/Ml 10ml Syr) 0.5 mg IV UD PRN PRN Reason: bradycardia/hypotension Stop: 09/28/23 16:08 Acetaminophen (Ofirmev) 1,000 mg in 100 mls @ 400 mls/hr IV Q8H PRN PRN Reason: Headache or Pain Stop: 09/02/23 14:27 Last Infusion: 08/30/23 14:53 Dose: Infused Pantoprazole Sodium 40 mg/ (Syringe) 10 mls @ 5 mls/min IV DAILY@1100 [facility] Stop: 09/29/23 15:14 Last Admin: 09/01/23 08:21 Dose: 5 mls/min Levothyroxine Sodium (Levothyroxine Sodium 50 Mcg Tablet) [facility]: 09/29/23 06:29 Last Admin: 09/01/23 05:52 Dose: 50 mcg Lisinopril (Lisinopril 40 Mg Tab) 40 mg PO [facility] Stop: 09/30/23 08:59 Last Admin: 09/01/23 08:20 Dose: 40 mg Metoclopramide HCl (Metoclopramide Hcl Inj 5 Mg/Ml 2 Ml Vial) 10 mg IV Q6H PRN PRN Reason: Nausea Stop: 09/29/23 14:26 Last Admin: 08/30/23 14:35 Dose: 10 mg Metoprolol Succinate (Metoprolol Succ 50mg Ext Rel Tab) 150 mg PO QAM [facility] Stop: 09/29/23 08:59 Last Admin: 09/01/23 08:21 Dose: 150 mg Ondansetron HCl (Ondansetron Inj 2 Mg/Ml 2 Ml Vial) 4 mg IV Q6H PRN PRN Reason: Nausea And Vomiting Stop: 09/28/23 16:08 Last Admin: 08/30/23 07:35 Dose: 4 mg Ticagrelor (Ticagrelor 90 Mg Tab) 90 mg PO BID [facility] Stop: 09/29/23 00:00 Last Admin: 09/01/23 08:40 Dose: 90 mg (1) ST elevation CT (STEMI) Involved coronary artery: unspecified coronary artery Qualified Code(s): I21.3 - ST elevation (STEMI) myocardial infarction of unspecified site
[2023-09-01] MEDS ORDERED: amLODIPine BESYLATE 5 MG TAB PO SCH (11:15)
--- NOTE | 2023-09-01 11:24 | Cardiology Progress Note ---
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 Dissection intervened with surgical aortic valve resuspension, root and stent grafting of the ascending aorta and arch and proximal descending aorta, left carotid. Previously chronic stable ischemic heart disease with recent high workload tolerance. Patient presented with acute onset chest pain yesterday with elevated ST segments consistent with acute myocardial infarction, elevated troponin Cardiac catheterization demonstrated severe [place] vessel disease with occlusion of all grafts Coronary intervention proximal left anterior descending performed Patient hemodynamically stable postoperatively. Has had substantial rise in troponins however overall LV systolic function appears preserved on echocardiogram this morning Plan: Dual antiplatelet therapy as ordered. Carotid duplex to be ordered due to symptoms of lightheadedness/vertigo Maintain telemetry with increased activity and heart Continue current dosing of metoprolol succinate, lisinopril at 40 mg/day. Consider additional calcium channel karen versus nitrates for hypertension control depending on course Will follow in hospital given significant rise in troponin 09/01/2023 Clinical stability still present with blood pressure mildly elevated. Recommendations: Increase activity and Add amlodipine to current medical regimen for blood pressure control Continue prehospital metoprolol succinate, lisinopril, rosuvastatin Dual antiplatelet therapy preferably 1 year Would continue Protonix given nausea Cardiac rehab referral Follow-up cardiology 2 to 3 weeks Admission and Anticipated Discharge Date Admission Date: August 29, 2023 Subjective Patient seen and examined, chart, medications, telemetry reviewed. No chest pain or shortness of breath. Mild nausea after orange juice this morning. No tachypalpitations syncope or near syncope. Telemetry without arrhythmia. Blood pressures trending slightly higher still. Review of Systems Review of Systems: All systems reviewed & are unremarkable except as noted in Subjective Physical Exam Constitutional: WD/WN, vitals as above no acute distress Eyes: PERRL, conjunctivae normal, anicteric sclerae ENMT: external ear and nose normal, oropharynx normal Neck: trachea midline, no thyromegaly Respiratory: normal respiratory effort, lungs clear to auscultation Cardiovascular: RRR, no murmur, no edema Vessels: femoral pulses present (Right femoral access site intact without hematoma or bruit) and radial pulses present (Left radial access site healing no audible bruit) Chest (Breasts): normal inspection/palpation of breasts Gastrointestinal (Abdomen): normal bowel sounds, soft, nontender, no hepatosplenomegaly Musculoskeletal: no cyanosis or clubbing, extremities motor strength 5/5 Results & Data Vital Signs (Past 12 Hours) Vital Signs Temp Pulse Pulse Resp BP BP Pulse Ox 09/01/23 11:01 145/97 H 09/01/23 10:57 36.5 C 70 19 160/96 H 97 09/01/23 08:53 36.7 C 70 19 154/93 H 96 09/01/23 08:00 60 09/01/23 03:06 36.8 C 65 16 158/93 H 96 O2 Del Method 09/01/23 11:01 09/01/23 10:57 Room Air 09/01/23 08:53 Room Air 09/01/23 08:00 09/01/23 03:06 Room Air Laboratory Results Laboratory Results - last 24 hr 08/31/23 09/01/23 15:57 06:12 WBC 8.48 RBC 4.54 L Hgb 13.4 L Hct 38.0 L MCV 83.7 MCH 29.5 MCHC 35.3 RDW Std Deviation 38.6 RDW Coeff of Sarmad 12.7 Plt Count 182 MPV 10.1 Immature Gran % (Auto) 0.4 Neut % (Auto) 72.2 Lymph % (Auto) 11.9 [place] % (Auto) 14.2 Eos % (Auto) 1.1 Baso % (Auto) 0.2 Neut # (Auto) 6.13 Lymph # (Auto) 1.01 L [place] # (Auto) 1.20 H Eos # (Auto) 0.09 Baso # (Auto) 0.02 Immature Gran # (Auto) 0.03 Sodium 139 Potassium 3.4 L Chloride 107 Carbon Dioxide 26 Anion Gap 6 BUN 11 Creatinine 0.98 Est Cr Clr Drug Dosing 76.8 Est GFR ( Amer) 91.4 Est GFR (Non-Af Amer) 78.9 BUN/Creatinine Ratio 11.2 Glucose 97 Calcium 8.7 (1) ST elevation [place] (STEMI) Involved coronary artery: unspecified coronary artery Qualified Code(s): I21.3 - ST elevation (STEMI) myocardial infarction of unspecified site
--- NOTE | 2023-09-01 14:29 | Discharge Summary ---
Discharge Summary Date of Service September 01, 2023 Notes For Next Care Provider followup on vertigo symptoms. if still present, please consider vascular cause, poss repeat angiogram of neck vessels Medication Changes From Visit New [place] New amlodipine Admission HPI Per Admitting Provider Patient is 68 y/o M with PMH CAD s/p CABG x 4 in 12/[address] [facility], post op aortic dissection s/p repair, HTN, HLD, hypothyroidism presented to ER with c/o chest pain/neck pain started approximately 10:00am today. In ER was found to have EKG consistent with STEMI and initial troponin was 55. 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 Patient seen in ICU. Post procedure complains of some nausea. Feels the chest/neck discomfort has decreased. Reports intermittent vertigo that has been following with PCP and is scheduled to see ENT in future. Denies fever/chills, diaphoresis, V/D/C, GONZALES, syncope, vision changes, SOB, orthopnea, palpitations, cough, sore throat, rhinorrhea, abdominal pain, paresthesias, weakness, extremity weakness, extremity edema, rashes, urinary symptoms. Admission Exam Per Admitting Provider Constitutional: WD/WN, vitals as above no acute distress Eyes: PERRL, conjunctivae normal, anicteric sclerae ENMT: external ear and nose normal, oropharynx normal Neck: trachea midline, no thyromegaly Respiratory: normal respiratory effort, lungs clear to auscultation Cardiovascular: RRR, no murmur, no edema Vessels: femoral pulses present (Right femoral access site intact without hematoma or bruit) and radial pulses present (Left radial access site healing no audible bruit) Chest (Breasts): normal inspection/palpation of breasts Gastrointestinal (Abdomen): normal bowel sounds, soft, nontender, no hepatosplenomegaly Musculoskeletal: no cyanosis or clubbing, extremities motor strength 5/5 Principal Dx & Hospital Course #1 = Principal Diagnosis (1) ST elevation ME (STEMI): (2) S/P cardiac cath: (3) Coronary artery disease: (4) HTN (hypertension): (5) HLD (hyperlipidemia): (6) Hypothyroid: Plan Patient is a 68 y/o M with PMHx significant for CAD s/p CABG x 4 in 12/2021 at [facility], post op aortic dissection s/p repair, HTN, HLD, hypothyroidism admitted with STEMI. ST elevation ME (STEMI): S/P cardiac cath: Coronary artery disease: On admission, EKG noted ST elevation s/p cardiac cath on 08/29, stent placement in LAD hs-trop elevated at 1041, peaked at 31,000 Monitored post procedure in the ICU, then PCU for another couple of days. On DAPT- aspirin and Brilinta On statin, BB, REGINA/ARB Cardiac rehab recommended at discharge. Close follwoup with [facility] in 2-3 weeks. HTN (hypertension) chronic,slightly elevated. Amlodipine added to chronic therapy. Vertigo intermittent for last 6 months, possibly related to complications of prior CABG. He reports no improvement with PT for Michelle salcedo as outpatient. Vertigo may be a symptom related to his cardiac history especially given abnormality seen on carotid angiogram evaluation in April. Specifically he had a neck CTA on 04/25 in response to stroke symptoms. This revealed no hemodynamically significant stenosis or occlusion but there was a prominent narrowing of the basilar artery above the takeoff of the anterior inferior cerebellar arteries that was redemonstrated, there was multifocal arterial beading which could be seen in fibromuscular dysplasia and there was a linear filling defect in the left distal internal carotid artery that was redemonstrated favoring a vascular kink rather than a true intimal flap. There was atherosclerotic disease of the carotid bulbs noted with approximately 40% narrowing bilaterally. 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 A repeat carotid Doppler study today reveals no significant stenosis in the right or left carotid arteries with antegrade flow in the vertebral arteries. He is improving. Continue medical management for CAD HLD (hyperlipidemia) chronic, stable. Continue statin Hypothyroidism chronic, stable. Continue levothyroxine At time of discharge he was hemodynamically stable and afebrile and tolerating p.o. He was mentating and ambulating baseline and sent home in stable condition with close primary care follow-up recommended. Discharge Exam CONSTITUTIONAL: WNWD, vitals as above, generally well-appearing, NAD EYES: normal conjunctivae, no scleral icterus ENT: external ear and nose normal, MMM NECK: trachea midline RESPIRATORY: clear to auscultation bilaterally, no crackles, rales or wheezes, normal respiratory effort CARDIOVASCULAR: regular rate and rhythm, S1 and 2 heard without murmurs, gallops or rubs, no JVD, no peripheral edema CHEST: inspection of chest was normal GASTROINTESTINAL: soft, nontender, ND, no guarding MUSCULOSKELETAL: strength 5/5 throughout, head is normocephalic and atraumatic, SKIN: warm and dry, NEUROLOGIC: CN 2-12 grossly intact, no sensory deficit, normal cognition, normal speech, no tremor PSYCHIATRIC: alert cooperative and oriented to person, place and time. Euthymic mood, makes good eye contact, language grossly intact, recent and remote memory grossly intact. Updated Medication List Medication Instructions Recorded Confirmed Type levothyroxine 50 mcg tablet 50 mcg PO DAILYBB 01/13/22 08/29/23 History aspirin 81 mg tablet,delayed 81 mg PO QAM #30 tabs 01/14/22 08/29/23 Rx release rosuvastatin 20 mg tablet 20 mg PO QAM 02/01/22 08/29/23 History meclizine 25 mg tablet 25 mg PO TID PRN dizziness #30 tabs 04/25/23 08/29/23 Rx lisinopril 40 mg tablet 40 mg PO DAILY 08/29/23 08/29/23 History metoprolol succinate 50 mg 150 mg PO DAILY 08/29/23 08/29/23 History tablet,extended release 24 hr amlodipine 5 mg tablet (Norvasc) 5 mg PO QAM #30 tabs 09/01/23 Rx ticagrelor 90 mg tablet (Brilinta) 90 mg PO BID #60 tabs 09/01/23 Rx Hospital Stay Data Consultations 08/29/23 15:05 Consult Agricultural Chemist Routine 08/29/23 18:05 Consult Cardiology Routine Procedures Performed Operation Date: 08/29/23 13:45 Actual Procedures p Cineradiography w/Routine Exam - Almas Almazan MD, PhD s Ultrasound Vascular Access - Almas Almazan MD, PhD p Drug Eluting Stent SGl Vessel - Almas Almazan MD, PhD s Cath, Cors with Grafts (no LV) - Almas Almazan MD, PhD s Angio Subclavian Unilateral - Almas Almazan MD, PhD s Placement Art Occlusive Device - Almas Almazan MD, PhD Diagnostic Imagining Performed 08/29/23 13:27 CL Cath Imgs for PACS use only Stat 08/31/23 10:51 US carotid doppler BI Routine Pending Results Patient Have Any Pending Studies at Discharge: No Discharge Instructions Given to Patient (Per Discharging Provider) Please take all medications as instructed on discharge as below. Increase your activity as tolerated. A medication called amlodipine will be added to your medical regimen for additional blood pressure control. Please continue prehospital metoprolol succinate, lisinopril, rosuvastatin, aspirin, Brilinta. Continue Protonix given nausea. Reevaluate the need for this with your primary care doctor on follow-up within a week. A cardiac rehab referral has been placed for you and a follow-up with cardiology as recommended in 2 to 3 weeks. Someone will contact you with the appointment date and time. It was a pleasure taking care of you! Please call if you have any questions or problems. You can reach a [facility] hospitalist on duty at [facility] 24 hours a day by calling [phone]. Take care of yourself. Daylin Marie, [facility] Hospitalist Total Time Total Time Spent Total Time Spent (In Minutes): 60
[2023-09-01] MEDS ORDERED: TICAGRELOR 90 MG TAB PO SCH (15:15)
[2023-09-02] MEDS ORDERED: ROSUVASTATIN CALCIUM 20 MG TAB PO SCH (09:00)
== END 2023-09-01 16:39 | disposition home or self-care (01) | DRG 322 ==
LOC: ED 13:11 → CC 13:54 → 1E 13:54 → SUATTDRO 15:03 → 1E 15:03 → 2E 08-30 15:21
PROC: CLB.CCG (2023-08-29 13:45)